=== PATIENT | female | born 1990 | race Caucasian/White ===

== ENCOUNTER 2016-02-09 21:24 | Inpatient (IN) | payer BC, MEDICAID, OTHER ==
[~2016-02-09 21:24] MED LIST: ABIL2TAB2 PO; NO HOME MEDICATIONS
[2016-02-09 21:55] LABS: MEAN CORPUSCULAR HEMOGLOBIN 26.1 pg (27.0-33.0); MEAN CORPUSCULAR HGB CONC 31.4 g/dl (32.0-36.5); MEAN CORPUSCULAR VOLUME 83.1 fl (80.0-96.0); WHITE BLOOD COUNT 5.8 K/mm3 (4.0-10.0)
[2016-02-09 22:06] LABS: AMPHETAMINES LEVEL URINE NEGATIVE (NEGATIVE); BENZODIAZEPINES URINE NEGATIVE (NEGATIVE); COCAINE METABOLITE URINE NEGATIVE (NEGATIVE); CONTROL LINE INT CTR LINE PRESENT; METHADONE URINE NEGATIVE (NEGATIVE); OPIATES URINE NEGATIVE (NEGATIVE); TRICYCLIC ANTIDEPRESS URINE NEGATIVE (NEGATIVE)
[2016-02-09 22:30] LABS: ALBUMIN 4.3 GM/DL (3.2-5.2); ALBUMIN/GLOBULIN RATIO 1.34 (1.00-1.93); ALKALINE PHOSPHATASE 90 U/L (45-117); ALT/SGPT 24 U/L (12-78); ANION GAP 10 MEQ/L (8-16); AST/SGOT 21 U/L (15-37); BILIRUBIN,DIRECT < 0.1 MG/DL (0.0-0.2); BILIRUBIN,TOTAL 0.2 MG/DL (0.2-1.0); BLOOD UREA NITROGEN 7 MG/DL (7-18); CALCIUM LEVEL 8.7 MG/DL (8.5-10.1); CARBON DIOXIDE LEVEL 26 MEQ/L (21-32); CHLORIDE LEVEL 107 MEQ/L (98-107); CREATININE FOR GFR 0.57 MG/DL (0.55-1.02); GLOMERULAR FILTRATION RATE > 60.0 (>60); GLUCOSE, FASTING 93 MG/DL (70-105); POTASSIUM SERUM 3.5 MEQ/L (3.5-5.1); SODIUM LEVEL 143 MEQ/L (136-145); TOTAL PROTEIN 7.5 GM/DL (6.4-8.2)
[2016-02-09] MEDS ORDERED: MOM 30ML SUSPENSION UDC PO PRN (22:45)
[2016-02-09] MEDS ORDERED: traZODone 50 MG TAB PO PRN (22:45)
[2016-02-09] MEDS ORDERED: MAALOX 30 ML SUSP *UDC PO PRN (22:45)
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
--- NOTE | 2016-02-09 23:08 | EDDOCDS ---
Physician Documentation [facility] Name: Renay Kerr Age: 25 yrs Sex: Female : 1990 Arrival Date: 02/09/2016 Time: 21:24 Bed [facility] MD: Disposition: 02/09/16 22:53 Hospitalization ordered by Félix Chavez for Inpatient Admission. Preliminary diagnosis is Schizophrenia. - Bed requested for Admit. - Status is Inpatient Admission. sls1 - Condition is Stable. - Problem is chronic. - Symptoms have worsened. Historical: - Allergies: No known drug Allergies; - Home Meds: 1. none - PMHx: Schizophrenia; - PSHx: none; - Social history: Smoking status: Patient states was never smoker of tobacco. No barriers to communication noted, The patient speaks fluent Syriac, Speaks appropriately for age. - Family history: Not pertinent. - : The pt / caregiver states he / she is not on anticoagulants. Home medication list is obtained from the patient. - Exposure Risk Screening:: None identified. Vital Signs: 02/08 21:33 BP 134 / 71; Pulse 113; Resp 18; Temp 99.1(T); Pulse Ox 99% ; Weight 58.97 kg / 130.01 mas lbs; Height 5 ft. 7 in. (170.18 cm); Pain 6/10; 23:05 BP 136 / 67; Pulse 106; Resp 18; Temp 98.1; Pulse Ox 98% ; Pain 6/10; mas 21:33 Body Mass Index 20.36 (58.97 kg, 170.18 cm) [facility] MDM: 21:29 Consult PFS/PSA/Therapist Rrt ordered. fg 21:29 Consult PFS/PSA/Therapist Rrt: Patient's case requires discussion with on-call fg Psychiatrist ordered. 21:29 PSA/PFS to call Nursing Dog Boarder, to enter patient data on [place] Safe Act if patient fg involuntarily admitted or transferred for SI or HI ordered. 21:29 Confirm accurate psychiatric medication list and times of last dosage ordered. fg 21:29 Detain Pt Until Medically/PFS Cleared ordered. fg 21:30 Acetaminophen Level Ordered. EDMS 21:30 Basic Metabolic Profile Ordered. EDMS 21:30 Complete Blood Count Ordered. EDMS 21:30 Drug Eval Toxicology ED Only Ordered. EDMS 21:30 Ethyl Alcohol (ethanol) Ordered. EDMS 21:30 Liver Profile Ordered. EDMS 21:30 Salicylate Level Ordered. EDMS 21:30 Thyroid Stimulating Hormone Ordered. EDMS 21:44 [facility] Payment Agreement was scanned into [employer] and attached to record. dm19 22:00 Consult PFS/PSA/Therapist Rrt complete. ml4 22:00 Consult PFS/PSA/Therapist Rrt: Patient's case requires discussion with on-call ml4 Psychiatrist complete. 22:00 PSA/PFS to call Nursing Dog Boarder, to enter patient data on [place] Safe Act if patient ml4 involuntarily admitted or transferred for SI or HI complete. 22:05 Financial registration complete. zo 22:49 Admit to IM: ordered. EDMS 22:49 REGULAR DIET ordered. EDMS 22:51 [facility] Legal paperwork was scanned into [employer] and attached to record. ml4 Signatures: Dispatcher [employer] EDMS Kaylee Kulkarni, PSA PSA ml4 Nayeil Christopher zo Shira Hudson RN RN sls1 Preston Wells RN RN Yady Porter MD MD fg McLear, Diane dm19 The chart was reviewed and I authenticate all verbal orders and agree with the evaluation and treatment provided.Attachments: 21:44 [facility] Payment Agreement [email or web address] MTDD
[2016-02-10 02:37] VITALS: BP 129/74
[2016-02-10 06:41] VITALS: BP 138/73
[2016-02-10 18:00] VITALS: BP 118/56
[2016-02-11 06:24] VITALS: BP 129/58
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
[2016-02-11] MEDS ORDERED: diphenhydrAMINE 50 MG CAP PO PRN (16:15)
[2016-02-11] MEDS ORDERED: LORazepam 2 MG TAB PO PRN (16:15)
[2016-02-11] MEDS ORDERED: HALOPERIDOL 5 MG TAB PO PRN (16:15)
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
[2016-02-11 16:25] LABS: CONTROL LINE HCG INT CTR LINE PRESENT
[2016-02-11 18:00] VITALS: BP 123/59
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
--- NOTE | 2016-02-12 00:08 | EDDOCDS ---
Physician Documentation [facility] Name: Renay Kerr Age: 25 yrs Sex: Female : 1990 Arrival Date: 02/09/2016 Time: 21:[address] [facility] MD: Disposition: 02/09/16 22:53 Hospitalization ordered by Félix Chavez for Inpatient Admission. Preliminary diagnosis is Schizophrenia. - Bed requested for Admit. - Status is Inpatient Admission. sls1 - Condition is Stable. - Problem is chronic. - Symptoms have worsened. Historical: - Allergies: No known drug Allergies; - Home Meds: 1. none - PMHx: Schizophrenia; - PSHx: none; - Social history: Smoking status: Patient states was never smoker of tobacco. No barriers to communication noted, The patient speaks fluent Slovak, Speaks appropriately for age. - Family history: Not pertinent. - : The pt / caregiver states he / she is not on anticoagulants. Home medication list is obtained from the patient. - Exposure Risk Screening:: None identified. Vital Signs: 02/08 21:33 BP 134 / 71; Pulse 113; Resp 18; Temp 99.1(T); Pulse Ox 99% ; Weight 58.97 kg / 130.01 mas lbs; Height 5 ft. 7 in. (170.18 cm); Pain 6/10; 23:05 BP 136 / 67; Pulse 106; Resp 18; Temp 98.1; Pulse Ox 98% ; Pain 6/10; mas 21:33 Body Mass Index 20.36 (58.97 kg, 170.18 cm) [facility] MDM: 21:29 Consult PFS/PSA/Lithographed Plate Inspector ordered. fg 21:29 Consult PFS/PSA/Lithographed Plate Inspector: Patient's case requires discussion with on-call fg Psychiatrist ordered. 21:29 PSA/PFS to call Nursing Hunter, to enter patient data on [place] Safe Act if patient fg involuntarily admitted or transferred for SI or HI ordered. 21:29 Confirm accurate psychiatric medication list and times of last dosage ordered. fg 21:29 Detain Pt Until Medically/PFS Cleared ordered. fg 21:30 Acetaminophen Level Ordered. EDMS 21:30 Basic Metabolic Profile Ordered. EDMS 21:30 Complete Blood Count Ordered. EDMS 21:30 Drug Eval Toxicology ED Only Ordered. EDMS 21:30 Ethyl Alcohol (ethanol) Ordered. EDMS 21:30 Liver Profile Ordered. EDMS 21:30 Salicylate Level Ordered. EDMS 21:30 Thyroid Stimulating Hormone Ordered. EDMS 21:44 [facility] Payment Agreement was scanned into [employer] and attached to record. dm19 22:00 Consult PFS/PSA/Lithographed Plate Inspector complete. ml4 22:00 Consult PFS/PSA/Lithographed Plate Inspector: Patient's case requires discussion with on-call ml4 Psychiatrist complete. 22:00 PSA/PFS to call Nursing Hunter, to enter patient data on [place] Safe Act if patient ml4 involuntarily admitted or transferred for SI or HI complete. 22:05 Financial registration complete. zo 22:49 Admit to IM: ordered. EDMS 22:49 REGULAR DIET ordered. EDMS 22:51 [facility] Legal paperwork was scanned into [employer] and attached to record. ml4 02/09 05:20 T-Sheet-- Draft Copy was scanned into [employer] and attached to record. hs2 Signatures: Dispatcher [employer] EDMS Kaylee Kulkarni, PSA PSA ml4 Nayeli Christopher Shannon, RN RN sls1 Preston Wells,RN RN Yady Potrer MD MD fg Stanton, Hillary, Reg Reg hs2 Kaia Barraza dm19 The chart was reviewed and I authenticate all verbal orders and agree with the evaluation and treatment provided.Attachments: 02/08 21:44 [facility] Payment Agreement dm19 02/09 05:20 T-Sheet-- Draft Copy hs2 Chart Complete MTDD
--- NOTE | 2016-02-12 00:08 | EDDOCDS ---
Physician Documentation [facility] Name: Renay Kerr Age: 25 yrs Sex: Female : 1990 Arrival Date: 02/09/2016 Time: 21:24 Bed [facility] MD: Disposition: 02/09/16 22:53 Hospitalization ordered by Félix Chavez for Inpatient Admission. Preliminary diagnosis is Schizophrenia. - Bed requested for Admit. - Status is Inpatient Admission. sls1 - Condition is Stable. - Problem is chronic. - Symptoms have worsened. Historical: - Allergies: No known drug Allergies; - Home Meds: 1. none - PMHx: Schizophrenia; - PSHx: none; - Social history: Smoking status: Patient states was never smoker of tobacco. No barriers to communication noted, The patient speaks fluent Turkmen, Speaks appropriately for age. - Family history: Not pertinent. - : The pt / caregiver states he / she is not on anticoagulants. Home medication list is obtained from the patient. - Exposure Risk Screening:: None identified. Vital Signs: 02/08 21:33 BP 134 / 71; Pulse 113; Resp 18; Temp 99.1(T); Pulse Ox 99% ; Weight 58.97 kg / 130.01 mas lbs; Height 5 ft. 7 in. (170.18 cm); Pain 6/10; 23:05 BP 136 / 67; Pulse 106; Resp 18; Temp 98.1; Pulse Ox 98% ; Pain 6/10; mas 21:33 Body Mass Index 20.36 (58.97 kg, 170.18 cm) [facility] MDM: 21:29 Consult PFS/PSA/Master Esthetician ordered. fg 21:29 Consult PFS/PSA/Master Esthetician: Patient's case requires discussion with on-call fg Psychiatrist ordered. 21:29 PSA/PFS to call Nursing Allocations Clerk, to enter patient data on [place] Safe [place] if patient fg involuntarily admitted or transferred for SI or HI ordered. 21:29 Confirm accurate psychiatric medication list and times of last dosage ordered. fg 21:29 Detain Pt Until Medically/PFS Cleared ordered. fg 21:30 Acetaminophen Level Ordered. EDMS 21:30 Basic Metabolic Profile Ordered. EDMS 21:30 Complete Blood Count Ordered. EDMS 21:30 Drug Eval Toxicology ED Only Ordered. EDMS 21:30 Ethyl Alcohol (ethanol) Ordered. EDMS 21:30 Liver Profile Ordered. EDMS 21:30 Salicylate Level Ordered. EDMS 21:30 Thyroid Stimulating Hormone Ordered. EDMS 21:44 [facility] Payment Agreement was scanned into [employer] and attached to record. [id number] 22:00 Consult PFS/PSA/Master Esthetician complete. ml4 22:00 Consult PFS/PSA/Master Esthetician: Patient's case requires discussion with on-call ml4 Psychiatrist complete. 22:00 PSA/PFS to call Nursing Allocations Clerk, to enter patient data [place] Safe [place] if patient ml4 involuntarily admitted or transferred for SI or HI complete. 22:05 Financial registration complete. zo 22:49 Admit to IM: ordered. EDMS 22:49 REGULAR DIET ordered. EDMS 22:51 [facility] Legal paperwork was scanned into [employer] and attached to record. ml4 02/09 05:20 T-Sheet-- Draft Copy was scanned into [employer] and attached to record. hs2 Signatures: Dispatcher [employer] EDMS Kaylee Kulkarni, PSA PSA ml4 Nayeli Christopher Shannon, RN RN sls1 Preston Wells,RN RN Yady Porter MD MD fg Stanton, Hillary, Reg Reg hs2 Kaia Barraza [id number] The chart was reviewed and I authenticate all verbal orders and agree with the evaluation and treatment provided.Attachments: 02/08 21:44 [facility] Payment Agreement [id number] 02/09 05:20 T-Sheet-- Draft Copy hs2 Chart Complete MTDD
[2016-02-12] MEDS: **PENDING PPD ENTRY XX SCH (09:00)
[2016-02-12] MEDS ORDERED: TUBERCULIN PPD 5 UNITS/0.1 ML ID ONE (10:15)
[2016-02-12] MEDS ORDERED: LORazepam 2 MG/ML VIAL (J2060) As Ordered ONE (10:27)
[2016-02-12] MEDS ORDERED: HALOPERIDOL 5 MG/ML VIAL (J1630) As Ordered ONE (10:28)
[2016-02-12] MEDS ORDERED: diphenhydrAMINE INJ 50MG/ML VIAL (J1200) As Ordered ONE (10:28)
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
[2016-02-12] MEDS ORDERED: diphenhydrAMINE INJ 50MG/ML VIAL (J1200) IM STA (10:39)
[2016-02-12] MEDS ORDERED: LORazepam 2 MG/ML VIAL (J2060) IM STA (10:39)
[2016-02-12] MEDS ORDERED: HALOPERIDOL 5 MG/ML VIAL (J1630) IM STA ×2 (10:39→10:58)
[2016-02-12] MEDS: ARIPiprazole 10 MG TAB PO SCH ×2 (12:00→21:59)
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
[2016-02-12 18:27] VITALS: BP 118/77
--- NOTE | 2016-02-12 20:59 | HPE ---
DATE OF ADMISSION: 02/09/2016 PRIMARY CARE PROVIDER: [facility]. HISTORY OF PRESENT ILLNESS: Please refer to psychiatric history and evaluation for further details on this admission. This examination and history is intended for medical issues, which may need treatment, followup or consult on this 23-year-old female. SOCIAL HISTORY: The patient is from [place]. She is single. She does not smoke cigarettes. She does not drink alcohol. She denies using any illicit drugs. Urine was positive for cannabinoids. FAMILY HISTORY: Noncontributory. DRUG ALLERGIES: Per patient, "mental meds cause a rash." HOME MEDICATIONS: None. LABORATORY DATA: Hemoglobin 10.8, hematocrit 34.3, MCV 83.1. CMP normal. Urine for cannabinoids. REVIEW OF SYSTEMS: 10-systems review of systems was done. The patient had no complaint. PHYSICAL EXAMINATION: Limited as she intermittently responded to questions. Sometimes she would just sit, and then she said she felt fine and did not need an exam. She did let me listen to her heart and lungs, and per the record, the patient is alert. Cooperative female in no acute distress. Weight 61.4 kg. GENERAL: The patient is alert and oriented times three. HEENT: Pupils equal and react to light. Extraocular muscles intact. Sclerae clear. Conjunctivae normal. No facial asymmetry. Pharynx, tongue and gums pink and moist. Tongue is midline. NECK: Supple without lymphadenopathy. No thyromegaly. No goiter. CHEST: Clear to auscultation without wheezes or retractions. HEART: Regular. ABDOMEN: Benign. Bowel sounds positive. GENITOURINARY/RECTAL: Not done. EXTREMITIES: Good strength. Full range of motion. No cyanosis, clubbing or edema. Peripheral pulses equal and palpable bilaterally. SKIN: Warm and dry. IMPRESSION AND PLAN: 1. Psychiatric plan per psychiatry. 2. History of hyponatremia. Sodium normal at 143. 3. Hypothyroidism. EKG on file. No acute medical issues. edited: 02/15/2016 1512 tkf HELEN
[2016-02-13] MEDS: **PENDING PPD ENTRY XX SCH (08:50)
[2016-02-13] MEDS: ARIPiprazole 10 MG TAB PO SCH ×2 (11:35→19:29)
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
--- NOTE | 2016-02-13 17:35 | ECGEPIP ---
Stationary ECG Study [facility] Test Date: 2016-02-13 Pat Name: RADHA KRISHNA Department: Room: [place] [address] Gender: F [employer]visor [employer]: JULIO : 1990 Requested By: Umm Ohara Order Number: [id number] Reading MD: Merced Holliday Measurements Intervals [place] Rate: 99 P: 65 IA: 125 QRS: 67 QRSD: 93 T: 22 QT: 333 QTc: 429 Interpretive Statements SINUS RHYTHM WITH SINUS ARRHYTHMIA NONSPECIFIC ST-WAVE ABNORMALITY DIFFICULT TO COMPARE TO PRIOR WITH ARTIFACT RATE SLOWER C/W 03/15/14 PROBABLE MILD EARLY REPOLAR CHANGERS Electronically Signed On 02-13-2016 17:35:06 EST by Merced Holliday
[2016-02-14] MEDS: **PENDING PPD ENTRY XX SCH (08:56)
[2016-02-14] MEDS: ARIPiprazole 10 MG TAB PO SCH ×2 (11:52→20:44)
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
[2016-02-14 18:00] VITALS: BP 152/79
[2016-02-15] MEDS: **PENDING PPD ENTRY XX SCH (09:00)
[2016-02-15] MEDS: ARIPiprazole 10 MG TAB PO SCH ×2 (11:59→20:14)
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
[2016-02-15 18:00] VITALS: BP 130/70
[2016-02-16] MEDS: **PENDING PPD ENTRY XX SCH (08:27)
[2016-02-16] MEDS: ARIPiprazole 10 MG TAB PO SCH ×2 (11:14→20:58)
[2016-02-16] MEDS: ACETAMINOPHEN TAB 650MG DOSE (2X325MG) PO PRN (15:54)
[2016-02-17] MEDS: ACETAMINOPHEN TAB 650MG DOSE (2X325MG) PO PRN (03:35)
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
[2016-02-17] MEDS: **PENDING PPD ENTRY XX SCH (08:18)
[2016-02-17] MEDS: ARIPiprazole 10 MG TAB PO SCH ×2 (11:27→20:51)
[2016-02-17 18:00] VITALS: BP 124/59
[2016-02-18] MEDS: **PENDING PPD ENTRY XX SCH (08:42)
[2016-02-18] MEDS: ARIPiprazole 10 MG TAB PO SCH ×2 (11:39→21:54)
[2016-02-18] MEDS: ACETAMINOPHEN TAB 650MG DOSE (2X325MG) PO PRN (16:42)
[2016-02-18 18:00] VITALS: BP 122/70
[2016-02-19] MEDS: **PENDING PPD ENTRY XX SCH (09:00)
[2016-02-19] MEDS: ARIPiprazole 10 MG TAB PO SCH (12:14)
[2016-02-19] MEDS: ACETAMINOPHEN TAB 650MG DOSE (2X325MG) PO PRN ×2 (14:54→20:55)
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
[2016-02-19 18:00] VITALS: BP 114/64
[2016-02-20 06:00] VITALS: BP 108/56
[2016-02-20] MEDS: **PENDING PPD ENTRY XX SCH (09:00)
[2016-02-20] MEDS: ACETAMINOPHEN TAB 650MG DOSE (2X325MG) PO PRN (09:31)
[2016-02-20] MEDS: ARIPiprazole 10 MG TAB PO SCH (11:52)
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
--- NOTE | 2016-02-20 16:10 | IPNPDOC ---
[facility] Progress Note Progress Note DATE: 02/20/16 HISTORY: This clinical writer and Parul, conference assistant community representative, approached patient in front of nurse's station to inquire as to her willingness to meet with this clinical writer, Parul, and Dr. Francois. Patient was observed to be visible in the hallway and had been attending group. When patient was asked if she would be willing to meet with providers to evaluate treatment progress patient responded with, "No, I don't have a bra on and I'm not going to meet with the doctor; I'm being harassed." Efforts were made to assist patient to make her feel more comfortable about meeting with providers, and patient was offered opportunity to retrieve undergarment/clothing, which she declined. Patient refused to interact further with Parul or jerome clinical writer other than to accuse providers of harassing her. Per record, patient has been visible and has attended some groups where she has been disruptive and at times disrespectful to staff. Also per record, patient continues to be demanding, accuse staff of being rapists and sexually harassing her, and recording her. Patient remains paranoid and, per record, has been displaying bizarre behavior. Patient presents with no signs of acute distress, medication side effects, or physical pain, and she exhibits no indication of feeling unsafe on the unit. VITAL SIGNS: See below NEW TEST RESULTS: No new results. Recent UA results negative, colorless, clear urine, low specific gravity. BMP ordered in effort to evaluate hydration status. Patient placed on I and O's last evening and PA was asked to evaluate. Recent EKG results SINUS RHYTHM WITH SINUS ARRHYTHMIA NONSPECIFIC ST-WAVE ABNORMALITY, DIFFICULT TO COMPARE TO PRIOR WITH ARTIFACT, RATE SLOWER C/W . PROBABLE MILD EARLY REPOLAR CHANGERS. Per PA, patient to follow up with PCM post discharge. Patient is asymptomatic. Labs completed on admission: low Hgb, HCT, MCH, MCHC, and elevated RDW. PA to evaluate when patient permits, patient continues to refuse follow up lab work. HCT negative on admission. CURRENT MEDICATIONS: See below MENTAL STATUS EXAMINATION: Patient is a 25 year old female who presents with fair personal hygiene dressed in hospital clothing. Patient remains demanding and uncooperative during interaction. Speech: Pressured, tangential, loud volume Thought processes: Illogical at times, disorganized, may be responding to internal stimuli, not goal directed Thought content: Irrational and illogical at times, paranoid, tangential, may be responding to internal stimuli Associations: Tangential, loose Abnormal or psychotic thoughts: Appears preoccupied, remains delusional and paranoid, may be hallucinating, unable to evaluate if patient is experiencing homicidal or suicidal ideation but displays no behavior indicative of suicidal or homicidal thinking, displays no physical aggression Judgment: Poor Insight: Poor Oriented to: Person and place, unable to evaluate if orientated to time Recent and Remote Memory: Limited Attention Span and Concentration: Poor Fund of knowledge: Poor Mood: Irritable, anxious about discharge Affect: Flat, anxious ASSESSMENT: Patient was not willing to meet with clinical writer or other providers today , remains fixated on discharge, has been visible on unit and has been attending groups, but has been disruptive in groups. Patient continues to take medication as ordered with no report or observation of side effects and no sleep challenges noted in chart. Patient's I and O continue to be monitored by nursing due to her previous report of having symptoms of a UTI. Patient continues to present as asymptomatic with no indication of abdominal discomfort , and continues to refuse follow-up labs. Patient remains intermittently argumentative and demanding, illogical and tangential at times, and remains paranoid with delusional thinking. Patient also remains conversationally manipulative, continues to change subject, make staff accusations, and demand to be discharged from Hospital when providers attempt to meet with her, redirect , or provide feedback pertaining to treatment or discharge planning. Patient's sleep remains interrupted and she remains disinterested sleep aid, she is eating , and is making regular requests to use bathroom to avoid. Patient continues to exhibit early signs of responding positively to psychotropic medication, but her current symptoms and inability to effectively engage in the safety planning process continue to make her a safety risk to herself or others. Patient remains in need of ongoing inpatient evaluation, psychotropic medication to address symptoms of psychosis, and monitoring to ensure safety and positive response to medication. Patient took first increased dose of Abilify last evening. Will continue to evaluate patient's response to Abilify and titrate as tolerated by patient. Will also monitor for medication side effects, continue to encourage medication compliance, and will evaluate feasibility of future switch to Abilify Maintena. DIAGNOSES: Schizophrenia, paranoid type MANAGEMENT PLAN: Continue Abilify to 10 mg po a noon and 15 mg po q hs. Evaluate transition to Abilify [facility] Continue to encourage patient to be medication compliant I and O to continue to be monitored by nursing Maintain safety precautions Continue to encourage patient to attend groups and participate in unit programming to develop coping strategies Continue to attempt to include patient in discharge planning process and continue to collect background collateral treatment information as needed for discharge planning, involve family and shoe parts caser if willing When patient is able, engage in discharge planning process to ensure safe and effective discharge, encourage patient to consider long-term care Patient to follow up with PCM upon discharge Vital Signs Vital Sign - Last 24 Hours 02/19/16 02/20/16 18:00 06:00 Temp 96.4 96.9 Pulse 92 110 Resp 18 16 B/P 114/64 108/56 Current Medications Current Medications Acetaminophen (Tylenol) 650 mg Q6HP PRN PO HEADACHE or DISCOMFORT Last administered on 02/20/16at 09:31; Start 02/09/16 at 22:45; Stop 03/10/16 at 22: 44 Al Hydrox/Mg Hydrox/Simethicone (Mylanta) 30 ml Q4HP PRN PO HEARTBURN/ INDIGESTION; Start 02/09/16 at 22:45; Stop 03/10/16 at 22:44 Aripiprazole (AbiLIFY) 5 mg DAILY@12 PO Last administered on 02/11/16at 09:47; Start 02/10/16 at 12:00; Stop 02/12/16 at 09:57; Status DC Aripiprazole (AbiLIFY) 5 mg QHS PO Last administered on 02/11/16at 22:01; Start 02/09/16 at 21:00; Stop 02/12/16 at 09:57; Status DC Aripiprazole (AbiLIFY) 10 mg DAILY@12 PO Last administered on 02/20/16at 11:52 ; Start 02/12/16 at 12:00; Stop 03/13/16 at 11:59 Aripiprazole (AbiLIFY) 10 mg QHS PO Last administered on 02/18/16at 21:54; Start 02/12/16 at 21:00; Stop 02/19/16 at 16:42; Status DC Aripiprazole (AbiLIFY) 15 mg QHS PO Last administered on 02/19/16at 20:56; Start 02/19/16 at 21:00; Stop 03/20/16 at 20:59 Diphenhydramine HCl (Benadryl) 50 mg Q6HP PRN PO AGITATION; Start 02/11/16 at 16:15; Stop 03/12/16 at 16:14 Diphenhydramine HCl (Benadryl) 50 mg STAT STAT IM Last administered on at 10:54; Start 02/12/16 at 10:39; Stop 02/12/16 at 10:43; Status DC Diphenhydramine HCl (Benadryl) 50 mg STK-MED ONCE As Ordered ; Start 02/12/16 at 10:28; Stop 02/12/16 at 10:29; Status DC Haloperidol (Haldol) 5 mg Q6HP PRN PO AGITATION; Start 02/11/16 at 16:15; Stop 03/12/16 at 16:14 Haloperidol (Haldol) 5 mg STAT STAT IM Last administered on 02/12/16at 11:01; Start 02/12/16 at 10:58; Stop 02/12/16 at 10:59; Status DC Haloperidol (Haldol) 5 mg STK-MED ONCE As Ordered ; Start 02/12/16 at 10:28; Stop 02/12/16 at 10:29; Status DC Haloperidol (Haldol) 10 mg STAT STAT IM ; Start 02/12/16 at 10:39; Stop 02/11 at 10:43; Status DC Home Med (Med Rec Complete!) ASDIRECTED XX ; Start 02/09/16 at 23:15; Stop at 23:28; Status DC Lorazepam (Ativan) 2 mg Q6HP PRN PO ANXIETY/AGITATION; Start 02/11/16 at 16:15 ; Stop 02/24/16 at 16:14 Lorazepam (Ativan) 2 mg STAT STAT IM Last administered on 02/12/16at 10:54; Start 02/12/16 at 10:39; Stop 02/12/16 at 10:43; Status DC Lorazepam (Ativan) 2 mg STK-MED ONCE As Ordered ; Start 02/12/16 at 10:27; Stop 02/12/16 at 10:28; Status DC Magnesium Hydroxide (Milk Of Magnesia) 30 ml DAILYPRN PRN PO CONSTIPATION; Start 02/09/16 at 22:45; Stop 03/10/16 at 22:44 Non-Formulary Medication ( See Comment Field Below ) SEE LABEL COMMENTS DAILY XX ; Start 02/12/16 at 09:00; Stop 03/13/16 at 08:59 Trazodone HCl (Desyrel) 50 mg QHSP PRN PO INSOMNIA; Start 02/09/16 at 22:45; Stop 03/10/16 at 22:44 Tuberculin PPD (Aplisol, Ppd) 5 units NOW ONCE ID ; Start 02/12/16 at 10:15; Stop 02/12/16 at 10:50; Status DC Allergies Coded Allergies: No Known Drug Allergy (Unverified Allergy, Unknown, 05/24/12) Angela Mora Feb 20, 2016 16:10
[2016-02-20] MEDS ORDERED: diphenhydrAMINE INJ 50MG/ML VIAL (J1200) IM STA (17:06)
[2016-02-20] MEDS ORDERED: HALOPERIDOL 5 MG/ML VIAL (J1630) IM STA (17:06)
[2016-02-20] MEDS ORDERED: LORazepam 2 MG/ML VIAL (J2060) IM STA (17:06)
[2016-02-20 18:00] VITALS: BP 125/72
--- NOTE | 2016-02-20 18:33 | IPN ---
DATE: 02/20/2016 SUBJECTIVE: Renay is a 25-year-old woman with schizophrenia admitted on 02/09/2016, due to worsening psychosis and mood disturbances. She currently is on Abilify but has been poorly compliant with treatment. The patient was noted to be increasingly intrusive, hostile, disorganized, and quite threatening. She continued to escalate despite staff enforced to redirect her. Due to posing substantial risk to others, she was medicated emergently with intramuscular injections of haloperidol 5 mg, lorazepam 2 mg, diphenhydramine 50 mg, and subsequently was placed in four-point restraints. She responded well to the interventions, becoming calmer and no longer aggressive or disruptive. There were no medication-related adverse events and no injury related to restraints. Her vital signs were stable. PLAN: Ongoing assessment and supportive therapy. The patient is currently stable and no longer engaging in any destructive behavior. [facility]
[2016-02-21] MEDS: **PENDING PPD ENTRY XX SCH (08:56)
[2016-02-21] MEDS: ARIPiprazole 10 MG TAB PO SCH (11:28)
[2016-02-21] MEDS: ACETAMINOPHEN TAB 650MG DOSE (2X325MG) PO PRN (15:46)
[2016-02-21 18:00] VITALS: BP 127/59
--- NOTE | 2016-02-21 19:37 | IPNPDOC ---
[facility] Progress Note Progress Note DATE: 02/21/16 HISTORY: This ad copy writer met with patient with assistant controller community organization worker, Parul, martín. Patient insisted on meeting in hallway, was again advised of possible risks to her privacy, to which patient responded by saying she does not care and wanted to meet in hallway. Patient mechanically denied suicidal and homicidal ideation, anxiety and depression, and audiovisual hallucinations. Photographic Engineer attempted to process yesterday's code with patient who declined to discuss events leading up to code. Photographic Engineer also attempted to discuss dosing changes to medication and medication compliance. Patient initially refused to take the medication, then indicated she will continue to take the medication as currently prescribed, added she will not take medication if any changes are made adding she does not feel she needs the medication. Patient made reference to "people in [place]" and feeling she is being watched. Patient asked ad copy writer when she would be discharged and when informed that no discharge date has been set and the treatment team continues to evaluate discharge readiness, patient stated to ad copy writer, "Well, everyone here is sexually harassing me and torturing me and I'm going to report you so I want talk to you anymore." Patient at this point informed ad copy writer she needed to use the restroom and did not wish to meet any longer. Arrangements were made for 2 staff members to assist patient to the restroom. Patient is now on one-to-one to monitor safety and medication compliance. Per record, patient has been visible and has not attended groups this morning, she remains demanding and disrespectful to staff, continues to accuse staff of being "rapists" and recording her. Patient remains paranoid and continues to display bizarre behavior. Patient presents with no signs of acute distress, medication side effects, or physical pain, and she exhibits no indication of feeling unsafe on the unit. VITAL SIGNS: See below NEW TEST RESULTS: No new results. Recent UA results negative, colorless, clear urine, low specific gravity. BMP ordered in effort to evaluate hydration status. Patient placed on I and O's last evening and PA was asked to evaluate. Recent EKG results SINUS RHYTHM WITH SINUS ARRHYTHMIA NONSPECIFIC ST-WAVE ABNORMALITY, DIFFICULT TO COMPARE TO PRIOR WITH ARTIFACT, RATE SLOWER C/W . PROBABLE MILD EARLY REPOLAR CHANGERS. Per PA, patient to follow up with PCM post discharge. Patient is asymptomatic. Labs completed on admission: low Hgb, HCT, MCH, MCHC, and elevated RDW. PA to evaluate when patient permits, patient continues to refuse follow up lab work. HCT negative on admission. CURRENT MEDICATIONS: See below MENTAL STATUS EXAMINATION: Patient is a 25 year old female who presents with fair personal hygiene dressed in hospital clothing. Patient remains demanding, evasive and uncooperative during interaction. Speech: Pressured, tangential, loud volume at times Thought processes: Illogical at times, disorganized, may be responding to internal stimuli, not goal directed Thought content: Irrational and illogical at times, paranoid, tangential, may be responding to internal stimuli Associations: Tangential, loose Abnormal or psychotic thoughts: Appears preoccupied, remains delusional and paranoid, may be hallucinating, unable to evaluate if patient is experiencing homicidal or suicidal ideation but displays no behavior indicative of suicidal or homicidal thinking, displays no physical aggression Judgment: Poor Insight: Poor Oriented to: Person and place, unable to evaluate if orientated to time Recent and Remote Memory: Limited Attention Span and Concentration: Poor Fund of knowledge: Poor Mood: Irritable, anxious about discharge Affect: Flat, anxious ASSESSMENT: Patient was not willing to meet with ad copy writer today, remains fixated on discharge, has been less visible on unit since code yesterday afternoon. Patient continues to take medication as ordered with no report or observation of side effects. Patient's I and O continue to be monitored by nursing due to her previous report of having symptoms of a UTI. Patient continues to present as asymptomatic with no indication of abdominal discomfort, and continues to refuse follow-up labs. Patient remains argumentative and demanding, illogical and tangential, and remains paranoid with delusional thinking. Patient continues to make staff accusations and demand to be discharged from Hospital when providers attempt to meet with her, redirect, or provide feedback pertaining to treatment or discharge planning. Per record, patient slept well last night and she is eating and making regular requests to use the bathroom to void. Until recently, patient had been exhibiting signs of responding positively to psychotropic medication, ad copy writer suspects recent reduction in compliance, will continue one-to-one temporarily to monitor patient's safety and medication compliance. Patient's current emotional status renders her unable to effectively engage in the safety planning process and continues to make her a safety risk to herself and others. Patient is presently refusing any changes to medications but verbalizes agreement to continue to take Abilify as currently ordered. Patient remains acutely psychotic and is in need of ongoing inpatient evaluation and treatment to ensure safety. Will continue to evaluate patient's response to Abilify and titrate as tolerated and by patient. Will also monitor for medication side effects, continue to encourage medication compliance, and will evaluate feasibility of future switch to Abilify Maintena. DIAGNOSES: Schizophrenia, paranoid type MANAGEMENT PLAN: Continue Abilify to 10 mg po a noon and 15 mg po q hs. Evaluate transition to Abilify Maintena Continue one-to-one to ensure safety and medication compliance Continue to encourage patient to be medication compliant I and O to continue to be monitored by nursing Maintain safety precautions Continue to encourage patient to attend groups and participate in unit programming to develop coping strategies Continue to attempt to include patient in discharge planning process and continue to collect background collateral treatment information as needed for discharge planning, involve family and gearcase assembler if willing When patient is able, engage in discharge planning process to ensure safe and effective discharge, encourage patient to consider long-term care Patient to follow up with PCM upon discharge Current Medications Current Medications Acetaminophen (Tylenol) 650 mg Q6HP PRN PO HEADACHE or DISCOMFORT Last administered on 02/21/16at 15:46; Start 02/09/16 at 22:45; Stop 03/10/16 at 22: 44 Al Hydrox/Mg Hydrox/Simethicone (Mylanta) 30 ml Q4HP PRN PO HEARTBURN/ INDIGESTION; Start 02/09/16 at 22:45; Stop 03/10/16 at 22:44 Aripiprazole (AbiLIFY) 5 mg DAILY@12 PO Last administered on 02/11/16at 09:47; Start 02/10/16 at 12:00; Stop 02/12/16 at 09:57; Status DC Aripiprazole (AbiLIFY) 5 mg QHS PO Last administered on 02/11/16at 22:01; Start 02/09/16 at 21:00; Stop 02/12/16 at 09:57; Status DC Aripiprazole (AbiLIFY) 10 mg DAILY@12 PO Last administered on 02/21/16at 11:28 ; Start 02/12/16 at 12:00; Stop 03/13/16 at 11:59 Aripiprazole (AbiLIFY) 10 mg QHS PO Last administered on 02/18/16at 21:54; Start 02/12/16 at 21:00; Stop 02/19/16 at 16:42; Status DC Aripiprazole (AbiLIFY) 15 mg QHS PO Last administered on 02/19/16at 20:56; Start 02/19/16 at 21:00; Stop 03/20/16 at 20:59 Diphenhydramine HCl (Benadryl) 50 mg Q6HP PRN PO AGITATION; Start 02/11/16 at 16:15; Stop 03/12/16 at 16:14 Diphenhydramine HCl (Benadryl) 50 mg STAT STAT IM Last administered on at 10:54; Start 02/12/16 at 10:39; Stop 02/12/16 at 10:43; Status DC Diphenhydramine HCl (Benadryl) 50 mg STAT STAT IM Last administered on at 17:11; Start 02/20/16 at 17:06; Stop 02/20/16 at 17:08; Status DC Diphenhydramine HCl (Benadryl) 50 mg STK-MED ONCE As Ordered ; Start 02/12/16 at 10:28; Stop 02/12/16 at 10:29; Status DC Haloperidol (Haldol) 5 mg Q6HP PRN PO AGITATION; Start 02/11/16 at 16:15; Stop 03/12/16 at 16:14 Haloperidol (Haldol) 5 mg STAT STAT IM Last administered on 02/12/16at 11:01; Start 02/12/16 at 10:58; Stop 02/12/16 at 10:59; Status DC Haloperidol (Haldol) 5 mg STAT STAT IM Last administered on 02/20/16at 17:10; Start 02/20/16 at 17:06; Stop 02/20/16 at 17:08; Status DC Haloperidol (Haldol) 5 mg STK-MED ONCE As Ordered ; Start 02/12/16 at 10:28; Stop 02/12/16 at 10:29; Status DC Haloperidol (Haldol) 10 mg STAT STAT IM ; Start 02/12/16 at 10:39; Stop 02/11 at 10:43; Status DC Home Med (Med Rec Complete!) ASDIRECTED XX ; Start 02/09/16 at 23:15; Stop at 23:28; Status DC Lorazepam (Ativan) 2 mg Q6HP PRN PO ANXIETY/AGITATION; Start 02/11/16 at 16:15 ; Stop 02/24/16 at 16:14 Lorazepam (Ativan) 2 mg STAT STAT IM Last administered on 02/12/16at 10:54; Start 02/12/16 at 10:39; Stop 02/12/16 at 10:43; Status DC Lorazepam (Ativan) 2 mg STAT STAT IM Last administered on 02/20/16at 17:10; Start 02/20/16 at 17:06; Stop 02/20/16 at 17:08; Status DC Lorazepam (Ativan) 2 mg STK-MED ONCE As Ordered ; Start 02/12/16 at 10:27; Stop 02/12/16 at 10:28; Status DC Magnesium Hydroxide (Milk Of Magnesia) 30 ml DAILYPRN PRN PO CONSTIPATION; Start 02/09/16 at 22:45; Stop 03/10/16 at 22:44 Non-Formulary Medication ( See Comment Field Below ) SEE LABEL COMMENTS DAILY XX ; Start 02/12/16 at 09:00; Stop 03/13/16 at 08:59 Trazodone HCl (Desyrel) 50 mg QHSP PRN PO INSOMNIA; Start 02/09/16 at 22:45; Stop 03/10/16 at 22:44 Tuberculin PPD (Aplisol, Ppd) 5 units NOW ONCE ID ; Start 02/12/16 at 10:15; Stop 02/12/16 at 10:50; Status DC Allergies Coded Allergies: No Known Drug Allergy (Unverified Allergy, Unknown, 05/24/12) Angela Mora Feb 21, 2016 19:37
[2016-02-22 06:00] VITALS: BP 129/63
[2016-02-22] MEDS: **PENDING PPD ENTRY XX SCH (09:00)
[2016-02-22] MEDS: ARIPiprazole 10 MG TAB PO SCH (12:01)
--- NOTE | 2016-02-22 12:42 | IPNPDOC ---
[facility] Progress Note Progress Note DATE: 02/22/16 HISTORY: Patient was observed from outside of doorway to room to be resting in bed and remains on one-to-one with MARCUS Willingham. When sba underwriter knocked on door patient readily got up out of bed and walked to doorway. In the presence of MARCUS Willingham this sba underwriter asked patient if she would be willing to meet to discuss treatment progress on unit. Patient initially agreed to meet, demanding to meet in sba underwriter's office and demanding to know if she would be discharged. Patient then changed her mind and stated she wanted to meet in the hallway in front of her room, was reminded of this sba underwriter's inability to protect her privacy in the hallway setting. Patient indicated she was not concerned about her privacy and stated, "I don't trust you, you haven't called my sister back and she's tried to call you many times to get me discharged. She's left many messages and I've asked you to call her and you're violating my rights. I've filed many complaints with the hospital about this." Language Arts Teacher attempted to explain that no messages from patient's sister had been received, patient was dismissive of sba underwriter's response and changed the subject demanding to be discharged. Language Arts Teacher attempted to evaluate presence of symptoms of anxiety, depression, audiovisual hallucinations or suicidal or homicidal thinking. Patient responded by stating, "you don't even know that there is a plane missing in [place], do you?." When sba underwriter attempted to assess for physical pain, appetite challenges, and medication side effects, patient pointed toward her room and stated, "the [facility] has been awake for a week in a row and I want you to make sure you put that in your notes." Patient then declined to discuss medication with sba underwriter and informed sba underwriter that she was no longer willing to meet. Patient remains on one-to-one to monitor comfort, safety and medication compliance. Per record, patient has been more visible, has attended some groups, remains demanding and continues to accuse staff of interacting inappropriately with her , and she remains paranoid and continues to display bizarre behavior. Patient presents with no signs of acute distress, no medication side effects or physical pain, and she exhibits no indication of feeling unsafe on the unit. ADDENDUM: Due to patient's insistence that her sister has made multiple efforts to contact sba underwriter, sba underwriter called and spoke to patient's sister Jonathan this morning at 11:45. Patient's sister Jonathan indicated that she is currently clearing out patients apartment due to patient being evicted. Patient's sister stated that she has made no attempts to contact this sba underwriter adding, "she's just trying to leave the hospital but she is not safe and she is telling me all these things that she wants me to tell you so that you will let her go." Patient 's sister added that patient is "very ill and she needs long-term care, we think she needs to go to [place]." Patient's sister was provided with unit contact information should she decide in the future she would like to communicate with this sba underwriter and patient's sister verbalized that she has been in contact with patient's coordinator cardiopulmonary services and knows how to reach the coordinator cardiopulmonary services if needed as well. VITAL SIGNS: See below NEW TEST RESULTS: No new results. Recent UA results negative, colorless, clear urine, low specific gravity. BMP ordered in effort to evaluate hydration status. Patient placed on I and O's last evening and PA was asked to evaluate. Recent EKG results SINUS RHYTHM WITH SINUS ARRHYTHMIA NONSPECIFIC ST-WAVE ABNORMALITY, DIFFICULT TO COMPARE TO PRIOR WITH ARTIFACT, RATE SLOWER C/W . PROBABLE MILD EARLY REPOLAR CHANGERS. Per PA, patient to follow up with PCM post discharge. Patient is asymptomatic. Labs completed on admission: low Hgb, HCT, MCH, MCHC, and elevated RDW. PA to evaluate when patient permits, patient continues to refuse follow up lab work. HCT negative on admission. CURRENT MEDICATIONS: See below MENTAL STATUS EXAMINATION: Patient is a 25 year old female who presents as disheveled with fair personal hygiene dressed in hospital clothing. Patient remains demanding and unable to engage for today's assessment. Speech: Pressured, tangential, loud volume at times Thought processes: Illogical at times, disorganized, appears to be responding to internal stimuli, not goal directed Thought content: Irrational and illogical, paranoid, tangential, appears to be responding to internal stimuli Associations: Tangential, loose Abnormal or psychotic thoughts: Appears preoccupied, remains delusional and paranoid, hallucinating, unable to evaluate if patient is experiencing homicidal or suicidal ideation but patient denies and displays no behavior indicative of suicidal or homicidal thinking, displays no physical aggression Judgment: Poor Insight: Poor Oriented to: Person and place, unable to evaluate if orientated to time Recent and Remote Memory: Limited Attention Span and Concentration: Poor Fund of knowledge: Poor Mood: Irritable, anxious about discharge Affect: Flat, anxious ASSESSMENT: Patient was not willing to meet with sba underwriter today, remains fixated on discharge, has been somewhat more visible on unit, has been attending some groups. Patient states she continues to take medication as ordered with no report or observation of side effects, continues to indicate she does not feel she needs the medication, adds she will not be compliant if any changes that are made to her medications. Patient's I and O continue to be monitored by nursing due to her previous report of having symptoms of a UTI. Patient continues to present with no indication of abdominal discomfort, and continues to refuse follow-up labs. Patient remains argumentative and demanding, illogical and tangential, and remains paranoid with delusional thinking. Patient continues to make staff accusations and demand to be discharged from Hospital when attempts are made to meet with her. Per record, patient slept for 5 restful hours last night, and she is eating and making regular requests to use the bathroom to void. As previously indicated, until recently, patient had been exhibiting signs of responding positively to psychotropic medication. Language Arts Teacher continues to suspect compliance issues, will continue one-to-one temporarily to ensure patient's safety and monitor medication compliance. Patient's current psychiatric status renders her unable to effectively engage in the safety planning process and continues to make her a safety risk to herself and others. Patient continues to refuse changes to medication but continues to verbalize agreement to take Abilify as presently ordered. Patient remains acutely psychotic and is in need of ongoing inpatient evaluation and treatment to ensure safety. Will continue to evaluate patient's response to Abilify and titrate as tolerated by patient. Will also monitor for medication side effects, continue to encourage medication compliance, and will evaluate feasibility of future switch to Abilify Maintena. DIAGNOSES: Schizophrenia, paranoid type MANAGEMENT PLAN: Continue Abilify to 10 mg po a noon and 15 mg po q hs. Evaluate transition to Abilify Maintena Continue one-to-one to ensure safety and medication compliance, also continue to evaluate need for 1:1 monitoring of patient Continue to encourage patient to be medication compliant I and O to continue to be monitored by nursing Maintain safety precautions Continue to encourage patient to attend groups and participate in unit programming to develop coping strategies Continue to attempt to include patient in discharge planning process and continue to collect background collateral treatment information as needed for discharge planning, involve family and oil field caser if willing When patient is able, engage in discharge planning process to ensure safe and effective discharge, encourage patient to consider long-term care Patient to follow up with PCM upon discharge Vital Signs Vital Sign - Last 24 Hours 02/21/16 02/22/16 18:00 06:00 Temp 97.7 96.9 Pulse 94 114 Resp 16 16 B/P 127/59 129/63 Current Medications Current Medications Acetaminophen (Tylenol) 650 mg Q6HP PRN PO HEADACHE or DISCOMFORT Last administered on 02/21/16at 15:46; Start 02/09/16 at 22:45; Stop 03/10/16 at 22: 44 Al Hydrox/Mg Hydrox/Simethicone (Mylanta) 30 ml Q4HP PRN PO HEARTBURN/ INDIGESTION; Start 02/09/16 at 22:45; Stop 03/10/16 at 22:44 Aripiprazole (AbiLIFY) 5 mg DAILY@12 PO Last administered on 02/11/16at 09:47; Start 02/10/16 at 12:00; Stop 02/12/16 at 09:57; Status DC Aripiprazole (AbiLIFY) 5 mg QHS PO Last administered on 02/11/16at 22:01; Start 02/09/16 at 21:00; Stop 02/12/16 at 09:57; Status DC Aripiprazole (AbiLIFY) 10 mg DAILY@12 PO Last administered on 02/21/16at 11:28 ; Start 02/12/16 at 12:00; Stop 03/13/16 at 11:59 Aripiprazole (AbiLIFY) 10 mg QHS PO Last administered on 02/18/16at 21:54; Start 02/12/16 at 21:00; Stop 02/19/16 at 16:42; Status DC Aripiprazole (AbiLIFY) 15 mg QHS PO Last administered on 02/21/16at 20:03; Start 02/19/16 at 21:00; Stop 03/20/16 at 20:59 Diphenhydramine HCl (Benadryl) 50 mg Q6HP PRN PO AGITATION; Start 02/11/16 at 16:15; Stop 03/12/16 at 16:14 Diphenhydramine HCl (Benadryl) 50 mg STAT STAT IM Last administered on at 10:54; Start 02/12/16 at 10:39; Stop 02/12/16 at 10:43; Status DC Diphenhydramine HCl (Benadryl) 50 mg STAT STAT IM Last administered on at 17:11; Start 02/20/16 at 17:06; Stop 02/20/16 at 17:08; Status DC Diphenhydramine HCl (Benadryl) 50 mg STK-MED ONCE As Ordered ; Start 02/12/16 at 10:28; Stop 02/12/16 at 10:29; Status DC Haloperidol (Haldol) 5 mg Q6HP PRN PO AGITATION; Start 02/11/16 at 16:15; Stop 03/12/16 at 16:14 Haloperidol (Haldol) 5 mg STAT STAT IM Last administered on 02/12/16at 11:01; Start 02/12/16 at 10:58; Stop 02/12/16 at 10:59; Status DC Haloperidol (Haldol) 5 mg STAT STAT IM Last administered on 02/20/16at 17:10; Start 02/20/16 at 17:06; Stop 02/20/16 at 17:08; Status DC Haloperidol (Haldol) 5 mg STK-MED ONCE As Ordered ; Start 02/12/16 at 10:28; Stop 02/12/16 at 10:29; Status DC Haloperidol (Haldol) 10 mg STAT STAT IM ; Start 02/12/16 at 10:39; Stop 02/11 at 10:43; Status DC Home Med (Med Rec Complete!) ASDIRECTED XX ; Start 02/09/16 at 23:15; Stop at 23:28; Status DC Lorazepam (Ativan) 2 mg Q6HP PRN PO ANXIETY/AGITATION; Start 02/11/16 at 16:15 ; Stop 02/24/16 at 16:14 Lorazepam (Ativan) 2 mg STAT STAT IM Last administered on 02/12/16at 10:54; Start 02/12/16 at 10:39; Stop 02/12/16 at 10:43; Status DC Lorazepam (Ativan) 2 mg STAT STAT IM Last administered on 02/20/16at 17:10; Start 02/20/16 at 17:06; Stop 02/20/16 at 17:08; Status DC Lorazepam (Ativan) 2 mg STK-MED ONCE As Ordered ; Start 02/12/16 at 10:27; Stop 02/12/16 at 10:28; Status DC Magnesium Hydroxide (Milk Of Magnesia) 30 ml DAILYPRN PRN PO CONSTIPATION; Start 02/09/16 at 22:45; Stop 03/10/16 at 22:44 Non-Formulary Medication ( See Comment Field Below ) SEE LABEL COMMENTS DAILY XX ; Start 02/12/16 at 09:00; Stop 03/13/16 at 08:59 Trazodone HCl (Desyrel) 50 mg QHSP PRN PO INSOMNIA; Start 02/09/16 at 22:45; Stop 03/10/16 at 22:44 Tuberculin PPD (Aplisol, Ppd) 5 units NOW ONCE ID ; Start 02/12/16 at 10:15; Stop 02/12/16 at 10:50; Status DC Allergies Coded Allergies: No Known Drug Allergy (Unverified Allergy, Unknown, 05/24/12) Angela Mora Feb 22, 2016 12:42 No Known Drug Allergy (Unverified Allergy, Unknown, 05/24/12) Angela Mora Feb 22, 2016 12:42
[2016-02-23] MEDS: **PENDING PPD ENTRY XX SCH (08:41)
[2016-02-23] MEDS: ARIPiprazole 10 MG TAB PO SCH (11:59)
[2016-02-23] MEDS: ACETAMINOPHEN TAB 650MG DOSE (2X325MG) PO PRN ×2 (12:37→20:34)
[2016-02-23] MEDS: CEPACOL LOZENGE PO PRN ×2 (16:53→20:34)
[2016-02-24] MEDS: **PENDING PPD ENTRY XX SCH (08:36)
[2016-02-24] MEDS: CEPACOL LOZENGE PO PRN ×2 (09:09→17:08)
[2016-02-24] MEDS: ACETAMINOPHEN TAB 650MG DOSE (2X325MG) PO PRN ×2 (09:09→17:08)
[2016-02-24] MEDS: ARIPiprazole 10 MG TAB PO SCH (12:03)
[2016-02-25] MEDS: CEPACOL LOZENGE PO PRN (06:18)
[2016-02-25] MEDS: ACETAMINOPHEN TAB 650MG DOSE (2X325MG) PO PRN ×2 (06:18→20:18)
[2016-02-25] MEDS: **PENDING PPD ENTRY XX SCH (07:43)
[2016-02-25] MEDS: ARIPiprazole 10 MG TAB PO SCH (12:11)
[2016-02-26] MEDS: **PENDING PPD ENTRY XX SCH (08:38)
[2016-02-26] MEDS: ACETAMINOPHEN TAB 650MG DOSE (2X325MG) PO PRN ×2 (09:56→18:15)
[2016-02-26] MEDS: ARIPiprazole 10 MG TAB PO SCH (11:45)
--- NOTE | 2016-02-26 19:56 | IPNPDOC ---
[facility] Progress Note Progress Note DATE: 02/26/16 HISTORY: Patient was observed to be in hallway, visible on unit, engaging with peers, and was dressed appropriately in her own clothing. Patient appropriately requested meeting with this teletypewriter operator indicating she would like to meet in office, arrangements were made for patient to meet with teletypewriter operator and patient's nurse, Elma. Patient denied symptoms of anxiety and depression, denied suicidal and homicidal ideation, denied audiovisual hallucinations, and denied urge to engage in self-injurious behavior. Patient indicates she has been sleeping well and denied nightmares, denied challenges with concentration and energy level, indicated appetite is normal. Patient states she feels she is doing "very well, " feels safe on unit, and denies physical pain. Patient expressed only 1 complaint involving waking one morning over weekend to find a male one-to-one sitting out in the hallway. Patient made no accusations pertaining to one on one and denied that the one-to-one sitter had acted in any way to make her feel uncomfortable but noted, "I'm way too beautiful to have a man watch me." Patient is no longer on one-to-one observation. Per record, patient has been more visible, has attended some groups, and has been in better behavioral control. Patient indicated that her DSS worker, Mr. Palmer, is willing to help her make arrangements for her to discharge to the [facility]. Patient asked that Mr. Palmer be contacted by metal control coordinator. Patient also indicated that she wants teletypewriter operator to contact her sister about discharge planning to home or back to her apartment. Track Mechanic informed patient that her sister had been contacted and sister indicated patient cannot return to her apartment or to home with family at this time. Patient presents with no signs of acute distress, denies medication side effects and physical pain, and she indicates she feels safe on the unit. VITAL SIGNS: See below NEW TEST RESULTS: No new results. Recent UA results negative, colorless, clear urine, low specific gravity. BMP ordered in effort to evaluate hydration status. Patient placed on I and O's last evening and PA was asked to evaluate. Recent EKG results SINUS RHYTHM WITH SINUS ARRHYTHMIA NONSPECIFIC ST-WAVE ABNORMALITY, DIFFICULT TO COMPARE TO PRIOR WITH ARTIFACT, RATE SLOWER C/W . PROBABLE MILD EARLY REPOLAR CHANGERS. Per PA, patient to follow up with PCM post discharge. Patient is asymptomatic. Labs completed on admission: low Hgb, HCT, MCH, MCHC, and elevated RDW. PA to evaluate when patient permits, patient continues to refuse follow up lab work. HCT negative on admission. CURRENT MEDICATIONS: See below MENTAL STATUS EXAMINATION: Patient is a 25 year old female who presents today with improved hygiene, is showered and is dressed in own clothing. Patient is less demanding and more engageable, is generally cooperative during interaction. Speech: Less pressured, less tangential, volume normal Thought processes: Illogical at times, remains disorganized, no indication of responding to internal stimuli noted today, more goal directed Thought content: Less irrational and less illogical, remains paranoid, tangential, may be responding to internal stimuli Associations: Tangential, not as loose Abnormal or psychotic thoughts: Appears preoccupied at times, remains delusional and paranoid, no indication of hallucinating today, patient denied suicidal and homicidal ideation and displays no behavior indicative of suicidal or homicidal thinking, displays no physical aggression Judgment: Poor Insight: Poor Oriented to: Person and place, unable to evaluate if orientated to time Recent and Remote Memory: Limited Attention Span and Concentration: Poor Fund of knowledge: Poor Mood: Unremarkable, remains preoccupied with discharge Affect: Flat ASSESSMENT: Patient appropriately requested meeting with teletypewriter operator today, was generally cooperative and pleasant, appeared clear with reduced signs of psychosis. Patient disagreed with teletypewriter operator about discharge planning, but was able to do so calmly. Patient again informed teletypewriter operator that she wanted teletypewriter operator to contact her sister, teletypewriter operator informed patient that her sister was contacted last week and that the discharge plan for long-term care remains in place. Patient has requested that her DSS worker be contacted and arrangements be made for her to be discharged to the [facility]. Track Mechanic clearly informed patient that at this time discharged to a hot would not be acceptable, but made it clear to patient that the treatment team will continue to work with patient on discharge planning options that are suitable to her treatment needs. Patient accepted teletypewriter operator's response. Patient remains disinterested and medication changes , indicates she will continue to take medication as its currently prescribed. Patient's I and O continue to be monitored by nursing due to her previous report of having symptoms of a UTI. Patient continues to present with no indication of abdominal discomfort, and continues to refuse follow-up labs. Patient remains tangential but is notably less psychotic today, is less argumentative, remains paranoid with delusional thinking. Patient is again showing signs of responding positively to psychotropic medication, teletypewriter operator suspects improved compliance. Patient's one-to-one was discontinued over weekend and she has presented with no recent safety issues on the unit. Patient' s current psychiatric status continues to render her unable to effectively engage in the safety planning process and she remains a safety risk to herself and others. Patient remains acutely psychotic and is in need of ongoing inpatient evaluation and treatment to ensure safety. Will continue to evaluate patient's response to Abilify and titrate as tolerated/permitted by patient. Will also monitor for medication side effects, continue to encourage medication compliance, and will evaluate feasibility of future switch to Abilify Maintena. DIAGNOSES: Schizophrenia, paranoid type MANAGEMENT PLAN: Continue Abilify to 10 mg po a noon and 15 mg po q hs. Evaluate transition to Abilify Maintena Continue to encourage patient to be medication compliant I and O to continue to be monitored by nursing Maintain safety precautions Continue to encourage patient to attend groups and participate in unit programming to develop coping strategies Continue to attempt to include patient in discharge planning process and continue to collect background collateral treatment information as needed for discharge planning, involve family and child support case officer if willing When patient is able, engage in discharge planning process to ensure safe and effective discharge, encourage patient to consider long-term care Patient to follow up with PCM upon discharge Current Medications Current Medications Acetaminophen (Tylenol) 650 mg Q6HP PRN PO HEADACHE or DISCOMFORT Last administered on 02/26/16t 18:15; Start 02/09/16 at 22:45; Stop 03/10/16 at 22:44 Al Hydrox/Mg Hydrox/Simethicone (Mylanta) 30 ml Q4HP PRN PO HEARTBURN/ INDIGESTION; Start 02/09/16 at 22:45; Stop 03/10/16 at 22:44 Aripiprazole (AbiLIFY) 5 mg DAILY@12 PO Last administered on 02/11/16at 09:47; Start 02/10/16 at 12:00; Stop 02/12/16 at 09:57; Status DC Aripiprazole (AbiLIFY) 5 mg QHS PO Last administered on 02/11/16at 22:01; Start 02/09/16 at 21:00; Stop 02/12/16 at 09:57; Status DC Aripiprazole (AbiLIFY) 10 mg DAILY@12 PO Last administered on 02/26/16 11:45; Start 02/12/16 at 12:00; Stop 03/13/16 at 11:59 Aripiprazole (AbiLIFY) 10 mg QHS PO Last administered on 02/18/16at 21:54; Start 02/12/16 at 21:00; Stop 02/19/16 at 16:42; Status DC Aripiprazole (AbiLIFY) 15 mg QHS PO Last administered on 02/25/16 20:17; Start 02/19/16 at 21:00; Stop 03/20/16 at 20:59 Cetylpyridinium Chloride (Cepacol) 1 alok Q2HP PRN PO SORE THROAT Last administered on 02/25/16 06:18; Start 02/23/16 at 14:45; Stop 03/24/16 at 14:44 Diphenhydramine HCl (Benadryl) 50 mg Q6HP PRN PO AGITATION; Start 02/11/16 at 16:15; Stop 03/12/16 at 16:14 Diphenhydramine HCl (Benadryl) 50 mg STAT STAT IM Last administered on at 10:54; Start 02/12/16 at 10:39; Stop 02/12/16 at 10:43; Status DC Diphenhydramine HCl (Benadryl) 50 mg STAT STAT IM Last administered on at 17:11; Start 02/20/16 at 17:06; Stop 02/20/16 at 17:08; Status DC Diphenhydramine HCl (Benadryl) 50 mg STK-MED ONCE As Ordered ; Start 02/12/16 at 10:28; Stop 02/12/16 at 10:29; Status DC Haloperidol (Haldol) 5 mg Q6HP PRN PO AGITATION; Start 02/11/16 at 16:15; Stop 03/12/16 at 16:14 Haloperidol (Haldol) 5 mg STAT STAT IM Last administered on 02/12/16at 11:01; Start 02/12/16 at 10:58; Stop 02/12/16 at 10:59; Status DC Haloperidol (Haldol) 5 mg STAT STAT IM Last administered on 02/20/16at 17:10; Start 02/20/16 at 17:06; Stop 02/20/16 at 17:08; Status DC Haloperidol (Haldol) 5 mg STK-MED ONCE As Ordered ; Start 02/12/16 at 10:28; Stop 02/12/16 at 10:29; Status DC Haloperidol (Haldol) 10 mg STAT STAT IM ; Start 02/12/16 at 10:39; Stop 02/11 at 10:43; Status DC Home Med (Med Rec Complete!) ASDIRECTED XX ; Start 02/09/16 at 23:15; Stop at 23:28; Status DC Lorazepam (Ativan) 2 mg Q6HP PRN PO ANXIETY/AGITATION; Start 02/11/16 at 16:15 ; Stop 03/01/16 at 16:14 Lorazepam (Ativan) 2 mg STAT STAT IM Last administered on 02/12/16at 10:54; Start 02/12/16 at 10:39; Stop 02/12/16 at 10:43; Status DC Lorazepam (Ativan) 2 mg STAT STAT IM Last administered on 02/20/16at 17:10; Start 02/20/16 at 17:06; Stop 02/20/16 at 17:08; Status DC Lorazepam (Ativan) 2 mg STK-MED ONCE As Ordered ; Start 02/12/16 at 10:27; Stop 02/12/16 at 10:28; Status DC Magnesium Hydroxide (Milk Of Magnesia) 30 ml DAILYPRN PRN PO CONSTIPATION; Start 02/09/16 at 22:45; Stop 03/10/16 at 22:44 Non-Formulary Medication ( See Comment Field Below ) SEE LABEL COMMENTS DAILY XX ; Start 02/12/16 at 09:00; Stop 03/13/16 at 08:59 Trazodone HCl (Desyrel) 50 mg QHSP PRN PO INSOMNIA; Start 02/09/16 at 22:45; Stop 03/10/16 at 22:44 Tuberculin PPD (Aplisol, Ppd) 5 units NOW ONCE ID ; Start 02/12/16 at 10:15; Stop 02/12/16 at 10:50; Status DC Allergies Coded Allergies: No Known Drug Allergy (Unverified Allergy, Unknown, 05/24/12) Angela Mora Feb 26, 2016 19:56
[2016-02-27] MEDS: **PENDING PPD ENTRY XX SCH (09:00)
[2016-02-27] MEDS: ACETAMINOPHEN TAB 650MG DOSE (2X325MG) PO PRN (09:13)
[2016-02-27] MEDS: ARIPiprazole 10 MG TAB PO SCH (12:30)
--- NOTE | 2016-02-27 19:35 | IPNPDOC ---
[facility] Progress Note Progress Note DATE: 02/27/16 HISTORY: Patient approached medical underwriter in hallway in front of nurse's station this morning and demanded to know if shoe planner had contacted her payee or Mr. English regarding patient's discharge desire to hotel. Clay Modeler informed patient that phone calls have been made and discharge plan remains unchanged. Clay Modeler asked patient if she would be willing to meet with medical underwriter with another staff present at that time and patient declined. Patient became argumentative with medical underwriter indicating that she had had a new conversation with brand coordinator and the brand coordinator had agreed to make additional contact. Clay Modeler agreed to follow-up with brand coordinator. At that time patient denied all symptoms of anxiety and depression, suicidal and homicidal ideation, audiovisual hallucinations, and urged to engage in self-injurious behavior. Per record, patient has been taking medication. Patient denied medication side effects. On follow-up, medical underwriter and nurse Pacheco, went to patient's room where medical underwriter knocked on door. Clay Modeler observed patient to be lying in bed awake and medical underwriter and nurse Pacheco offered to come back after patient had opportunity to get up out of bed. Clay Modeler and nurse Pacheco never entered patient's room and remained in doorway threshold to patient's room. Patient declined to postpone conversation with medical underwriter and engaged medical underwriter in conversation from her bed pertaining to discharge. When informed that communication pertaining to discharge patient requested earlier in day had occurred and that there would be no change to her discharge plan, patient indicated she wanted to get up out of bed to continue the conversation, and informed medical underwriter nurse Pacheco she had no pants on. Clay Modeler and nurse Pacheco attempted to leave area and close the door to patient's room to provide patient with privacy to put her pants on and patient refused to have bedroom door closed. Clay Modeler and nurse Pacheco stepped away from threshold of door and into hallway, out of patient view, while patient proceeded to put her pants on. Patient then approached medical underwriter in doorway to room and demanded to be discharged. Patient stated to medical underwriter "you're not doing the things you say you' re going to do, you said he would call Mr. Palmer to arrange my discharge." Patient then added, "I've made multiple complaints about the hospital and you to the [facility] about you being inappropriate with me and you need to discharge me." Clay Modeler asked patient "Are you saying the accusation you made to the [facility] about me was because you're not being discharged?" Patient responded with. "Yes." Patient continued to make multiple threats to medical underwriter's license, became argumentative with medical underwriter stating, "You keep changing your story , I'm going to report you, your license is on the line, you need to call Mr. Palmer and you need to discharge me." Patient repeatedly interrupted medical underwriter, talked over medical underwriter, and presented as unable to digest medical underwriter's reiteration of current discharge plan. Patient also again accused medical underwriter of not responding to contact attempts from sister and medical underwriter reminded patient that contact had been made with sister. Other than agitation with medical underwriter pertaining to discharge, and from which patient was able to immediately de-escalate post termination of interaction, patient presents with no signs of acute distress, no indication of medication side effects, and no indication of physical pain. VITAL SIGNS: See below NEW TEST RESULTS: No new results. Recent UA results negative, colorless, clear urine, low specific gravity. BMP ordered in effort to evaluate hydration status. Patient placed on I and O's last evening and PA was asked to evaluate. Recent EKG results SINUS RHYTHM WITH SINUS ARRHYTHMIA NONSPECIFIC ST-WAVE ABNORMALITY, DIFFICULT TO COMPARE TO PRIOR WITH ARTIFACT, RATE SLOWER C/W . PROBABLE MILD EARLY REPOLAR CHANGERS. Per PA, patient to follow up with PCM post discharge. Patient is asymptomatic. Labs completed on admission: low Hgb, HCT, MCH, MCHC, and elevated RDW. PA to evaluate when patient permits, patient continues to refuse follow up lab work. HCT negative on admission. CURRENT MEDICATIONS: See below MENTAL STATUS EXAMINATION: Patient is a 25 year old female who presents today with improved hygiene, was dressed in own clothing. Patient was more demanding today, less engageable, and less cooperative during interaction. Speech: Less pressured, remains tangential, volume normal, loud when expressing frustration related to discharge Thought processes: Illogical at times, remains disorganized, no indication of responding to internal stimuli noted today, more goal directed Thought content: Less irrational and less illogical, remains paranoid, tangential, may be responding to internal stimuli Associations: Tangential Abnormal or psychotic thoughts: Appears preoccupied at times, remains delusional and paranoid, no indication of hallucinating today, patient denied suicidal and homicidal ideation and displays no behavior indicative of suicidal or homicidal thinking, displays no physical aggression Judgment: Poor Insight: Poor Oriented to: Person and place, unable to evaluate if orientated to time Recent and Remote Memory: Limited Attention Span and Concentration: Poor Fund of knowledge: Poor Mood: Unremarkable, remains preoccupied with discharge Affect: Flat ASSESSMENT: Patient initially demanded meeting today and became agitated when told a discharge plan to [facility] was not a currently viable plan. Patient has been informed that discharge plan to [facility] remains unacceptable, has also been clearly informed that contact with requested providers has been completed according to brand coordinator and providers are in agreement that patient requires long-term care at this time. Patient remains disinterested in medication changes, has indicated she will continue to take medication as its currently prescribed, is not agreeable to medication changes. Patient's I and O continue to be monitored by nursing due to her previous report of having symptoms of a UTI. Patient continues to present with no indication of abdominal discomfort, and continues to refuse follow-up labs. Patient remains tangential and appears more psychotic today than yesterday, but has been in better behavioral control over last several days. Patient is today more argumentative with increased delusional thinking. Will continue to monitor patient for medication compliance. Patient's current psychiatric status continues to render her unable to effectively engage in the safety planning process and she remains a safety risk to herself and others. Patient remains acutely psychotic and is in need of ongoing inpatient evaluation and treatment to ensure safety. Will continue to evaluate patient's response to Abilify and titrate as tolerated/ permitted by patient. Will also monitor for medication side effects, continue to encourage medication compliance, and will continue to evaluate feasibility of future switch to Abilify Maintena. DIAGNOSES: Schizophrenia, paranoid type MANAGEMENT PLAN: Continue Abilify to 10 mg po a noon and 15 mg po q hs. Evaluate transition to Abilify Maintena Continue to encourage patient to be medication compliant I and O to continue to be monitored by nursing Maintain safety precautions Continue to encourage patient to attend groups and participate in unit programming to develop coping strategies Continue to attempt to include patient in discharge planning process and continue to collect background collateral treatment information as needed for discharge planning, involve family and transplant case manager if willing When patient is able, engage in discharge planning process to ensure safe and effective discharge, encourage patient to consider long-term care Patient to follow up with PCM upon discharge Current Medications Current Medications Acetaminophen (Tylenol) 650 mg Q6HP PRN PO HEADACHE or DISCOMFORT Last administered on 02/27/16 09:13; Start 02/09/16 at 22:45; Stop 03/10/16 at 22:44 Al Hydrox/Mg Hydrox/Simethicone (Mylanta) 30 ml Q4HP PRN PO HEARTBURN/ INDIGESTION; Start 02/09/16 at 22:45; Stop 03/10/16 at 22:44 Aripiprazole (AbiLIFY) 5 mg DAILY@12 PO Last administered on 02/11/16at 09:47; Start 02/10/16 at 12:00; Stop 02/12/16 at 09:57; Status DC Aripiprazole (AbiLIFY) 5 mg QHS PO Last administered on 02/11/16at 22:01; Start 02/09/16 at 21:00; Stop 02/12/16 at 09:57; Status DC Aripiprazole (AbiLIFY) 10 mg DAILY@12 PO Last administered on 02/27/16 12:30; Start 02/12/16 at 12:00; Stop 03/13/16 at 11:59 Aripiprazole (AbiLIFY) 10 mg QHS PO Last administered on 02/18/16at 21:54; Start 02/12/16 at 21:00; Stop 02/19/16 at 16:42; Status DC Aripiprazole (AbiLIFY) 15 mg QHS PO Last administered on 02/26/16 20:41; Start 02/19/16 at 21:00; Stop 03/20/16 at 20:59 Cetylpyridinium Chloride (Cepacol) 1 alok Q2HP PRN PO SORE THROAT Last administered on 02/25/16 06:18; Start 02/23/16 at 14:45; Stop 03/24/16 at 14:44 Diphenhydramine HCl (Benadryl) 50 mg Q6HP PRN PO AGITATION; Start 02/11/16 at 16:15; Stop 03/12/16 at 16:14 Diphenhydramine HCl (Benadryl) 50 mg STAT STAT IM Last administered on at 10:54; Start 02/12/16 at 10:39; Stop 02/12/16 at 10:43; Status DC Diphenhydramine HCl (Benadryl) 50 mg STAT STAT IM Last administered on at 17:11; Start 02/20/16 at 17:06; Stop 02/20/16 at 17:08; Status DC Diphenhydramine HCl (Benadryl) 50 mg STK-MED ONCE As Ordered ; Start 02/12/16 at 10:28; Stop 02/12/16 at 10:29; Status DC Haloperidol (Haldol) 5 mg Q6HP PRN PO AGITATION; Start 02/11/16 at 16:15; Stop 03/12/16 at 16:14 Haloperidol (Haldol) 5 mg STAT STAT IM Last administered on 02/12/16at 11:01; Start 02/12/16 at 10:58; Stop 02/12/16 at 10:59; Status DC Haloperidol (Haldol) 5 mg STAT STAT IM Last administered on 02/20/16at 17:10; Start 02/20/16 at 17:06; Stop 02/20/16 at 17:08; Status DC Haloperidol (Haldol) 5 mg STK-MED ONCE As Ordered ; Start 02/12/16 at 10:28; Stop 02/12/16 at 10:29; Status DC Haloperidol (Haldol) 10 mg STAT STAT IM ; Start 02/12/16 at 10:39; Stop 02/11 at 10:43; Status DC Home Med (Med Rec Complete!) ASDIRECTED XX ; Start 02/09/16 at 23:15; Stop at 23:28; Status DC Lorazepam (Ativan) 2 mg Q6HP PRN PO ANXIETY/AGITATION; Start 02/11/16 at 16:15 ; Stop 03/01/16 at 16:14 Lorazepam (Ativan) 2 mg STAT STAT IM Last administered on 02/12/16at 10:54; Start 02/12/16 at 10:39; Stop 02/12/16 at 10:43; Status DC Lorazepam (Ativan) 2 mg STAT STAT IM Last administered on 02/20/16at 17:10; Start 02/20/16 at 17:06; Stop 02/20/16 at 17:08; Status DC Lorazepam (Ativan) 2 mg STK-MED ONCE As Ordered ; Start 02/12/16 at 10:27; Stop 02/12/16 at 10:28; Status DC Magnesium Hydroxide (Milk Of Magnesia) 30 ml DAILYPRN PRN PO CONSTIPATION; Start 02/09/16 at 22:45; Stop 03/10/16 at 22:44 Non-Formulary Medication ( See Comment Field Below ) SEE LABEL COMMENTS DAILY XX ; Start 02/12/16 at 09:00; Stop 03/13/16 at 08:59 Trazodone HCl (Desyrel) 50 mg QHSP PRN PO INSOMNIA; Start 02/09/16 at 22:45; Stop 03/10/16 at 22:44 Tuberculin PPD (Aplisol, Ppd) 5 units NOW ONCE ID ; Start 02/12/16 at 10:15; Stop 02/12/16 at 10:50; Status DC Allergies Coded Allergies: No Known Drug Allergy (Unverified Allergy, Unknown, 05/24/12) Angela Mora Feb 27, 2016 19:35 Angela Mora Feb 27, 2016 19:35
[2016-02-28] MEDS: **PENDING PPD ENTRY XX SCH (09:00)
[2016-02-28] MEDS: ACETAMINOPHEN TAB 650MG DOSE (2X325MG) PO PRN ×2 (10:10→18:03)
[2016-02-28] MEDS: ARIPiprazole 10 MG TAB PO SCH (12:11)
--- NOTE | 2016-02-28 15:16 | IPNPDOC ---
[facility] Progress Note Progress Note DATE: 02/28/16 HISTORY: Dry Clipper Tender observed patient standing at nurse's station and asked patient if she would be willing to meet for check-in purposes. Patient stated she wanted to meet and indicated she wanted to meet again in office. Arrangements were made for patient to meet with web content writer and behavioral health worker, Priya, in patient's office of choice with office door closed at patient request. Patient sat down calmly and informed web content writer that she is feeling "fine," added that medication is "fine," denied medication side effects. Patient denied having concerns on the unit. Dry Clipper Tender attempted to engage patient in conversation pertaining to medication dose increase in effort to further reduce symptoms of psychosis and delusional thinking. Patient stated to web content writer, "No I will not agree to any changes to my medication because you are already giving me an overdose and you are trying to overdose me and kill me. I have filed many complaints about you and the things you are doing to me and the children were watching. You need to let me discharge." Patient interrupted web content writer, talked over web content writer, and informed web content writer that she should be discharged to the hotel and reiterated that communication needed to occur with sister Jonathan. Dry Clipper Tender reviewed current discharge plan with patient and attempted to encourage her to consider dosing adjustment to Abilify. Dry Clipper Tender also attempted to complete safety check but patient abruptly ended interaction by standing up and stating, "I'm leaving; this meeting is over," and patient proceeded to walk out of office. Per record, patient has been sleeping, eating, voiding, and attending some groups. Patient presents with no signs of acute distress, no indication of medication side effects, and no indication of physical pain. Addendum: Consult completed with med nurse who indicated patient usually sits in bedroom area for approximately 10 minutes after taking medication for compliance monitoring purposes. Med nurse stated he has not observed patient cheeking medication. Med nurse indicated patient also requests analgesic but, per med nurse, patient's reason for analgesic request is not related to potential Abilify side effects. Med nurse also confirmed the patient continues to refuse to complete ordered labs. VITAL SIGNS: Patient refuses NEW TEST RESULTS: No new results. Recent UA results negative, colorless, clear urine, low specific gravity. BMP ordered in effort to evaluate hydration status. Patient placed on I and O's last evening and PA was asked to evaluate. Recent EKG results SINUS RHYTHM WITH SINUS ARRHYTHMIA NONSPECIFIC ST-WAVE ABNORMALITY, DIFFICULT TO COMPARE TO PRIOR WITH ARTIFACT, RATE SLOWER C/W . PROBABLE MILD EARLY REPOLAR CHANGERS. Per PA, patient to follow up with PCM post discharge. Patient is asymptomatic. Labs completed on admission: low Hgb, HCT, MCH, MCHC, and elevated RDW. PA to evaluate when patient permits, patient continues to refuse follow up lab work. HCG negative on admission. CURRENT MEDICATIONS: See below MENTAL STATUS EXAMINATION: Patient is a 25 year old female who presents today with improved hygiene, was dressed in own clothing. Patient was calmer than yesterday, somewhat more cooperative and more engageable than yesterday Speech: Less pressured, remains tangential, volume normal, less loud today when expressing frustration related to discharge Thought processes: Illogical at times, remains disorganized, no indication of responding to internal stimuli noted today, more goal directed Thought content: Less irrational and less illogical, remains paranoid, tangential, may be responding to internal stimuli Associations: Tangential Abnormal or psychotic thoughts: Appears preoccupied at times, remains delusional and paranoid, no indication of hallucinating today, patient denied suicidal and homicidal ideation and displays no behavior indicative of suicidal or homicidal thinking, displays no physical aggression Judgment: Poor Insight: Poor Oriented to: Person and place, unable to evaluate if orientated to time Recent and Remote Memory: Limited Attention Span and Concentration: Poor Fund of knowledge: Poor Mood: Unremarkable, remains preoccupied with discharge Affect: Flat ASSESSMENT: Patient was appropriately agreeable to meeting and was able to appropriately request meeting location and began meeting in calm and cooperative demeanor. Patient became increasingly frustrated during interaction , but at no point lost behavioral control. Though patient continues to request discharge, she is able to verbalize awareness of current discharge plan to long- term care. Patient was unable to discuss dosing adjustment to medication today, will continue to encourage patient to consider Abilify dose increase in effort to reduce symptoms of psychosis. Will also continue to try to impress upon patient that if symptoms of psychosis and delusional thinking were reduced/ eradicated, feasibility of alternative discharge plans may become entertainable. Patient is aware that discharge plan to hot remains unacceptable safety reasons. Patient's I and O continue to be monitored by nursing due to her previous report of having symptoms of a UTI. Patient continues to present with no indication of abdominal discomfort, and continues to refuse follow-up labs. Patient remains tangential but appeared less psychotic today than yesterday and has remained in behavioral control. Will continue to monitor patient for medication compliance. Patient's current psychiatric status continues to render her unable to effectively engage in the safety planning process and she remains a safety risk to herself and others. Patient is acutely psychotic and is in need of ongoing inpatient evaluation and treatment to ensure safety. Will continue to evaluate patient's response to Abilify and titrate as tolerated/permitted by patient. Will also monitor for medication side effects, continue to encourage medication compliance, and will continue to evaluate feasibility of future switch to Abilify Maintena. DIAGNOSES: Schizophrenia, paranoid type MANAGEMENT PLAN: Continue Abilify to 10 mg po a noon and 15 mg po q hs and continue to encourage patient to consider dosing adjustment Evaluate transition to Abilify Maintena Continue to encourage patient to be medication compliant I and O to continue to be monitored by nursing Maintain safety precautions Continue to encourage patient to attend groups and participate in unit programming to develop coping strategies Continue to attempt to include patient in discharge planning process and continue to collect background collateral treatment information as needed for discharge planning, involve family and manager case if willing When patient is able, engage in discharge planning process to ensure safe and effective discharge, encourage patient to consider long-term care Patient to follow up with PCM upon discharge Current Medications Current Medications Acetaminophen (Tylenol) 650 mg Q6HP PRN PO HEADACHE or DISCOMFORT Last administered on 02/28/16t 10:10; Start 02/09/16 at 22:45; Stop 03/10/16 at 22:44 Al Hydrox/Mg Hydrox/Simethicone (Mylanta) 30 ml Q4HP PRN PO HEARTBURN/ INDIGESTION; Start 02/09/16 at 22:45; Stop 03/10/16 at 22:44 Aripiprazole (AbiLIFY) 5 mg DAILY@12 PO Last administered on 02/11/16at 09:47; Start 02/10/16 at 12:00; Stop 02/12/16 at 09:57; Status DC Aripiprazole (AbiLIFY) 5 mg QHS PO Last administered on 02/11/16at 22:01; Start 02/09/16 at 21:00; Stop 02/12/16 at 09:57; Status DC Aripiprazole (AbiLIFY) 10 mg DAILY@12 PO Last administered on 02/28/16 12:11; Start 02/12/16 at 12:00; Stop 03/13/16 at 11:59 Aripiprazole (AbiLIFY) 10 mg QHS PO Last administered on 02/18/16at 21:54; Start 02/12/16 at 21:00; Stop 02/19/16 at 16:42; Status DC Aripiprazole (AbiLIFY) 15 mg QHS PO Last administered on 02/27/16 21:13; Start 02/19/16 at 21:00; Stop 03/20/16 at 20:59 Cetylpyridinium Chloride (Cepacol) 1 alok Q2HP PRN PO SORE THROAT Last administered on 02/25/16 06:18; Start 02/23/16 at 14:45; Stop 03/24/16 at 14:44 Diphenhydramine HCl (Benadryl) 50 mg Q6HP PRN PO AGITATION; Start 02/11/16 at 16:15; Stop 03/12/16 at 16:14 Diphenhydramine HCl (Benadryl) 50 mg STAT STAT IM Last administered on at 10:54; Start 02/12/16 at 10:39; Stop 02/12/16 at 10:43; Status DC Diphenhydramine HCl (Benadryl) 50 mg STAT STAT IM Last administered on at 17:11; Start 02/20/16 at 17:06; Stop 02/20/16 at 17:08; Status DC Diphenhydramine HCl (Benadryl) 50 mg STK-MED ONCE As Ordered ; Start 02/12/16 at 10:28; Stop 02/12/16 at 10:29; Status DC Haloperidol (Haldol) 5 mg Q6HP PRN PO AGITATION; Start 02/11/16 at 16:15; Stop 03/12/16 at 16:14 Haloperidol (Haldol) 5 mg STAT STAT IM Last administered on 02/12/16at 11:01; Start 02/12/16 at 10:58; Stop 02/12/16 at 10:59; Status DC Haloperidol (Haldol) 5 mg STAT STAT IM Last administered on 02/20/16at 17:10; Start 02/20/16 at 17:06; Stop 02/20/16 at 17:08; Status DC Haloperidol (Haldol) 5 mg STK-MED ONCE As Ordered ; Start 02/12/16 at 10:28; Stop 02/12/16 at 10:29; Status DC Haloperidol (Haldol) 10 mg STAT STAT IM ; Start 02/12/16 at 10:39; Stop 02/11 at 10:43; Status DC Home Med (Med Rec Complete!) ASDIRECTED XX ; Start 02/09/16 at 23:15; Stop at 23:28; Status DC Lorazepam (Ativan) 2 mg Q6HP PRN PO ANXIETY/AGITATION; Start 02/11/16 at 16:15 ; Stop 03/01/16 at 16:14 Lorazepam (Ativan) 2 mg STAT STAT IM Last administered on 02/12/16at 10:54; Start 02/12/16 at 10:39; Stop 02/12/16 at 10:43; Status DC Lorazepam (Ativan) 2 mg STAT STAT IM Last administered on 02/20/16at 17:10; Start 02/20/16 at 17:06; Stop 02/20/16 at 17:08; Status DC Lorazepam (Ativan) 2 mg STK-MED ONCE As Ordered ; Start 02/12/16 at 10:27; Stop 02/12/16 at 10:28; Status DC Magnesium Hydroxide (Milk Of Magnesia) 30 ml DAILYPRN PRN PO CONSTIPATION; Start 02/09/16 at 22:45; Stop 03/10/16 at 22:44 Non-Formulary Medication ( See Comment Field Below ) SEE LABEL COMMENTS DAILY XX ; Start 02/12/16 at 09:00; Stop 03/13/16 at 08:59 Trazodone HCl (Desyrel) 50 mg QHSP PRN PO INSOMNIA; Start 02/09/16 at 22:45; Stop 03/10/16 at 22:44 Tuberculin PPD (Aplisol, Ppd) 5 units NOW ONCE ID ; Start 02/12/16 at 10:15; Stop 02/12/16 at 10:50; Status DC Allergies Coded Allergies: No Known Drug Allergy (Unverified Allergy, Unknown, 05/24/12) Angela Mora Feb 28, 2016 15:16
[2016-02-29] MEDS: **PENDING PPD ENTRY XX SCH (07:44)
[2016-02-29] MEDS ORDERED: LORazepam 2 MG TAB PO PRN (09:30)
[2016-02-29] MEDS: ACETAMINOPHEN TAB 650MG DOSE (2X325MG) PO PRN ×2 (10:08→16:38)
[2016-02-29] MEDS: ARIPiprazole 10 MG TAB PO SCH (12:00)
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
[2016-03-01] MEDS: ACETAMINOPHEN TAB 650MG DOSE (2X325MG) PO PRN ×2 (01:13→19:30)
[2016-03-01] MEDS: **PENDING PPD ENTRY XX SCH (08:44)
[2016-03-01] MEDS: ARIPiprazole 10 MG TAB PO SCH (11:53)
[2016-03-02] MEDS: **PENDING PPD ENTRY XX SCH (08:31)
[2016-03-02] MEDS: ACETAMINOPHEN TAB 650MG DOSE (2X325MG) PO PRN ×2 (09:35→18:15)
[2016-03-02] MEDS: ARIPiprazole 10 MG TAB PO SCH (11:44)
[2016-03-03] MEDS: **PENDING PPD ENTRY XX SCH (08:55)
[2016-03-03] MEDS: ARIPiprazole 10 MG TAB PO SCH (12:02)
[2016-03-03] MEDS: ACETAMINOPHEN TAB 650MG DOSE (2X325MG) PO PRN (12:32)
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
[2016-03-04] MEDS: **PENDING PPD ENTRY XX SCH (09:00)
[2016-03-04] MEDS: ARIPiprazole 10 MG TAB PO SCH (11:56)
--- NOTE | 2016-03-04 14:35 | IPNPDOC ---
[facility] Progress Note Progress Note DATE: 03/04/16 HISTORY: Visual And Stock Associate asked patient in hallway in full view of nurse's station if she would like to meet today. Patient declined to meet X 2 stating, "I'm not going to meet with you today." Patient was informed earlier in day by extrusion die coordinator that she is scheduled to be transferred to [facility] on . Patient declined to explain why she did not want to meet, presented with no indication of suicidal or homicidal ideation, presented with no increase in symptoms of anxiety or depression, exhibited no signs of inclination to engage in SIB. Patient was overheard talking on phone expressing concerns about children in other parts of the word "watching what is going on" on the hospital and she was at times observed to seemingly be responding to internal stimuli. Nursing continues to monitor intake and output, patient has been sleeping and attending some groups. Patient presents with no signs of acute distress, no indication of medication side effects, and no indication of physical pain. VITAL SIGNS: Patient refuses NEW TEST RESULTS: No new results. Recent UA results negative, colorless, clear urine, low specific gravity. BMP ordered in effort to evaluate hydration status. Patient placed on I and O's and PA continues to attempt to evaluate. Recent EKG results SINUS RHYTHM WITH SINUS ARRHYTHMIA NONSPECIFIC ST-WAVE ABNORMALITY, DIFFICULT TO COMPARE TO PRIOR WITH ARTIFACT, RATE SLOWER C/W . PROBABLE MILD EARLY REPOLAR CHANGERS. Per PA, patient to follow up with PCM post discharge. Patient is asymptomatic. Labs completed on admission: low Hgb, HCT, MCH, MCHC, and elevated RDW. PA to evaluate when patient permits, patient continues to refuse follow up lab work. HCG negative on admission. CURRENT MEDICATIONS: See below MENTAL STATUS EXAMINATION: Patient is a 25 year old female who presents today with reduced hygiene, was dressed in own clothing. Patient was calm but declined to meet with underwriter solicitation director X 2 today offering no explanation as to why. Speech: Pressured, remains tangential, volume normal Thought processes: Illogical, remains disorganized, appears to be responding to internal stimuli Thought content: Irrational and illogical, remains paranoid, tangential, may be responding to internal stimuli Associations: Tangential Abnormal or psychotic thoughts: Appears preoccupied at times, remains delusional and paranoid, may be hallucinating, no indication of suicidal and homicidal ideation and displays no behavior indicative of suicidal or homicidal thinking, displays no physical aggression Judgment: Poor Insight: Poor Oriented to: Person and place, unable to evaluate if orientated to time Recent and Remote Memory: Limited Attention Span and Concentration: Poor Fund of knowledge: Poor Mood: Unremarkable, remains preoccupied with discharge Affect: Flat ASSESSMENT: Patient declines to meet today, has made no mention of discharge to underwriter solicitation director, [facility], hotel, ot otherwise. Patient has spent a great deal of time on the telephone, apparently calling attorneys regarding her court date tomorrow, is aware she is scheduled for transfer to [facility] on . Patient's I and O continue to be monitored by nursing due to her previous report of having symptoms of a UTI. Patient continues to present with no indication of abdominal discomfort, and continues to refuse follow-up labs. Patient remains tangential, psychotic, delusional. Will continue to monitor patient for medication compliance which underwriter solicitation director continues to question. Patient's current psychiatric status continues to render her a safety risk to herself and others and patient remains acutely psychotic and is in need of ongoing inpatient evaluation and treatment to ensure safety. Will continue to evaluate patient's response to Abilify and titrate as tolerated/permitted by patient. Will also monitor for medication side effects, continue to encourage medication compliance, and will continue to evaluate feasibility of future switch to Abilify Maintena. In effort to further ensure compliance, underwriter solicitation director asked nursing to continue to try offering water/crackers to pt while patient is being monitored after medication is dispensed. DIAGNOSES: Schizophrenia, paranoid type MANAGEMENT PLAN: Continue Abilify to 10 mg po a noon and 15 mg po q hs and continue to encourage patient to consider dosing adjustment Evaluate transition to Abilify Maintena Continue to encourage patient to be medication compliant I and O to continue to be monitored by nursing Maintain safety precautions Continue to encourage patient to attend groups and participate in unit programming to develop coping strategies Continue to attempt to include patient in discharge planning process and prepare patient for transfer to [facility] on ; involve family and case hardener if willing Patient to follow up with PCP upon arrival at [facility] Current Medications Current Medications Acetaminophen (Tylenol) 650 mg Q6HP PRN PO HEADACHE or DISCOMFORT Last administered on 03/03/16t 12:32; Start 02/09/16 at 22:45; Stop 03/10/16 at 22:44 Al Hydrox/Mg Hydrox/Simethicone (Mylanta) 30 ml Q4HP PRN PO HEARTBURN/ INDIGESTION; Start 02/09/16 at 22:45; Stop 03/10/16 at 22:44 Aripiprazole (AbiLIFY) 5 mg DAILY@12 PO Last administered on 02/11/16at 09:47; Start 02/10/16 at 12:00; Stop 02/12/16 at 09:57; Status DC Aripiprazole (AbiLIFY) 5 mg QHS PO Last administered on 02/11/16at 22:01; Start 02/09/16 at 21:00; Stop 02/12/16 at 09:57; Status DC Aripiprazole (AbiLIFY) 10 mg DAILY@12 PO Last administered on 03/04/16t 11:56; Start 02/12/16 at 12:00; Stop 03/13/16 at 11:59 Aripiprazole (AbiLIFY) 10 mg QHS PO Last administered on 02/18/16at 21:54; Start 02/12/16 at 21:00; Stop 02/19/16 at 16:42; Status DC Aripiprazole (AbiLIFY) 15 mg QHS PO Last administered on 03/03/16t 21:51; Start 02/19/16 at 21:00; Stop 03/20/16 at 20:59 Cetylpyridinium Chloride (Cepacol) 1 alok Q2HP PRN PO SORE THROAT Last administered on 02/25/16 06:18; Start 02/23/16 at 14:45; Stop 03/24/16 at 14:44 Diphenhydramine HCl (Benadryl) 50 mg Q6HP PRN PO AGITATION; Start 02/11/16 at 16:15; Stop 03/12/16 at 16:14 Diphenhydramine HCl (Benadryl) 50 mg STAT STAT IM Last administered on at 10:54; Start 02/12/16 at 10:39; Stop 02/12/16 at 10:43; Status DC Diphenhydramine HCl (Benadryl) 50 mg STAT STAT IM Last administered on at 17:11; Start 02/20/16 at 17:06; Stop 02/20/16 at 17:08; Status DC Diphenhydramine HCl (Benadryl) 50 mg STK-MED ONCE As Ordered ; Start 02/12/16 at 10:28; Stop 02/12/16 at 10:29; Status DC Haloperidol (Haldol) 5 mg Q6HP PRN PO AGITATION; Start 02/11/16 at 16:15; Stop 03/12/16 at 16:14 Haloperidol (Haldol) 5 mg STAT STAT IM Last administered on 02/12/16at 11:01; Start 02/12/16 at 10:58; Stop 02/12/16 at 10:59; Status DC Haloperidol (Haldol) 5 mg STAT STAT IM Last administered on 02/20/16at 17:10; Start 02/20/16 at 17:06; Stop 02/20/16 at 17:08; Status DC Haloperidol (Haldol) 5 mg STK-MED ONCE As Ordered ; Start 02/12/16 at 10:28; Stop 02/12/16 at 10:29; Status DC Haloperidol (Haldol) 10 mg STAT STAT IM ; Start 02/12/16 at 10:39; Stop 02/11 at 10:43; Status DC Home Med (Med Rec Complete!) ASDIRECTED XX ; Start 02/09/16 at 23:15; Stop at 23:28; Status DC Lorazepam (Ativan) 2 mg Q6HP PRN PO ANXIETY/AGITATION; Start 02/29/16 at 09:30; Stop 03/08/16 at 09:29 Lorazepam (Ativan) 2 mg Q6HP PRN PO ANXIETY/AGITATION; Start 02/11/16 at 16:15 ; Stop 02/29/16 at 09:18; Status DC Lorazepam (Ativan) 2 mg STAT STAT IM Last administered on 02/12/16at 10:54; Start 02/12/16 at 10:39; Stop 02/12/16 at 10:43; Status DC Lorazepam (Ativan) 2 mg STAT STAT IM Last administered on 02/20/16at 17:10; Start 02/20/16 at 17:06; Stop 02/20/16 at 17:08; Status DC Lorazepam (Ativan) 2 mg STK-MED ONCE As Ordered ; Start 02/12/16 at 10:27; Stop 02/12/16 at 10:28; Status DC Magnesium Hydroxide (Milk Of Magnesia) 30 ml DAILYPRN PRN PO CONSTIPATION; Start 02/09/16 at 22:45; Stop 03/10/16 at 22:44 Non-Formulary Medication ( See Comment Field Below ) SEE LABEL COMMENTS DAILY XX ; Start 02/12/16 at 09:00; Stop 03/13/16 at 08:59 Trazodone HCl (Desyrel) 50 mg QHSP PRN PO INSOMNIA; Start 02/09/16 at 22:45; Stop 03/10/16 at 22:44 Tuberculin PPD (Aplisol, Ppd) 5 units NOW ONCE ID ; Start 02/12/16 at 10:15; Stop 02/12/16 at 10:50; Status DC Allergies Coded Allergies: No Known Drug Allergy (Unverified Allergy, Unknown, 05/24/12) Angela Mora Mar 04, 2016 14:35
[2016-03-04] MEDS: ACETAMINOPHEN TAB 650MG DOSE (2X325MG) PO PRN (17:03)
[2016-03-04 18:00] VITALS: BP 136/78
[2016-03-05] MEDS: **PENDING PPD ENTRY XX SCH (08:28)
[2016-03-05] MEDS: ARIPiprazole 10 MG TAB PO SCH (11:57)
--- NOTE | 2016-03-05 14:23 | IPNPDOC ---
[facility] Progress Note Progress Note DATE: 03/05/16 HISTORY: Jack Spooler Tender asked patient in hallway in full view of nurse's station if she would like to meet today. Patient declined to meet stating, "I don't want to meet with you today this is court day." Patient is aware the court will be taking place this afternoon and has been informed by study coordinator that discharge plan remains to be transfer to [facility] unless determine otherwise by court. Patient presented with no indication of suicidal or homicidal ideation, presented with no increase in symptoms of anxiety or depression, exhibited no signs of inclination to engage in SIB. Patient was observed to be making multiple requests a nurse's station and talking on phone and appeared to be responding to internal stimuli. Nursing continues to monitor intake and output, patient has been sleeping and attending some groups. Patient presents with no signs of acute distress, no indication of medication side effects, and no indication of physical pain. Addendum: Outcome of patient's court resulted in patient to remain on inpatient unit until response to safe to discharge or until transfer to [facility], whichever occurs first. VITAL SIGNS: Patient refuses NEW TEST RESULTS: No new results. Recent UA results negative, colorless, clear urine, low specific gravity. BMP ordered in effort to evaluate hydration status. Patient placed on I and O's and PA continues to attempt to evaluate. Recent EKG results SINUS RHYTHM WITH SINUS ARRHYTHMIA NONSPECIFIC ST-WAVE ABNORMALITY, DIFFICULT TO COMPARE TO PRIOR WITH ARTIFACT, RATE SLOWER C/W . PROBABLE MILD EARLY REPOLAR CHANGERS. Per PA, patient to follow up with PCM post discharge. Patient is asymptomatic. Labs completed on admission: low Hgb, HCT, MCH, MCHC, and elevated RDW. PA to evaluate when patient permits, patient continues to refuse follow up lab work. HCG negative on admission. CURRENT MEDICATIONS: See below MENTAL STATUS EXAMINATION: Patient is a 25 year old female who presents today with reduced hygiene, was dressed in hospital clothing. Patient was calm but declined to meet with science writer today. Speech: Pressured, remains tangential, volume normal Thought processes: Illogical, remains disorganized, appears to be responding to internal stimuli Thought content: Irrational and illogical, remains paranoid, tangential, may be responding to internal stimuli Associations: Tangential Abnormal or psychotic thoughts: Appears preoccupied at times, remains delusional and paranoid, may be hallucinating, no indication of suicidal and homicidal ideation and displays no behavior indicative of suicidal or homicidal thinking, displays no physical aggression Judgment: Poor Insight: Poor Oriented to: Person and place, unable to evaluate if orientated to time Recent and Remote Memory: Limited Attention Span and Concentration: Poor Fund of knowledge: Poor Mood: Unremarkable, remains preoccupied with discharge and court Affect: Flat ASSESSMENT: Patient declines to meet today, has made no mention of discharge to science writer, [facility], hotel, or otherwise. Patient has spent a great deal of time at nurse's station and on the telephone. Patient remains aware she is scheduled for transfer to [facility] on in near future. Patient's I and O continue to be monitored by nursing due to her previous report of having symptoms of a UTI. Patient continues to present with no indication of abdominal discomfort, and continues to refuse follow-up labs. Patient remains tangential, psychotic, delusional. Will continue to monitor patient for medication compliance which science writer continues to question. Patient's current psychiatric status continues to render her a safety risk to herself and others and patient remains acutely psychotic and is in need of ongoing inpatient evaluation and treatment to ensure safety. Patient has consistently refused medication dosing adjustment/ change. Will continue to evaluate patient's response to Abilify and titrate as tolerated/permitted by patient. Will also monitor for medication side effects, continue to encourage medication compliance, and will continue to evaluate feasibility of/patient's willingness to switch to Abilify Maintena. In effort to further ensure compliance, science writer has asked nursing to continue to try offering water/crackers to pt while patient is being monitored after medication is dispensed. DIAGNOSES: Schizophrenia, paranoid type MANAGEMENT PLAN: Continue Abilify to 10 mg po a noon and 15 mg po q hs and continue to encourage patient to consider dosing adjustment Continue to evaluate transition to Abilify Maintena Continue to encourage patient to be medication compliant I and O to continue to be monitored by nursing Maintain safety precautions Continue to encourage patient to attend groups and participate in unit programming to develop coping strategies Continue to attempt to include patient in discharge planning process and prepare patient for transfer to [facility] on ; involve family and case checker if willing Patient to follow up with PCP upon arrival at [facility] Vital Signs/I&O Vital Signs Date Time Temp Pulse Resp B/P Pulse Ox O2 Delivery O2 Flow Rate FiO2 03/04/16 18:00 98.8 94 16 136/78 Current Medications Current Medications Acetaminophen (Tylenol) 650 mg Q6HP PRN PO HEADACHE or DISCOMFORT Last administered on 03/04/16 17:03; Start 02/09/16 at 22:45; Stop 03/10/16 at 22: 44 Al Hydrox/Mg Hydrox/Simethicone (Mylanta) 30 ml Q4HP PRN PO HEARTBURN/ INDIGESTION; Start 02/09/16 at 22:45; Stop 03/10/16 at 22:44 Aripiprazole (AbiLIFY) 5 mg DAILY@12 PO Last administered on 02/11/16at 09:47; Start 02/10/16 at 12:00; Stop 02/12/16 at 09:57; Status DC Aripiprazole (AbiLIFY) 5 mg QHS PO Last administered on 02/11/16at 22:01; Start 02/09/16 at 21:00; Stop 02/12/16 at 09:57; Status DC Aripiprazole (AbiLIFY) 10 mg DAILY@12 PO Last administered on 03/05/16 11:57; Start 02/12/16 at 12:00; Stop 03/13/16 at 11:59 Aripiprazole (AbiLIFY) 10 mg QHS PO Last administered on 02/18/16at 21:54; Start 02/12/16 at 21:00; Stop 02/19/16 at 16:42; Status DC Aripiprazole (AbiLIFY) 15 mg QHS PO Last administered on 03/04/16 21:06; Start 02/19/16 at 21:00; Stop 03/20/16 at 20:59 Cetylpyridinium Chloride (Cepacol) 1 alok Q2HP PRN PO SORE THROAT Last administered on 02/25/16 06:18; Start 02/23/16 at 14:45; Stop 03/24/16 at 14:44 Diphenhydramine HCl (Benadryl) 50 mg Q6HP PRN PO AGITATION; Start 02/11/16 at 16:15; Stop 03/12/16 at 16:14 Diphenhydramine HCl (Benadryl) 50 mg STAT STAT IM Last administered on at 10:54; Start 02/12/16 at 10:39; Stop 02/12/16 at 10:43; Status DC Diphenhydramine HCl (Benadryl) 50 mg STAT STAT IM Last administered on at 17:11; Start 02/20/16 at 17:06; Stop 02/20/16 at 17:08; Status DC Diphenhydramine HCl (Benadryl) 50 mg STK-MED ONCE As Ordered ; Start 02/12/16 at 10:28; Stop 02/12/16 at 10:29; Status DC Haloperidol (Haldol) 5 mg Q6HP PRN PO AGITATION; Start 02/11/16 at 16:15; Stop 03/12/16 at 16:14 Haloperidol (Haldol) 5 mg STAT STAT IM Last administered on 02/12/16at 11:01; Start 02/12/16 at 10:58; Stop 02/12/16 at 10:59; Status DC Haloperidol (Haldol) 5 mg STAT STAT IM Last administered on 02/20/16at 17:10; Start 02/20/16 at 17:06; Stop 02/20/16 at 17:08; Status DC Haloperidol (Haldol) 5 mg STK-MED ONCE As Ordered ; Start 02/12/16 at 10:28; Stop 02/12/16 at 10:29; Status DC Haloperidol (Haldol) 10 mg STAT STAT IM ; Start 02/12/16 at 10:39; Stop 02/11 at 10:43; Status DC Home Med (Med Rec Complete!) ASDIRECTED XX ; Start 02/09/16 at 23:15; Stop at 23:28; Status DC Lorazepam (Ativan) 2 mg Q6HP PRN PO ANXIETY/AGITATION; Start 02/29/16 at 09:30; Stop 03/08/16 at 09:29 Lorazepam (Ativan) 2 mg Q6HP PRN PO ANXIETY/AGITATION; Start 02/11/16 at 16:15 ; Stop 02/29/16 at 09:18; Status DC Lorazepam (Ativan) 2 mg STAT STAT IM Last administered on 02/12/16at 10:54; Start 02/12/16 at 10:39; Stop 02/12/16 at 10:43; Status DC Lorazepam (Ativan) 2 mg STAT STAT IM Last administered on 02/20/16at 17:10; Start 02/20/16 at 17:06; Stop 02/20/16 at 17:08; Status DC Lorazepam (Ativan) 2 mg STK-MED ONCE As Ordered ; Start 02/12/16 at 10:27; Stop 02/12/16 at 10:28; Status DC Magnesium Hydroxide (Milk Of Magnesia) 30 ml DAILYPRN PRN PO CONSTIPATION; Start 02/09/16 at 22:45; Stop 03/10/16 at 22:44 Non-Formulary Medication ( See Comment Field Below ) SEE LABEL COMMENTS DAILY XX ; Start 02/12/16 at 09:00; Stop 03/13/16 at 08:59 Trazodone HCl (Desyrel) 50 mg QHSP PRN PO INSOMNIA; Start 02/09/16 at 22:45; Stop 03/10/16 at 22:44 Tuberculin PPD (Aplisol, Ppd) 5 units NOW ONCE ID ; Start 02/12/16 at 10:15; Stop 02/12/16 at 10:50; Status DC Allergies Coded Allergies: No Known Drug Allergy (Unverified Allergy, Unknown, 05/24/12) Angela Mora Mar 05, 2016 14:23
[2016-03-05] MEDS: ACETAMINOPHEN TAB 650MG DOSE (2X325MG) PO PRN (16:55)
[2016-03-05 18:00] VITALS: BP 125/75
[2016-03-06] MEDS: ACETAMINOPHEN TAB 650MG DOSE (2X325MG) PO PRN (04:45)
[2016-03-06] MEDS: **PENDING PPD ENTRY XX SCH (08:42)
[2016-03-06] MEDS: ARIPiprazole 10 MG TAB PO SCH (11:59)
--- NOTE | 2016-03-06 15:42 | IPNPDOC ---
[facility] Progress Note Progress Note DATE OF SERVICE: 03/06/16 CHIEF COMPLAINT: "I'm not meeting with you in my room or in office, I want to meet in the hallway, I don't care about my privacy." SUBJECTIVE: On third attempt today patient agreed to meet with customs entry writer accompanied by behavioral health worker, Lesa, today insisting to meet in hallway and verbalizes awareness of customs entry writer's inability to protect patient's privacy in hallway environment. The first 2 attempts to meet with patient today , which patient declined, were made by customs entry writer in hallway in clear view of nurse' s station. Patient was informed of yesterday's court outcome, verbalized today she does not desire transfer to [facility], now prefers to remain on [facility] inpatient unit. When patient was reminded of discharge plan she indicated she no longer wished to speak with customs entry writer but resistantly answered questions pertaining to medication, comfort and safety on unit. Patient indicated she is taking her medication, denied medication side effects, denied physical pain, and indicated she feels safe on unit and needs are being met by unit staff. Patient again refused to permit customs entry writer to make dosing adjustments or changes to psychotropic medication, including injectable psychotropic medication. OBJECTIVE: Patient is 25-year-old female who was admitted on 02/09/16 due to symptoms of psychosis, bizarre behavior, and posing as safety risk to herself and others. Patient has been visible on unit, attending some groups, engaging at times with others, remains isolative to room at other times, is currently able to maintain behavioral control. Patient terminated today's assessment abruptly with prior to informing customs entry writer she no longer wished to meet and walking away from customs entry writer she was responsive to questions and presented with no indication of indication of suicidal or homicidal ideation, no increase in symptoms of anxiety or depression, exhibited no signs of inclination to engage in SIB. Patient continues to have high telephone utilization rate all requests of nursing for copies and additions to chart. Nursing continues to monitor intake and output. Patient presents with no signs of acute distress, no indication of medication side effects, and no indication of physical pain. Patient remains tangential, psychotic, delusional. Will continue to monitor patient for medication compliance which remains in question. Patient's current psychiatric status continues to render her a safety risk to herself and others and patient remains acutely psychotic and is in need of ongoing inpatient evaluation and treatment to ensure safety. Patient has consistently refused medication dosing adjustment/change. Will continue to evaluate patient's response to Abilify and titrate as tolerated/permitted by patient. Will also monitor for medication side effects, continue to encourage medication compliance , and will continue to evaluate feasibility of/patient's willingness to switch to Abilify Maintena. In effort to further ensure compliance, customs entry writer has asked nursing to continue to try offering water/crackers to pt while patient is being monitored after medication is dispensed. VITAL SIGNS: Patient refuses routine vital signs, last permitted vital signs on 03/05/16, see below. MENTAL STATUS EXAMINATION: Patient is a 25 year old female who presents today with reduced hygiene, was dressed in personal clothing. Patient was calm during interaction, abruptly terminated interaction informing customs entry writer she was no longer interested in meeting prior to walking away. This was the third attempt today to meet with patient. Speech: Pressured, remains tangential, volume normal Thought processes: Illogical, remains disorganized, appears to be responding to internal stimuli Thought content: Irrational and illogical, remains paranoid, tangential, may be responding to internal stimuli Associations: Tangential Abnormal or psychotic thoughts: Appears preoccupied at times, remains delusional and paranoid, may be hallucinating, no indication of suicidal and homicidal ideation and displays no behavior indicative of suicidal or homicidal thinking, displays no physical aggression Judgment: Poor Insight: Poor Oriented to: Person and place, unable to evaluate if orientated to time Recent and Remote Memory: Limited Attention Span and Concentration: Poor Fund of knowledge: Poor Mood: Unremarkable, remains preoccupied with discharge and court Affect: Flat NEW TEST RESULTS: No new results. Patient continues to decline labs, has declined PPD on multiple occasions, order for chest x-ray requested in preparation for patient's transfer to [facility]. Recent UA results negative, colorless, clear urine, low specific gravity. BMP ordered in effort to evaluate hydration status. Patient placed on I and O's and PA continues to attempt to evaluate. Recent EKG results SINUS RHYTHM WITH SINUS ARRHYTHMIA NONSPECIFIC ST-WAVE ABNORMALITY, DIFFICULT TO COMPARE TO PRIOR WITH ARTIFACT, RATE SLOWER C/W . PROBABLE MILD EARLY REPOLAR CHANGERS. Per PA, patient to follow up with PCM post discharge. Patient is asymptomatic. Labs completed on admission: low Hgb, HCT, MCH, MCHC, and elevated RDW. PA to evaluate when patient permits, patient continues to refuse follow up lab work. HCG negative on admission. CURRENT MEDICATIONS: See below DIAGNOSES: Schizophrenia, paranoid type MANAGEMENT PLAN: Continue Abilify to 10 mg po a noon and 15 mg po q hs and continue to encourage patient to consider dosing adjustment Continue to evaluate transition to Abilify Maintena Continue to encourage patient to be medication compliant I and O to continue to be monitored by nursing Maintain safety precautions Continue to encourage patient to attend groups and participate in unit programming to develop coping strategies Continue to attempt to include patient in discharge planning process and prepare patient for transfer to [facility] on ; involve family and test case developer if willing Patient to follow up with PCP upon arrival at [facility] Vital Signs/I&O Vital Signs Date Time Temp Pulse Resp B/P Pulse Ox O2 Delivery O2 Flow Rate FiO2 03/05/16 18:00 96.9 96 16 125/75 Current Medications Current Medications Acetaminophen (Tylenol) 650 mg Q6HP PRN PO HEADACHE or DISCOMFORT Last administered on 03/06/16 04:45; Start 02/09/16 at 22:45; Stop 03/10/16 at 22: 44 Al Hydrox/Mg Hydrox/Simethicone (Mylanta) 30 ml Q4HP PRN PO HEARTBURN/ INDIGESTION; Start 02/09/16 at 22:45; Stop 03/10/16 at 22:44 Aripiprazole (AbiLIFY) 5 mg DAILY@12 PO Last administered on 02/11/16at 09:47; Start 02/10/16 at 12:00; Stop 02/12/16 at 09:57; Status DC Aripiprazole (AbiLIFY) 5 mg QHS PO Last administered on 02/11/16at 22:01; Start 02/09/16 at 21:00; Stop 02/12/16 at 09:57; Status DC Aripiprazole (AbiLIFY) 10 mg DAILY@12 PO Last administered on 03/06/16 11:59; Start 02/12/16 at 12:00; Stop 03/13/16 at 11:59 Aripiprazole (AbiLIFY) 10 mg QHS PO Last administered on 02/18/16at 21:54; Start 02/12/16 at 21:00; Stop 02/19/16 at 16:42; Status DC Aripiprazole (AbiLIFY) 15 mg QHS PO Last administered on 03/05/16t 21:55; Start 02/19/16 at 21:00; Stop 03/20/16 at 20:59 Cetylpyridinium Chloride (Cepacol) 1 alok Q2HP PRN PO SORE THROAT Last administered on 02/25/16 06:18; Start 02/23/16 at 14:45; Stop 03/24/16 at 14:44 Diphenhydramine HCl (Benadryl) 50 mg Q6HP PRN PO AGITATION; Start 02/11/16 at 16:15; Stop 03/12/16 at 16:14 Diphenhydramine HCl (Benadryl) 50 mg STAT STAT IM Last administered on at 10:54; Start 02/12/16 at 10:39; Stop 02/12/16 at 10:43; Status DC Diphenhydramine HCl (Benadryl) 50 mg STAT STAT IM Last administered on at 17:11; Start 02/20/16 at 17:06; Stop 02/20/16 at 17:08; Status DC Diphenhydramine HCl (Benadryl) 50 mg STK-MED ONCE As Ordered ; Start 02/12/16 at 10:28; Stop 02/12/16 at 10:29; Status DC Haloperidol (Haldol) 5 mg Q6HP PRN PO AGITATION; Start 02/11/16 at 16:15; Stop 03/12/16 at 16:14 Haloperidol (Haldol) 5 mg STAT STAT IM Last administered on 02/12/16at 11:01; Start 02/12/16 at 10:58; Stop 02/12/16 at 10:59; Status DC Haloperidol (Haldol) 5 mg STAT STAT IM Last administered on 02/20/16at 17:10; Start 02/20/16 at 17:06; Stop 02/20/16 at 17:08; Status DC Haloperidol (Haldol) 5 mg STK-MED ONCE As Ordered ; Start 02/12/16 at 10:28; Stop 02/12/16 at 10:29; Status DC Haloperidol (Haldol) 10 mg STAT STAT IM ; Start 02/12/16 at 10:39; Stop 02/11 at 10:43; Status DC Home Med (Med Rec Complete!) ASDIRECTED XX ; Start 02/09/16 at 23:15; Stop at 23:28; Status DC Lorazepam (Ativan) 2 mg Q6HP PRN PO ANXIETY/AGITATION; Start 02/29/16 at 09:30; Stop 03/08/16 at 09:29 Lorazepam (Ativan) 2 mg Q6HP PRN PO ANXIETY/AGITATION; Start 02/11/16 at 16:15 ; Stop 02/29/16 at 09:18; Status DC Lorazepam (Ativan) 2 mg STAT STAT IM Last administered on 02/12/16at 10:54; Start 02/12/16 at 10:39; Stop 02/12/16 at 10:43; Status DC Lorazepam (Ativan) 2 mg STAT STAT IM Last administered on 02/20/16at 17:10; Start 02/20/16 at 17:06; Stop 02/20/16 at 17:08; Status DC Lorazepam (Ativan) 2 mg STK-MED ONCE As Ordered ; Start 02/12/16 at 10:27; Stop 02/12/16 at 10:28; Status DC Magnesium Hydroxide (Milk Of Magnesia) 30 ml DAILYPRN PRN PO CONSTIPATION; Start 02/09/16 at 22:45; Stop 03/10/16 at 22:44 Non-Formulary Medication ( See Comment Field Below ) SEE LABEL COMMENTS DAILY XX ; Start 02/12/16 at 09:00; Stop 03/13/16 at 08:59 Trazodone HCl (Desyrel) 50 mg QHSP PRN PO INSOMNIA; Start 02/09/16 at 22:45; Stop 03/10/16 at 22:44 Tuberculin PPD (Aplisol, Ppd) 5 units NOW ONCE ID ; Start 02/12/16 at 10:15; Stop 02/12/16 at 10:50; Status DC Allergies Coded Allergies: No Known Drug Allergy (Unverified Allergy, Unknown, 05/24/12) Angela Mora Mar 06, 2016 15:42 Stop 02/12/16 at 10:50; Status DC Allergies Coded Allergies: No Known Drug Allergy (Unverified Allergy, Unknown, 05/24/12) Angela Mora Mar 06, 2016 15:42
[2016-03-06] MEDS ORDERED: TUBERCULIN PPD 5 UNITS/0.1 ML ID ONE (20:00)
[2016-03-07] MEDS ORDERED: LORazepam 2 MG TAB PO PRN (09:15)
[2016-03-07] MEDS ORDERED: TUBERCULIN PPD 5 UNITS/0.1 ML ID ONE (09:15)
[2016-03-07] MEDS: ARIPiprazole 10 MG TAB PO SCH (11:27)
[2016-03-07] MEDS: ACETAMINOPHEN TAB 650MG DOSE (2X325MG) PO PRN (13:20)
--- NOTE | 2016-03-07 17:11 | IPNPDOC ---
[facility] Progress Note Progress Note DATE OF SERVICE: 03/07/16 HISTORY: Recycling Program Manager asked patient in hallway in full view of nurse's station if she would like to meet today. Patient declined to meet stating, "I'm good, I don't want to meet with you today, don't ask me again. Patient has been informed by research program coordinator that discharge plan remains to be transfer to [facility]. Patient presented with no indication of suicidal or homicidal ideation, presented with no increase in symptoms of anxiety or depression, exhibited no signs of inclination to engage in SIB. Patient was observed to be making requests a nurse's station and talking on phone, appeared to be responding to internal stimuli. Nursing continues to monitor intake and output, patient has been sleeping and attending some groups. Patient presents with no signs of acute distress, no indication of medication side effects, and no indication of physical pain. Patient was agreeable to completing PPD test this morning in preparation for transfer to [facility]. VITAL SIGNS: Patient refuses routine vital signs, last permitted vital signs on 03/05/16, see below. NEW TEST RESULTS: No new results. Patient continues to decline labs, has declined PPD on multiple occasions, order for chest x-ray requested in preparation for patient's transfer to [facility]. Recent UA results negative, colorless, clear urine, low specific gravity. BMP ordered in effort to evaluate hydration status. Patient placed on I and O's and PA continues to attempt to evaluate. Recent EKG results SINUS RHYTHM WITH SINUS ARRHYTHMIA NONSPECIFIC ST-WAVE ABNORMALITY, DIFFICULT TO COMPARE TO PRIOR WITH ARTIFACT, RATE SLOWER C/W . PROBABLE MILD EARLY REPOLAR CHANGERS. Per PA, patient to follow up with PCM post discharge. Patient is asymptomatic. Labs completed on admission: low Hgb, HCT, MCH, MCHC, and elevated RDW. PA to evaluate when patient permits, patient continues to refuse follow up lab work. HCG negative on admission. CURRENT MEDICATIONS: See below MENTAL STATUS EXAMINATION: Patient is a 25 year old female who presents today with reduced hygiene, was dressed in hospital clothing. Patient was calm during interaction Speech: Pressured, remains tangential, volume normal Thought processes: Illogical, remains disorganized, appears to be responding to internal stimuli Thought content: Irrational and illogical, remains paranoid, tangential, may be responding to internal stimuli Associations: Tangential Abnormal or psychotic thoughts: Appears preoccupied at times, remains delusional and paranoid, may be hallucinating, no indication of suicidal and homicidal ideation and displays no behavior indicative of suicidal or homicidal thinking, displays no physical aggression Judgment: Poor Insight: Poor Oriented to: Person and place, unable to evaluate if orientated to time Recent and Remote Memory: Limited Attention Span and Concentration: Poor Fund of knowledge: Poor Mood: Unremarkable, remains preoccupied with discharge and court Affect: Flat ASSESSMENT: Patient is 25-year-old female who was admitted on 02/09/16 due to symptoms of psychosis, bizarre behavior, and posing as safety risk to herself and others. Patient has been visible on unit, attending some groups, engaging at times with others, remains isolative to room at other times, is currently able to maintain behavioral control. Patient presented with no indication of suicidal or homicidal ideation, no increase in symptoms of anxiety or depression , exhibited no signs of inclination to engage in SIB. Patient continues to have high telephone utilization rate and requests of nursing for copies and additions to chart. Nursing continues to monitor intake and output. Patient presents with no signs of acute distress, no indication of medication side effects, and no indication of physical pain. Patient remains tangential, psychotic, delusional. Will continue to monitor patient for medication compliance which remains in question. Patient's current psychiatric status continues to render her a safety risk to herself and others and patient remains acutely psychotic and is in need of ongoing inpatient evaluation and treatment to ensure safety. Patient has consistently refused medication dosing adjustment/ change. Will continue to evaluate patient's response to Abilify and titrate as tolerated/permitted by patient. Will also monitor for medication side effects, continue to encourage medication compliance, and will continue to evaluate feasibility of/patient's willingness to switch to Abilify Maintena. In effort to further ensure compliance, automobile service writer has asked nursing to continue to try offering water/crackers to pt while patient is being monitored after medication is dispensed. DIAGNOSES: Schizophrenia, paranoid type MANAGEMENT PLAN: Continue Abilify to 10 mg po a noon and 15 mg po q hs and continue to encourage patient to consider dosing adjustment Continue to evaluate transition to Abilify Maintena Continue to encourage patient to be medication compliant I and O to continue to be monitored by nursing Maintain safety precautions Continue to encourage patient to attend groups and participate in unit programming to develop coping strategies Continue to attempt to include patient in discharge planning process and prepare patient for transfer to [facility] on Thursday Patient to follow up with PCP upon arrival at [facility] Vital Signs/I&O Vital Signs Date Time Temp Pulse Resp B/P Pulse Ox O2 Delivery O2 Flow Rate FiO2 03/05/16 18:00 96.9 96 16 125/75 Current Medications Current Medications Acetaminophen (Tylenol) 650 mg Q6HP PRN PO HEADACHE or DISCOMFORT Last administered on 03/07/16 13:20; Start 02/09/16 at 22:45; Stop 03/10/16 at 22: 44 Al Hydrox/Mg Hydrox/Simethicone (Mylanta) 30 ml Q4HP PRN PO HEARTBURN/ INDIGESTION; Start 02/09/16 at 22:45; Stop 03/10/16 at 22:44 Aripiprazole (AbiLIFY) 5 mg DAILY@12 PO Last administered on 02/11/16at 09:47; Start 02/10/16 at 12:00; Stop 02/12/16 at 09:57; Status DC Aripiprazole (AbiLIFY) 5 mg QHS PO Last administered on 02/11/16at 22:01; Start 02/09/16 at 21:00; Stop 02/12/16 at 09:57; Status DC Aripiprazole (AbiLIFY) 10 mg DAILY@12 PO Last administered on 03/07/16 11:27; Start 02/12/16 at 12:00; Stop 03/13/16 at 11:59 Aripiprazole (AbiLIFY) 10 mg QHS PO Last administered on 02/18/16at 21:54; Start 02/12/16 at 21:00; Stop 02/19/16 at 16:42; Status DC Aripiprazole (AbiLIFY) 15 mg QHS PO Last administered on 03/06/16 20:47; Start 02/19/16 at 21:00; Stop 03/20/16 at 20:59 Cetylpyridinium Chloride (Cepacol) 1 alok Q2HP PRN PO SORE THROAT Last administered on 02/25/16 06:18; Start 02/23/16 at 14:45; Stop 03/24/16 at 14:44 Diphenhydramine HCl (Benadryl) 50 mg Q6HP PRN PO AGITATION; Start 02/11/16 at 16:15; Stop 03/12/16 at 16:14 Diphenhydramine HCl (Benadryl) 50 mg STAT STAT IM Last administered on at 10:54; Start 02/12/16 at 10:39; Stop 02/12/16 at 10:43; Status DC Diphenhydramine HCl (Benadryl) 50 mg STAT STAT IM Last administered on at 17:11; Start 02/20/16 at 17:06; Stop 02/20/16 at 17:08; Status DC Diphenhydramine HCl (Benadryl) 50 mg STK-MED ONCE As Ordered ; Start 02/12/16 at 10:28; Stop 02/12/16 at 10:29; Status DC Haloperidol (Haldol) 5 mg Q6HP PRN PO AGITATION; Start 02/11/16 at 16:15; Stop 03/12/16 at 16:14 Haloperidol (Haldol) 5 mg STAT STAT IM Last administered on 02/12/16at 11:01; Start 02/12/16 at 10:58; Stop 02/12/16 at 10:59; Status DC Haloperidol (Haldol) 5 mg STAT STAT IM Last administered on 02/20/16at 17:10; Start 02/20/16 at 17:06; Stop 02/20/16 at 17:08; Status DC Haloperidol (Haldol) 5 mg STK-MED ONCE As Ordered ; Start 02/12/16 at 10:28; Stop 02/12/16 at 10:29; Status DC Haloperidol (Haldol) 10 mg STAT STAT IM ; Start 02/12/16 at 10:39; Stop 02/11 at 10:43; Status DC Home Med (Med Rec Complete!) ASDIRECTED XX ; Start 02/09/16 at 23:15; Stop at 23:28; Status DC Lorazepam (Ativan) 2 mg Q6HP PRN PO ANXIETY/AGITATION; Start 03/07/16 at 09:15 ; Stop 03/14/16 at 09:30 Lorazepam (Ativan) 2 mg Q6HP PRN PO ANXIETY/AGITATION; Start 02/29/16 at 09:30; Stop 03/07/16 at 09:09; Status DC Lorazepam (Ativan) 2 mg Q6HP PRN PO ANXIETY/AGITATION; Start 02/11/16 at 16:15 ; Stop 02/29/16 at 09:18; Status DC Lorazepam (Ativan) 2 mg STAT STAT IM Last administered on 02/12/16at 10:54; Start 02/12/16 at 10:39; Stop 02/12/16 at 10:43; Status DC Lorazepam (Ativan) 2 mg STAT STAT IM Last administered on 02/20/16at 17:10; Start 02/20/16 at 17:06; Stop 02/20/16 at 17:08; Status DC Lorazepam (Ativan) 2 mg STK-MED ONCE As Ordered ; Start 02/12/16 at 10:27; Stop 02/12/16 at 10:28; Status DC Magnesium Hydroxide (Milk Of Magnesia) 30 ml DAILYPRN PRN PO CONSTIPATION; Start 02/09/16 at 22:45; Stop 03/10/16 at 22:44 Non-Formulary Medication ( See Comment Field Below ) SEE LABEL COMMENTS DAILY XX ; Start 02/12/16 at 09:00; Stop 03/06/16 at 16:58; Status DC Non-Formulary Medication ( See Comment Field Below ) SEE LABEL COMMENTS SECTION 1T@20 XX ; Start 03/08/16 at 20:00; Stop 03/08/16 at 23:59 Trazodone HCl (Desyrel) 50 mg QHSP PRN PO INSOMNIA; Start 02/09/16 at 22:45; Stop 03/10/16 at 22:44 Tuberculin PPD (Aplisol, Ppd) 5 units 1T ONCE ID ; Start 03/07/16 at 09:15; Stop 03/07/16 at 09:20; Status DC Tuberculin PPD (Aplisol, Ppd) 5 units NOW ONCE ID ; Start 02/12/16 at 10:15; Stop 02/12/16 at 10:50; Status DC Tuberculin PPD (Aplisol, Ppd) 5 units ONCE ONCE ID Last administered on t 18:57; Start 03/06/16 at 20:00; Stop 03/06/16 at 20:01; Status DC Allergies Coded Allergies: No Known Drug Allergy (Unverified Allergy, Unknown, 05/24/12) Angela Mora Mar 07, 2016 17:11 Allergies Coded Allergies: No Known Drug Allergy (Unverified Allergy, Unknown, 05/24/12) Anglea Mora Mar 07, 2016 17:11
[2016-03-08] MEDS: ACETAMINOPHEN TAB 650MG DOSE (2X325MG) PO PRN ×2 (09:53→20:28)
[2016-03-08] MEDS: ARIPiprazole 10 MG TAB PO SCH (11:29)
[2016-03-08] MEDS ORDERED: PPD DOCUMENTATION ENTRY MISC XX SCH (20:00)
[2016-03-09] MEDS: ACETAMINOPHEN TAB 650MG DOSE (2X325MG) PO PRN ×2 (09:52→20:16)
[2016-03-09] MEDS: ARIPiprazole 10 MG TAB PO SCH (11:26)
--- NOTE | 2016-03-10 02:41 | IPN ---
DATE OF SERVICE: 03/09/2016 The patient saw me walking into the kitchen today and she called me over and she told me that she wanted me to prescribe her medication because she has chlamydia and she also wanted me to prescribe her an antibiotic. I advised the patient that she would need to have a physical assessment done at this point and the plan was to let the nurse practitioner, Nakia Martell, know today to evaluate the patient; however, the patient has already advised the nurse that she does not want any physical evaluation done by anyone, but she just wants me to prescribe her the medications that she is requesting. She also refused a referral to gynecology ([facility]).
[2016-03-10 06:00] VITALS: BP 105/56
[2016-03-10] MEDS: ACETAMINOPHEN TAB 650MG DOSE (2X325MG) PO PRN ×2 (07:41→20:26)
--- NOTE | 2016-03-10 08:49 | IPNPDOC ---
Assessment/Plan Date Seen The patient was seen on 03/10/16. Problems Problems: (1) GERD (gastroesophageal reflux disease) Status: Chronic Problem Text: * Pharmacy records are reviewed indicating Prilosec 40 mg by mouth daily. * This is ordered for the patient at this time. (2) HSV infection Status: Chronic Problem Text: * [facility] note reviewed from 03/10, follows with [facility]. H/O HSV, taking HSV prophylactic treatment. * Pharmacy records reviewed indicating Valtrex 1 g by mouth daily. * This is ordered for the patient at this time. * Pt denies any HSV lesions. (3) Routine screening for STI (sexually transmitted infection) Status: Acute Problem Text: * Gonorrhea/chlamydia screening requested. * Pt would like to be screened for HIV/Hepatitis. * Add RPR. * Check UA/UC as well. Plan / VTE VTE Prophylaxis Ordered?: No (ambulatory. ) Disposition staff member was present for exam, Page CIFUENTES. Subjective Review of Systems CC/HPI The patient is a 25-year-old female admitted with a reason for visit of Schizophrenia. Events since last encounter Pt states there are routine meds that are not ordered for her. This includes Valtrex 1 g by mouth daily and Prilosec 40 mg by mouth daily. She is also requesting to be screened for chlamydia. Last screening available in the system appears to be 03/10 with her [facility] provider. Initially she is not reporting any symptoms, urinary symptoms or vaginal discharge, subsequently states she might need an antibiotic as there is a change in odor of her urine. She has reported she may need antibiotic for possible chlamydia. Pulmonary: Denies: Cough, Dyspnea Cardiovascular: Denies: Chest Pain, Lt Headedness, Orthopnea, Palpitations, Paroxysmal Noc. Dyspnea Gastrointestinal: Denies: Abdominal Pain, Diarrhea, Nausea, Vomiting Genitourinary: Denies: Dysuria, Frequency, Incontinence, Retention Objective Physical Examination General Exam: Positive: Alert, No Acute Distress ENT Exam: Positive: Atraumatic Skin Exam: Positive: Nl turgor and temperature Neuro Exam: Positive: Normal Gait Vital Signs/I&O Vital Signs Date Time Temp Pulse Resp B/P Pulse Ox O2 Delivery O2 Flow Rate FiO2 03/10/16 06:00 96.4 67 16 105/56 Umm Ohara Mar 10, 2016 08:49
[2016-03-10] MEDS: valACYclovir HCL 500 MG TAB PO SCH (09:22)
[2016-03-10] MEDS: OMEPRAZOLE 20 MG CAP PO SCH (09:22)
[2016-03-10] MEDS: MULTIVITAMINS/MINERALS THERAP 1 TAB PO SCH (10:33)
[2016-03-10] MEDS: ARIPiprazole 10 MG TAB PO SCH (11:47)
--- NOTE | 2016-03-10 15:53 | IPNPDOC ---
[facility] Progress Note Progress Note DATE OF SERVICE: 03/10/16 HISTORY: Lumber Tailer asked patient in hallway in full view of nurse's station if she would like to meet today. Patient indicated she was willing to meet in hallway only and arrangements were made to meet with patient with behavioral health worker, Lesa, present. Patient was reminded that proposal manager writer is unable to protect her privacy in the hallway environment, patient verbalizes understanding. Patient demanded to know transfer date to [facility]. Lumber Tailer indicated the transfer likely to take place tomorrow barring any transfer changes made by [facility]. Patient reiterated she wanted to remain at [facility], but verbalized understanding that her discharge plan is transfer to [facility]. Patient then informed proposal manager writer she no longer wanted to meet stating, "I have to go to the bathroom now were done meeting," and abruptly ended meeting and walked away. Patient has also been informed by marine operations coordinator that discharge plan remains to be transfer to [facility]. Patient presented with no indication of suicidal or homicidal ideation, presented with no increase in symptoms of anxiety or depression, exhibited no signs of inclination to engage in SIB. Nursing continues to monitor intake and output, patient has been sleeping and attending some groups, isolating in room at other times. Patient presents with no signs of acute distress, no indication of medication side effects, and no indication of physical pain. VITAL SIGNS: See below. NEW TEST RESULTS: In response to patient indicating she needs to be tested for Chlamydia over the weekend, PA evaluated and ordered. C.trachomatis and N. gonorrhoeae results negative on 03/10/16. Recent UA results negative, colorless, clear urine, low specific gravity. BMP ordered in effort to evaluate hydration status. Patient placed on I and O's and PA continues to attempt to evaluate. Patient has consistently declined follow up labs associated with her report of UTI. Recent EKG results SINUS RHYTHM WITH SINUS ARRHYTHMIA NONSPECIFIC ST-WAVE ABNORMALITY, DIFFICULT TO COMPARE TO PRIOR WITH ARTIFACT, RATE SLOWER C/W . PROBABLE MILD EARLY REPOLAR CHANGERS. Per PA, patient to follow up with PCM post discharge. Patient is asymptomatic. Labs completed on admission: low Hgb, HCT, MCH, MCHC, and elevated RDW. PA to evaluate when patient permits, patient continues to refuse follow up lab work. HCG negative on admission. CURRENT MEDICATIONS: See below MENTAL STATUS EXAMINATION: Patient is a 25 year old female who presents today with adequate hygiene, was dressed in hospital clothing. Patient was calm during interaction Speech: Pressured, remains tangential, volume normal Thought processes: Illogical, remains disorganized, appears to be responding to internal stimuli Thought content: Irrational and illogical, remains paranoid, tangential, may be responding to internal stimuli Associations: Tangential Abnormal or psychotic thoughts: Appears preoccupied at times, remains delusional and paranoid, may be hallucinating, no indication of suicidal and homicidal ideation and displays no behavior indicative of suicidal or homicidal thinking, displays no physical aggression Judgment: Poor Insight: Poor Oriented to: Person and place, unable to evaluate if orientated to time Recent and Remote Memory: Limited Attention Span and Concentration: Poor Fund of knowledge: Poor Mood: Unremarkable, remains preoccupied with discharge Affect: Flat ASSESSMENT: Patient is 25-year-old female who was admitted on 02/09/16 due to symptoms of psychosis, bizarre behavior, and posing as safety risk to herself and others. Patient has been visible on unit, attending some groups, engaging at times with others, remains isolative to room at other times, is currently able to maintain behavioral control. Patient presented with no indication of suicidal or homicidal ideation, no increase in symptoms of anxiety or depression , exhibited no signs of inclination to engage in SIB. Nursing continues to monitor intake and output. Patient presents with no signs of acute distress, no indication of medication side effects, and no indication of physical pain. Patient informed we can provider that she believes she has chlamydia, arrangements were made for her to be evaluated by the PA and were ordered; patient declined CASTING CHIPPER evaluation. Patient remains tangential, psychotic, delusional. Will continue to monitor patient for medication compliance which remains in question. Patient's current psychiatric status continues to render her a safety risk to herself and others and patient remains acutely psychotic and is in need of ongoing inpatient evaluation and treatment to ensure safety. Patient has consistently refused medication dosing adjustment/change. Will continue to evaluate patient's response to Abilify and titrate as tolerated/ permitted by patient. Will also monitor for medication side effects, continue to encourage medication compliance, and will continue to evaluate feasibility of /patient's willingness to switch to Abilify Maintena. DIAGNOSES: Schizophrenia, paranoid type MANAGEMENT PLAN: Continue Abilify to 10 mg po a noon and 15 mg po q hs and continue to encourage patient to consider dosing adjustment Continue to evaluate patient's willingness to transition to [facility] Continue to encourage patient to be medication compliant I and O to continue to be monitored by nursing Maintain safety precautions Continue to encourage patient to attend groups and participate in unit programming to develop coping strategies Continue to attempt to include patient in discharge planning process and prepare patient for transfer to [facility] on Thursday Patient to follow up with PCP upon arrival at [facility] Vital Signs/I&O Vital Signs Date Time Temp Pulse Resp B/P Pulse Ox O2 Delivery O2 Flow Rate FiO2 03/10/16 06:00 96.4 67 16 105/56 Laboratory Data 24H Labs Laboratory Tests 2 03/10/16 10:15: Chlamydia trachomatis DNA (CHEKO) NEGATIVE, Neisseria gonorrhoeae DNA (CHEKO) NEGATIVE, Urine Amorphous Sediment , Urine Appearance HAZY, Urine Color STRAW, Urine pH 6.0, Urine Specific [place] 1.006, Urine Protein NEGATIVE, Urine Glucose (UA) NEGATIVE, Urine Ketones NEGATIVE, Urine Urobilinogen 0.2, Urine Bilirubin NEGATIVE, Urine Leukocyte Esterase NEGATIVE, Urine Bacteria (Auto) 1+H , Urine Blood 3+H, Urine Calcium Carbonate Cryst(Auto) , Urine Calcium Oxalate Cryst (Auto) , Urine Calcium Phosphate Karly (Auto) , Urine Cellular Casts , Urine Cystine Crystals , Urine Granular Casts (Auto) , Urine Hyaline Casts (Auto ) 0, Urine Leucine Crystals , Urine Mucus (Auto) , Urine Nitrite NEGATIVE, Urine Oval Fat Bodies (Auto) , Urine RBC (Auto) 3, Urine Renal Epithelial Cells , Urine Sperm (Auto) , Urine Squamous Epithelial Cells 6, Urine Transitional Epithelial Cells , Urine Trichomonas (Auto) , Urine Triple Phosphate Cryst (Auto ) , Urine Tyrosine Crystals , Urine Uric Acid Crystals (Auto) , Urine WBC (Auto ) 6H, Urine Waxy Casts (Auto) , Urine Yeast-Like Cells (Auto) Current Medications Current Medications Acetaminophen (Tylenol) 650 mg Q6HP PRN PO HEADACHE or DISCOMFORT Last administered on 03/10/16t 07:41; Start 02/09/16 at 22:45; Stop 04/08/16 at 22: 44 Al Hydrox/Mg Hydrox/Simethicone (Mylanta) 30 ml Q4HP PRN PO HEARTBURN/ INDIGESTION; Start 02/09/16 at 22:45; Stop 04/08/16 at 22:44 Aripiprazole (AbiLIFY) 5 mg DAILY@12 PO Last administered on 02/11/16at 09:47; Start 02/10/16 at 12:00; Stop 02/12/16 at 09:57; Status DC Aripiprazole (AbiLIFY) 5 mg QHS PO Last administered on 02/11/16at 22:01; Start 02/09/16 at 21:00; Stop 02/12/16 at 09:57; Status DC Aripiprazole (AbiLIFY) 10 mg DAILY@12 PO Last administered on 03/10/16 11:47; Start 02/12/16 at 12:00; Stop 03/13/16 at 11:59 Aripiprazole (AbiLIFY) 10 mg QHS PO Last administered on 02/18/16at 21:54; Start 02/12/16 at 21:00; Stop 02/19/16 at 16:42; Status DC Aripiprazole (AbiLIFY) 15 mg QHS PO Last administered on 03/09/16 20:15; Start 02/19/16 at 21:00; Stop 03/20/16 at 20:59 Cetylpyridinium Chloride (Cepacol) 1 alok Q2HP PRN PO SORE THROAT Last administered on 02/25/16 06:18; Start 02/23/16 at 14:45; Stop 03/24/16 at 14:44 Diphenhydramine HCl (Benadryl) 50 mg Q6HP PRN PO AGITATION; Start 02/11/16 at 16:15; Stop 03/12/16 at 16:14 Diphenhydramine HCl (Benadryl) 50 mg STAT STAT IM Last administered on at 10:54; Start 02/12/16 at 10:39; Stop 02/12/16 at 10:43; Status DC Diphenhydramine HCl (Benadryl) 50 mg STAT STAT IM Last administered on at 17:11; Start 02/20/16 at 17:06; Stop 02/20/16 at 17:08; Status DC Diphenhydramine HCl (Benadryl) 50 mg STK-MED ONCE As Ordered ; Start 02/12/16 at 10:28; Stop 02/12/16 at 10:29; Status DC Haloperidol (Haldol) 5 mg Q6HP PRN PO AGITATION; Start 02/11/16 at 16:15; Stop 03/12/16 at 16:14 Haloperidol (Haldol) 5 mg STAT STAT IM Last administered on 02/12/16at 11:01; Start 02/12/16 at 10:58; Stop 02/12/16 at 10:59; Status DC Haloperidol (Haldol) 5 mg STAT STAT IM Last administered on 02/20/16at 17:10; Start 02/20/16 at 17:06; Stop 02/20/16 at 17:08; Status DC Haloperidol (Haldol) 5 mg STK-MED ONCE As Ordered ; Start 02/12/16 at 10:28; Stop 02/12/16 at 10:29; Status DC Haloperidol (Haldol) 10 mg STAT STAT IM ; Start 02/12/16 at 10:39; Stop 02/11 at 10:43; Status DC Home Med (Med Rec Complete!) ASDIRECTED XX ; Start 02/09/16 at 23:15; Stop at 23:28; Status DC Lorazepam (Ativan) 2 mg Q6HP PRN PO ANXIETY/AGITATION; Start 03/07/16 at 09:15 ; Stop 03/14/16 at 09:30 Lorazepam (Ativan) 2 mg Q6HP PRN PO ANXIETY/AGITATION; Start 02/29/16 at 09:30; Stop 03/07/16 at 09:09; Status DC Lorazepam (Ativan) 2 mg Q6HP PRN PO ANXIETY/AGITATION; Start 02/11/16 at 16:15 ; Stop 02/29/16 at 09:18; Status DC Lorazepam (Ativan) 2 mg STAT STAT IM Last administered on 02/12/16at 10:54; Start 02/12/16 at 10:39; Stop 02/12/16 at 10:43; Status DC Lorazepam (Ativan) 2 mg STAT STAT IM Last administered on 02/20/16at 17:10; Start 02/20/16 at 17:06; Stop 02/20/16 at 17:08; Status DC Lorazepam (Ativan) 2 mg STK-MED ONCE As Ordered ; Start 02/12/16 at 10:27; Stop 02/12/16 at 10:28; Status DC Magnesium Hydroxide (Milk Of Magnesia) 30 ml DAILYPRN PRN PO CONSTIPATION Last administered on 03/09/16 06:47; Start 02/09/16 at 22:45; Stop 04/08/16 at 22: 44 Multivitamins (Theragram-M) 1 tab DAILY PO Last administered on 03/10/16 10:33 ; Start 03/10/16 at 09:00; Stop 04/09/16 at 08:59 Non-Formulary Medication ( See Comment Field Below ) SEE LABEL COMMENTS DAILY XX ; Start 02/12/16 at 09:00; Stop 03/06/16 at 16:58; Status DC Non-Formulary Medication ( See Comment Field Below ) SEE LABEL COMMENTS SECTION 1T@20 XX Last administered on 03/08/16 19:05; Start 03/08/16 at 20:00 ; Stop 03/08/16 at 23:59; Status DC Omeprazole (PriLOSEC) 40 mg DAILY PO Last administered on 03/10/16 09:22; Start 03/10/16 at 09:00; Stop 04/09/16 at 08:59 Trazodone HCl (Desyrel) 50 mg QHSP PRN PO INSOMNIA; Start 02/09/16 at 22:45; Stop 04/08/16 at 22:44 Tuberculin PPD (Aplisol, Ppd) 5 units 1T ONCE ID ; Start 03/07/16 at 09:15; Stop 03/07/16 at 09:20; Status DC Tuberculin PPD (Aplisol, Ppd) 5 units NOW ONCE ID ; Start 02/12/16 at 10:15; Stop 02/12/16 at 10:50; Status DC Tuberculin PPD (Aplisol, Ppd) 5 units ONCE ONCE ID Last administered on 18:57; Start 03/06/16 at 20:00; Stop 03/06/16 at 20:01; Status DC Valacyclovir HCl (Valtrex) 1,000 mg DAILY PO Last administered on 03/10/16 09: 22; Start 03/10/16 at 09:00; Stop 03/17/16 at 08:59 Allergies Coded Allergies: No Known Drug Allergy (Unverified Allergy, Unknown, 05/24/12) Angela Mora Mar 10, 2016 15:53
[2016-03-10 18:00] VITALS: BP 131/82
[2016-03-11 06:41] VITALS: BP 109/60
[2016-03-11] MEDS: valACYclovir HCL 500 MG TAB PO SCH (08:10)
[2016-03-11] MEDS: OMEPRAZOLE 20 MG CAP PO SCH (08:10)
[2016-03-11] MEDS: MULTIVITAMINS/MINERALS THERAP 1 TAB PO SCH (08:10)
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
[2016-03-11] MEDS ORDERED: VALT1TAB PO (09:42)
[2016-03-11] MEDS ORDERED: ABIL15TA2 PO (09:42)
[2016-03-11] MEDS ORDERED: ABIL1TAB5 PO (09:42)
[2016-03-11] MEDS ORDERED: PRIL40CA PO (09:42)
[2016-03-11] MEDS ORDERED: MULT1TAB8 PO (09:47)
[2016-03-11] MEDS ORDERED: MAALSUS2 PO (09:47)
[2016-03-11] MEDS ORDERED: MOM30SS PO (09:47)
[2016-03-11] MEDS ORDERED: TYLE325T5 PO (09:47)
[2016-03-11] MEDS: ARIPiprazole 10 MG TAB PO SCH (11:09)
== END 2016-03-11 10:45 | DRG 750 ==
LOC: M ED 21:24 → M PSY 23:15
PROVIDERS: ADMIT Psychiatry & Neurology Psychiatry; ATTEND Psychiatry & Neurology Psychiatry
DX: F20.0 Paranoid schizophrenia (principal); E03.9 Hypothyroidism, unspecified

== ENCOUNTER → 2016-10-21 | Outpatient (REF) | payer MEDICAID, OTHER ==
[~2016-10-21] MED LIST changes: +ABIL10TA9 PO; +ABIL1TAB12 PO; +ABIL1TAB13 PO; -ABIL2TAB2 PO; +MAALSUS2 PO; +MOM30SS PO; +MULT1TAB8 PO; +PRIL40CA PO; +TYLE325T5 PO; +VALT1TAB PO
== END ==
LOC: M SFHCWAGY 11:59
PROVIDERS: ATTEND Nurse Practitioner Family
DX: Z12.4 Encounter for screening for malignant neoplasm of cervix (principal)

== ENCOUNTER → 2017-01-05 | Outpatient (CLI) | payer MEDICAID | LOC: M LAB REF 14:34 | PROVIDERS: ATTEND Nurse Practitioner Adult Health | DX: T14.8XXA Other injury of unspecified body region, initial encounter (principal); X58.XXXA Exposure to other specified factors, initial encounter; Y92.89 Other specified places as the place of occurrence of the external cause; Y93.89 Activity, other specified; Y99.8 Other external cause status ==

== ENCOUNTER 2017-06-11 14:37 | Emergency (ER) | payer MEDICARE, MEDICAID | END 2017-06-11 16:05 | disposition home or self-care (01) | LOC: M ED 14:37 | DX: L53.9 Erythematous condition, unspecified (principal); F20.9 Schizophrenia, unspecified; Z79.899 Other long term (current) drug therapy | CPT/HCPCS: 99283 ==

== ENCOUNTER 2017-09-14 20:04 | Inpatient (IN) | payer MEDICARE, MEDICAID ==
[2017-09-14] MEDS: LORazepam 2 MG/ML VIAL (J2060) IM (20:15)
[2017-09-14] MEDS: diphenhydrAMINE INJ 50MG/ML VIAL (J1200) IM (20:15)
[2017-09-14] MEDS: HALOPERIDOL 5 MG/ML VIAL (J1630) IM (20:15)
[2017-09-14 21:12] LABS: AMPHETAMINES LEVEL URINE NEGATIVE (NEGATIVE); BARBITURATES URINE NEGATIVE (NEGATIVE); BENZODIAZEPINES URINE NEGATIVE (NEGATIVE); CANNABINOIDS URINE NEGATIVE (NEGATIVE); COCAINE METABOLITE URINE NEGATIVE (NEGATIVE); METHADONE URINE NEGATIVE (NEGATIVE); OPIATES URINE NEGATIVE (NEGATIVE); PHENCYCLIDINE URINE NEGATIVE (NEGATIVE)
[2017-09-14 21:34] LABS: HEMOGLOBIN 11.3 g/dl (12.0-15.5); MEAN CORPUSCULAR HEMOGLOBIN 31.1 pg (27.0-33.0); MEAN CORPUSCULAR HGB CONC 33.2 g/dl (32.0-36.5); MEAN CORPUSCULAR VOLUME 93.7 fl (80.0-96.0); PLATELET COUNT, AUTOMATED 239 10^3/uL (150-450); RED BLOOD COUNT 3.63 10^6/uL (4.00-5.40); RED CELL DISTRIBUTION WIDTH 13.2 % (11.5-14.5)
[2017-09-14 22:00] LABS: CONTROL LINE HCG INT CTR LINE PRESENT; HCG, SERUM QUALITATIVE NEGATIVE (NEGATIVE)
[2017-09-14 22:15] LABS: ALBUMIN 3.7 GM/DL (3.2-5.2); ALBUMIN/GLOBULIN RATIO 1.23 (1.00-1.93); ALKALINE PHOSPHATASE 48 U/L (45-117); ALT/SGPT 21 U/L (12-78); ANION GAP 11 MEQ/L (8-16); AST/SGOT 16 U/L (7-37); BILIRUBIN,DIRECT < 0.1 MG/DL (0.0-0.2); BILIRUBIN,TOTAL 0.3 MG/DL (0.2-1.0); BLOOD UREA NITROGEN 9 MG/DL (7-18); CALCIUM LEVEL 8.5 MG/DL (8.5-10.1); CARBON DIOXIDE LEVEL 23 MEQ/L (21-32); CHLORIDE LEVEL 107 MEQ/L (98-107); CREATININE FOR GFR 0.55 MG/DL (0.55-1.30); GLOMERULAR FILTRATION RATE > 60.0 (>60); GLUCOSE, FASTING 77 MG/DL (70-100); POTASSIUM SERUM 3.3 MEQ/L (3.5-5.1); SALICYLATE LEVEL < 1.7 MG/DL (5.0-30.0); SODIUM LEVEL 141 MEQ/L (136-145); TOTAL PROTEIN 6.7 GM/DL (6.4-8.2)
[2017-09-14 22:20] LABS: ACETAMINOPHEN LEVEL < 2.0 UG/ML (10.0-30.0)
[2017-09-14] MEDS ORDERED: MOM 30ML SUSPENSION UDC PO (23:00)
[2017-09-14] MEDS ORDERED: MAALOX 30 ML SUSP *UDC PO (23:00)
[2017-09-14] MEDS ORDERED: diphenhydrAMINE 25 MG CAP PO (23:00)
[2017-09-14] MEDS ORDERED: traZODone 50 MG TAB PO (23:00)
[2017-09-14] MEDS ORDERED: NICOTINE 21MG/24HR 1 EA TRANSDERMAL TD (23:00)
[2017-09-14] MEDS ORDERED: LORazepam 1 MG TAB PO (23:00)
[2017-09-14] MEDS ORDERED: HALOPERIDOL 5 MG TAB PO (23:00)
[2017-09-15] MEDS: valACYclovir HCL 500 MG TAB PO (11:52)
[2017-09-15] MEDS: ACETAMINOPHEN TAB 650MG DOSE (2X325MG) PO (17:20)
[2017-09-16] MEDS ORDERED: LORazepam 2 MG/ML VIAL (J2060) IV (08:30)
[2017-09-16] MEDS ORDERED: HALOPERIDOL 10 MG TAB PO (08:30)
[2017-09-16] MEDS: valACYclovir HCL 500 MG TAB PO (08:37)
[2017-09-16] MEDS: diphenhydrAMINE INJ 50MG/ML VIAL (J1200) IM (08:57)
[2017-09-16] MEDS: HALOPERIDOL 5 MG/ML VIAL (J1630) IM (08:57)
[2017-09-16] MEDS: LORazepam 2 MG/ML VIAL (J2060) IM (08:57)
[2017-09-16] MEDS: PALIPERIDONE PALMITATE 156 MG/1ML INJ(INVEGA SUSTENNA)(J2426) IM (14:28)
[2017-09-17] MEDS: valACYclovir HCL 500 MG TAB PO (06:44)
[2017-09-18] MEDS: valACYclovir HCL 500 MG TAB PO (08:26)
[2017-09-19] MEDS: valACYclovir HCL 500 MG TAB PO (08:11)
[2017-09-20] MEDS: valACYclovir HCL 500 MG TAB PO (08:05)
[2017-09-21] MEDS: valACYclovir HCL 500 MG TAB PO (08:00)
[2017-09-21] MEDS: PALIPERIDONE PALMITATE 156 MG/1ML INJ(INVEGA SUSTENNA)(J2426) IM (13:20)
[2017-09-22] MEDS: valACYclovir HCL 500 MG TAB PO (09:00)
== END 2017-09-22 10:36 | disposition home or self-care (01) | DRG 885 ==
LOC: M ED 20:04 → M ED INP 22:51 → M PSY 23:44
DX: F25.9 Schizoaffective disorder, unspecified (principal); Z91.14 Patient's other noncompliance with medication regimen; Z79.899 Other long term (current) drug therapy; K21.9 Gastro-esophageal reflux disease without esophagitis; B00.9 Herpesviral infection, unspecified; E87.6 Hypokalemia; R94.6 Abnormal results of thyroid function studies

== ENCOUNTER → 2018-07-29 | Outpatient (REF) | payer MEDICARE, MEDICAID ==
[~2018-07-29] MED LIST changes: +INVE156I IM; +KETO2CR EXT; +MUPI2OI EXT; +VALA1TAB2 PO
[2018-07-29 19:50] LABS: APPEARANCE, URINE CLOUDY (CLEAR); BACTERIA, URINE AUTO NEGATIVE (NEGATIVE); BILIRUBIN, URINE AUTO NEGATIVE (NEGATIVE); BLOOD, URINE BLOOD NEGATIVE (NEGATIVE); COLOR, URINE YELLOW (YELLOW); GLUCOSE, URINE (UA) AUTO NEGATIVE (NEGATIVE); KETONE, URINE AUTO NEGATIVE (NEGATIVE); LEUKOCYTE ESTERASE, URINE AUTO NEGATIVE (NEGATIVE); MUCUS, URINE SMALL (NEGATIVE); NITRITE, URINE AUTO NEGATIVE (NEGATIVE); PROTEIN, URINE AUTO NEGATIVE (NEGATIVE); RBC, URINE AUTO 2 /HPF (0-3); SPECIFIC GRAVITY URINE AUTO 1.021 (1.002-1.035); SQUAMOUS EPITHELIAL CELL UR AU 13 /HPF (0-6); UROBILINOGEN, URINE AUTO 0.2 mg/dL (0.0-2.0); WBC, URINE AUTO 3 /HPF (0-3)
== END ==
LOC: M LAB REF 15:32
PROVIDERS: ATTEND Physician Assistant
DX: N39.0 Urinary tract infection, site not specified (principal)

== ENCOUNTER → 2018-08-03 | Outpatient (REF) | payer MEDICARE, MEDICAID ==
[2018-08-03 15:11] LABS: CHLAMYDIA DNA AMPLIFICATION NEGATIVE (NEGATIVE); GC DNA AMPLIFICATION NEGATIVE (NEGATIVE)
[2018-08-07 00:07] LABS: HPV HYBRID CAPTURE II Negative (Negative)
== END ==
LOC: M SFHCWAGY 11:08
PROVIDERS: ATTEND Nurse Practitioner Family
DX: A60.00 Herpesviral infection of urogenital system, unspecified (principal); R30.0 Dysuria; Z11.3 Encounter for screening for infections with a predominantly sexual mode of transmission; Z12.4 Encounter for screening for malignant neoplasm of cervix; R87.610 Atypical squamous cells of undetermined significance on cytologic smear of cervix (ASC-US)
CPT/HCPCS: 87086; 87210; 87255; 87491; 87591; 87624; G0101; G0123

== ENCOUNTER 2018-10-15 15:24 | Inpatient (IN) | payer MEDICARE, MEDICAID ==
[~2018-10-15] VITALS: Ht 170.2 cm; Wt 58.7 kg
[~2018-10-15 15:24] MED LIST changes: -VALA1TAB2 PO; +VALA1TAB64 PO
[2018-10-15] MEDS ORDERED: MULTCAP PO (15:34)
[2018-10-15 16:25] LABS: HEMOGLOBIN 13.1 g/dl (12.0-15.5); MEAN CORPUSCULAR HEMOGLOBIN 34.1 pg (27.0-33.0); MEAN CORPUSCULAR HGB CONC 34.5 g/dl (32.0-36.5); PLATELET COUNT, AUTOMATED 278 10^3/uL (150-450); RED BLOOD COUNT 3.84 10^6/uL (4.00-5.40)
[2018-10-15 16:49] LABS: AMPHETAMINES LEVEL URINE NEGATIVE (NEGATIVE); BARBITURATES URINE NEGATIVE (NEGATIVE); BENZODIAZEPINES URINE NEGATIVE (NEGATIVE); CANNABINOIDS URINE NEGATIVE (NEGATIVE); COCAINE METABOLITE URINE NEGATIVE (NEGATIVE); METHADONE URINE NEGATIVE (NEGATIVE); OPIATES URINE NEGATIVE (NEGATIVE); PHENCYCLIDINE URINE NEGATIVE (NEGATIVE)
[2018-10-15 16:59] LABS: HCG, SERUM QUALITATIVE NEGATIVE (NEGATIVE)
[2018-10-15 17:02] LABS: ACETAMINOPHEN LEVEL < 2.0 UG/ML (10.0-30.0); ALBUMIN 4.2 GM/DL (3.2-5.2); ALT/SGPT 24 U/L (12-78); BILIRUBIN,DIRECT 0.1 MG/DL (0.0-0.2); BILIRUBIN,TOTAL 0.3 MG/DL (0.2-1.0); BLOOD UREA NITROGEN 11 MG/DL (7-18); CALCIUM LEVEL 9.6 MG/DL (8.5-10.1); CARBON DIOXIDE LEVEL 29 MEQ/L (21-32); CHLORIDE LEVEL 106 MEQ/L (98-107); CREATININE FOR GFR 0.71 MG/DL (0.55-1.30); ETHYL ALCOHOL (ETHANOL) < 0.003 % (0.000-0.010); GLOMERULAR FILTRATION RATE > 60.0 (>60); GLUCOSE, FASTING 91 MG/DL (70-100); POTASSIUM SERUM 3.7 MEQ/L (3.5-5.1); SALICYLATE LEVEL < 1.7 MG/DL (5.0-30.0); SODIUM LEVEL 142 MEQ/L (136-145); TOTAL PROTEIN 7.2 GM/DL (6.4-8.2)
[2018-10-15] MEDS ORDERED: haloperidoL 5 MG TAB PO PRN (20:45)
[2018-10-15] MEDS ORDERED: MOM 30ML SUSPENSION UDC PO PRN (20:45)
[2018-10-15] MEDS ORDERED: traZODone 50 MG TAB PO PRN (20:45)
[2018-10-15 22:21] VITALS: BP 125/82
[2018-10-16 06:37] VITALS: BP 110/55
[2018-10-16] MEDS: ACETAMINOPHEN TAB 650MG DOSE (2X325MG) PO PRN ×2 (10:03→21:39)
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
[2018-10-16] MEDS: CYANOCOBALAMIN 500 MCG TAB PO SCH (13:16)
[2018-10-16] MEDS: valACYclovir HCL 500 MG TAB PO PRN (13:34)
[2018-10-16] MEDS ORDERED: PALIPERIDONE PALMITATE 234MG/1.5ML INJ (INVEGA)(J2426)(FREE PSY INPT ONLY) IM ONE (14:00)
--- NOTE | 2018-10-16 14:14 | HPEPDOC ---
General Date of Admission Oct 15, 2018 at 20:36 Date of Service: Oct 16, 2018 Chief Complaint The patient is a 27-year-old female admitted with a reason for visit of Unspecified Psychotic Disorder. History of Present Illness 27-year-old female with no significant past medical history. She has been admitted under the psychiatric service for psychiatric stabilization. At this time, patient denies any complaints of fevers, chills, chest pain, palpitations, abdominal pain, dysuria, or any nausea/chronic/diarrhea. The hospitalist service has been consulted for medical management. Home Medications Scheduled Multivitamin (Multivitamins) 1 Each Capsule, 1 CAP PO DAILY, (Reported) Scheduled PRN Valacyclovir HCl (Valacyclovir) 1 Gm Tab, 1 GM PO DAILY PRN for COLD SORES, (Reported) Allergies Coded Allergies: No Known Allergies (Unverified , 10/15/18) Past Medical History Medical History None Surgical History None Social History * Smoker: Denies Alcohol: Denies Drugs: denies Review of Systems Other systems 10 point review of systems negative unless otherwise specified in HPI. Physical Examination General Exam: Positive: Alert, Cooperative, No Acute Distress ENT Exam: Positive: Atraumatic, Mucous membr. moist/pink Neck Exam: Negative: JVD Chest Exam: Positive: Clear to auscultation, Normal air movement Heart Exam: Positive: Rate Normal, Normal S1, Normal S2 Abdomen Exam: Positive: Soft; Negative: Tenderness Extremity Exam: Negative: Tenderness, Swelling Psych Exam: Positive: Oriented x 3 Vital Signs Vital Signs Date Time Temp Pulse Resp B/P (MAP) Pulse Ox O2 Delivery O2 Flow Rate FiO2 10/16/18 06:37 98.6 79 12 110/55 (73) 10/15/18 22:21 98 10/15/18 15:24 Room Air Laboratory Data Labs 24H Laboratory Tests 2 10/15/18 16:14: Nucleated Red Blood Cells % (auto) 0.0, Anion Gap 7L, Glomerular Filtration Rate > 60.0, Calcium Level 9.6, Aspartate Amino Transf (AST/SGOT) 19, Alanine Aminotransferase (ALT/SGPT) 24, Alkaline Phosphatase 57, Total Bilirubin 0.3, D irect Bilirubin 0.1, Total Protein 7.2, Albumin 4.2, Albumin/Globulin Ratio 1.40, Thyroid Stimulating Hormone (TSH) 1.070, Human Chorionic Gonadotropin, Qual NEGATIVE, Salicylates Level < 1.7L, Urine Amphetamines Screen NEGATIVE, Urine Benzodiazepines Screen NEGATIVE, Urine Opiates Screen NEGATIVE, Urine Methadone Screen NEGATIVE, Acetaminophen Level < 2.0L, Urine Barbiturates Screen NEGATIVE, Urine Phencyclidine Screen NEGATIVE, Urine Cocaine Metabolite Screen NEGATIVE, Urine Cannabinoids Screen NEGATIVE, Ethyl Alcohol Level < 0.003 CBC/BMP Laboratory Tests 10/15/18 16:14 Red Blood Count 3.84 L, Mean Corpuscular Volume 99.0 H, Mean Corpuscular Hemoglobin 34.1 H, Mean Corpuscular Hemoglobin Concent 34.5, Red Cell Distribution Width 12.6 Plan / VTE VTE Prophylaxis Ordered?: No VTE Exclusion Mechanical Proph: Low Risk for VTE Plan Plan Psych disorder Patient admitted under the psychiatric service for further stabilization BRYCE GLOVER MD Oct 16, 2018 14:14
[2018-10-16 18:00] VITALS: BP 113/76
[2018-10-17 06:44] VITALS: BP 97/54
[2018-10-17] MEDS: CYANOCOBALAMIN 500 MCG TAB PO SCH (09:07)
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
[2018-10-17 18:00] VITALS: BP 120/71
[2018-10-18 06:37] VITALS: BP 102/59
[2018-10-18] MEDS: valACYclovir HCL 500 MG TAB PO PRN (09:11)
[2018-10-18] MEDS: CYANOCOBALAMIN 500 MCG TAB PO SCH (09:11)
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
[2018-10-18 18:15] VITALS: BP 103/64
[2018-10-19 06:44] VITALS: BP 128/58
[2018-10-19] MEDS: CYANOCOBALAMIN 500 MCG TAB PO SCH (08:45)
[2018-10-19] MEDS: valACYclovir HCL 500 MG TAB PO PRN (08:46)
[2018-10-19 18:00] VITALS: BP 113/59
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
[2018-10-20 06:40] VITALS: BP 104/58
[2018-10-20] MEDS: valACYclovir HCL 500 MG TAB PO PRN (09:24)
[2018-10-20] MEDS: CYANOCOBALAMIN 500 MCG TAB PO SCH (09:24)
--- NOTE | 2018-10-20 10:52 | MHIPNPDOC ---
[facility] Progress Note Vital Signs Vital Signs Date Time Temp Pulse Resp B/P (MAP) Pulse Ox O2 Delivery O2 Flow Rate FiO2 10/20/18 06:40 98.3 82 14 104/58 (73) 10/15/18 22:21 98 10/15/18 15:24 Room Air Current Medications Current Medications Medications (Trade) Dose Ordered Sig/Pedro Pablo Route PRN Reason Start Time Stop Time Status Last Admin Dose Admin Acetaminophen (Tylenol Tab) 650 mg Q6HP PRN PO HEADACHE or DISCOMFORT 10/15/18 20:45 10/16/18 21:39 Cyanocobalamin (Vitamin B12) 500 mcg DAILY PO 10/16/18 09:00 10/20/18 09:24 Haloperidol (Haldol) 5 mg Q6HP PRN PO ANXIETY/AGITATION 10/15/18 20:45 Home Med (Med Rec Complete!) ASDIRECTED XX 10/15/18 21:45 10/15/18 21:47 DC Magnesium Hydroxide (Milk Of Magnesia) 30 ml DAILYPRN PRN PO CONSTIPATION 10/15/18 20:45 Trazodone HCl (Desyrel) 50 mg QHSP PRN PO INSOMNIA 10/15/18 20:45 Valacyclovir HCl (Valtrex) 1,000 mg DAILY PRN PO COLD SORES 10/16/18 12:45 10/20/18 09:24 Allergies Coded Allergies: No Known Allergies (Unverified , 10/15/18) ONEIDA ISABEL DO Oct 20, 2018 10:52
[2018-10-20] MEDS ORDERED: INVE156I IM (14:08)
--- NOTE | 2018-10-20 14:51 | MHDSPDOC ---
[facility] Discharge Summary Discharge Summary DATE OF ADMISSION: Oct 15, 2018 at 20:36 DATE OF DISCHARGE: 10/20/18 Date of Service: 10/20/2018 Diagnoses Schizophrenia History of Present Illness The patient is a 27-year-old woman with a history of schizophrenia, presents to [facility] after reportedly making threats to burn down her home and had been noted to become fairly bizarre and paranoid. She had presented to the emergency room saying she did not feel safe in her home due to "police presence." She reports that she has been moving furniture around in her apartment very quickly for the last 4 nights without any sleep. She maintained that she is "perfectly healthy and mentally stable," but was concerned about her neighbors. Consultants Involved Hospitalist/PCP screening Treatment and Progress On The Unit The patient was admitted to the inpatient unit. She reports no mental health problems, but appeared fairly paranoid. She did accept the initial loading dose of Invega and did make some mild progress. She was eventually able, after great prompting, able to engage with her regional planner to plan for a safe discharge as well as demonstrate an ability to meet her basic needs. Part of the discharge was a 156 mg Invega Sustenna maintenance dose that was given in order to assure the patient will be receiving treatment, as she has an extremely poor record of follow-up. Her mother had noted that her concerns primarily were around the patient not following up as an outpatient. She did demonstrate continued paranoid and bizarre ideations, but was able to care for herself more. She made no threats towards herself or others and thus was deemed not to meet involuntary criteria, as she was not posing an imminent risk to herself. She had requested a court hearing and declined further voluntary admission at this time. She was able to participate sufficiently well in her discharge planning as evidence of her ability to attend to her basic needs. Discharge Assessment 27-year-old woman with a history of schizophrenia who presents severely disabled by her psychosis. She's able to make some progress, enough so to take care of herself and to divert herself from being an imminent risk to her own safety due to her impairment. She requests to leave and does not meet involuntary criteria and declines further voluntary admission. Mental Status Examination General: Fair Speech: Sparse Thought processes: Tangential MSK: Psychomotor agitation and fidgetiness. Thought content: Paranoid, bizarre and guarded. Abstract reasoning, and computation: Impaired Description of associations: Loose Description of abnormal or psychotic thoughts: Denies any suicidal or homicidal ideation. Denies any auditory or visual hallucinations. Does not appear to be responding to internal stimuli. Does not appear to be endorsing any bizarre or paranoid ideation. Judgment: Improving Insight: Improving Orientation: Alert and orientated 3 Cognition: Grossly normal Recent and remote memory: Intact Attention span and concentration: Intact Fund of knowledge: Adequate Mood: "okay" Affect: More reactive Follow Up The social work team worked during the predischarge meeting in order to evaluate for further issues of lethality address them fully before discharge. They worked on safety planning with the patient's family members in order to ensure that the patient will have a safe and effective discharge. Time Spent The amount of time spent in the coordination of care for this patient was approximately 30 minutes. Thursday Vital Signs/I&Os Vital Signs Date Time Temp Pulse Resp B/P (MAP) Pulse Ox O2 Delivery O2 Flow Rate FiO2 10/20/18 06:40 98.3 82 14 104/58 (73) 10/15/18 22:21 98 10/15/18 15:24 Room Air Medications Scheduled Multivitamin (Multivitamins) 1 Each Capsule, 1 CAP PO DAILY, (Reported) Paliperidone Palmitate (Invega Sustenna) 156 Mg/1 Ml Syringe, 156 MG IM ONCE for thoughts for 30 Days, #1 Scheduled PRN Valacyclovir HCl (Valacyclovir) 1 Gm Tab, 1 GM PO DAILY PRN for COLD SORES, (Reported) Allergies Coded Allergies: No Known Allergies (Unverified , 10/15/18) ONEIDA ISABEL DO Oct 20, 2018 14:51
[2018-10-20] MEDS ORDERED: PALIPERIDONE PALMITATE 156MG/1ML INJ(INVEGA)(J2426 PER 1MG)(INFUS OUTPT) IM ONE (16:00)
[2018-10-21] MEDS ORDERED: INVE156I IM (15:11)
== END 2018-10-20 15:55 | disposition home or self-care (01) | DRG 885 ==
LOC: M ED 15:24 → M ED INP 20:36 → M PSY 22:10
PROVIDERS: ADMIT Psychiatry & Neurology Addiction Medicine; ATTEND Psychiatry & Neurology Addiction Medicine
DX: F20.0 Paranoid schizophrenia (principal)

== ENCOUNTER 2018-10-21 14:00 | Inpatient (IN) | payer MEDICARE, MEDICAID ==
[~2018-10-21] VITALS: Ht 170.2 cm; Wt 60.1 kg
[~2018-10-21 14:00] MED LIST changes: +MULTCAP PO; +VALA1TAB2 PO; -VALA1TAB64 PO
[2018-10-21] MEDS ORDERED: INVE156I IM (15:11)
[2018-10-21 16:12] LABS: HEMATOCRIT 40.2 % (36.0-47.0); HEMOGLOBIN 13.6 g/dl (12.0-15.5); MEAN CORPUSCULAR HEMOGLOBIN 32.9 pg (27.0-33.0); MEAN CORPUSCULAR HGB CONC 33.8 g/dl (32.0-36.5); MEAN CORPUSCULAR VOLUME 97.1 fl (80.0-96.0); PLATELET COUNT, AUTOMATED 256 10^3/uL (150-450); RED BLOOD COUNT 4.14 10^6/uL (4.00-5.40); WHITE BLOOD COUNT 7.6 10^3/uL (4.0-10.0)
[2018-10-21 16:37] LABS: AMPHETAMINES LEVEL URINE NEGATIVE (NEGATIVE); BARBITURATES URINE NEGATIVE (NEGATIVE); BENZODIAZEPINES URINE NEGATIVE (NEGATIVE); CANNABINOIDS URINE NEGATIVE (NEGATIVE); COCAINE METABOLITE URINE NEGATIVE (NEGATIVE); METHADONE URINE NEGATIVE (NEGATIVE); OPIATES URINE NEGATIVE (NEGATIVE); PHENCYCLIDINE URINE NEGATIVE (NEGATIVE)
[2018-10-21 16:47] LABS: ACETAMINOPHEN LEVEL < 2.0 UG/ML (10.0-30.0); ALBUMIN 4.2 GM/DL (3.2-5.2); ALT/SGPT 24 U/L (12-78); BILIRUBIN,DIRECT < 0.1 MG/DL (0.0-0.2); BILIRUBIN,TOTAL 0.2 MG/DL (0.2-1.0); BLOOD UREA NITROGEN 12 MG/DL (7-18); CALCIUM LEVEL 9.2 MG/DL (8.5-10.1); CARBON DIOXIDE LEVEL 30 MEQ/L (21-32); CHLORIDE LEVEL 105 MEQ/L (98-107); CREATININE FOR GFR 0.57 MG/DL (0.55-1.30); ETHYL ALCOHOL (ETHANOL) < 0.003 % (0.000-0.010); GLOMERULAR FILTRATION RATE > 60.0 (>60); GLUCOSE, FASTING 91 MG/DL (70-100); POTASSIUM SERUM 4.1 MEQ/L (3.5-5.1); SALICYLATE LEVEL < 1.7 MG/DL (5.0-30.0); SODIUM LEVEL 140 MEQ/L (136-145); TOTAL PROTEIN 7.3 GM/DL (6.4-8.2)
[2018-10-21 16:53] LABS: HCG, SERUM QUALITATIVE NEGATIVE (NEGATIVE)
[2018-10-21] MEDS ORDERED: MAALOX 30 ML SUSP *UDC PO PRN (18:45)
[2018-10-21] MEDS ORDERED: traZODone 50 MG TAB PO PRN (18:45)
[2018-10-21] MEDS ORDERED: HALOPERIDOL 5 MG TAB PO PRN (18:45)
[2018-10-21 19:42] VITALS: BP 117/65
[2018-10-22 06:34] VITALS: BP 140/66
[2018-10-22] MEDS: CYANOCOBALAMIN 500 MCG TAB PO SCH (09:25)
[2018-10-22] MEDS: valACYclovir HCL 500 MG TAB PO PRN (09:25)
--- NOTE | 2018-10-22 11:37 | MHHPEPDOC ---
[facility] History & Physical History and Physical DATE OF ADMISSION: Oct 21, 2018 at 18:42 New Patient Renay Kerr MRN: N/A Date of : N/A Date of Service: 10/22/2018 Chief Complaint "I was being harassed again at home." History of Present Illness The patient, a 27-year-old woman, is brought back to the emergency room after she was noted by her mother to be fairly paranoid, wandering in the streets, and was so frightened that she would not return to her home. She felt that she was being harassed by various individuals and that the [place] police were not engaging in any helpful endeavors for her. Her mother reports that the apartment complex she lives in did review videos after multiple complaints of patient, but found no signs of the reported drug use and harassment that she mentions. She had been unable to care for herself. Her mother reports that she is so frightened at this point that she does not venture outside of her apartment and would starve if she did not bring her food. The patient demonstrates no insight into this and continues to be bizarre and paranoid. She reports she's had no major side effects from the injections other than some mild sleepiness. She declines any medications to treat that side effect. She reports that she's comfortable staying. She's met with today with financial planner Blessing as the patient has a habit of making complaints. The majority of psychosocial information is extracted from my previous history and physical, and updated with the patient's current information. Review Of Systems The patient endorses no psych symptoms grossly, but appears to be impaired by psychosis. Past Psychiatric History The patient has a history of schizophrenia, previously was on Invega injection, had recently received the 2 doses, on a maintenance dose of 154 mg. No current followup. Multiple inpatient admissions in the past, roughly 2 to 3 days ago, but has had several in the last several years. Denies any history of suicide attempts Allergies Please see below. Family Psychiatric History The patient reports no history of mental illness in the family she is aware of or suicides or addictions. Social History The patient reports growing up in the local area. She described her early life as "good." Her psychosocial information in the past suggests that she grew up in a single-parent household and her mother is a current major support of her. She has an older sister that lives in the same building, but has been uninterested in her care. She graduated with a four-year degree in communications, but currently has no source of income. Lives alone. Never and no children. No history of legal problems are noted. She denies any history of abuse when she was growing up. Substance Abuse History The patient continues to report "occasional" drinking alcohol. Denies all tobacco use, cannabis, and other drug use. Toxicology remains non-contributory. Medical History Patient has no significant past medical history. Mental Status Examination General: Fair Speech: Sparse Thought processes: Tangential MSK: Psychomotor agitation and fidgetiness. Thought content: Paranoid, bizarre and guarded. Abstract reasoning, and computation: Impaired Description of associations: Loose Description of abnormal or psychotic thoughts: Denies any suicidal or homicidal ideation. Denies any auditory or visual hallucinations. Does not appear to be responding to internal stimuli. Continues to report same bizarre or paranoid ideation. Judgment: Limited Insight: Limited Orientation: Alert and orientated 3 Cognition: Grossly normal Recent and remote memory: Intact Attention span and concentration: Intact Fund of knowledge: Adequate Mood: "okay" Affect: Anxious with constricted range, looking around the room. Diagnoses Schizophrenia: Decompensating. Assessment and Plan The patient presents again after being unable to care for herself. She is on the Invega injectable and further observation will be needed to see whether she improves. Proper planning with the patient's mother will be critical as she has a fairly long history and her psychosis may not resolve in the near term since. Disposition The patient will need admission likely lasting longer than 2 midnights in order to stabilize her current condition. Problem List 1. Altered thoughts. Initial Treatment Plan 1. Patient was admitted on a 9.39 legal status. 2. Complete history was obtained. 3. With patients permission, family will be contacted and database will be expanded. 4. Patients medication regimen will be reviewed and changed accordingly. 5. Patient will be provided with protected environment. 6. Patient will be treated with individual, group, and milieu therapies. 7. Patient will receive supportive psych-education. 8. Discharge planning will commence immediately. 9. Outpatient follow-up treatment will be strongly recommended. 10. The initial treatment plan will focus initially on: Observation. Estimated Length Of Stay Four days. Time Spent 30 mins with greater than 50% of time on coordination of care Vital Signs Vital Signs Date Time Temp Pulse Resp B/P (MAP) Pulse Ox O2 Delivery O2 Flow Rate FiO2 10/22/18 06:34 99.2 75 12 140/66 (90) 10/21/18 15:00 100 Nasal Cannula Laboratory Data 24H Labs Laboratory Tests 2 10/21/18 16:01: Nucleated Red Blood Cells % (auto) 0.0, Anion Gap 5L, Glomerular Filtration Rate > 60.0, Calcium Level 9.2, Aspartate Amino Transf (AST/SGOT) 17, Alanine Aminotransferase (ALT/SGPT) 24, Alkaline Phosphatase 60, Total Bilirubin 0.2, Direct Bilirubin < 0.1, Total Protein 7.3, Albumin 4.2, Albumin/Globulin Ratio 1.35, Thyroid Stimulating Hormone (TSH) 1.260, Human Chorionic Gonadotropin, Qual NEGATIVE, Salicylates Level < 1.7L, Acetaminophen Level < 2.0L, Ethyl Alcohol Level < 0.003 10/21/18 16:03: Urine Amphetamines Screen NEGATIVE, Urine Benzodiazepines Screen NEGATIVE, Urine Opiates Screen NEGATIVE, Urine Methadone Screen NEGATIVE, Urine Barbiturates Screen NEGATIVE, Urine Phencyclidine Screen NEGATIVE, Urine Cocaine Metabolite Screen NEGATIVE, Urine Cannabinoids Screen NEGATIVE CBC/BMP Laboratory Tests 10/21/18 16:01 Red Blood Count 4.14, Mean Corpuscular Volume 97.1 H, Mean Corpuscular Hemoglobin 32.9, Mean Corpuscular Hemoglobin Concent 33.8, Red Cell Distribution Width 12.5 Medications Scheduled Multivitamin (Multivitamins) 1 Each Capsule, 1 CAP PO DAILY, (Reported) Paliperidone Palmitate (Invega Sustenna) 156 Mg/1 Ml Syringe, 156 MG IM QMONTH, (Reported) Scheduled PRN Valacyclovir HCl (Valacyclovir) 1 Gm Tab, 1 GM PO DAILY PRN for COLD SORES, (Reported) Allergies Coded Allergies: No Known Allergies (Unverified , 10/15/18) ONEIDA ISABEL DO Oct 22, 2018 11:37
--- NOTE | 2018-10-22 15:49 | HPEPDOC ---
[facility] Medical History & Physical Date of Admission Oct 21, 2018 Date of Service: Oct 22, 2018 History and Physical CHIEF COMPLAINT: medical evaluation for [facility] HISTORY OF PRESENT ILLNESS: 27 yo female admitted to [facility] with psychosis. She is being seen for medical evaluation. Patient states her only medical concern in vaginal itching while urinating and possible bladder infection. She states her room mate and toilet bowel were dirty. She denies any N,V,fever,SOB, CP,abdomen pain or rashes. PAST MEDICAL HISTORY: 1.Cold sores HSV PAST SURGICAL HISTORY: none SOCIAL HISTORY: denies EtOH use, no tobacco use FAMILY HISTORY: parents alive and healthy ALLERGIES: Please see below. REVIEW OF SYSTEMS: 10 systems reviewed and negative except as per HPI HOME MEDICATIONS: Please see below. PHYSICAL EXAMINATION: VITAL SIGNS: as below GENERAL APPEARANCE: pleasant, NAD AAOx3 HEENT: CHELSY/EOM; no cold sores present CARDIOVASCULAR: RRR no murmur. LUNGS: CTA no W/R/R, no CVA tenderness ABDOMEN: soft NT ND NABS MUSCULOSKELETAL: no scoliosis; hypermobile finger joints EXTREMITIES: no edema NEUROLOGICAL: CN3-12 intact; no gross motor or sensory deficits, DTR patella and brachioradialis are hyperreflexic 3/4 bilaterally PSYCHIATRIC: per psychiatry exam LABORATORY DATA: See below. MICROBIOLOGY: Please see below. ASSESSMENT: Dysuria History of HSV cold sores . PLAN: UA micro and reflex culture - treat if become more symptomatic or if + UA Continue valcyclovir daily prn Thank you for allowing the hospitalist team to participate in the care of this patient. Please call if further assistance needed. Vital Signs Vital Signs Date Time Temp Pulse Resp B/P (MAP) Pulse Ox O2 Delivery O2 Flow Rate FiO2 10/22/18 06:34 99.2 75 12 140/66 (90) 10/21/18 15:00 100 Nasal Cannula Laboratory Data Labs 24H Laboratory Tests 2 10/21/18 16:01: Nucleated Red Blood Cells % (auto) 0.0, Anion Gap 5L, Glomerular Filtration Rate > 60.0, Calcium Level 9.2, Aspartate Amino Transf (AST/SGOT) 17, Alanine Amino transferase (ALT/SGPT) 24, Alkaline Phosphatase 60, Total Bilirubin 0.2, Direct Bilirubin < 0.1, Total Protein 7.3, Albumin 4.2, Albumin/Globulin Ratio 1.35, Thyroid Stimulating Hormone (TSH) 1.260, Human Chorionic Gonadotropin, Qual NEGATIVE, Salicylates Level < 1.7L, Acetaminophen Level < 2.0L, Ethyl Alcohol Level < 0.003 10/21/18 16:03: Urine Amphetamines Screen NEGATIVE, Urine Benzodiazepines Screen NEGATIVE, Urine Opiates Screen NEGATIVE, Urine Methadone Screen NEGATIVE, Urine Barbiturates Screen NEGATIVE, Urine Phencyclidine Screen NEGATIVE, Urine Cocaine Metabolite Screen NEGATIVE, Urine Cannabinoids Screen NEGATIVE CBC/BMP Laboratory Tests 10/21/18 16:01 Red Blood Count 4.14, Mean Corpuscular Volume 97.1 H, Mean Corpuscular Hemoglobin 32.9, Mean Corpuscular Hemoglobin Concent 33.8, Red Cell Distribution Width 12.5 Home Medications Scheduled Multivitamin (Multivitamins) 1 Each Capsule, 1 CAP PO DAILY Paliperidone Palmitate (Invega Sustenna) 156 Mg/1 Ml Syringe, 156 MG IM QMONTH Scheduled PRN Valacyclovir HCl (Valacyclovir) 1 Gm Tab, 1 GM PO DAILY PRN for COLD SORES Allergies Coded Allergies: No Known Allergies (Unverified , 10/15/18) VICENTE NAVA DO Oct 22, 2018 15:49
[2018-10-22 17:30] VITALS: BP 121/66
[2018-10-23 07:12] VITALS: BP 98/57
[2018-10-23] MEDS: valACYclovir HCL 500 MG TAB PO PRN (08:47)
[2018-10-23] MEDS: CYANOCOBALAMIN 500 MCG TAB PO SCH (08:47)
--- NOTE | 2018-10-23 09:23 | MHIPNPDOC ---
[facility] Progress Note Progress Note DATE OF SERVICE: 10/23/18 HISTORY: The patient, a 27-year-old woman, is brought back to the emergency room after she was noted by her mother to be fairly paranoid, wandering in the str eets, and was so frightened that she would not return to her home. She felt that she was being harassed by various individuals and that the [place] police were not engaging in any helpful endeavors for her. Her mother reports that the apartment complex she lives in did review videos after multiple complaints of patient, but found no signs of the reported drug use and harassment that she mentions. She had been unable to care for herself. Her mother reports that she is so frightened at this point that she does not venture outside of her apartment and would starve if she did not bring her food. The patient demonstrates no insight into this and continues to be bizarre and paranoid. She reports she's had no major side effects from the injections other than some mild sleepiness. She declines any medications to treat that side effect. She reports that she's comfortable staying. She's met with today with store planner Blessing as the patient has a habit of making complaints. The majority of psychosocial information is extracted from my previous history and physical, and updated with the patient's current information. VITAL SIGNS: See below. NEW TEST RESULTS: See below. CURRENT MEDICATIONS: See below. MENTAL STATUS EXAMINATION: General: Fair Speech: reg rate, rhythm, volume Thought processes: Tangential MSK: Psychomotor agitation and fidgetiness. Thought content: Paranoid, bizarre and guarded, paranoid delusions regarding the people in the apt's next to her Abstract reasoning, and computation: Impaired Description of associations: Loose Description of abnormal or psychotic thoughts: Denies any suicidal or homicidal ideation. Denies any auditory or visual hallucinations. Does not appear to be responding to internal stimuli. Continues to report same bizarre or paranoid ideation/delusion. Judgment: Limited Insight: Limited Orientation: Alert and orientated 3 Cognition: Grossly normal Recent and remote memory: Intact Attention span and concentration: Intact Fund of knowledge: Adequate Mood: "okay" Affect: Anxious with constricted range, flat, looking around the room. DIAGNOSES: Paranoid Schizophrenia ASSESSMENT:Pt seen and continues to have paranoid delusions stating "I waiting for the web site project manager to search to two apartments next to me b/c they have been harassing me and they have weapons... I'm scared of them." She appears to have no insight into her delusion. She states she's compliant on her medications which she's tolerating well. She is cooperative when seen and on the unit. Her affect is flat. She denies SI/HI. Pt feels safe here. MANAGEMENT PLAN:Continue Dr. Silveira's plan TIME SPENT: 30 minutes. Vital Signs Vital Signs Date Time Temp Pulse Resp B/P (MAP) Pulse Ox O2 Delivery O2 Flow Rate FiO2 10/23/18 07:12 98.6 103 14 98/57 (71) 10/21/18 15:00 100 Nasal Cannula Laboratory Data 24H Labs Laboratory Tests 2 10/23/18 08:01: Urine Color YELLOW, Urine Appearance CLEAR, Urine pH 6.0, Urine Specific Hunters 1.010, Urine Protein NEGATIVE, Urine Glucose (UA) NEGATIVE, Urine Ketones NEGATIVE, Urine Blood NEGATIVE, Urine Nitrite NEGATIVE, Urine Bilirubin NEGATIVE, Urine Urobilinogen 0.2, Urine Leukocyte Esterase NEGATIVE, Urine WBC (Auto) 1, Urine RBC (Auto) 1, Urine Hyaline Casts (Auto) 0, Urine Bacteria (Auto) NEGATIVE, Urine Squamous Epithelial Cells 1, Urine Mucus (Auto) SMALL, Urine Sperm (Auto) Current Medications Current Medications Medications (Trade) Dose Ordered Sig/Pedro Pablo Route PRN Reason Start Time Stop Time Status Last Admin Dose Admin Acetaminophen (Tylenol Tab) 650 mg Q6HP PRN PO HEADACHE or DISCOMFORT 10/21/18 18:45 Al Hydrox/Mg Hydrox/Simethicone (Mylanta) 30 ml Q4HP PRN PO HEARTBURN/INDIGESTION 10/21/18 18:45 Cyanocobalamin (Vitamin B12) 500 mcg DAILY PO 10/22/18 09:00 10/23/18 08:47 Haloperidol (Haldol) 5 mg Q6HP PRN PO ANXIETY/AGITATION 10/21/18 18:45 Home Med (Med Rec Complete!) ASDIRECTED XX 10/21/18 15:15 10/21/18 15:15 DC Magnesium Hydroxide (Milk Of Magnesia) 30 ml DAILYPRN PRN PO CONSTIPATION 10/21/18 18:45 Trazodone HCl (Desyrel) 50 mg QHSP PRN PO INSOMNIA 10/21/18 18:45 Valacyclovir HCl (Valtrex) 1,000 mg DAILYPRN PRN PO COLD SORES 10/21/18 18:45 10/23/18 08:47 Allergies Coded Allergies: No Known Allergies (Unverified , 10/15/18) DARÍO BROOKS DO Oct 23, 2018 9:23 am
[2018-10-23 17:47] VITALS: BP 119/62
[2018-10-24 06:23] VITALS: BP 109/59
[2018-10-24] MEDS: CYANOCOBALAMIN 500 MCG TAB PO SCH (07:54)
[2018-10-24] MEDS: valACYclovir HCL 500 MG TAB PO PRN (07:54)
--- NOTE | 2018-10-24 09:01 | MHIPNPDOC ---
[facility] Progress Note Progress Note DATE OF SERVICE: 10/24/18 HISTORY: The patient, a 27-year-old woman, is brought back to the emergency room after she was noted by her mother to be fairly paranoid, wandering in the stre ets, and was so frightened that she would not return to her home. She felt that she was being harassed by various individuals and that the [place] police were not engaging in any helpful endeavors for her. Her mother reports that the apartment complex she lives in did review videos after multiple complaints of patient, but found no signs of the reported drug use and harassment that she mentions. She had been unable to care for herself. Her mother reports that she is so frightened at this point that she does not venture outside of her apartment and would starve if she did not bring her food. The patient demonstrates no insight into this and continues to be bizarre and paranoid. She reports she's had no major side effects from the injections other than some mild sleepiness. She declines any medications to treat that side effect. She reports that she's comfortable staying. She's met with today with material planner Blessing as the patient has a habit of making complaints. The majority of psychosocial information is extracted from my previous history and physical, and updated with the patient's current information. VITAL SIGNS: See below. NEW TEST RESULTS: See below. CURRENT MEDICATIONS: See below. MENTAL STATUS EXAMINATION: General: Fair Speech: reg rate, rhythm, volume Thought processes: Tangential MSK: Psychomotor agitation and fidgetiness. Thought content: Paranoid, bizarre and guarded, paranoid delusions regarding the people in the apt's next to her Abstract reasoning, and computation: Impaired Description of associations: Loose Description of abnormal or psychotic thoughts: Denies any suicidal or homicidal ideation. Denies any auditory or visual hallucinations. Does not appear to be responding to internal stimuli. Continues to report same bizarre or paranoid ideation/delusion. Judgment: Limited Insight: Limited Orientation: Alert and orientated 3 Cognition: Grossly normal Recent and remote memory: Intact Attention span and concentration: Intact Fund of knowledge: Adequate Mood: "okay" Affect: Anxious with constricted range, flat, looking around the room. DIAGNOSES: Paranoid Schizophrenia ASSESSMENT:Pt seen and continues to have paranoid delusions of the people in the apts next to her having weapons, harassing her. States she doesn't think the police search her neighbor's apts and is wondering if she should make another report to them that is more specific. Advised that someone else can make the report for her as she is here. States she taking all her medicines "b12, vitamins, herpes medicine." Did take hadol prn this am. Will start haldol bid for improved treatment of paranoid delusions and psychosis. She remains flat and bizarre, psychotic, has no insight into her delusions. States she tolerating her medications well. She is cooperative when seen and on the unit. She denies SI/HI. Pt feels safe here. MANAGEMENT PLAN:Continue Dr. Silveira's plan. Start haldol bid haldol 10mg bid TIME SPENT: 30 minutes. Vital Signs Vital Signs Date Time Temp Pulse Resp B/P (MAP) Pulse Ox O2 Delivery O2 Flow Rate FiO2 10/24/18 06:23 99.8 103 18 109/59 (76) 10/21/18 15:00 100 Nasal Cannula Current Medications Current Medications Medications (Trade) Dose Ordered Sig/Pedro Pablo Route PRN Reason Start Time Stop Time Status Last Admin Dose Admin Acetaminophen (Tylenol Tab) 650 mg Q6HP PRN PO HEADACHE or DISCOMFORT 10/21/18 18:45 Al Hydrox/Mg Hydrox/Simethicone (Mylanta) 30 ml Q4HP PRN PO HEARTBURN/INDIGESTION 10/21/18 18:45 Cyanocobalamin (Vitamin B12) 500 mcg DAILY PO 10/22/18 09:00 10/24/18 07:54 Haloperidol (Haldol) 5 mg Q6HP PRN PO ANXIETY/AGITATION 10/21/18 18:45 Home Med (Med Rec Complete!) ASDIRECTED XX 10/21/18 15:15 10/21/18 15:15 DC Magnesium Hydroxide (Milk Of Magnesia) 30 ml DAILYPRN PRN PO CONSTIPATION 10/21/18 18:45 Trazodone HCl (Desyrel) 50 mg QHSP PRN PO INSOMNIA 10/21/18 18:45 Valacyclovir HCl (Valtrex) 1,000 mg DAILYPRN PRN PO COLD SORES 10/21/18 18:45 10/24/18 07:54 Allergies Coded Allergies: No Known Allergies (Unverified , 10/15/18) DARÍO BROOKS DO Oct 24, 2018 09:01
[2018-10-24] MEDS ORDERED: HALOPERIDOL 10 MG TAB PO ONE (10:00)
[2018-10-24 17:36] VITALS: BP 106/66
[2018-10-24] MEDS: HALOPERIDOL 10 MG TAB PO SCH (20:14)
[2018-10-25 06:31] VITALS: BP 102/63
[2018-10-25] MEDS: valACYclovir HCL 500 MG TAB PO PRN (08:41)
[2018-10-25] MEDS: CYANOCOBALAMIN 500 MCG TAB PO SCH (08:41)
[2018-10-25] MEDS: HALOPERIDOL 10 MG TAB PO SCH (08:41)
--- NOTE | 2018-10-25 15:10 | MHIPNPDOC ---
[facility] Progress Note Progress Note Date of Service: 10/25/2018 History of Present Illness The patient, a 27-year-old woman, is brought back to the emergency room after she was noted by her mother to be fairly paranoid, wandering in the streets, and was so frightened that she would not return to her home. She felt that she was being harassed by various individuals and that the [place] police were not engaging in any helpful endeavors for her. Her mother reports that the apartment complex she lives in did review videos after multiple complaints of patient, but found no signs of the reported drug use and harassment that she mentions. She had been unable to care for herself. Her mother reports that she is so frightened at this point that she does not venture outside of her apartment and would starve if she did not bring her food. Interval History The patient is met with today. She reports that she does not wish to be on the Haldol. She reports that makes her feel "sick." She reports that she has had no problems and has no mental illness. She has noted no major problems, however, her mother called today stating that the patient was threatening her stating that she will "pay" for reporting her and having her admitted. The patient remains still paranoid and generally without any insight into her current condition. She continues to report that her home is not safe and that she is not able to get groceries or go outside due to her "neighbors harassing her." The patient is met with with the nurse present as she does have a habit of complaining against various providers. Review Of Systems As above. Psychotherapy None on this visit. Vital Signs Reviewed. Mental Status Examination General: Fair Speech: Sparse Thought processes: Tangential MSK: Psychomotor agitation and fidgetiness. Thought content: Paranoid, bizarre and guarded. Abstract reasoning, and computation: Impaired Description of associations: Loose Description of abnormal or psychotic thoughts: Denies any suicidal or homicidal ideation. Denies any auditory or visual hallucinations. Does not appear to be responding to internal stimuli. Continues to report same bizarre or paranoid ideation. Judgment: Limited Insight: Limited Orientation: Alert and orientated 3 Cognition: Grossly normal Recent and remote memory: Intact Attention span and concentration: Intact Fund of knowledge: Adequate Mood: "okay" Affect: Anxious with constricted range, looking around the room. Diagnoses Schizophrenia: Decompensating. Assessment and Plan The patient will be discontinued on Haldol as she reports it is making her feel sick and that she does not wish to take it. She is on the Invega Sustenna. However, her symptoms still remain fairly resistant and she remains generally without Insight. It will be difficult to discharge her as she has very poor ability to live on her own. She will potentially need to be transferred to [facility] for long-term treatment as it might take quite some time for her symptoms to resolve. Disposition The patient will need a further inpatient admission due to her psychosis and lack of insight, which pose a danger to herself at this time. Time Spent 15 minutes [id number]. Thursday Vital Signs Vital Signs Date Time Temp Pulse Resp B/P (MAP) Pulse Ox O2 Delivery O2 Flow Rate FiO2 10/25/18 06:31 98.7 107 14 102/63 (76) 10/21/18 15:00 100 Nasal Cannula Current Medications Current Medications Medications (Trade) Dose Ordered Sig/Pedro Pablo Route PRN Reason Start Time Stop Time Status Last Admin Dose Admin Acetaminophen (Tylenol Tab) 650 mg Q6HP PRN PO HEADACHE or DISCOMFORT 10/21/18 18:45 Al Hydrox/Mg Hydrox/Simethicone (Mylanta) 30 ml Q4HP PRN PO HEARTBURN/INDIGESTION 10/21/18 18:45 Cyanocobalamin (Vitamin B12) 500 mcg DAILY PO 10/22/18 09:00 10/25/18 08:41 Haloperidol (Haldol) 5 mg Q6HP PRN PO ANXIETY/AGITATION 10/21/18 18:45 10/24/18 11:29 Haloperidol (Haldol) 10 mg BID PO 10/24/18 21:00 10/25/18 08:41 Home Med (Med Rec Complete!) ASDIRECTED XX 10/21/18 15:15 10/21/18 15:15 DC Magnesium Hydroxide (Milk Of Magnesia) 30 ml DAILYPRN PRN PO CONSTIPATION 10/21/18 18:45 Trazodone HCl (Desyrel) 50 mg QHSP PRN PO INSOMNIA 10/21/18 18:45 Valacyclovir HCl (Valtrex) 1,000 mg DAILYPRN PRN PO COLD SORES 10/21/18 18:45 10/25/18 08:41 Allergies Coded Allergies: No Known Allergies (Unverified , 10/15/18) ONEIDA ISABEL DO Oct 25, 2018 15:10
[2018-10-25 16:27] VITALS: BP 117/66
[2018-10-26 06:43] VITALS: BP 107/55
[2018-10-26] MEDS: valACYclovir HCL 500 MG TAB PO PRN (09:01)
[2018-10-26] MEDS: CYANOCOBALAMIN 500 MCG TAB PO SCH (09:01)
--- NOTE | 2018-10-26 11:43 | MHIPNPDOC ---
[facility] Progress Note Progress Note Date of Service: 10/26/2018 History of Present Illness The patient, a 27-year-old woman, is brought back to the emergency room after she was noted by her mother to be fairly paranoid, wandering in the streets, and was so frightened that she would not return to her home. She felt that she was being harassed by various individuals and that the [place] police were not engaging in any helpful endeavors for her. Her mother reports that the apartment complex she lives in did review videos after multiple complaints of patient, but found no signs of the reported drug use and harassment that she mentions. She had been unable to care for herself. Her mother reports that she is so frightened at this point that she does not venture outside of her apartment and would starve if she did not bring her food. Interval History The patient is met with today with systems plannerViridiana. The patient still remains fairly bizarre and when she is upset with not being discharged, she does attempt to "fire" her various treatment team. She continues to believe she has no mental illness, although today she does demonstrate more cognitive flexibility stating that if her permit has been cleared by the police, she would feel safe going back. She had reportedly made a threat towards her mother that she would "pay" for having a wellness check ordered on her. The patient flatly denies this. Convinced patient to sign a release so that we can ascertain the situation and the statements made and make a potential safe discharge plan if one can be made as the patient has requested a court hearing. The patient still remains without insight, however, she does not appear at this time to be able to cooperate sufficiently well with discharge planning to demonstrate she can take care of herself as an outpatient. She reportedly does not shop and requires her mother to come and give her food and she would otherwise starve. The patient still appears quite impaired and whether she would be able to take care of herself appears to be in question despite some mild and very modest improvement in her cognitive flexibility. Review Of Systems Denies any side effects from her Invega injection at this time. Denies any psychiatric symptoms grossly. Psychotherapy None on this visit. Vital Signs Reviewed. Mental Status Examination General: Fair Speech: Sparse Thought processes: Tangential MSK: Psychomotor agitation and fidgetiness. Thought content: Paranoid, bizarre and guarded. Abstract reasoning, and computation: Impaired Description of associations: Loose Description of abnormal or psychotic thoughts: Denies any suicidal or homicidal ideation. Denies any auditory or visual hallucinations. Does not appear to be responding to internal stimuli. Continues to report same bizarre or paranoid ideation. Judgment: Limited Insight: Limited Orientation: Alert and orientated 3 Cognition: Grossly normal Recent and remote memory: Intact Attention span and concentration: Intact Fund of knowledge: Adequate Mood: "okay" Affect: Anxious with constricted range, looking around the room. Diagnoses Schizophrenia: Decompensating. Assessment and Plan The patient appears to have made a very modest improvement in her cognitive flexibility as she has begun to consider safety. However, she still remains bizarre and is not cooperating with discharge well enough to demonstrate to us that she is not a danger to herself due to her high level of impairment. She will likely need to be long-term inpatient. Attempted to work with patient in order to see if situation can be cleared and whether a safe discharge plan can be created. However, it appears to be a long shot at this time as her continued threats and bizarreness likely are signs of her inability to function as an outpatient. She has reportedly had this psychotic episode since April and will likely take significant time to resolve. She has refused all oral medications, but she has taken the Invega injection, which should be functioning. Disposition The patient will need a further inpatient admission due to her psychosis and lack of insight, which pose a danger to herself at this time. Time Spent 15 minutes [id number]. T Vital Signs Vital Signs Date Time Temp Pulse Resp B/P (MAP) Pulse Ox O2 Delivery O2 Flow Rate FiO2 10/26/18 06:43 98.2 97 12 107/55 (72) 10/21/18 15:00 100 Nasal Cannula Current Medications Current Medications Medications (Trade) Dose Ordered Sig/Pedro Pablo Route PRN Reason Start Time Stop Time Status Last Admin Dose Admin Acetaminophen (Tylenol Tab) 650 mg Q6HP PRN PO HEADACHE or DISCOMFORT 10/21/18 18:45 Al Hydrox/Mg Hydrox/Simethicone (Mylanta) 30 ml Q4HP PRN PO HEARTBURN/INDIGESTION 10/21/18 18:45 Cyanocobalamin (Vitamin B12) 500 mcg DAILY PO 10/22/18 09:00 10/26/18 09:01 Haloperidol (Haldol) 5 mg Q6HP PRN PO ANXIETY/AGITATION 10/21/18 18:45 10/24/18 11:29 Haloperidol (Haldol) 10 mg BID PO 10/24/18 21:00 10/25/18 17:50 DC 10/25/18 08:41 Home Med (Med Rec Complete!) ASDIRECTED XX 10/21/18 15:15 10/21/18 15:15 DC Magnesium Hydroxide (Milk Of Magnesia) 30 ml DAILYPRN PRN PO CONSTIPATION 10/21/18 18:45 Trazodone HCl (Desyrel) 50 mg QHSP PRN PO INSOMNIA 10/21/18 18:45 Valacyclovir HCl (Valtrex) 1,000 mg DAILYPRN PRN PO COLD SORES 10/21/18 18:45 10/26/18 09:01 Allergies Coded Allergies: No Known Allergies (Unverified , 10/15/18) ONEIDA ISABEL DO Oct 26, 2018 11:43
[2018-10-26 16:27] VITALS: BP 103/58
[2018-10-27 06:50] VITALS: BP 104/65
[2018-10-27] MEDS: valACYclovir HCL 500 MG TAB PO PRN (08:12)
[2018-10-27] MEDS: CYANOCOBALAMIN 500 MCG TAB PO SCH (08:12)
[2018-10-27] MEDS: ACETAMINOPHEN TAB 650MG DOSE (2X325MG) PO PRN (08:12)
--- NOTE | 2018-10-27 10:50 | MHIPNPDOC ---
[facility] Progress Note Progress Note Date of Service: 10/27/2018 History of Present Illness The patient, a 27-year-old woman, is brought back to the emergency room after she was noted by her mother to be fairly paranoid, wandering in the streets, and was so frightened that she would not return to her home. She felt that she was being harassed by various individuals and that the [place] police were not engaging in any helpful endeavors for her. Her mother reports that the apartment complex she lives in did review videos after multiple complaints of patient, but found no signs of the reported drug use and harassment that she mentions. She had been unable to care for herself. Her mother reports that she is so frightened at this point that she does not venture outside of her apartment and would starve if she did not bring her food. Interval History The patient is met today with the treatment team. She had requested to cancel to go, however, her mother has not called us back and she remains somewhat paranoid and bizarre. She's requested the court hearing of which will be scheduled for Thursday the . The patient reports that she has had SSD for a reported "mental health problem," but does not believe this. She continues to be somewhat bizarre and hypersexual at times and staff have been instructed to meet her with a cancer researcher as she still has difficulty with making unusual and bizarre claims about staff members when she is met with alone. Staff have reported no major problems overnight and she has been milling around the unit without much incident. However, she refused to meet afterwards and had walked out of the room disappointed that she would not be able to go. She had reportedly made a threat towards her mother of which it appears that that was the case. Review Of Systems As above. Psychotherapy None on this visit. Vital Signs Reviewed. Mental Status Examination General: Fair Speech: Sparse Thought processes: Tangential MSK: Psychomotor agitation and fidgetiness. Thought content: Paranoid, bizarre and guarded. Abstract reasoning, and computation: Impaired Description of associations: Loose Description of abnormal or psychotic thoughts: Denies any suicidal or homicidal ideation. Denies any auditory or visual hallucinations. Does not appear to be responding to internal stimuli. Continues to report same bizarre or paranoid ideation. Judgment: Limited Insight: Limited Orientation: Alert and orientated 3 Cognition: Grossly normal Recent and remote memory: Intact Attention span and concentration: Intact Fund of knowledge: Adequate Mood: "okay" Affect: Anxious with constricted range, looking around the room. Diagnoses Schizophrenia: Decompensating. Assessment and Plan The patient will need to be on court retention. She has refused oral medications, however, the ideal augmentation to her Invega injection is a dose of clozapine, which does not come in an injectable form and thus treatment of her injection will be moot. She will likely need to be in long-term care as she is on a sufficient dose of Invega Sustenna. She's making mild improvement at times with less concrete thinking. However, she still is unable to cooperate with discharge or a tool to attending basic needs as she has reportedly relied on her mother to do all shopping and other activities or she would have starved. Disposition The patient will need a further inpatient admission due to her psychosis and lack of insight, which pose a danger to herself at this time. Time Spent 10 minutes [id number]. Thursday Vital Signs Vital Signs Date Time Temp Pulse Resp B/P (MAP) Pulse Ox O2 Delivery O2 Flow Rate FiO2 10/27/18 06:50 97.7 86 12 104/65 (78) 10/21/18 15:00 100 Nasal Cannula Current Medications Current Medications Medications (Trade) Dose Ordered Sig/Pedro Pablo Route PRN Reason Start Time Stop Time Status Last Admin Dose Admin Acetaminophen (Tylenol Tab) 650 mg Q6HP PRN PO HEADACHE or DISCOMFORT 10/21/18 18:45 10/27/18 08:12 Al Hydrox/Mg Hydrox/Simethicone (Mylanta) 30 ml Q4HP PRN PO HEARTBURN/INDIGESTION 10/21/18 18:45 Cyanocobalamin (Vitamin B12) 500 mcg DAILY PO 10/22/18 09:00 10/27/18 08:12 Haloperidol (Haldol) 5 mg Q6HP PRN PO ANXIETY/AGITATION 10/21/18 18:45 10/24/18 11:29 Haloperidol (Haldol) 10 mg BID PO 10/24/18 21:00 10/25/18 17:50 DC 10/25/18 08:41 Home Med (Med Rec Complete!) ASDIRECTED XX 10/21/18 15:15 10/21/18 15:15 DC Magnesium Hydroxide (Milk Of Magnesia) 30 ml DAILYPRN PRN PO CONSTIPATION 10/21/18 18:45 Trazodone HCl (Desyrel) 50 mg QHSP PRN PO INSOMNIA 10/21/18 18:45 Valacyclovir HCl (Valtrex) 1,000 mg DAILYPRN PRN PO COLD SORES 10/21/18 18:45 10/27/18 08:12 Allergies Coded Allergies: No Known Allergies (Unverified , 10/15/18) ONEIDA ISABEL DO Oct 27, 2018 10:50
[2018-10-27 16:19] VITALS: BP 115/71
[2018-10-28 06:55] VITALS: BP 107/60
[2018-10-28] MEDS: CYANOCOBALAMIN 500 MCG TAB PO SCH (08:48)
[2018-10-28] MEDS: valACYclovir HCL 500 MG TAB PO PRN (08:48)
--- NOTE | 2018-10-28 10:24 | MHIPNPDOC ---
[facility] Progress Note Progress Note Date of Service: 10/28/2018 History of Present Illness The patient, a 27-year-old woman, is brought back to the emergency room after she was noted by her mother to be fairly paranoid, wandering in the streets, and was so frightened that she would not return to her home. She felt that she was being harassed by various individuals and that the [place] police were not engaging in any helpful endeavors for her. Her mother reports that the apartment complex she lives in did review videos after multiple complaints of patient, but found no signs of the reported drug use and harassment that she mentions. She had been unable to care for herself. Her mother reports that she is so frightened at this point that she does not venture outside of her apartment and would starve if she did not bring her food. Interval History The patient is met with today with Yanelis the nurse. She reports that she wishes to go. A long discussion is held with the patient. Family denies any suicidal or homicidal thoughts and continues to have no insight into her condition. Mental health reports that she feels offended that she is being taken to court. 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 She has significant trouble understanding the concerns about her taking care of herself at home and reportedly her mother had returned our call stating she was very concerned about the patient now she had been making threatening phone calls to her and the patient has not improved significantly. She declines any medications even after great discussion today as augmentation would likely be needed in order to improve her situation. Review Of Systems As above. Psychotherapy None on this visit. Vital Signs Reviewed. Mental Status Examination General: Fair Speech: Sparse Thought processes: Tangential MSK: Psychomotor agitation and fidgetiness. Thought content: Paranoid, bizarre and guarded. Abstract reasoning, and computation: Impaired Description of associations: Loose Description of abnormal or psychotic thoughts: Denies any suicidal or homicidal ideation. Denies any auditory or visual hallucinations. Does not appear to be responding to internal stimuli. Continues to report same bizarre or paranoid ideation. Judgment: Limited Insight: Limited Orientation: Alert and orientated 3 Cognition: Grossly normal Recent and remote memory: Intact Attention span and concentration: Intact Fund of knowledge: Adequate Mood: "okay" Affect: Anxious with constricted range, looking around the room. Diagnoses Schizophrenia: Decompensating. Assessment and Plan Continuing to advocate for augmentation, patient has been resistant to this. However, she does appear to be making small glimmers of changes, which are likely the Invega dose taking some effect. However, at this time, she is still highly impaired and unable to care for herself. Disposition The patient will need a further inpatient admission due to her psychosis and lack of insight, which pose a danger to herself at this time. Time Spent 30 minutes face to face with greater than 50% of time with counseling/coordination of care. T Vital Signs Vital Signs Date Time Temp Pulse Resp B/P (MAP) Pulse Ox O2 Delivery O2 Flow Rate FiO2 10/28/18 06:55 99.4 82 14 107/60 (76) Current Medications Current Medications Medications (Trade) Dose Ordered Sig/Pedro Pablo Route PRN Reason Start Time Stop Time Status Last Admin Dose Admin Acetaminophen (Tylenol Tab) 650 mg Q6HP PRN PO HEADACHE or DISCOMFORT 10/21/18 18:45 10/27/18 08:12 Al Hydrox/Mg Hydrox/Simethicone (Mylanta) 30 ml Q4HP PRN PO HEARTBURN/INDIGESTION 10/21/18 18:45 Cyanocobalamin (Vitamin B12) 500 mcg DAILY PO 10/22/18 09:00 10/28/18 08:48 Haloperidol (Haldol) 5 mg Q6HP PRN PO ANXIETY/AGITATION 10/21/18 18:45 10/24/18 11:29 Haloperidol (Haldol) 10 mg BID PO 10/24/18 21:00 10/25/18 17:50 DC 10/25/18 08:41 Home Med (Med Rec Complete!) ASDIRECTED XX 10/21/18 15:15 10/21/18 15:15 DC Magnesium Hydroxide (Milk Of Magnesia) 30 ml DAILYPRN PRN PO CONSTIPATION 10/21/18 18:45 Miscellaneous (Unresolved Clarification Entry) SEE LABEL COMMENTS DAILY XX 10/27/18 09:00 10/28/18 06:37 DC Miscellaneous (Unresolved Clarification Entry) SEE LABEL COMMENTS DAILY XX 10/28/18 09:00 10/28/18 09:00 DC Trazodone HCl (Desyrel) 50 mg QHSP PRN PO INSOMNIA 10/21/18 18:45 Valacyclovir HCl (Valtrex) 1,000 mg DAILYPRN PRN PO COLD SORES 10/21/18 18:45 10/28/18 08:48 Allergies Coded Allergies: No Known Allergies (Unverified , 10/15/18) ONEIDA ISABEL DO Oct 28, 2018 10:24
[2018-10-28 17:19] VITALS: BP 106/61
[2018-10-28 20:52] LABS: HCG, SERUM QUALITATIVE NEGATIVE (NEGATIVE)
[2018-10-29 06:47] VITALS: BP 100/60
[2018-10-29] MEDS: valACYclovir HCL 500 MG TAB PO PRN (08:55)
[2018-10-29] MEDS: CYANOCOBALAMIN 500 MCG TAB PO SCH (08:56)
--- NOTE | 2018-10-29 10:58 | MHIPNPDOC ---
[facility] Progress Note Progress Note Date of Service: 10/29/2018 History of Present Illness The patient, a 27-year-old woman, is brought back to the emergency room after she was noted by her mother to be fairly paranoid, wandering in the streets, and was so frightened that she would not return to her home. She felt that she was being harassed by various individuals and that the [place] police were not engaging in any helpful endeavors for her. Her mother reports that the apartment complex she lives in did review videos after multiple complaints of patient, but found no signs of the reported drug use and harassment that she mentions. She had been unable to care for herself. Her mother reports that she is so frightened at this point that she does not venture outside of her apartment and would starve if she did not bring her food. Interval History The patient's met with today with the presence of nurse. The patient reports that she continues to wish to go and does not acknowledge having any mental health problems. She remains bizarre. She reports that she wishes to have plan B. She reports having unprotected sex 8 days prior before her admission. She has had 2 negative tests, one urine and the other serum. The patient still remains bizarre and paranoid, unable to reason and demands having plan B. She still remains isolative and bizarre, unable to recognize any significant problems in her life. She leaves the interview after requesting plan B. Review Of Systems As above. Psychotherapy None on this visit. Vital Signs Reviewed. Mental Status Examination General: Fair Speech: Sparse Thought processes: Tangential MSK: Psychomotor agitation and fidgetiness. Thought content: Paranoid, bizarre and guarded. Abstract reasoning, and computation: Impaired Description of associations: Loose Description of abnormal or psychotic thoughts: Denies any suicidal or homicidal ideation. Denies any auditory or visual hallucinations. Does not appear to be responding to internal stimuli. Continues to report same bizarre or paranoid ideation. Judgment: Limited Insight: Limited Orientation: Alert and orientated 3 Cognition: Grossly normal Recent and remote memory: Intact Attention span and concentration: Intact Fund of knowledge: Adequate Mood: "okay" Affect: Anxious with constricted range, looking around the room. Diagnoses Schizophrenia: Decompensating. Assessment and Plan We'll offer clozapine 25 mg nightly I've discussed with patient in the past. Treatment team believes offering even though patient declines, it's important as she's still psychotic and unable to care for self despite the Invega injection. Consulted with [employer] who reported that under the conditions after 8 days and 2 negative tests that plan B would not be indicated and thus will not be prescribed. Disposition The patient will need a further inpatient admission due to her psychosis and lack of insight, which pose a danger to herself at this time. Time Spent 20 minutes [id number]. Thursday Vital Signs Vital Signs Date Time Temp Pulse Resp B/P (MAP) Pulse Ox O2 Delivery O2 Flow Rate FiO2 10/29/18 06:47 97.9 92 16 100/60 (73) Laboratory Data 24[facility] Labs Laboratory Tests 2 10/28/18 20:20: Human Chorionic Gonadotropin, Qual NEGATIVE Current Medications Current Medications Medications (Trade) Dose Ordered Sig/Pedro Pablo Route PRN Reason Start Time Stop Time Status Last Admin Dose Admin Acetaminophen (Tylenol Tab) 650 mg Q6HP PRN PO HEADACHE or DISCOMFORT 10/21/18 18:45 10/27/18 08:12 Al Hydrox/Mg Hydrox/Simethicone (Mylanta) 30 ml Q4HP PRN PO HEARTBURN/INDIGESTION 10/21/18 18:45 Cyanocobalamin (Vitamin B12) 500 mcg DAILY PO 10/22/18 09:00 10/29/18 08:56 Haloperidol (Haldol) 5 mg Q6HP PRN PO ANXIETY/AGITATION 10/21/18 18:45 10/24/18 11:29 Haloperidol (Haldol) 10 mg BID PO 10/24/18 21:00 10/25/18 17:50 DC 10/25/18 08:41 Home Med (Med Rec Complete!) ASDIRECTED XX 10/21/18 15:15 10/21/18 15:15 DC Magnesium Hydroxide (Milk Of Magnesia) 30 ml DAILYPRN PRN PO CONSTIPATION 10/21/18 18:45 Miscellaneous (Unresolved Clarification Entry) SEE LABEL COMMENTS DAILY XX 10/27/18 09:00 10/28/18 06:37 DC Miscellaneous (Unresolved Clarification Entry) SEE LABEL COMMENTS DAILY XX 10/28/18 09:00 10/28/18 09:00 DC Trazodone HCl (Desyrel) 50 mg QHSP PRN PO INSOMNIA 10/21/18 18:45 Valacyclovir HCl (Valtrex) 1,000 mg DAILYPRN PRN PO COLD SORES 10/21/18 18:45 10/29/18 08:55 Allergies Coded Allergies: No Known Allergies (Unverified , 10/15/18) ONEIDA ISABEL DO Oct 29, 2018 10:57
[2018-10-29 18:04] VITALS: BP 105/60
[2018-10-29] MEDS: cloZAPine 25 MG TAB (S0136) PO SCH (21:00)
[2018-10-30 06:03] VITALS: BP 100/54
[2018-10-30] MEDS: CYANOCOBALAMIN 500 MCG TAB PO SCH (08:01)
[2018-10-30] MEDS: valACYclovir HCL 500 MG TAB PO PRN (08:02)
[2018-10-30 16:16] VITALS: BP 110/67
[2018-10-30] MEDS: cloZAPine 25 MG TAB (S0136) PO SCH (21:00)
[2018-10-31 06:36] VITALS: BP 99/58
[2018-10-31] MEDS: valACYclovir HCL 500 MG TAB PO PRN (08:49)
[2018-10-31] MEDS: CYANOCOBALAMIN 500 MCG TAB PO SCH (08:49)
[2018-10-31] MEDS: ACETAMINOPHEN TAB 650MG DOSE (2X325MG) PO PRN (08:51)
[2018-10-31 16:29] VITALS: BP 129/70
[2018-10-31] MEDS: cloZAPine 25 MG TAB (S0136) PO SCH (21:12)
[2018-11-01 06:35] VITALS: BP 106/59
[2018-11-01] MEDS: valACYclovir HCL 500 MG TAB PO PRN (09:19)
[2018-11-01] MEDS: CYANOCOBALAMIN 500 MCG TAB PO SCH (09:19)
--- NOTE | 2018-11-01 09:46 | MHIPNPDOC ---
[facility] Progress Note Progress Note Date of Service: 11/01/2018 History of Present Illness The patient, a 27-year-old woman, is brought back to the emergency room after she was noted by her mother to be fairly paranoid, wandering in the streets, and was so frightened that she would not return to her home. She felt that she was being harassed by various individuals and that the [place] police were not engaging in any helpful endeavors for her. Her mother reports that the apartment complex she lives in did review videos after multiple complaints of patient, but found no signs of the reported drug use and harassment that she mentions. She had been unable to care for herself. Her mother reports that she is so frightened at this point that she does not venture outside of her apartment and would starve if she did not bring her food. Interval History The patient's met with today with nurse Pacheco. The patient appears continued focus on discharge. She request that the medication be removed. Looking all explained that she has "more emotions" and "sleepiness" as her only side effects. The patient was told that we would need to offer these medications as she is not making significant progress on the Invega. She appeared to ruminate and reiterate constantly on this. Retort that she wanted to leave. She threatened to geeta the hospital and this provider because as we would not acquiesce to her demands to leave. She still remains fairly bizarre and unable to consider any mental health problems or impairment. She's made only very tiny progress and court retention hearing will be this Thursday. The patient appears to have done very little in terms of her engagement in groups and terminally walks the hallways fairly bizarrely. She still believes that she is possibly despite [employer] consultations and other engagement. The patient reports that she does not want to be "injected." However, when brought up the discord between her presentation and her reported non-mental health, she was unable to understand. She left the interview before a full in comprehensive review of systems could be completed. The patient did take one dose of clozapine last night. Review Of Systems As above. Psychotherapy None on this visit. Vital Signs Reviewed. Mental Status Examination General: Fair Speech: Sparse Thought processes: Tangential MSK: Psychomotor agitation and fidgetiness. Thought content: Paranoid, bizarre and guarded. Abstract reasoning, and computation: Impaired Description of associations: Loose Description of abnormal or psychotic thoughts: Denies any suicidal or homicidal ideation. Denies any auditory or visual hallucinations. Does not appear to be responding to internal stimuli. Continues to report same bizarre or paranoid ideation. Judgment: Limited Insight: Limited Orientation: Alert and orientated 3 Cognition: Grossly normal Recent and remote memory: Intact Attention span and concentration: Intact Fund of knowledge: Adequate Mood: "okay" Affect: Anxious with constricted range, looking around the room. Diagnoses Schizophrenia. Assessment and Plan Continue to offer 12.5 mg of clozapine. After discussion and negotiation with the patient, she reports she will take half that dose, which is reasonable. However, the patient still remains fairly bizarre and paranoid, unable to care for herself as an outpatient and will need further long-term treatment. Her untreated psychosis has generally made it difficult for her to handle her daily affairs. The Invega Sustenna had been helpful in the past for her. However, given the multiple episodes and treatments, augmentation with clozapine is indicated. Disposition The patient will need a further inpatient admission due to her psychosis and lack of insight, which pose a danger to herself at this time. Time Spent 20 minutes [id number]. Thursday Vital Signs Vital Signs Date Time Temp Pulse Resp B/P (MAP) Pulse Ox O2 Delivery O2 Flow Rate FiO2 11/01/18 06:35 98.5 89 12 106/59 (75) Current Medications Current Medications Medications (Trade) Dose Ordered Sig/Pedro Pablo Route PRN Reason Start Time Stop Time Status Last Admin Dose Admin Acetaminophen (Tylenol Tab) 650 mg Q6HP PRN PO HEADACHE or DISCOMFORT 10/21/18 18:45 10/31/18 08:51 Al Hydrox/Mg Hydrox/Simethicone (Mylanta) 30 ml Q4HP PRN PO HEARTBURN/INDIGESTION 10/21/18 18:45 Clozapine (Clozaril) 25 mg QHS PO 10/29/18 21:00 10/31/18 21:12 Cyanocobalamin (Vitamin B12) 500 mcg DAILY PO 10/22/18 09:00 11/01/18 09:19 Haloperidol (Haldol) 5 mg Q6HP PRN PO ANXIETY/AGITATION 10/21/18 18:45 10/24/18 11:29 Haloperidol (Haldol) 10 mg BID PO 10/24/18 21:00 10/25/18 17:50 DC 10/25/18 08:41 Home Med (Med Rec Complete!) ASDIRECTED XX 10/21/18 15:15 10/21/18 15:15 DC Magnesium Hydroxide (Milk Of Magnesia) 30 ml DAILYPRN PRN PO CONSTIPATION 10/21/18 18:45 Miscellaneous (Unresolved Clarification Entry) SEE LABEL COMMENTS DAILY XX 10/27/18 09:00 10/28/18 06:37 DC Miscellaneous (Unresolved Clarification Entry) SEE LABEL COMMENTS DAILY XX 10/28/18 09:00 10/28/18 09:00 DC Trazodone HCl (Desyrel) 50 mg QHSP PRN PO INSOMNIA 10/21/18 18:45 Valacyclovir HCl (Valtrex) 1,000 mg DAILYPRN PRN PO COLD SORES 10/21/18 18:45 11/01/18 09:19 Allergies Coded Allergies: No Known Allergies (Unverified , 10/15/18) ONEIDA ISABEL DO Nov 01, 2018 09:46
[2018-11-01 15:36] VITALS: BP 93/49
[2018-11-01] MEDS: cloZAPine 25 MG TAB (S0136) PO SCH (21:33)
[2018-11-01] MEDS: PILL CUTTER 1 EACH XX PRN (21:33)
[2018-11-02 06:58] VITALS: BP 97/55
[2018-11-02] MEDS: CYANOCOBALAMIN 500 MCG TAB PO SCH (08:45)
[2018-11-02] MEDS: valACYclovir HCL 500 MG TAB PO PRN (08:46)
--- NOTE | 2018-11-02 10:39 | MHIPNPDOC ---
[facility] Progress Note Progress Note Date of Service: 11/02/2018 History of Present Illness The patient, a 27-year-old woman, is brought back to the emergency room after she was noted by her mother to be fairly paranoid, wandering in the streets, and was so frightened that she would not return to her home. She felt that she was being harassed by various individuals and that the [place] police were not engaging in any helpful endeavors for her. Her mother reports that the apartment complex she lives in did review videos after multiple complaints of patient, but found no signs of the reported drug use and harassment that she mentions. She had been unable to care for herself. Her mother reports that she is so frightened at this point that she does not venture outside of her apartment and would starve if she did not bring her food. Interval History The patient is met with today with nurse Pacheco. She continues to angle for discharge. She had had a day marked by some decompensation with inappropriate response to internal stimuli. The patient continues to state that she feel she can take care of herself, however, she still remains bizarre in response to internal stimuli. She stated that she was continuing to take the clozapine saying that it made her tired, but denied any chest pain, palpitations, shortness of breath, cough, dry mouth, headaches, tremors, GI upset, constipation, nausea or diarrhea. She still continues to have difficulty focusing on engaging with others and appears completely oblivious to her problems at home, unable to related any coherent plan to the team. No major behavioral problems overnight. Review Of Systems As above. Psychotherapy None on this visit. Vital Signs Reviewed. Mental Status Examination General: Fair Speech: Sparse Thought processes: Tangential MSK: Psychomotor agitation and fidgetiness. Thought content: Paranoid, bizarre and guarded. Abstract reasoning, and computation: Impaired Description of associations: Loose Description of abnormal or psychotic thoughts: Denies any suicidal or homicidal ideation. Denies any auditory or visual hallucinations. Does not appear to be responding to internal stimuli. Continues to report same bizarre or paranoid ideation. Judgment: Limited Insight: Limited Orientation: Alert and orientated 3 Cognition: Grossly normal Recent and remote memory: Intact Attention span and concentration: Intact Fund of knowledge: Adequate Mood: "okay" Affect: Anxious with constricted range, looking around the room. Diagnoses Schizophrenia. Assessment and Plan Continue to offer clozapine 12.5 mg at night. She possibly is making some pr ogress, however, it is too early to tell that she's only had one or two doses of her clozapine at this time. Augmentation with her Invega long-acting is likely a vallejo part of her treatment. She will likely need to be referred for long-term at [facility] if she does not resolve soon. She has a pending court date for retention. Disposition The patient will need a further inpatient admission due to her psychosis and lack of insight, which pose a danger to herself at this time. Time Spent 15 minutes [id number]. Thursday Vital Signs Vital Signs Date Time Temp Pulse Resp B/P (MAP) Pulse Ox O2 Delivery O2 Flow Rate FiO2 11/02/18 06:58 98.6 89 14 97/55 (69) Current Medications Current Medications Medications (Trade) Dose Ordered Sig/Pedro Pablo Route PRN Reason Start Time Stop Time Status Last Admin Dose Admin Acetaminophen (Tylenol Tab) 650 mg Q6HP PRN PO HEADACHE or DISCOMFORT 10/21/18 18:45 10/31/18 08:51 Al Hydrox/Mg Hydrox/Simethicone (Mylanta) 30 ml Q4HP PRN PO HEARTBURN/INDIGESTION 10/21/18 18:45 Clozapine (Clozaril) 12.5 mg QHS PO 11/01/18 21:00 11/01/18 21:33 Clozapine (Clozaril) 25 mg QHS PO 10/29/18 21:00 11/01/18 10:38 DC 10/31/18 21:12 Cyanocobalamin (Vitamin B12) 500 mcg DAILY PO 10/22/18 09:00 11/02/18 08:45 Haloperidol (Haldol) 5 mg Q6HP PRN PO ANXIETY/AGITATION 10/21/18 18:45 10/24/18 11:29 Haloperidol (Haldol) 10 mg BID PO 10/24/18 21:00 10/25/18 17:50 DC 10/25/18 08:41 Home Med (Med Rec Complete!) ASDIRECTED XX 10/21/18 15:15 10/21/18 15:15 DC Magnesium Hydroxide (Milk Of Magnesia) 30 ml DAILYPRN PRN PO CONSTIPATION 10/21/18 18:45 Miscellaneous (Unresolved Clarification Entry) SEE LABEL COMMENTS DAILY XX 10/27/18 09:00 10/28/18 06:37 DC Miscellaneous (Unresolved Clarification Entry) SEE LABEL COMMENTS DAILY XX 10/28/18 09:00 10/28/18 09:00 DC Trazodone HCl (Desyrel) 50 mg QHSP PRN PO INSOMNIA 10/21/18 18:45 Valacyclovir HCl (Valtrex) 1,000 mg DAILYPRN PRN PO COLD SORES 10/21/18 18:45 11/02/18 08:46 Allergies Coded Allergies: No Known Allergies (Unverified , 10/15/18) ONEIDA ISABEL DO Nov 02, 2018 10:38
[2018-11-02 18:00] VITALS: BP 105/62
[2018-11-02] MEDS: cloZAPine 25 MG TAB (S0136) PO SCH (20:38)
[2018-11-03 06:40] VITALS: BP 112/64
[2018-11-03] MEDS: MOM 30ML SUSPENSION UDC PO PRN (09:26)
[2018-11-03] MEDS: valACYclovir HCL 500 MG TAB PO PRN (09:26)
[2018-11-03] MEDS: CYANOCOBALAMIN 500 MCG TAB PO SCH (09:26)
[2018-11-03 14:30] VITALS: BP 110/63
[2018-11-03] MEDS: cloZAPine 25 MG TAB (S0136) PO SCH (20:20)
[2018-11-03] MEDS: PILL CUTTER 1 EACH XX PRN (20:21)
--- NOTE | 2018-11-03 23:35 | MHIPN ---
DATE: 11/03/2018 SUBJECTIVE: I'm doing better and I want to be discharged. OBJECTIVE: She is a 27-year-old female with history of mood and psychotic disorder, was re-admitted next day int for psychotic behavior.and unable to care for self She reported that there are criminals around her house. They have guns and they are conspiring against her and other neighbors. She was on Invega Sustenna. She was also given a booster dose. However, after getting re-admitted, she was placed on Clozaril 12.5 mg. Since then, as reported by the staff, she has been doing well. I am seeing her for the first time. She was not bizarre. However, she was somewhat guarded. MENTAL STATUS EXAMINATION: Causally dressed with clean clothes. Made good eye contact. Cooperative. Psychomotor activity is normal. Speech, rate, rhythm, volume are good. Thought process: Linear, goal directed. Thought contents: Continues to have some paranoid delusions. Denied any suicidal or homicidal thoughts. She is alert, oriented to time, place and person. Memory immediate, remote, recent are good. DIAGNOSIS: 1. Bipolar 1 disorder with psychosis, . 2. R/O Schizo affective disorder VITAL SIGNS: Temperature 99, pulse is 82, respirations 16, blood pressure 110/63, pulse oximetry 97%. LABORATORY: Complete blood count (CBC), comprehensive metabolic panel (CMP) within normal limits. HCG is negative. Toxicology is negative. CURRENT MEDICATIONS: Clozaril 12.5 mg daily. The patient is on Invega Sustenna monthly injection. PLAN: Continue with individual and group therapy. We are planning to go the court for her continued retention on the unit. [facility]
[2018-11-04 06:29] VITALS: BP 97/54
[2018-11-04] MEDS: valACYclovir HCL 500 MG TAB PO PRN (09:14)
[2018-11-04] MEDS: CYANOCOBALAMIN 500 MCG TAB PO SCH (09:14)
[2018-11-04] MEDS: MOM 30ML SUSPENSION UDC PO PRN (09:29)
[2018-11-04] MEDS: ACETAMINOPHEN TAB 650MG DOSE (2X325MG) PO PRN (11:12)
[2018-11-04 18:00] VITALS: BP 98/49
--- NOTE | 2018-11-04 19:26 | MHIPN ---
DATE: 11/04/2018 SUBJECTIVE: "I'm feeling better. I want to be discharged, and I'm going to the court for the discharge." OBJECTIVE: She is a 27-year-old female with a history of paranoia and diagnosis of schizophrenia who was admitted after 1 day of her discharge, as patient became increasingly paranoid. Her mother brought her back, stating that patient was wandering in the streets and was so frightened that she would not return to her house. [place] that she was being harassed, and the [place] Police were not engaging in any helpful endeavor for her; however, the apartment complex she lives did review of the videos after multiple complaints from the patient. Found no signs of reported drug traffickers or harassment that she mentions. Patient reportedly was unable to care for herself. Her mother reported that she was so frightened that she would stay in her apartment, would not go out, and would starve if she did not bring food for her. Today during my evaluation, patient reports that she has been doing better, but she does not believe that she has a psychiatric illness and ambivalent about her medications. She has a history of noncompliance with her medications. Patient continues to have paranoid ideas with poor insight; however, making some improvement as far as organized thoughts, exhibiting no bizarre behavior, except that when asked about her persecutory delusion she would mention about it. She thinks that she does not need medications. MENTAL STATUS EXAMINATION: Casually dressed in clean clothes. Cooperative. Made intermittent eye contact. Psychomotor activity is normal. Mood is anxious. Affect is constricted. Speech rate, rhythm, volume are good. Thought process is linear, goal directed. Thought content: Patient continues to have persecutory delusions. Denies any auditory or visual hallucinations. Insight and judgment are impaired. Memory: Immediate, remote, recent are good. VITAL SIGNS: Temperature 97.7, pulse is 69, respiratory rate is 18, blood pressure is 97/54. REVIEW OF SYSTEMS: Denied chest pain, palpitations. Denied abdominal pain, dysuria. Denied shortness of breath or cough. Denied dizziness, numbness, and tingling. Gait is normal. MEDICATIONS: Clozaril 12.5 mg at night, and patient had Invega Sustenna injection 154 booster dose on [place] 28. DIAGNOSIS: Schizophrenia, chronic paranoid type. PLAN: Continue current medication. Continue individual, group, and milieu therapy. Will go to the court for her retention in the inpatient unit for treatment.
[2018-11-04] MEDS: PILL CUTTER 1 EACH XX PRN (20:40)
[2018-11-04] MEDS: cloZAPine 25 MG TAB (S0136) PO SCH (20:41)
[2018-11-04 22:07] VITALS: BP 90/54
[2018-11-05 06:28] VITALS: BP 106/57
[2018-11-05] MEDS: MOM 30ML SUSPENSION UDC PO PRN (09:24)
[2018-11-05] MEDS: valACYclovir HCL 500 MG TAB PO PRN (09:24)
[2018-11-05] MEDS: CYANOCOBALAMIN 500 MCG TAB PO SCH (09:24)
[2018-11-05] MEDS ORDERED: CLOZ25TA3 PO (15:36)
[2018-11-05] MEDS ORDERED: INVE156I IM (15:36)
--- NOTE | 2018-11-08 12:56 | MHDS ---
DATE OF ADMISSION: 10/21/2018 DATE OF DISCHARGE: 11/05/2018 DIAGNOSIS: Schizophrenia, paranoid type. IDENTIFYING DATA: She is a 27-year-old female, single, living in her own apartment, was admitted because of paranoia and inability to take care of herself. For details of history of present illness, past psychiatric history, medical history, social history, substance abuse history please refer to the initial evaluation. HOSPITAL COURSE: The patient was readmitted after getting discharged a day earlier. The patient reportedly was wandering in the streets. Mother called the police and when the police came, she had already come to her apartments, barricaded herself, putting desk and chair in front of her door so that nobody could enter the apartment. The patient was thinking people were after her to hurt her with guns, and there are "drug dealers outside." Review of surveillance camera did not show that she was being harassed or that there was drug use in the apartment complex. The patient was placed on Clozaril 12.5 mg as an adjuvant. The patient was also provided individual, group and milieu therapy. She made slow recovery; however, her paranoia decreased to some extent but she still was paranoid. The patient was taken to the court for retention for further hospitalization; however, the day worker ordered her for release. At the time of discharge, the patient was still somewhat paranoid. Her sleep and appetite were okay. She was able to take care of her activities of daily living. She denied any suicidal or homicidal thoughts. She denied any side effects from the medications. MENTAL STATUS EXAMINATION: Casually dressed in clean clothes. Cooperative. Made good eye contact. Speech: Rate, rhythm and volume are good. Mood is suspicious. Affect is guarded. Denied any auditory hallucinations. Insight and judgment are limited. Impulse control is adequate. Memory: Immediate, remote and recent are good. MEDICATIONS: - Invega Sustenna injection 156 mg every 4 weeks - Clozaril 12.5 mg daily CBC within normal limits, WBC 7.6. I have ordered a stat WBC. Chemistries within normal limits. Toxicology was negative. REVIEW OF SYSTEMS: Denied chest pain, palpitations. Denied abdominal pain or dysuria. Denied dizziness, numbness, tingling. Denied shortness of breath or cough. PLAN: Send her home. Followup at [facility]. Her next injection is due on 11/19/2018. Laboratory work for blood tests for every week for 2 weeks was given.
== END 2018-11-05 17:45 | disposition home or self-care (01) | DRG 885 ==
LOC: M ED 14:00 → M ED INP 18:42 → M PSY 19:45
PROVIDERS: ADMIT Psychiatry & Neurology Psychiatry; ATTEND Psychiatry & Neurology Addiction Medicine
DX: F20.0 Paranoid schizophrenia (principal); F29 Unspecified psychosis not due to a substance or known physiological condition; Z79.899 Other long term (current) drug therapy

== ENCOUNTER 2018-12-18 11:30 | Emergency (ER) | payer MEDICARE, MEDICAID ==
[~2018-12-18] VITALS: Ht 170.2 cm; Wt 59.5 kg
[2018-12-18 11:30] VITALS: BP 115/74
[~2018-12-18 11:30] MED LIST changes: +CLOZ25TA3 PO
== END 2018-12-18 12:43 | disposition home or self-care (01) ==
LOC: M ED 11:30
DX: F25.9 Schizoaffective disorder, unspecified (principal); R63.5 Abnormal weight gain; Z79.899 Other long term (current) drug therapy

== ENCOUNTER 2018-12-20 10:17 | Inpatient (IN) | payer MEDICARE, MEDICAID ==
[~2018-12-20] VITALS: Ht 170.2 cm; Wt 59.1 kg
[2018-12-20 11:04] LABS: HEMATOCRIT 39.6 % (36.0-47.0); HEMOGLOBIN 13.6 g/dl (12.0-15.5); MEAN CORPUSCULAR HEMOGLOBIN 33.8 pg (27.0-33.0); MEAN CORPUSCULAR HGB CONC 34.3 g/dl (32.0-36.5); MEAN CORPUSCULAR VOLUME 98.5 fl (80.0-96.0); PLATELET COUNT, AUTOMATED 225 10^3/uL (150-450); RED BLOOD COUNT 4.02 10^6/uL (4.00-5.40); WHITE BLOOD COUNT 3.8 10^3/uL (4.0-10.0)
[2018-12-20 11:30] LABS: AMPHETAMINES LEVEL URINE NEGATIVE (NEGATIVE); BARBITURATES URINE NEGATIVE (NEGATIVE); BENZODIAZEPINES URINE NEGATIVE (NEGATIVE); CANNABINOIDS URINE NEGATIVE (NEGATIVE); COCAINE METABOLITE URINE NEGATIVE (NEGATIVE); METHADONE URINE NEGATIVE (NEGATIVE); OPIATES URINE NEGATIVE (NEGATIVE); PHENCYCLIDINE URINE NEGATIVE (NEGATIVE)
[2018-12-20 11:31] LABS: HCG, SERUM QUALITATIVE NEGATIVE (NEGATIVE)
[2018-12-20 11:42] LABS: ACETAMINOPHEN LEVEL < 2.0 UG/ML (10.0-30.0); ALBUMIN 4.4 GM/DL (3.2-5.2); ALT/SGPT 18 U/L (12-78); BILIRUBIN,DIRECT < 0.1 MG/DL (0.0-0.2); BILIRUBIN,TOTAL 0.5 MG/DL (0.2-1.0); BLOOD UREA NITROGEN 10 MG/DL (7-18); CALCIUM LEVEL 9.5 MG/DL (8.5-10.1); CARBON DIOXIDE LEVEL 30 MEQ/L (21-32); CHLORIDE LEVEL 106 MEQ/L (98-107); CREATININE FOR GFR 0.66 MG/DL (0.55-1.30); ETHYL ALCOHOL (ETHANOL) < 0.003 % (0.000-0.010); GLOMERULAR FILTRATION RATE > 60.0 (>60); GLUCOSE, FASTING 83 MG/DL (70-100); POTASSIUM SERUM 3.6 MEQ/L (3.5-5.1); SALICYLATE LEVEL < 1.7 MG/DL (5.0-30.0); SODIUM LEVEL 142 MEQ/L (136-145); TOTAL PROTEIN 7.6 GM/DL (6.4-8.2)
[2018-12-20] MEDS ORDERED: INVE156I IM (15:39)
[2018-12-20] MEDS ORDERED: traZODone 50 MG TAB PO PRN (16:15)
[2018-12-20] MEDS ORDERED: MAALOX 30 ML SUSP *UDC PO PRN (16:15)
[2018-12-20] MEDS ORDERED: IBUPROFEN 400 MG TAB PO PRN (16:15)
[2018-12-20] MEDS ORDERED: MOM 30ML SUSPENSION UDC PO PRN (16:15)
[2018-12-20] MEDS ORDERED: OLANZapine 5 MG TAB PO PRN (16:15)
[2018-12-20 17:22] VITALS: BP 107/63
--- NOTE | 2018-12-20 20:36 | ECGEPIP ---
[facility] - ED Test Date: 2018-12-20 Pat Name: RADHA KRISHNA Department: Room: - Gender: Female Systems Accountant: BEN : [id number] Requested By: TAHMINA OLSON Order Number: [id number] Reading MD: Nico Horton Measurements Intervals [place] Rate: 77 P: 69 CO: 128 QRS: 65 QRSD: 92 T: 23 QT: 351 QTc: 399 Interpretive Statements SINUS RHYTHM WITH SINUS ARRHYTHMIA NONSPECIFIC ST T WAVE CHANGES CW 02/13/16 RATE DECCREASED SIMILAR MORPHOLOGY Electronically Signed on 12-20-2018 20:35:54 EDT by Nico Horton
[2018-12-21 06:38] VITALS: BP 109/57
--- NOTE | 2018-12-21 09:47 | HPEPDOC ---
General Date of Admission Dec 20, 2018 at 16:09 Date of Service: Dec 21, 2018 Chief Complaint The patient is a 28-year-old female admitted with a reason for visit of Schizophrenia. Source: Patient, Old records History of Present Illness 28 year old female with PMH of Schizophrenia, genital herpes was admitted to the psychiatry service for paranoid ideas and uncontrolled symptoms of schizophrenia. I am seeing the patient today for medical history and physical. She denies any medical complaints at this time. Home Medications Scheduled Multivitamin (Multivitamins) 1 Each Capsule, 1 CAP PO DAILY, (Reported) Paliperidone Palmitate (Invega Sustenna) 156 Mg/1 Ml Syringe, 156 MG IM QMONTH, (Reported) Valacyclovir HCl (Valacyclovir) 1 Gm Tab, 1 GM PO DAILY, (Reported) Allergies Coded Allergies: No Known Allergies (Unverified , 10/15/18) Past Medical History Medical History Cold sores HSV Schizophrenia Surgical History None Family History parents alive and healthy Social History * Smoker: Denies Alcohol: occationally Drugs: denies A-FIB/CHADSVASC A-FIB History Current/History of A-Fib/PAF?: No Review of Systems Constitutional: Denies: Chills, Fever, Night Sweats Eyes: Denies: Pain, Vision change ENT: Denies: Head Aches, Ear Pain, Dysphagia Skin: Denies: Rash, Lesions, Breakdown Pulmonary: Denies: Dyspnea, Cough Cardiovascular: Denies: Chest Pain, Palpitations, Orthopnea, Paroxysmal Noc. Dyspnea, Lt Headedness Gastrointestinal: Denies: Nausea, Vomiting, Abdominal Pain, Diarrhea Hematologic: Denies: Bruising, Bleeding Excessively Musculoskeletal: Denies: Neck Pain, Back Pain, Joint Pain, Muscle Pain, Spasms Physical Examination General Exam: Positive: Alert, Cooperative, No Acute Distress Eye Exam: Positive: PERRLA, Conjunctiva & lids normal, EOMI; Negative: Sclera icteric ENT Exam: Positive: Atraumatic, Mucous membr. moist/pink, Pharynx Normal Neck Exam: Positive: Supple; Negative: JVD, thyromegaly Chest Exam: Positive: Clear to auscultation, Normal air movement Heart Exam: Positive: Rate Normal, Regular Rhythm, Normal S1, Normal S2; Negative: Murmurs, Rubs Abdomen Exam: Positive: Normal bowel sounds, Soft; Negative: Tenderness, Hepatospenomegaly Extremity Exam: Positive: Normal pulses; Negative: Clubbing, Cyanosis, Edema Skin Exam: Positive: Nl turgor and temperature; Negative: Breakdown, Lesion Vital Signs Vital Signs Date Time Temp Pulse Resp B/P (MAP) Pulse Ox O2 Delivery O2 Flow Rate FiO2 12/21/18 06:38 97.4 56 12 109/57 (74) Room Air 12/20/18 17:22 94 Laboratory Data Labs 24H Laboratory Tests 2 12/20/18 10:47: Nucleated Red Blood Cells % (auto) 0.0, Anion Gap 6L, Glomerular Filtration Rate > 60.0, Calcium Level 9.5, Total Bilirubin 0.5, Direct Bilirubin < 0.1, Aspartate Amino Transf (AST/SGOT) 11, Alanine Aminotransferase (ALT/SGPT) 18, Alkaline Phosphatase 51, Total Protein 7.6, Albumin 4.4, Albumin/Globulin Ratio 1.38, Thyroid Stimulating Hormone (TSH) 1.230, Human Chorionic Gonadotropin, Qual NEGATIVE, Salicylates Level < 1.7L, Urine Opiates Screen NEGATIVE, Urine Methadone Screen NEGATIVE, Acetaminophen Level < 2.0L, Urine Barbiturates Screen NEGATIVE, Urine Phencyclidine Screen NEGATIVE, Urine Amphetamines Screen NEGATIVE, Urine Benzodiazepines Screen NEGATIVE, Urine Cocaine Metabolite Screen NEGATIVE, Urine Cannabinoids Screen NEGATIVE, Ethyl Alcohol Level < 0.003 CBC/BMP Laboratory Tests 12/20/18 10:47 Assessment/Plan 28 year old female with PMH of Schizophrenia, genital herpes was admitted to the psychiatry service for paranoid ideas and uncontrolled symptoms of schizophrenia. I am seeing the patient today for medical history and physical. She denies any medical complaints at this time. H/o Genital herpes continue valtrex. Psychiatric issues as per [facility]. No acute medical issues at this time Please consult if needed Plan / VTE VTE Prophylaxis Ordered?: No (freely ambulatory) DEMETRIS MARIA MD Dec 21, 2018 08:57
[2018-12-21] MEDS: valACYclovir HCL 500 MG TAB PO SCH (10:26)
[2018-12-21] MEDS: MULTIVITAMINS/MINERALS THERAP 1 TAB PO SCH (10:26)
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
[2018-12-21 12:07] LABS: BASO % 0.3 % (0.0-1.0); EOS % 0.7 % (0.0-3.0); HEMATOCRIT 39.1 % (36.0-47.0); HEMOGLOBIN 13.5 g/dl (12.0-15.5); LYMPH # 1.7 10^3/uL (1.5-5.0); LYMPH % 28.8 % (24.0-44.0); MEAN CORPUSCULAR HGB CONC 34.5 g/dl (32.0-36.5); MEAN CORPUSCULAR VOLUME 98.5 fl (80.0-96.0); MONO # 0.3 10^3/uL (0.0-0.8); MONO % 4.6 % (0.0-5.0); NEUTROPHILS # 3.9 10^3/uL (1.5-8.5); NEUTROPHILS % 65.4 % (36.0-66.0); PLATELET COUNT, AUTOMATED 228 10^3/uL (150-450); RED BLOOD COUNT 3.97 10^6/uL (4.00-5.40); WHITE BLOOD COUNT 5.9 10^3/uL (4.0-10.0)
[2018-12-21 16:11] VITALS: BP 105/62
[2018-12-21] MEDS: cloZAPine 25 MG TAB (S0136) PO SCH (20:33)
[2018-12-22 06:36] VITALS: BP 102/59
[2018-12-22] MEDS: MULTIVITAMINS/MINERALS THERAP 1 TAB PO SCH (09:03)
[2018-12-22] MEDS: valACYclovir HCL 500 MG TAB PO SCH (09:03)
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
[2018-12-22 16:55] VITALS: BP 108/58
[2018-12-22] MEDS: cloZAPine 25 MG TAB (S0136) PO SCH (21:48)
[2018-12-23 06:21] VITALS: BP 110/64
[2018-12-23] MEDS ORDERED: INVE156I IM (09:08)
[2018-12-23] MEDS ORDERED: CLOZ25TA3 PO (09:08)
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
[2018-12-23] MEDS: valACYclovir HCL 500 MG TAB PO SCH (10:06)
[2018-12-23] MEDS: MULTIVITAMINS/MINERALS THERAP 1 TAB PO SCH (10:06)
== END 2018-12-23 11:25 | disposition home or self-care (01) | DRG 885 ==
LOC: M ED 10:17 → M ED INP 16:09 → M PSY 16:42
PROVIDERS: ADMIT Psychiatry & Neurology Addiction Medicine; ATTEND Psychiatry & Neurology Psychiatry
DX: F20.0 Paranoid schizophrenia (principal); Z79.899 Other long term (current) drug therapy; A60.09 Herpesviral infection of other urogenital tract

== ENCOUNTER → 2019-01-13 | Outpatient (REF) | payer MEDICARE, MEDICAID ==
[2019-01-13 16:54] LABS: BASO % 0.6 % (0.0-1.0); EOS # 0.1 10^3/uL (0.0-0.5); EOS % 0.9 % (0.0-3.0); HEMATOCRIT 39.4 % (36.0-47.0); HEMOGLOBIN 13.2 g/dl (12.0-15.5); LYMPH # 2.1 10^3/uL (1.5-5.0); LYMPH % 40.2 % (24.0-44.0); MEAN CORPUSCULAR HEMOGLOBIN 32.7 pg (27.0-33.0); MEAN CORPUSCULAR HGB CONC 33.5 g/dl (32.0-36.5); MEAN CORPUSCULAR VOLUME 97.5 fl (80.0-96.0); MONO # 0.3 10^3/uL (0.0-0.8); MONO % 5.3 % (0.0-5.0); NEUTROPHILS # 2.8 10^3/uL (1.5-8.5); NEUTROPHILS % 52.8 % (36.0-66.0); PLATELET COUNT, AUTOMATED 256 10^3/uL (150-450); RED BLOOD COUNT 4.04 10^6/uL (4.00-5.40); WHITE BLOOD COUNT 5.3 10^3/uL (4.0-10.0)
[2019-01-13 17:14] LABS: HEMOGLOBIN A1c 4.8 %
[2019-01-13 17:16] LABS: CHOLESTEROL RISK RATIO 2.764 (<5)
== END ==
LOC: M SFHCPLAZ 13:47
DX: F20.0 Paranoid schizophrenia (principal)

== ENCOUNTER 2019-01-17 09:12 | Emergency (ER) | payer MEDICARE, MEDICAID ==
[~2019-01-17] VITALS: Ht 170.2 cm; Wt 57.3 kg
[2019-01-17 10:57] LABS: HEMATOCRIT 39.2 % (36.0-47.0); HEMOGLOBIN 13.1 g/dl (12.0-15.5); MEAN CORPUSCULAR HEMOGLOBIN 33.1 pg (27.0-33.0); MEAN CORPUSCULAR HGB CONC 33.4 g/dl (32.0-36.5); PLATELET COUNT, AUTOMATED 228 10^3/uL (150-450); RED BLOOD COUNT 3.96 10^6/uL (4.00-5.40); WHITE BLOOD COUNT 4.7 10^3/uL (4.0-10.0)
[2019-01-17 11:09] LABS: HCG, SERUM QUALITATIVE NEGATIVE (NEGATIVE)
[2019-01-17 11:22] LABS: ACETAMINOPHEN LEVEL < 2.0 UG/ML (10.0-30.0); ALBUMIN 3.9 GM/DL (3.2-5.2); ALT/SGPT 21 U/L (12-78); BILIRUBIN,DIRECT < 0.1 MG/DL (0.0-0.2); BILIRUBIN,TOTAL 0.3 MG/DL (0.2-1.0); BLOOD UREA NITROGEN 10 MG/DL (7-18); CALCIUM LEVEL 8.6 MG/DL (8.5-10.1); CARBON DIOXIDE LEVEL 27 MEQ/L (21-32); CHLORIDE LEVEL 108 MEQ/L (98-107); CREATININE FOR GFR 0.63 MG/DL (0.55-1.30); ETHYL ALCOHOL (ETHANOL) < 0.003 % (0.000-0.010); GLOMERULAR FILTRATION RATE > 60.0 (>60); GLUCOSE, FASTING 107 MG/DL (70-100); POTASSIUM SERUM 3.8 MEQ/L (3.5-5.1); SALICYLATE LEVEL < 1.7 MG/DL (5.0-30.0); SODIUM LEVEL 143 MEQ/L (136-145); THYROID STIMULATING HORMONE 0.705 uIU/ML (0.358-3.740); TOTAL PROTEIN 7.2 GM/DL (6.4-8.2)
[2019-01-17 11:23] LABS: AMPHETAMINES LEVEL URINE NEGATIVE (NEGATIVE); BARBITURATES URINE NEGATIVE (NEGATIVE); BENZODIAZEPINES URINE NEGATIVE (NEGATIVE); CANNABINOIDS URINE NEGATIVE (NEGATIVE); COCAINE METABOLITE URINE NEGATIVE (NEGATIVE); METHADONE URINE NEGATIVE (NEGATIVE); OPIATES URINE NEGATIVE (NEGATIVE); PHENCYCLIDINE URINE NEGATIVE (NEGATIVE)
[2019-01-17] MEDS ORDERED: PALIPERIDONE PALMITATE 156MG/1ML INJ(INVEGA)(J2426)(FREE PSY INPT ONLY) IM ONE (13:45)
[2019-01-17 14:19] VITALS: BP 120/67
== END 2019-01-17 14:20 | disposition home or self-care (01) ==
LOC: M ED 09:12
DX: F20.9 Schizophrenia, unspecified (principal); Z79.899 Other long term (current) drug therapy
CPT/HCPCS: 36415; 80048; 80076; 80307; 84443; 84703; 85027; 96372; 99284; G0480; J2426

== ENCOUNTER 2019-01-27 10:21 | Inpatient (IN) | payer MEDICARE, MEDICAID ==
[~2019-01-27] VITALS: Ht 170.2 cm; Wt 58.0 kg
[2019-01-27 11:11] LABS: HEMATOCRIT 39.4 % (36.0-47.0); HEMOGLOBIN 13.2 g/dl (12.0-15.5); MEAN CORPUSCULAR HGB CONC 33.5 g/dl (32.0-36.5); MEAN CORPUSCULAR VOLUME 98.5 fl (80.0-96.0); PLATELET COUNT, AUTOMATED 220 10^3/uL (150-450); WHITE BLOOD COUNT 4.5 10^3/uL (4.0-10.0)
[2019-01-27 11:34] LABS: AMPHETAMINES LEVEL URINE NEGATIVE (NEGATIVE); BARBITURATES URINE NEGATIVE (NEGATIVE); BENZODIAZEPINES URINE NEGATIVE (NEGATIVE); CANNABINOIDS URINE NEGATIVE (NEGATIVE); COCAINE METABOLITE URINE NEGATIVE (NEGATIVE); METHADONE URINE NEGATIVE (NEGATIVE); OPIATES URINE NEGATIVE (NEGATIVE); PHENCYCLIDINE URINE NEGATIVE (NEGATIVE)
[2019-01-27 11:50] LABS: ACETAMINOPHEN LEVEL < 2.0 UG/ML (10.0-30.0); ALBUMIN 4.1 GM/DL (3.2-5.2); ALT/SGPT 32 U/L (12-78); BILIRUBIN,DIRECT < 0.1 MG/DL (0.0-0.2); BILIRUBIN,TOTAL 0.3 MG/DL (0.2-1.0); BLOOD UREA NITROGEN 7 MG/DL (7-18); CALCIUM LEVEL 8.9 MG/DL (8.5-10.1); CARBON DIOXIDE LEVEL 27 MEQ/L (21-32); CHLORIDE LEVEL 106 MEQ/L (98-107); CREATININE FOR GFR 0.63 MG/DL (0.55-1.30); ETHYL ALCOHOL (ETHANOL) < 0.003 % (0.000-0.010); GLOMERULAR FILTRATION RATE > 60.0 (>60); GLUCOSE, FASTING 99 MG/DL (70-100); SALICYLATE LEVEL < 1.7 MG/DL (5.0-30.0); SODIUM LEVEL 142 MEQ/L (136-145); TOTAL PROTEIN 7.4 GM/DL (6.4-8.2)
[2019-01-27] MEDS ORDERED: INVE156I IM (15:21)
[2019-01-27] MEDS ORDERED: OLANZapine 5 MG TAB PO PRN (17:00)
[2019-01-27] MEDS ORDERED: traZODone 50 MG TAB PO PRN (17:00)
[2019-01-27 20:16] VITALS: BP 100/58
[2019-01-28 06:04] VITALS: BP 100/57
[2019-01-28] MEDS ORDERED: valACYclovir HCL 500 MG TAB PO SCH (09:00)
--- NOTE | 2019-01-28 11:31 | MHHPEPDOC ---
[facility] History & Physical History and Physical DATE OF ADMISSION: Jan 27, 2019 at 16:54 New Patient Renay Kerr MRN: N/A Date of : N/A Date of Service: 01/28/2019 Chief Complaint "I feel good now." History of Present Illness The patient, a well-known 28-year-old woman, with reported mild/paranoid schizophrenia presents initially to the ER on her own volition stating that she was feeling paranoid about her neighbors and wanted to come in for a medication adjustment, previously being on Invega Sustenna. The patient has been previously taken to court for retention and has every time has been d/kierra by the court, as she does not pose a significant danger to herself and is not significantly impaired as per the court adjudication. The patient presented and was admitted on a voluntary status as she was not suicidal or homicidal upon her presenta tion. The patient was further observed where she was amenable to taking the risperidone Consta. When I met the patient in discussion she reports she had had only the mild paranoia, but no other changes in her symptoms. She did request to go and was on a voluntary status after she reported she wished to be placed on the risperidone Consta shot and to be sent home. She was discharged in good radha as she did not meet involuntary criteria for a conversion from her current voluntary status as she was not suicidal or homicidal and did not appear significantly impaired/unable to obtain her basic needs in my clinical judgment and thus was discharged home with the medication adjustment at her request. Review Of Systems Depression: No changes. Anxiety: No changes. Kimberly: No changes. Psychotic: No changes. Trauma: No changes. Borderline: No changes. Past Psychiatric History Has a history of schizophrenia, has had intermittent compliance, previously on Invega Sustenna. Multiple inpatient admissions, last several weeks ago. No history of suicide attempts. Allergies Please see below. Family Psychiatric History The patient denies/is unaware any history of mental health history including addictions and suicide. Social History The patient reports growing up in the local area. She described her early life as "good." Her psychosocial information in the past suggests that she grew up in a single-parent household and her mother is a current major support of her. She has an older sister that lives in the same building, but has been uninterested in her care. She graduated with a four-year degree in communications, but currently has no source of income. Lives alone. Never and no children. No history of legal problems are noted. She denies any history of abuse when she was growing up. Substance Abuse History The patient continues to report "occasional" drinking alcohol. Denies all tobacco use, cannabis, and other drug use. Toxicology remains non-contributory. Medical History Patient has no significant past medical history. Mental Status Examination General: Well dressed with good hygiene Speech: Spontaneous and fluid Thought processes: Linear and logical MSK: Smooth and coordinated gait, no signs of tremors or involuntary orofacial movements Thought content: Amenable Abstract reasoning, and computation: Intact Description of associations: Intact Description of abnormal or psychotic thoughts: Denies any suicidal or homicidal ideation. Denies any auditory or visual hallucinations. Does not appear to be responding to internal stimuli. Does not appear to be endorsing any bizarre or paranoid ideation. Judgment: Fair to poor, at baseline Insight: Fair to poor, at baseline, likely mildly improved Orientation: Alert and orientated 3 Cognition: Grossly normal Recent and remote memory: Intact Attention span and concentration: Intact Fund of knowledge: Adequate Mood: "okay" Affect: Mildly flat Diagnoses Chronic schizophrenia, likely paranoid type. Assessment and Plan The patient, a 28-year-old woman, with a history of chronic paranoid schizophrenia presents on a voluntary status after getting a short change in her medications from Invega to risperidone. She only wishes to have the injection and has gained some more insight as she's presented when she becomes concerned about her paranoia. She still has some overvalued ideas about it, but has been able to take care of herself and obtain her basic needs. She's not made any threats towards herself or others and has routinely been unable to be held against her will. At this time she does not meet involuntary criteria as postulated above and declines further voluntary admission. Disposition Same-day discharge. Problem List 1. Altered thoughts. Initial Treatment Plan 1. Patient was admitted on a 9.39 legal status. 2. Complete history was obtained. 3. With patients permission, family will be contacted and database will be expanded. 4. Patients medication regimen will be reviewed and changed accordingly. 5. Patient will be provided with protected environment. 6. Patient will be treated with individual, group, and milieu therapies. 7. Patient will receive supportive psych-education. 8. Discharge planning will commence immediately. 9. Outpatient follow-up treatment will be strongly recommended. 10. The initial treatment plan will focus initially on: Estimated Length Of Stay One day. Time Spent 80 minutes. Thursday Vital Signs Vital Signs Date Time Temp Pulse Resp B/P (MAP) Pulse Ox O2 Delivery O2 Flow Rate FiO2 01/28/19 06:04 98.9 105 16 100/57 (71) 01/27/19 20:16 96 Room Air Medications Scheduled Multivitamin (Multivitamins) 1 Each Capsule, 1 CAP PO DAILY, (Reported) Risperidone (Risperdal Consta) 25 Mg/2 Ml Syringe, 1 SYRINGE IM Q2WK for thoughts next due 02/11/19 Valacyclovir HCl (Valacyclovir) 1 Gm Tab, 1 GM PO DAILY, (Reported) Allergies Coded Allergies: No Known Allergies (Unverified , 10/15/18) ONEIDA ISABEL DO Jan 28, 2019 11:31
[2019-01-28] MEDS ORDERED: risperiDONE 0.5 MG TAB PO SCH (13:00)
--- NOTE | 2019-01-28 13:03 | MHDSPDOC ---
[facility] Discharge Summary Discharge Summary DATE OF ADMISSION: Jan 27, 2019 at 16:54 DATE OF DISCHARGE: 01/28/19 Please see H/P for d/c dx and clinical course/ recommendations Vital Signs/I&Os Vital Signs Date Time Temp Pulse Resp B/P (MAP) Pulse Ox O2 Delivery O2 Flow Rate FiO2 01/28/19 06:04 98.9 105 16 100/57 (71) 01/27/19 20:16 96 Room Air Medications Scheduled Multivitamin (Multivitamins) 1 Each Capsule, 1 CAP PO DAILY, (Reported) Risperidone (Risperdal Consta) 25 Mg/2 Ml Syringe, 1 SYRINGE IM Q2WK for thoughts, #1 next due 02/11/19 Valacyclovir HCl (Valacyclovir) 1 Gm Tab, 1 GM PO DAILY, (Reported) Allergies Coded Allergies: No Known Allergies (Unverified , 10/15/18) ONEIDA ISABEL DO Jan 28, 2019 13:03
[2019-01-28] MEDS ORDERED: RISP25INJ IM (13:05)
[2019-01-28] MEDS ORDERED: risperiDONE LONG-ACTING 25 MG/2 ML INJ (J2794 PER 0.5MG) IM ONE (14:00)
--- NOTE | 2019-01-28 16:52 | HPEPDOC ---
General Date of Admission Jan 27, 2019 at 16:54 Date of Service: Jan 28, 2019 Attending Physician: DEMETRIS MARIA MD Chief Complaint The patient is a 28-year-old female admitted with a reason for visit of Schizophrenia. Source: Patient Exam Limitations: No limitations Associated Symptoms: Denies Symptoms History of Present Illness Ms. Kerr is a 28-year-old female admitted to [facility] 01/27/19 with a diagnosis of Paranoid Schizophrenia. Patient is being assessed for any medical comorbidities by the hospitalist group. Patient reported she began to feel unsafe in her apartment and neighborhood so she presented to hospital with the knowledge that it is a safer environment. Patient has a past medical history of GERD, HSV infection and psychotic disorder. She denied any current medical issues. She denied any OTC medication use. Home Medications Scheduled Multivitamin (Multivitamins) 1 Each Capsule, 1 CAP PO DAILY, (Reported) Risperidone (Risperdal Consta) 25 Mg/2 Ml Syringe, 1 SYRINGE IM Q2WK for thoughts next due 02/11/19 Valacyclovir HCl (Valacyclovir) 1 Gm Tab, 1 GM PO DAILY, (Reported) Allergies Coded Allergies: No Known Allergies (Unverified , 10/15/18) Past Medical History Medical History GERD, HSV infection, pleurisy, paranoid schizophrenia, depression Surgical History none Family History Significant Family History: No pertinent family hx discussed with the patient Social History * Smoker: Denies Alcohol: occationally Drugs: denies A-FIB/CHADSVASC A-FIB History Current/History of A-Fib/PAF?: No Review of Systems Constitutional: Denies: Chills, Fever, Night Sweats Eyes: Denies: Pain ENT: Denies: Head Aches Skin: Denies: Rash Pulmonary: Denies: Dyspnea, Cough Cardiovascular: Denies: Chest Pain, Palpitations, Lt Headedness Gastrointestinal: Denies: Abdominal Pain Genitourinary: Denies: Dysuria Musculoskeletal: Denies: Neck Pain, Back Pain, Shoulder Pain, Arm Pain, Hand Pain, Leg Pain, Foot Pain, Joint Pain, Muscle Pain, Spasms, Other Symptoms Neurological: Denies: Weakness Psych: Reports: Mood Normal Physical Examination General Exam: Positive: Alert, Cooperative, No Acute Distress Eye Exam: Positive: Conjunctiva & lids normal ENT Exam: Positive: Atraumatic Chest Exam: Positive: Clear to auscultation, Normal air movement Heart Exam: Positive: Rate Normal, Normal S1, Normal S2 Abdomen Exam: Positive: Normal bowel sounds, Soft; Negative: Tenderness Extremity Exam: Negative: Clubbing, Cyanosis, Edema Skin Exam: Positive: Nl turgor and temperature Neuro Exam: Positive: Normal Gait, Normal Speech Psych Exam: Positive: Mood NL Vital Signs Vital Signs Date Time Temp Pulse Resp B/P (MAP) Pulse Ox O2 Delivery O2 Flow Rate FiO2 01/28/19 06:04 98.9 105 16 100/57 (71) 01/27/19 20:16 96 Room Air Assessment/Plan 28-year-old female admitted to [facility] 01/27/19 with a diagnosis of Paranoid Schizophrenia. Paranoid Schizophrenia management per psychiatry Patient has denied any acute medical issues. Please consult as needed. Plan / VTE VTE Prophylaxis Ordered?: No HAL EASLEY PA-C Jan 28, 2019 12:04 DEMETRIS MARIA MD Jan 28, 2019 16:52
== END 2019-01-28 15:15 | disposition home or self-care (01) | DRG 885 ==
LOC: M ED 10:21 → M ED INP 16:54 → M PSY 19:55
PROVIDERS: ADMIT Psychiatry & Neurology Addiction Medicine; ATTEND Psychiatry & Neurology Addiction Medicine
DX: F20.0 Paranoid schizophrenia (principal); K21.9 Gastro-esophageal reflux disease without esophagitis; B00.9 Herpesviral infection, unspecified; F29 Unspecified psychosis not due to a substance or known physiological condition; Z79.899 Other long term (current) drug therapy; R09.1 Pleurisy

== ENCOUNTER 2019-02-02 09:49 | Inpatient (IN) | payer MEDICARE, MEDICAID ==
[~2019-02-02] VITALS: Ht 170.2 cm; Wt 59.1 kg
[~2019-02-02 09:49] MED LIST changes: +RISP25INJ IM; -VALA1TAB2 PO; +VALA1TAB64 PO
[2019-02-02 11:58] LABS: HEMOGLOBIN 12.8 g/dl (12.0-15.5); MEAN CORPUSCULAR HEMOGLOBIN 32.7 pg (27.0-33.0); MEAN CORPUSCULAR HGB CONC 33.7 g/dl (32.0-36.5); MEAN CORPUSCULAR VOLUME 96.9 fl (80.0-96.0); PLATELET COUNT, AUTOMATED 196 10^3/uL (150-450); RED BLOOD COUNT 3.92 10^6/uL (4.00-5.40); WHITE BLOOD COUNT 5.6 10^3/uL (4.0-10.0)
[2019-02-02] MEDS ORDERED: LORazepam 0.5 MG TAB PO ONE (12:15)
[2019-02-02 12:26] LABS: AMPHETAMINES LEVEL URINE NEGATIVE (NEGATIVE); BARBITURATES URINE NEGATIVE (NEGATIVE); BENZODIAZEPINES URINE NEGATIVE (NEGATIVE); CANNABINOIDS URINE NEGATIVE (NEGATIVE); COCAINE METABOLITE URINE NEGATIVE (NEGATIVE); METHADONE URINE NEGATIVE (NEGATIVE); OPIATES URINE NEGATIVE (NEGATIVE); PHENCYCLIDINE URINE NEGATIVE (NEGATIVE)
[2019-02-02 12:28] LABS: HCG, SERUM QUALITATIVE NEGATIVE (NEGATIVE)
[2019-02-02 13:02] LABS: BLOOD UREA NITROGEN 11 MG/DL (7-18); CREATININE FOR GFR 0.58 MG/DL (0.55-1.30); GLOMERULAR FILTRATION RATE > 60.0 (>60); GLUCOSE, FASTING 103 MG/DL (70-100); SODIUM LEVEL 141 MEQ/L (136-145)
[2019-02-02 13:03] LABS: CARBON DIOXIDE LEVEL 31 MEQ/L (21-32); CHLORIDE LEVEL 107 MEQ/L (98-107)
[2019-02-02 13:04] LABS: ALBUMIN 3.9 GM/DL (3.2-5.2); ALT/SGPT 28 U/L (12-78); BILIRUBIN,DIRECT < 0.1 MG/DL (0.0-0.2); BILIRUBIN,TOTAL 0.2 MG/DL (0.2-1.0); CALCIUM LEVEL 8.9 MG/DL (8.5-10.1)
[2019-02-02 13:05] LABS: ACETAMINOPHEN LEVEL < 2.0 UG/ML (10.0-30.0); ETHYL ALCOHOL (ETHANOL) < 0.003 % (0.000-0.010); SALICYLATE LEVEL < 1.7 MG/DL (5.0-30.0); THYROID STIMULATING HORMONE 0.666 uIU/ML (0.358-3.740)
[2019-02-02] MEDS ORDERED: RISP25INJ IM (14:43)
--- NOTE | 2019-02-02 14:54 | ED PDOC ---
Provider Note New Patient Renay Kerr MRN: N/A Date of : N/A Date of Service: 02/02/2019 Chief Complaint Consultation for paranoia in the ER. History of Present Illness The patient a 28-year-old woman with a history of schizophrenia, presents reporting that she is paranoid and unable to take care of herself. Reporting that she is unable to shower due to a fear and feeling that her neighbors are threatening her. She has a long history of presenting for paranoia, but only staying for a very short time. She reports that she feels scared and wishes to go to the [facility]. The patient reports that even when discussed as to her reasoning for wanting to come in as she reportedly comes in for only a day and then subsequently discharged, reports that she really does want to get help and that she is still quite paranoid and worried. She still appears quite paranoid when I met with her in the ER as she is frightened of people listening to her, still psychotic, but demonstrating unusually improved insight. After discussion with the patient for an excessive amount time, she accepts a voluntary admission. Psychosocial information is extracted from my previous notes and updated as appropriate. Review Of Systems Depression: No changes. Anxiety: No changes. Kimberly: No changes. Psychotic: No changes. Trauma: No changes. Borderline: No changes. Past Psychiatric History Has a history of schizophrenia, has had intermittent compliance, previously on Invega Sustenna. Multiple inpatient admissions, last several weeks ago. No history of suicide attempts. Currently on Risperidone Constanta next Feb 11. Allergies Please see below. Family Psychiatric History The patient denies/is unaware any history of mental health history including addictions and suicide. Social History The patient reports growing up in the local area. She described her early life as "good." Her psychosocial information in the past suggests that she grew up in a single-parent household and her mother is a current major support of her. She has an older sister that lives in the same building, but has been uninterested in her care. She graduated with a four-year degree in communications, but currently has no source of income. Lives alone. Never and no children. No history of legal problems are noted. She denies any history of abuse when she was growing up. Substance Abuse History The patient continues to report "occasional" drinking alcohol. Denies all tobacco use, cannabis, and other drug use. Toxicology remains non-contributory. Medical History Patient has no significant past medical history. Mental Status Examination General: Well dressed with good hygiene Speech: Spontaneous and fluid Thought processes: Linear and logical MSK: Smooth and coordinated gait, no signs of tremors or involuntary orofacial movements Thought content: paranoid Abstract reasoning, and computation: Intact Description of associations: Intact Description of abnormal or psychotic thoughts: paranoid thoughts, no SI,HI Judgment: Fair to poor Insight: Fair to poor, at baseline, likely mildly improved Orientation: Alert and orientated 3 Cognition: Grossly normal Recent and remote memory: Intact Attention span and concentration: Intact Fund of knowledge: Adequate Mood: "okay" Affect: Mildly flat Diagnoses Schizophrenia. Assessment and Plan The patient a 28-year-old woman who is well known to this provider, presents wanting admission for her paranoia. She has a history of schizophrenia and is qu ite ill. She is having much better insight and does appear to want treatment. I discussed with her that a voluntary is appropriate as she does frequently change her mind. Disposition Voluntary admission to . Time Spent 30 minutes. Thursday ONEIDA ISABEL DO Feb 02, 2019 14:54
[2019-02-02] MEDS ORDERED: ACETAMINOPHEN TAB 650MG DOSE (2X325MG) PO PRN (15:00)
[2019-02-02] MEDS ORDERED: MOM 30ML SUSPENSION UDC PO PRN (15:00)
[2019-02-02 16:39] VITALS: BP 107/58
[2019-02-03 06:39] VITALS: BP 110/56
[2019-02-03] MEDS: valACYclovir HCL 500 MG TAB PO SCH (09:15)
--- NOTE | 2019-02-03 09:29 | HPEPDOC ---
[facility] Medical History & Physical Date of Admission Feb 02, 2019 Date of Service: Feb 03, 2019 History and Physical CHIEF COMPLAINT: Medical H&P for [facility] patient. HISTORY OF PRESENT ILLNESS: 28 yo female admitted to [facility] for suicidal ideation, hospitalist consulted for medical H&P. Patient seen and examined in examination room. She has no medical complaints this morning. Denies chest pain, shortness of breath, abdominal pain, N/V/D, headaches, changes in vision, dysuria. PAST MEDICAL HISTORY: Denies PAST SURGICAL HISTORY: Denies ALLERGIES: Please see below. REVIEW OF SYSTEMS: Negative as per [facility] HOME MEDICATIONS: Please see below. PHYSICAL EXAMINATION: VITAL SIGNS: See below GENERAL APPEARANCE: NAD, sitting comfortably in chair, flat affect HEENT: NC/AT, EOMI CARDIOVASCULAR: +S1S2, RRR LUNGS: CTA B/L ABDOMEN: soft, NT, +BS EXTREMITIES: no edema NEUROLOGICAL: no gross focal deficits PSYCHIATRIC: AAOx3 LABORATORY DATA: See below. MICROBIOLOGY: Please see below. ASSESSMENT: 28 yo female admitted to [facility] for suicidal ideation, hospitalist consult for medical H&P. #suicidal ideation - as per primary team - psychiatry Vital Signs Vital Signs Date Time Temp Pulse Resp B/P (MAP) Pulse Ox O2 Delivery O2 Flow Rate FiO2 02/03/19 06:39 98.6 75 16 110/56 (74) 02/02/19 16:39 96 Room Air Laboratory Data Labs 24H Laboratory Tests 2 02/02/19 11:30: Nucleated Red Blood Cells % (auto) 0.0, Anion Gap 3L, Glomerular Filtration Rate > 60.0, Calcium Level 8.9, Total Bilirubin 0.2, Direct Bilirubin < 0.1, Aspartate Amino Transf (AST/SGOT) 13, Alanine Aminotransferase (ALT/SGPT) 28, Alkaline Phosphatase 57, Total Protein 7.0, Albumin 3.9, Albumin/Globulin Ratio 1.26, Thyroid Stimulating Hormone (TSH) 0.666, Human Chorionic Gonadotropin, Qual NEGATIVE, Salicylates Level < 1.7L, Urine Opiates Screen NEGATIVE, Urine Methadone Screen NEGATIVE, Acetaminophen Level < 2.0L, Urine Barbiturates Screen NEGATIVE, Urine Phencyclidine Screen NEGATIVE, Urine Amphetamines Screen NEGATIVE, Urine Benzodiazepines Screen NEGATIVE, Urine Cocaine Metabolite Screen NEGATIVE, Urine Cannabinoids Screen NEGATIVE, Ethyl Alcohol Level < 0.003 CBC/BMP Laboratory Tests 02/02/19 11:30 Home Medications Scheduled Multivitamin (Multivitamins) 1 Each Capsule, 1 CAP PO DAILY Risperidone (Risperdal Consta) 25 Mg/2 Ml Syringe, 25 MG IM Q2WK DUE 02/11/19 Valacyclovir HCl (Valacyclovir) 1 Gm Tab, 1 GM PO DAILY Allergies Coded Allergies: No Known Allergies (Unverified , 10/15/18) A-FIB/CHADSVASC A-FIB History Current/History of A-Fib/PAF?: No KARTIK ZELAYA MD Feb 03, 2019 09:29
--- NOTE | 2019-02-03 10:45 | MHHPEPDOC ---
[facility] History & Physical History and Physical DATE OF ADMISSION: Feb 02, 2019 at 14:54 New Patient Renay Kerr MRN: N/A Date of : N/A Date of Service: 02/03/2019 Chief Complaint "I want help." History of Present Illness The patient a 28-year-old woman with a long history of schizophrenia, self presents wanting help for paranoia. She still is somewhat bizarre and when I attempt to interview her, she is fairly frightened and scared, only talking to carmen brown for a short time before becoming increasingly paranoid and wanting to end the evaluation. The patient reports that she is very anxious and would like to try some Ativan for it. She reports that she has tried other antipsychotics before and is interested in going to [place] as she is not able to take care of herself due to her "neighbors" causing her problems and that she has had difficulty feeding herself. Collateral information from her parents reveals that she has had increasing problems feeding herself and decreasing function, although paradoxically the patient has developed better insight. The patient's psychosocial information is taken from previous visits and updated as appropriate. Review Of Systems Depression: No change. Anxiety: No change. Kimberly: No change. Psychotic: No change. Trauma: No change. Borderline: No change. Past Psychiatric History Has a history of schizophrenia, has had intermittent compliance, previously on Invega Sustenna. Multiple inpatient admissions, last several weeks ago. No history of suicide attempts. Currently on Risperidone Constanta next due Feb 11. Allergies Please see below. Family Psychiatric History The patient denies/is unaware any history of mental health history including addictions and suicide. Social History The patient reports growing up in the local area. She described her early life as "good." Her psychosocial information in the past suggests that she grew up in a single-parent household and her mother is a current major support of her. She has an older sister that lives in the same building, but has been uninterested in her care. She graduated with a four-year degree in communications, but currently has no source of income. Lives alone. Never and no children. No history of legal problems are noted. She denies any history of abuse when she was growing up. Substance Abuse History The patient continues to report "occasional" drinking alcohol. Denies all tobacco use, cannabis, and other drug use. Toxicology remains non-contributory. Medical History Patient has no significant past medical history. Mental Status Examination Diagnoses Schizophrenia. Assessment and Plan Schizophrenia: Continue risperidone Consta, start Ativan 0.5 mg Q 6 hours PRN for paranoia. Disposition The patient will need admission likely lasting longer than 2 midnights in order to treat her psychosis. Problem List 1. Altered thoughts. Initial Treatment Plan 1. Patient was admitted on a 9.39 legal status. 2. Complete history was obtained. 3. With patients permission, family will be contacted and database will be expanded. 4. Patients medication regimen will be reviewed and changed accordingly. 5. Patient will be provided with protected environment. 6. Patient will be treated with individual, group, and milieu therapies. 7. Patient will receive supportive psych-education. 8. Discharge planning will commence immediately. 9. Outpatient follow-up treatment will be strongly recommended. 10. The initial treatment plan will focus initially on: Estimated Length Of Stay 5 days. Time Spent 70 minutes. Vital Signs Vital Signs Date Time Temp Pulse Resp B/P (MAP) Pulse Ox O2 Delivery O2 Flow Rate FiO2 02/03/19 06:39 98.6 75 16 110/56 (74) 02/02/19 16:39 96 Room Air Laboratory Data 24H Labs Laboratory Tests 2 02/02/19 11:30: Nucleated Red Blood Cells % (auto) 0.0, Anion Gap 3L, Glomerular Filtration Rate > 60.0, Calcium Level 8.9, Total Bilirubin 0.2, Direct Bilirubin < 0.1, Aspartate Amino Transf (AST/SGOT) 13, Alanine Aminotransferase (ALT/SGPT) 28, Alkaline Phosphatase 57, Total Protein 7.0, Albumin 3.9, Albumin/Globulin Ratio 1.26, Thyroid Stimulating Hormone (TSH) 0.666, Human Chorionic Gonadotropin, Qual NEGATIVE, Salicylates Level < 1.7L, Urine Opiates Screen NEGATIVE, Urine Methadone Screen NEGATIVE, Acetaminophen Level < 2.0L, Urine Barbiturates Screen NEGATIVE, Urine Phencyclidine Screen NEGATIVE, Urine Amphetamines Screen NEGATIVE, Urine Benzodiazepines Screen NEGATIVE, Urine Cocaine Metabolite Screen NEGATIVE, Urine Cannabinoids Screen NEGATIVE, Ethyl Alcohol Level < 0.003 CBC/BMP Laboratory Tests 02/02/19 11:30 Medications Scheduled Asenapine (Saphris) 5 Mg Tab.subl, 1 TAB SL BID for thoughts Multivitamin (Multivitamins) 1 Each Capsule, 1 CAP PO DAILY, (Reported) Risperidone (Risperdal Consta) 25 Mg/2 Ml Syringe, 25 MG IM Q2WK, (Reported) DUE 02/11/19 Valacyclovir HCl (Valacyclovir) 1 Gm Tab, 1 GM PO DAILY, (Reported) Allergies Coded Allergies: No Known Allergies (Unverified , 10/15/18) ONEIDA ISABEL DO Feb 03, 2019 10:45
[2019-02-03] MEDS: LORazepam 0.5 MG TAB PO PRN (13:40)
[2019-02-03 16:26] VITALS: BP 97/57
[2019-02-04 06:30] VITALS: BP 114/61
[2019-02-04] MEDS: valACYclovir HCL 500 MG TAB PO SCH (08:49)
[2019-02-04] MEDS: LORazepam 0.5 MG TAB PO PRN (08:49)
[2019-02-04] MEDS ORDERED: ASEN5TA SL (10:56)
--- NOTE | 2019-02-04 10:58 | MHIPNPDOC ---
[facility] Progress Note Progress Note Inpatient Progress Note Renay Kerr MRN: N/A Date of : N/A Date of Service: 02/04/2019 History of Present Illness The patient a 28-year-old woman with a long history of schizophrenia, self presents wanting help for paranoia. She still is somewhat bizarre and when I attempt to interview her, she is fairly frightened and scared, only talking to me for a short time before becoming increasingly paranoid and wanting to end the evaluation. The patient reports that she is very anxious and would like to try some Ativan for it. She reports that she has tried other antipsychotics before and is interested in going to [place] as she is not able to take care of herself due to her "neighbors" causing her problems and that she has had difficulty feeding herself. Collateral information from her parents reveals that she has had increasing problems feeding herself and decreasing function, although paradoxically the patient has developed better insight. The patient's psychosocial information is taken from previous visits and updated as appropriate. Interval History The patient is met with today. She has demonstrated some more insight, , discusses that she had done well on asenapine in the past and that the Ativan is helpful for anxiety. She still is fairly paranoid and isolative, but other times she is able to interact and relate her wants and needs and that she feels she is unable to care for herself due to her fears. She demonstrates an interesting interchange between insight and lack of insight. She has had no major behavioral problems overnight. Review Of Systems Denies any tremors, dizziness, GI side effects, N/V, headaches, vision changes or any other side effects from her medication. Psychotherapy None on this visit. Vital Signs Reviewed. Mental Status Examination General: Well dressed with good hygiene Speech: Spontaneous and fluid Thought processes: Linear and logical MSK: Smooth and coordinated gait, no signs of tremors or involuntary orofacial movements Thought content: paranoid Abstract reasoning, and computation: Intact Description of associations: Intact Description of abnormal or psychotic thoughts: paranoid thoughts, no SI,HI Judgment: Fair to poor Insight: Fair to poor, at baseline, likely mildly improved Orientation: Alert and orientated 3 Cognition: Grossly normal Recent and remote memory: Intact Attention span and concentration: Intact Fund of knowledge: Adequate Mood: "okay" Affect: Mildly flat Diagnoses Schizophrenia. Assessment and Plan Schizophrenia: We'll attempt to start asenapine 5 mg BID, we'll need to send outside pharmacy and retrieve, we'll likely need prior authorization, continue Ativan. Disposition The patient need a further inpatient admission to treat her impairing psychosis Time Spent 15 minutes [id number]. Thursday Vital Signs Vital Signs Date Time Temp Pulse Resp B/P (MAP) Pulse Ox O2 Delivery O2 Flow Rate FiO2 02/04/19 06:30 98.9 71 14 114/61 (78) 02/03/19 09:20 Room Air 02/02/19 16:39 96 Current Medications Current Medications Medications (Trade) Dose Ordered Sig/Pedro Pablo Route PRN Reason Start Time Stop Time Status Last Admin Dose Admin Acetaminophen (Tylenol Tab) 650 mg Q6HP PRN PO HEADACHE or DISCOMFORT 02/02/19 15:00 Home Med (Med Rec Complete!) ASDIRECTED XX 02/02/19 14:45 02/02/19 14:46 DC Lorazepam (Ativan) 0.5 mg Q8HP PRN PO ANXIETY 02/03/19 12:30 02/04/19 08:49 Magnesium Hydroxide (Milk Of Magnesia) 30 ml DAILYPRN PRN PO CONSTIPATION 02/02/19 15:00 Olanzapine (ZyPREXA ZYDIS) 5 mg Q4HP PRN PO AGITATION 02/02/19 15:00 Valacyclovir HCl (Valtrex) 1,000 mg DAILY PO 02/03/19 09:00 02/04/19 08:49 Allergies Coded Allergies: No Known Allergies (Unverified , 10/15/18) ONEIDA ISABEL DO Feb 04, 2019 10:58
[2019-02-04] MEDS: OLANZapine ORAL DISINTEGRATING TAB 5MG PO PRN (14:18)
[2019-02-04 16:27] VITALS: BP 110/69
[2019-02-05 06:03] VITALS: BP 98/52
[2019-02-05] MEDS: valACYclovir HCL 500 MG TAB PO SCH (09:09)
[2019-02-05] MEDS: OLANZapine ORAL DISINTEGRATING TAB 5MG PO PRN (11:40)
[2019-02-05 16:03] VITALS: BP 105/55
[2019-02-05 16:24] VITALS: BP 104/58
--- NOTE | 2019-02-05 20:52 | MHIPNPDOC ---
[facility] Progress Note Progress Note DATE OF SERVICE: 02/05/19 HISTORY: As per Dr. Silveira: "The patient a 28-year-old woman with a long history of schizophrenia, self presents wanting help for paranoia. She still is somewhat bizarre and when I attempt to interview her, she is fairly frightened and scared, only talking to me for a short time before becoming increasingly paranoid and wanting to end the evaluation. The patient reports that she is very anxious and would like to try some Ativan for it. She reports that she has tried other antipsychotics before and is interested in going to [place] as she is not able to take care of herself due to her "neighbors" causing her problems and that she has had difficulty feeding herself". VITAL SIGNS: See below. NEW TEST RESULTS: See below CURRENT MEDICATIONS: See below. MENTAL STATUS EXAMINATION: Patient is a 28-year old female, who is alert, cooperative, dressed in hospital clothes, resting in her room. Speech: Is normal t/v/r. Language skills are fair. Thought processes including: liner, slow at some times when it looks as if she is responding to internal stimuli. Thought content: negative for SI, for HI, she seems paranoid and she denies TAV hallucinations. Description of abnormal or psychotic thoughts: she denies TAV hallucinations but at times she seems internally preoccupied and seems guarded/paranoid when she tells me "everything is fine", feels as if she is minimizing her symptoms Judgment: limited. Insight: limited. Orientation: to place and person. Recent and remote memory: recent memory is a little bit limited. Attention span and concentration: fair. Language: no abnormalities observed.. Mood: "I'm Ok, everything is fine". Affect: constricted. DIAGNOSES: 1. Schizophrenia. ASSESSMENT: patient seems to be responding to medications but she is still psychotic. MANAGEMENT PLAN: As per Dr. Silveira TIME SPENT: 15 minutes. Vital Signs Vital Signs Date Time Temp Pulse Resp B/P (MAP) Pulse Ox O2 Delivery O2 Flow Rate FiO2 02/05/19 16:24 104/58 (73) 02/05/19 16:03 98.7 66 16 02/05/19 11:05 Room Air 02/02/19 16:39 96 Current Medications Current Medications Medications (Trade) Dose Ordered Sig/Pedro Pablo Route PRN Reason Start Time Stop Time Status Last Admin Dose Admin Acetaminophen (Tylenol Tab) 650 mg Q6HP PRN PO HEADACHE or DISCOMFORT 02/02/19 15:00 Home Med (Med Rec Complete!) ASDIRECTED XX 02/02/19 14:45 02/02/19 14:46 DC Lorazepam (Ativan) 0.5 mg Q8HP PRN PO ANXIETY 02/03/19 12:30 02/04/19 08:49 Magnesium Hydroxide (Milk Of Magnesia) 30 ml DAILYPRN PRN PO CONSTIPATION 02/02/19 15:00 Olanzapine (ZyPREXA ZYDIS) 5 mg Q4HP PRN PO AGITATION 02/02/19 15:00 02/05/19 11:40 Valacyclovir HCl (Valtrex) 1,000 mg DAILY PO 02/03/19 09:00 02/05/19 09:09 Allergies Coded Allergies: No Known Allergies (Unverified , 10/15/18) JACKELIN RIGGINS MD Feb 05, 2019 20:47
[2019-02-06 06:15] VITALS: BP 109/66
[2019-02-06] MEDS: valACYclovir HCL 500 MG TAB PO SCH (09:37)
--- NOTE | 2019-02-06 12:33 | MHIPNPDOC ---
[facility] Progress Note Progress Note Inpatient Progress Note Renay Kerr MRN: N/A Date of : N/A Date of Service: 02/06/2019 History of Present Illness The patient a 28-year-old woman with a long history of schizophrenia, self presents wanting help for paranoia. She still is somewhat bizarre and when I attempt to interview her, she is fairly frightened and scared, only talking to me for a short time before becoming increasingly paranoid and wanting to end the evaluation. The patient reports that she is very anxious and would like to try some Ativan for it. She reports that she has tried other antipsychotics before and is interested in going to [place] as she is not able to take care of herself due to her "neighbors" causing her problems and that she has had difficulty feeding herself. Collateral information from her parents reveals that she has had increasing problems feeding herself and decreasing function, although paradoxically the patient has developed better insight. The patient's psychosocial information is taken from previous visits and updated as appropriate. Interval History The patient is met with today. She still is quite paranoid, but does demonstrate improved insight from her previous admissions. She is far more amenable than she has been previously, but only meets with this provider for a very short time, becoming fairly frightened when outside of her room or discussing things at length. She has been amenable, has not been attending groups regularly, isolated to her room. The asenapine was sent to a local pharmacy and prior authorization completed. She continues to report feeling frightened and unable to care for herself at home, wanting to go to [facility]. Review Of Systems Denies any tremors, dizziness, GI side effects, N/V, headaches, vision changes or any other side effects from her medication. Psychotherapy None on this visit. Vital Signs Reviewed. Mental Status Examination General: Well dressed with good hygiene Speech: Spontaneous and fluid Thought processes: Linear and logical MSK: Smooth and coordinated gait, no signs of tremors or involuntary orofacial movements Thought content: paranoid Abstract reasoning, and computation: Intact Description of associations: Intact Description of abnormal or psychotic thoughts: paranoid thoughts, no SI,HI Judgment: Fair to poor Insight: Fair to poor, at baseline, likely mildly improved Orientation: Alert and orientated 3 Cognition: Grossly normal Recent and remote memory: Intact Attention span and concentration: Intact Fund of knowledge: Adequate Mood: "okay" Affect: Mildly flat Diagnoses Schizophrenia. Assessment and Plan Schizophrenia: Prior authorization completed for asenapine. Will start if approved. Discussed with patient options and possible referral to [facility]. Disposition The patient will need a further inpatient admission to treat her impairing psychosis. Time Spent 15 minutes [id number]. Thursday Vital Signs Vital Signs Date Time Temp Pulse Resp B/P (MAP) Pulse Ox O2 Delivery O2 Flow Rate FiO2 02/06/19 09:12 Room Air 02/06/19 06:15 97.9 81 16 109/66 (80) 02/02/19 16:39 96 Current Medications Current Medications Medications (Trade) Dose Ordered Sig/Pedro Pablo Route PRN Reason Start Time Stop Time Status Last Admin Dose Admin Acetaminophen (Tylenol Tab) 650 mg Q6HP PRN PO HEADACHE or DISCOMFORT 02/02/19 15:00 Home Med (Med Rec Complete!) ASDIRECTED XX 02/02/19 14:45 02/02/19 14:46 DC Lorazepam (Ativan) 0.5 mg Q8HP PRN PO ANXIETY 02/03/19 12:30 02/04/19 08:49 Magnesium Hydroxide (Milk Of Magnesia) 30 ml DAILYPRN PRN PO CONSTIPATION 02/02/19 15:00 Olanzapine (ZyPREXA ZYDIS) 5 mg Q4HP PRN PO AGITATION 02/02/19 15:00 02/05/19 11:40 Valacyclovir HCl (Valtrex) 1,000 mg DAILY PO 02/03/19 09:00 02/06/19 09:37 Allergies Coded Allergies: No Known Allergies (Unverified , 10/15/18) ONEIDA ISABEL DO Feb 06, 2019 12:33
[2019-02-06] MEDS: LORazepam 0.5 MG TAB PO PRN (12:58)
[2019-02-06 16:00] VITALS: BP 110/73
[2019-02-07 06:13] VITALS: BP 100/60
[2019-02-07] MEDS: OLANZapine ORAL DISINTEGRATING TAB 5MG PO PRN (09:12)
[2019-02-07] MEDS: valACYclovir HCL 500 MG TAB PO SCH (09:12)
--- NOTE | 2019-02-07 10:13 | MHIPNPDOC ---
[facility] Progress Note Progress Note Inpatient Progress Note Renay Kerr MRN: N/A Date of : N/A Date of Service: 02/07/2019 History of Present Illness The patient a 28-year-old woman with a long history of schizophrenia, self presents wanting help for paranoia. She still is somewhat bizarre and when I attempt to interview her, she is fairly frightened and scared, only talking to me for a short time before becoming increasingly paranoid and wanting to end the evaluation. The patient reports that she is very anxious and would like to try some Ativan for it. She reports that she has tried other antipsychotics before and is interested in going to [place] as she is not able to take care of herself due to her "neighbors" causing her problems and that she has had difficulty feeding herself. Interval History The patient was met with today. She reports that she is excited about getting asenapine. The prior authorization was approved and the patient will be getting it once it is brought from the pharmacy. She still is interested in going to [place] as she feels she is unable to care for self at home being still paranoid. Interestingly enough, she is still quite paranoid, isolative to her room, bizarre and can only meet for short period of time. She remains in her bed for the most part during the day staring at the wall. Discussed with the patient that she would likely need to be converted to in order to be eligible for [place] psychiatric. The patient was amenable. Review Of Systems Denies any side effects from medications, chest pain, shortness of breath, cough, GI upset, nausea, vomiting, constipation, dizziness, tremors. Psychotherapy None on this visit. Vital Signs Reviewed. Mental Status Examination General: Well dressed with good hygiene Speech: Spontaneous and fluid Thought processes: Linear and logical MSK: Smooth and coordinated gait, no signs of tremors or involuntary orofacial movements Thought content: paranoid Abstract reasoning, and computation: Intact Description of associations: Intact Description of abnormal or psychotic thoughts: paranoid thoughts, no SI,HI Judgment: Fair to poor Insight: Fair to poor, at baseline, likely mildly improved Orientation: Alert and orientated 3 Cognition: Grossly normal Recent and remote memory: Intact Attention span and concentration: Intact Fund of knowledge: Adequate Mood: "okay" Affect: Mildly flat Diagnoses Schizophrenia. Assessment and Plan Schizophrenia: Home medication ordered for asenapine 5 mg daily with intent to increase to 5 mg BID. We'll convert her to [facility] and copy chart for referral to [facility]. Disposition The patient will need a further inpatient admission to treat her impairing psychosis. Time Spent 20 minutes. Thursday Vital Signs Vital Signs Date Time Temp Pulse Resp B/P (MAP) Pulse Ox O2 Delivery O2 Flow Rate FiO2 02/07/19 07:59 Room Air 02/07/19 06:13 97.9 130 16 100/60 (73) 02/02/19 16:39 96 Current Medications Current Medications Medications (Trade) Dose Ordered Sig/Pedro Pablo Route PRN Reason Start Time Stop Time Status Last Admin Dose Admin Acetaminophen (Tylenol Tab) 650 mg Q6HP PRN PO HEADACHE or DISCOMFORT 02/02/19 15:00 Home Med (Med Rec Complete!) ASDIRECTED XX 02/02/19 14:45 02/02/19 14:46 DC Lorazepam (Ativan) 0.5 mg Q8HP PRN PO ANXIETY 02/03/19 12:30 02/06/19 12:58 Magnesium Hydroxide (Milk Of Magnesia) 30 ml DAILYPRN PRN PO CONSTIPATION 02/02/19 15:00 Olanzapine (ZyPREXA ZYDIS) 5 mg Q4HP PRN PO AGITATION 02/02/19 15:00 02/07/19 09:12 Valacyclovir HCl (Valtrex) 1,000 mg DAILY PO 02/03/19 09:00 02/07/19 09:12 Allergies Coded Allergies: No Known Allergies (Unverified , 10/15/18) ONEIDA ISABEL DO Feb 07, 2019 10:13
[2019-02-07 16:58] VITALS: BP 98/54
[2019-02-08 06:58] VITALS: BP 106/57
[2019-02-08] MEDS: valACYclovir HCL 500 MG TAB PO SCH (08:14)
[2019-02-08] MEDS ORDERED: SAPHRIS 5 MG PO SCH (09:00)
--- NOTE | 2019-02-08 11:11 | MHIPNPDOC ---
[facility] Progress Note Progress Note Inpatient Progress Note Renay Kerr MRN: N/A Date of : N/A Date of Service: 02/08/2019 History of Present Illness The patient a 28-year-old woman with a long history of schizophrenia, self presents wanting help for paranoia. She still is somewhat bizarre and when I attempt to interview her, she is fairly frightened and scared, only talking to me for a short time before becoming increasingly paranoid and wanting to end the evaluation. The patient reports that she is very anxious and would like to try some Ativan for it. She reports that she has tried other antipsychotics before and is interested in going to [place] as she is not able to take care of herself due to her "neighbors" causing her problems and that she has had difficulty feeding herself. Interval History The patient was met with today. She had initially talked about potentially leaving after discussing with the patient her rationale for wanting to leave. She still reports she has symptoms but that the asenapine that she had been started on, was fairly helpful for her, although she notes she gets more anxious and paranoid, having difficulty attending groups, staring at the wall in her room. She stated that she would be amenable to increasing her medications and seeing if she ultimately wants to go to [facility] as she has had some difficulty with wanting to be under involuntary conditions. She is still quite interested in [facility]. She has had no major behavioral problems overnight. Review Of Systems Denies any side effects from medications, chest pain, shortness of breath, cough, GI upset, nausea, vomiting, constipation, dizziness, tremors. Psychotherapy None on this visit. Vital Signs Reviewed. Mental Status Examination General: Well dressed with good hygiene Speech: Spontaneous and fluid Thought processes: Linear and logical MSK: Smooth and coordinated gait, no signs of tremors or involuntary orofacial movements Thought content: paranoid Abstract reasoning, and computation: Intact Description of associations: Intact Description of abnormal or psychotic thoughts: paranoid thoughts, no SI,HI Judgment: Fair to poor Insight: Fair to poor, at baseline, likely mildly improved Orientation: Alert and orientated 3 Cognition: Grossly normal Recent and remote memory: Intact Attention span and concentration: Intact Fund of knowledge: Adequate Mood: "okay" Affect: Mildly flat Diagnoses Schizophrenia. Assessment and Plan Schizophrenia: Increase asenapine to 5 mg BID, increase Ativan to 0.5 mg Q 6 hour PRN. Disposition The patient will need a further inpatient admission to treat her impairing psychosis. Time Spent 15 minutes [id number]. Thursday Vital Signs Vital Signs Date Time Temp Pulse Resp B/P (MAP) Pulse Ox O2 Delivery O2 Flow Rate FiO2 02/08/19 06:58 99.2 79 12 106/57 (73) 02/07/19 07:59 Room Air 02/02/19 16:39 96 Current Medications Current Medications Medications (Trade) Dose Ordered Sig/Pedro Pablo Route PRN Reason Start Time Stop Time Status Last Admin Dose Admin Acetaminophen (Tylenol Tab) 650 mg Q6HP PRN PO HEADACHE or DISCOMFORT 02/02/19 15:00 Home Med (Med Rec Complete!) ASDIRECTED XX 02/02/19 14:45 02/02/19 14:46 DC Lorazepam (Ativan) 0.5 mg Q8HP PRN PO ANXIETY 02/03/19 12:30 02/06/19 12:58 Magnesium Hydroxide (Milk Of Magnesia) 30 ml DAILYPRN PRN PO CONSTIPATION 02/02/19 15:00 Olanzapine (ZyPREXA ZYDIS) 5 mg Q4HP PRN PO AGITATION 02/02/19 15:00 02/07/19 09:12 Patient Own Medication (Patient'S Own Med) 1 TAB = 5MG DAILY PO 02/08/19 09:00 02/08/19 08:15 Valacyclovir HCl (Valtrex) 1,000 mg DAILY PO 02/03/19 09:00 02/08/19 08:14 Allergies Coded Allergies: No Known Allergies (Unverified , 10/15/18) ONEIDA ISABEL DO Feb 08, 2019 11:10
[2019-02-08] MEDS ORDERED: ENTER DRUG NAME HERE (PATIENT'S OWN MED) PO SCH (12:15)
[2019-02-08] MEDS ORDERED: LORazepam 0.5 MG TAB PO PRN (12:15)
[2019-02-08 16:04] VITALS: BP 109/55
[2019-02-08] MEDS: SAPHRIS 5 MG PO SCH (20:15)
[2019-02-09] MEDS: valACYclovir HCL 500 MG TAB PO SCH (08:21)
[2019-02-09] MEDS: SAPHRIS 5 MG PO SCH (08:23)
--- NOTE | 2019-02-09 12:04 | MHDSPDOC ---
[facility] Discharge Summary Discharge Summary DATE OF ADMISSION: Feb 02, 2019 at 14:54 DATE OF DISCHARGE: 02/09/19 Discharge Renay Kerr MRN: N/A Date of : N/A Date of Service: 02/09/2019 Diagnoses Schizophrenia. History of Present Illness The patient a 28-year-old woman with a long history of schizophrenia, self presents wanting help for paranoia. She still is somewhat bizarre and when I attempt to interview her, she is fairly frightened and scared, only talking to me for a short time before becoming increasingly paranoid and wanting to end the evaluation. The patient reports that she is very anxious and would like to try some Ativan for it. She reports that she has tried other antipsychotics before and is interested in going to [place] as she is not able to take care of herself due to her "neighbors" causing her problems and that she has had difficulty feeding herself. Consultants Involved Hospitalist/PCP screening Treatment and Progress On The Unit The patient was admitted to the inpatient unit on a voluntary admission as she had wished to come to have her paranoia and low functioning treated. After some negotiation the patient was amenable to starting asenapine as she reported previous positive results with it. She made some mild improvements increasing to asenapine 5 mg BID. She was not interested in risperidone as she felt it did not help her well. She did take some Ativan as needed as she had difficulty tolerating the inpatient milieu due to her paranoia. She did meet with [facility] for transitional living services for initial want to be admitted to [place]. Had vanished as she reported that she became bored and unstimulated on the unit. The patient's psychosis resolved fairly well and she had requested to leave. On the day of discharge she did not meet involuntary criteria as she was actually mildly improved from her baseline paranoia, had not demonstrated any suicidal or homicidal ideation and had been taking care of herself well enough in order to attend to her basic needs, took medications, was cooperative with discharge planning, and declined further voluntary admission. Thus was discharged in good radha. Discharge Assessment 28-year-old woman who paradoxically presents for treatment of her psychosis, does well on asenapine. She is linked up with [facility] and a number of different services. She has demonstrated increased insight and presents whenever she worries about her safety or her symptoms of paranoia become too difficult for her to attend to. She is started on a medication that she has done well on with linkages to get services. Mental Status Examination General: Well dressed with good hygiene Speech: Spontaneous and fluid Thought processes: Linear and logical MSK: Smooth and coordinated gait, no signs of tremors or involuntary orofacial movements Thought content: future oriented Abstract reasoning, and computation: Intact Description of associations: Intact Description of abnormal or psychotic thoughts: paranoid thoughts, no SI,HI Judgment: Fair Insight: Fair Orientation: Alert and orientated 3 Cognition: Grossly normal Recent and remote memory: Intact Attention span and concentration: Intact Fund of knowledge: Adequate Mood: "okay" Affect: Mildly flat Follow Up The social work team worked during the predischarge meeting in order to evaluate for further issues of lethality address them fully before discharge. They worked on safety planning with the patient's family members in order to ensure that the patient will have a safe and effective discharge. Time Spent The amount of time spent in the coordination of care for this patient was approximately 60 minutes. Thursday Vital Signs/I&Os Vital Signs Date Time Temp Pulse Resp B/P (MAP) Pulse Ox O2 Delivery O2 Flow Rate FiO2 02/08/19 16:04 98.3 97 16 109/55 (73) 02/07/19 07:59 Room Air Medications Scheduled Asenapine (Saphris) 5 Mg Tab.subl, 1 TAB SL BID for thoughts for 30 Days, #30 Multivitamin (Multivitamins) 1 Each Capsule, 1 CAP PO DAILY, (Reported) Valacyclovir HCl (Valacyclovir) 1 Gm Tab, 1 GM PO DAILY, (Reported) Allergies Coded Allergies: No Known Allergies (Unverified , 10/15/18) ONEIDA ISABEL DO Feb 09, 2019 12:04
== END 2019-02-09 14:03 | disposition home or self-care (01) | DRG 885 ==
LOC: M ED 09:49 → M ED INP 14:54 → M PSY 16:19
PROVIDERS: ADMIT Psychiatry & Neurology Addiction Medicine; ATTEND Psychiatry & Neurology Addiction Medicine
DX: F20.9 Schizophrenia, unspecified (principal); Z79.899 Other long term (current) drug therapy

== ENCOUNTER 2019-03-17 11:23 | Emergency (ER) | payer MEDICARE, MEDICAID ==
[~2019-03-17] VITALS: Ht 170.2 cm; Wt 63.2 kg
[~2019-03-17 11:23] MED LIST changes: +ASEN5TA SL
[2019-03-17] MEDS ORDERED: INVE156I IM (11:36)
[2019-03-17 14:00] VITALS: BP 121/69
== END 2019-03-17 14:45 | disposition home or self-care (01) ==
LOC: M ED 11:23
DX: F20.0 Paranoid schizophrenia (principal); Z79.899 Other long term (current) drug therapy

== ENCOUNTER 2019-03-24 09:19 | Inpatient (IN) | payer MEDICARE, MEDICAID ==
[~2019-03-24] VITALS: Ht 170.2 cm; Wt 60.3 kg
[2019-03-24 10:12] LABS: HEMATOCRIT 44.3 % (36.0-47.0); HEMOGLOBIN 14.7 g/dl (12.0-15.5); MEAN CORPUSCULAR HEMOGLOBIN 32.9 pg (27.0-33.0); MEAN CORPUSCULAR HGB CONC 33.2 g/dl (32.0-36.5); MEAN CORPUSCULAR VOLUME 99.1 fl (80.0-96.0); PLATELET COUNT, AUTOMATED 249 10^3/uL (150-450); RED BLOOD COUNT 4.47 10^6/uL (4.00-5.40); WHITE BLOOD COUNT 5.3 10^3/uL (4.0-10.0)
[2019-03-24 10:34] LABS: AMPHETAMINES LEVEL URINE NEGATIVE (NEGATIVE); BARBITURATES URINE NEGATIVE (NEGATIVE); BENZODIAZEPINES URINE NEGATIVE (NEGATIVE); CANNABINOIDS URINE NEGATIVE (NEGATIVE); COCAINE METABOLITE URINE NEGATIVE (NEGATIVE); METHADONE URINE NEGATIVE (NEGATIVE); OPIATES URINE NEGATIVE (NEGATIVE); PHENCYCLIDINE URINE NEGATIVE (NEGATIVE)
[2019-03-24 10:48] LABS: HCG, SERUM QUALITATIVE NEGATIVE (NEGATIVE)
[2019-03-24 10:54] LABS: ALBUMIN 4.5 GM/DL (3.2-5.2); ALT/SGPT 17 U/L (12-78); BILIRUBIN,DIRECT < 0.1 MG/DL (0.0-0.2); BILIRUBIN,TOTAL 0.3 MG/DL (0.2-1.0); BLOOD UREA NITROGEN 13 MG/DL (7-18); CALCIUM LEVEL 9.1 MG/DL (8.5-10.1); CARBON DIOXIDE LEVEL 30 MEQ/L (21-32); CHLORIDE LEVEL 108 MEQ/L (98-107); CREATININE FOR GFR 0.56 MG/DL (0.55-1.30); ETHYL ALCOHOL (ETHANOL) 0.003 % (0.000-0.010); GLOMERULAR FILTRATION RATE > 60.0 (>60); GLUCOSE, FASTING 105 MG/DL (70-100); POTASSIUM SERUM 3.4 MEQ/L (3.5-5.1); SALICYLATE LEVEL < 1.7 MG/DL (5.0-30.0); SODIUM LEVEL 142 MEQ/L (136-145); TOTAL PROTEIN 7.8 GM/DL (6.4-8.2)
[2019-03-24 10:55] LABS: ACETAMINOPHEN LEVEL < 2.0 UG/ML (10.0-30.0)
[2019-03-24] MEDS ORDERED: MAALOX 30 ML SUSP *UDC PO PRN (15:00)
[2019-03-24] MEDS ORDERED: MOM 30ML SUSPENSION UDC PO PRN (15:00)
[2019-03-24] MEDS ORDERED: haloperidoL 5 MG TAB PO PRN (15:00)
[2019-03-24] MEDS ORDERED: traZODone 50 MG TAB PO PRN (15:00)
[2019-03-24] MEDS ORDERED: ACETAMINOPHEN TAB 650MG DOSE (2X325MG) PO PRN (15:00)
[2019-03-24] MEDS ORDERED: diphenhydrAMINE 25 MG CAP PO PRN (15:00)
[2019-03-24] MEDS ORDERED: IBUPROFEN 400 MG TAB PO PRN (15:00)
[2019-03-24 15:55] VITALS: BP 118/74
[2019-03-25 06:07] VITALS: BP 108/53
[2019-03-25] MEDS ORDERED: valACYclovir HCL 500 MG TAB PO SCH (09:00)
--- NOTE | 2019-03-25 10:08 | MHHPEPDOC ---
[facility] History & Physical History and Physical DATE OF ADMISSION: Mar 24, 2019 at 14:52 New Patient Renay Kerr MRN: N/A Date of : N/A Date of Service: 03/25/2019 Chief Complaint "I want to go home." History of Present Illness The patient, a 28-year-old woman with a history of schizophrenia treated multiple times by this provider presents reporting that she had wanted to "get away" for a night from her apartment as she is paranoid about her neighbors. She reported they wanted a note in order to have a emotional support animal and she had significant fear. She reports she has been taking Invega, but has injecting herself with it. She has not attended any followup appointments, shortly presented to the ER on her own volition reporting that she wanted to be admitted. The patient has a history of presenting when she becomes quite impaired and worried about herself. She reports she has not done well with outpatient, additionally risperidone in the past, she reports not as helpful. She reports that she wishes to go home, but she finds it uncomfortable in the inpatient unit. The patient presented and was admitted on a voluntary status. Review Of Systems Depression: No changes. Anxiety: No changes. Kimberly: No changes. Psychotic: No changes. Trauma: No changes. Borderline: No changes. Past Psychiatric History The patient reports no history of psychiatric admissions, medication trials or current follow up. Allergies Please see below. Family Psychiatric History The patient denies/is unaware any history of mental health history including addictions and suicide. Social History The patient reports growing up in the local area. She described her early life as "good." Her psychosocial information in the past suggests that she grew up in a single-parent household and her mother is a current major support of her. She has an older sister that lives in the same building, but has been uninterested in her care. She graduated with a four-year degree in communications, but cur rently has no source of income. Lives alone. Never and no children. No history of legal problems are noted. She denies any history of abuse when she was growing up. Substance Abuse History The patient denies any excessive alcohol use, tobacco or illicit drug use, denies history of substance use treatment. Medical History Patient has no significant past medical history. Mental Status Examination General: Well dressed with good hygiene Speech: Spontaneous and fluid Thought processes: Linear and logical MSK: Smooth and coordinated gait, no signs of tremors or involuntary orofacial movements Thought content: paranoid Abstract reasoning, and computation: Intact Description of associations: Intact Description of abnormal or psychotic thoughts: paranoid thoughts, no SI,HI Judgment: Fair to poor , at baseline Insight: Fair to poor, at baseline, likely mildly improved Orientation: Alert and orientated 3 Cognition: Grossly normal Recent and remote memory: Intact Attention span and concentration: Intact Fund of knowledge: Adequate Mood: "okay" Affect: Mildly flat, at baseline Diagnoses Schizophrenia. Assessment and Plan The patient, a well known 28-year-old woman with a history of schizophrenia that has traditionally been unable to kept against her well as she has gone to court multiple times and has won, presents after becoming paranoid for short period of time. She reports that she found the overnight help , but is uninterested in further stay at this time as per her regular presentation. She engages in treatment for very short periods of time and then subsequently requests discharge at her baseline mental status at this time with good hygiene and her baseline mental status exam as well as no changes in her psychotropic thinking process. She has been injecting herself with her Invega. I discussed with her that not being ideal and we have made her appointment so that she would be able to have injections done properly and that she can engage in outpatient care, which I have advised her to be much more suitable. The patient at this time, does not meet involuntary criteria in my opinion due to the of the information as well as the denying of any suicidal or homicidal ideation, the patient has very few factors that can be construed as her being an imminent risk of self-harm or harm towards others. She additionally is able to attend to basic needs and self presented today on a voluntary. Disposition Discharged today. Problem List 1. Altered thoughts. Initial Treatment Plan 1. Patient was admitted on a 939 legal status. 2. Complete history was obtained. 3. With patients permission, family will be contacted and database will be expanded. 4. Patients medication regimen will be reviewed and changed accordingly. 5. Patient will be provided with protected environment. 6. Patient will be treated with individual, group, and milieu therapies. 7. Patient will receive supportive psych-education. 8. Discharge planning will commence immediately. 9. Outpatient follow-up treatment will be strongly recommended. 10. The initial treatment plan will focus initially on: Estimated Length Of Stay One day. Time Spent 70 minutes. Thursday Vital Signs Vital Signs Date Time Temp Pulse Resp B/P (MAP) Pulse Ox O2 Delivery O2 Flow Rate FiO2 03/25/19 06:07 98.0 57 16 108/53 (71) 03/24/19 16:09 100 Room Air Medications Scheduled Multivitamin (Multivitamins) 1 Each Capsule, 1 CAP PO DAILY, (Reported) Paliperidone Palmitate (Invega Sustenna) 156 Mg/1 Ml Syringe, 156 MG IM QMONTH, (Reported) Valacyclovir HCl (Valacyclovir) 1 Gm Tab, 1 GM PO DAILY, (Reported) Allergies Coded Allergies: No Known Allergies (Unverified , 10/15/18) ONEIDA ISABEL DO Mar 25, 2019 10:08
--- NOTE | 2019-03-25 12:44 | MHDSPDOC ---
[facility] Discharge Summary Discharge Summary DATE OF ADMISSION: Mar 24, 2019 at 14:52 DATE OF DISCHARGE: 03/25/19 Please see h/p for clinical course and diagnosis dx Vital Signs/I&Os Vital Signs Date Time Temp Pulse Resp B/P (MAP) Pulse Ox O2 Delivery O2 Flow Rate FiO2 03/25/19 06:07 98.0 57 16 108/53 (71) 03/24/19 16:09 100 Room Air Medications Scheduled Multivitamin (Multivitamins) 1 Each Capsule, 1 CAP PO DAILY, (Reported) Paliperidone Palmitate (Invega Sustenna) 156 Mg/1 Ml Syringe, 156 MG IM QMONTH, (Reported) Valacyclovir HCl (Valacyclovir) 1 Gm Tab, 1 GM PO DAILY, (Reported) Allergies Coded Allergies: No Known Allergies (Unverified , 10/15/18) ONEIDA ISABEL DO Mar 25, 2019 12:44
--- NOTE | 2019-03-25 12:52 | HPEPDOC ---
General Date of Admission Mar 24, 2019 at 14:52 Date of Service: Mar 25, 2019 Chief Complaint The patient is a 28-year-old female admitted with a reason for visit of Schizophrenia. Source: Patient, RN/, Old records History of Present Illness 28 year old female admitted to [facility] for paranoid delusions and hallucinations due to schizophrenia . I am seeing the patient for medical history and physical. She says she came as she was feeling unsafe and home and was afraid of the neighbours. She felt they were going to shoot her that was making her very anxious and afraid, she could not sleep. Home Medications Scheduled Multivitamin (Multivitamins) 1 Each Capsule, 1 CAP PO DAILY, (Reported) Paliperidone Palmitate (Invega Sustenna) 156 Mg/1 Ml Syringe, 156 MG IM QMONTH, (Reported) Valacyclovir HCl (Valacyclovir) 1 Gm Tab, 1 GM PO DAILY, (Reported) Allergies Coded Allergies: No Known Allergies (Unverified , 10/15/18) Past Medical History Medical History GERD, HSV infection, pleurisy, paranoid schizophrenia, depression Family History Significant Family History: No pertinent family hx discussed with patient Social History * Smoker: current smoker Alcohol: Denies Drugs: denies A-FIB/CHADSVASC A-FIB History Current/History of A-Fib/PAF?: No Review of Systems Constitutional: Denies: Chills, Fever, Night Sweats Eyes: Denies: Pain, Vision change ENT: Denies: Head Aches, Ear Pain, Dysphagia Skin: Denies: Rash, Lesions, Breakdown Pulmonary: Denies: Dyspnea, Cough Cardiovascular: Denies: Chest Pain, Palpitations, Orthopnea, Paroxysmal Noc. Dyspnea, Lt Headedness Gastrointestinal: Denies: Nausea, Vomiting, Abdominal Pain, Diarrhea Genitourinary: Denies: Dysuria, Frequency, Incontinence, Retention Hematologic: Denies: Bruising, Bleeding Excessively Musculoskeletal: Denies: Neck Pain, Back Pain, Joint Pain, Muscle Pain, Spasms Physical Examination General Exam: Positive: Alert, Cooperative, No Acute Distress Eye Exam: Positive: PERRLA, Conjunctiva & lids normal, EOMI; Negative: Sclera icteric ENT Exam: Positive: Atraumatic, Mucous membr. moist/pink, Pharynx Normal Neck Exam: Positive: Supple; Negative: JVD, thyromegaly Chest Exam: Positive: Clear to auscultation, Normal air movement Heart Exam: Positive: Rate Normal, Regular Rhythm, Normal S1, Normal S2; Negative: Murmurs, Rubs Abdomen Exam: Positive: Normal bowel sounds, Soft; Negative: Tenderness, Hepatospenomegaly Extremity Exam: Positive: Normal pulses; Negative: Clubbing, Cyanosis, Edema Skin Exam: Positive: Nl turgor and temperature; Negative: Breakdown, Lesion Neuro Exam: Positive: Normal Gait, Normal Speech, Cranial Nerves 3-12 NL, Refle xes 2+ Vital Signs Vital Signs Date Time Temp Pulse Resp B/P (MAP) Pulse Ox O2 Delivery O2 Flow Rate FiO2 03/25/19 06:07 98.0 57 16 108/53 (71) 03/24/19 16:09 100 Room Air Assessment/Plan 28 year old female admitted to [facility] for paranoid delusions and hallucinations due to schizophrenia . I am seeing the patient for medical history and physical. Paranoid schizophrenia as per psychiatry Smoking cessation discussed does not want to do it now. No acute medical issues. Please reconsult if needed. Plan / VTE VTE Prophylaxis Ordered?: No DEMETRIS MARIA MD Mar 25, 2019 09:59
== END 2019-03-25 15:30 | disposition home or self-care (01) | DRG 885 ==
LOC: M ED 09:19 → M ED INP 14:52 → M PSY 16:35
PROVIDERS: ADMIT Psychiatry & Neurology Addiction Medicine; ATTEND Psychiatry & Neurology Addiction Medicine
DX: F20.0 Paranoid schizophrenia (principal); Z79.899 Other long term (current) drug therapy

== ENCOUNTER 2019-05-21 10:44 | Emergency (ER) | payer MEDICARE, MEDICAID ==
[~2019-05-21] VITALS: Ht 170.2 cm; Wt 69.9 kg
[~2019-05-21 10:44] MED LIST changes: +VALA1TAB5 PO; -VALA1TAB64 PO
[2019-05-21 11:30] LABS: HEMATOCRIT 40.6 % (36.0-47.0); HEMOGLOBIN 13.6 g/dl (12.0-15.5); MEAN CORPUSCULAR HGB CONC 33.5 g/dl (32.0-36.5); MEAN CORPUSCULAR VOLUME 98.5 fl (80.0-96.0); PLATELET COUNT, AUTOMATED 194 10^3/uL (150-450); RED BLOOD COUNT 4.12 10^6/uL (4.00-5.40); WHITE BLOOD COUNT 7.6 10^3/uL (4.0-10.0)
[2019-05-21 11:48] LABS: AMPHETAMINES LEVEL URINE NEGATIVE (NEGATIVE); BARBITURATES URINE NEGATIVE (NEGATIVE); BENZODIAZEPINES URINE NEGATIVE (NEGATIVE); CANNABINOIDS URINE NEGATIVE (NEGATIVE); COCAINE METABOLITE URINE NEGATIVE (NEGATIVE); METHADONE URINE NEGATIVE (NEGATIVE); OPIATES URINE NEGATIVE (NEGATIVE); PHENCYCLIDINE URINE NEGATIVE (NEGATIVE)
[2019-05-21 11:58] LABS: ACETAMINOPHEN LEVEL < 2.0 UG/ML (10.0-30.0); ALT/SGPT 23 U/L (12-78); BILIRUBIN,DIRECT < 0.1 MG/DL (0.0-0.2); BILIRUBIN,TOTAL 0.2 MG/DL (0.2-1.0); BLOOD UREA NITROGEN 15 MG/DL (7-18); CALCIUM LEVEL 9.2 MG/DL (8.5-10.1); CARBON DIOXIDE LEVEL 29 MEQ/L (21-32); CHLORIDE LEVEL 107 MEQ/L (98-107); CREATININE FOR GFR 0.55 MG/DL (0.55-1.30); ETHYL ALCOHOL (ETHANOL) < 0.003 % (0.000-0.010); GLOMERULAR FILTRATION RATE > 60.0 (>60); GLUCOSE, FASTING 88 MG/DL (70-100); POTASSIUM SERUM 3.7 MEQ/L (3.5-5.1); SALICYLATE LEVEL 1.9 MG/DL (5.0-30.0); SODIUM LEVEL 142 MEQ/L (136-145); THYROID STIMULATING HORMONE 0.805 uIU/ML (0.358-3.740); TOTAL PROTEIN 7.1 GM/DL (6.4-8.2)
[2019-05-21 12:20] LABS: HCG, SERUM QUALITATIVE NEGATIVE (NEGATIVE)
[2019-05-21] MEDS ORDERED: PALIPERIDONE PALMITATE 156MG/1ML INJ(INVEGA)(J2426)(FREE PSY INPT ONLY) IM ONE (14:00)
[2019-05-21 15:03] VITALS: BP 116/76
== END 2019-05-21 15:04 | disposition home or self-care (01) ==
LOC: M ED 10:44 → CANBEDREQ 14:51 → M ED 15:04
DX: F20.0 Paranoid schizophrenia (principal); F33.9 Major depressive disorder, recurrent, unspecified; K21.9 Gastro-esophageal reflux disease without esophagitis; B02.9 Zoster without complications; Z79.899 Other long term (current) drug therapy
CPT/HCPCS: 36415; 80048; 80076; 80307; 84443; 84703; 85027; 96372; 99284; G0480; J2426

== ENCOUNTER 2019-07-16 12:28 | Emergency (ER) | payer MEDICARE, MEDICAID ==
[~2019-07-16] VITALS: Ht 170.2 cm; Wt 57.4 kg
[2019-07-16 12:28] VITALS: BP 108/67
[2019-07-16 13:14] VITALS: O2SAT 96
[2019-07-16] MEDS ORDERED: ALBUTEROL 90 MCG/ACT 8GM HFA INHALER INH ONE (13:15)
[2019-07-16] MEDS ORDERED: VENTAER INH (13:23)
== END 2019-07-16 13:34 | disposition left against medical advice (07) ==
LOC: M ED 12:28
DX: J98.01 Acute bronchospasm (principal); F25.9 Schizoaffective disorder, unspecified; A60.09 Herpesviral infection of other urogenital tract; Z79.899 Other long term (current) drug therapy; F17.210 Nicotine dependence, cigarettes, uncomplicated
CPT/HCPCS: 87486; 87581; 87633; 87798; 99283; C9803; U0003

== ENCOUNTER 2019-10-10 12:17 | Inpatient (IN) | payer MEDICARE, MEDICAID ==
[~2019-10-10 12:17] MED LIST changes: +VENTAER INH
[2019-10-11] MEDS ORDERED: PALIPERIDONE PALMITATE 156MG/1ML INJ(INVEGA)(INFUS/ED OUTPTS) ONE (09:29)
[2019-10-11] MEDS ORDERED: traZODone 50 MG TAB PO PRN (20:15)
[2019-10-11] MEDS ORDERED: ACETAMINOPHEN TAB 650MG DOSE (2X325MG) PO PRN (20:15)
[2019-10-11] MEDS ORDERED: MOM 30ML SUSPENSION UDC PO PRN (20:15)
[2019-10-11] MEDS ORDERED: MAALOX 30 ML SUSP *UDC PO PRN (20:15)
[2019-10-12] MEDS ORDERED: valACYclovir HCL 500 MG TAB PO SCH (09:00)
[2019-11-24 12:52] LABS: BASO % 0.8 % (0.0-1.0); EOS # 0.1 10^3/uL (0.0-0.5); EOS % 2.1 % (0.0-3.0); HEMATOCRIT 35.5 % (36.0-47.0); HEMOGLOBIN 12.3 g/dl (12.0-15.5); LYMPH # 1.9 10^3/uL (1.5-5.0); LYMPH % 39.6 % (24.0-44.0); MEAN CORPUSCULAR HEMOGLOBIN 35.1 pg (27.0-33.0); MEAN CORPUSCULAR HGB CONC 34.6 g/dl (32.0-36.5); MEAN CORPUSCULAR VOLUME 101.4 fl (80.0-96.0); MONO # 0.2 10^3/uL (0.0-0.8); MONO % 4.4 % (0.0-5.0); NEUTROPHILS # 2.5 10^3/uL (1.5-8.5); NEUTROPHILS % 52.9 % (36.0-66.0); PLATELET COUNT, AUTOMATED 204 10^3/uL (150-450); WHITE BLOOD COUNT 4.8 10^3/uL (4.0-10.0)
--- NOTE | 2019-12-22 20:58 | MHDSPDOC ---
[facility] Discharge Summary Discharge Summary DATE OF ADMISSION: Oct 11, 2019 at 05:15 DATE OF DISCHARGE: Oct 11, 2019 at 09:30 please see H&P for same-day discharge Medications Scheduled Multivitamin (Multivitamins) 1 Each Capsule, 1 CAP PO DAILY, (Reported) Valacyclovir HCl (Valacyclovir) 1 Gm Tab, 1 GM PO DAILY, (Reported) Scheduled PRN Albuterol Sulfate (Ventolin Hfa) 18 Gm Hfa.aer.ad, 2 PUFFS INH QID PRN for SHORTNESS OF BREATH, (Reported) Allergies Coded Allergies: No Known Allergies (Unverified , 10/15/18) ONEIDA ISABEL DO Dec 22, 2019 20:58
== END 2019-10-11 09:30 | disposition home or self-care (01) | DRG 885 ==
LOC: M ED 12:17 → M PSY 10-11 05:15
PROVIDERS: ADMIT Psychiatry & Neurology Addiction Medicine; ATTEND Psychiatry & Neurology Addiction Medicine
DX: F25.9 Schizoaffective disorder, unspecified (principal)

== ENCOUNTER 2019-10-20 08:16 | Inpatient (IN) | payer MEDICARE, MEDICAID ==
[~2019-10-20] VITALS: Ht 170.2 cm; Wt 57.5 kg
[2019-10-20 09:22] LABS: HEMATOCRIT 39.2 % (36.0-47.0); HEMOGLOBIN 13.7 g/dl (12.0-15.5); MEAN CORPUSCULAR HEMOGLOBIN 36.1 pg (27.0-33.0); MEAN CORPUSCULAR HGB CONC 34.9 g/dl (32.0-36.5); MEAN CORPUSCULAR VOLUME 103.2 fl (80.0-96.0); PLATELET COUNT, AUTOMATED 198 10^3/uL (150-450); WHITE BLOOD COUNT 4.8 10^3/uL (4.0-10.0)
[2019-10-20 09:39] LABS: ACETAMINOPHEN LEVEL < 2.0 UG/ML (10.0-30.0); ALT/SGPT 19 U/L (12-78); BILIRUBIN,DIRECT 0.1 MG/DL (0.0-0.2); BILIRUBIN,TOTAL 0.4 MG/DL (0.2-1.0); BLOOD UREA NITROGEN 11 MG/DL (7-18); CALCIUM LEVEL 8.9 MG/DL (8.5-10.1); CARBON DIOXIDE LEVEL 29 MEQ/L (21-32); CHLORIDE LEVEL 109 MEQ/L (98-107); CREATININE FOR GFR 0.63 MG/DL (0.55-1.30); GLOMERULAR FILTRATION RATE > 60.0 (>60); GLUCOSE, FASTING 101 MG/DL (70-100); POTASSIUM SERUM 3.3 MEQ/L (3.5-5.1); SALICYLATE LEVEL < 1.7 MG/DL (5.0-30.0); SODIUM LEVEL 145 MEQ/L (136-145); THYROID STIMULATING HORMONE 0.708 uIU/ML (0.358-3.740); TOTAL PROTEIN 6.8 GM/DL (6.4-8.2)
[2019-10-20 09:40] LABS: ETHYL ALCOHOL (ETHANOL) < 0.003 % (0.000-0.010)
[2019-10-20 09:44] LABS: HCG, SERUM QUALITATIVE NEGATIVE (NEGATIVE)
[2019-10-20 10:00] LABS: AMPHETAMINES LEVEL URINE NEGATIVE (NEGATIVE); BARBITURATES URINE NEGATIVE (NEGATIVE); BENZODIAZEPINES URINE NEGATIVE (NEGATIVE); CANNABINOIDS URINE POSITIVE (NEGATIVE); COCAINE METABOLITE URINE NEGATIVE (NEGATIVE); METHADONE URINE NEGATIVE (NEGATIVE); OPIATES URINE NEGATIVE (NEGATIVE); PHENCYCLIDINE URINE NEGATIVE (NEGATIVE)
[2019-10-20] MEDS ORDERED: VENTAER INH (13:29)
[2019-10-20] MEDS ORDERED: ACETAMINOPHEN TAB 650MG DOSE (2X325MG) PO PRN (17:30)
[2019-10-20] MEDS ORDERED: MOM 30ML SUSPENSION UDC PO PRN (17:30)
[2019-10-20] MEDS ORDERED: traZODone 50 MG TAB PO PRN (17:30)
[2019-10-20] MEDS ORDERED: MAALOX 30 ML SUSP *UDC PO PRN (17:30)
[2019-10-21 06:59] VITALS: BP 109/65
--- NOTE | 2019-10-21 08:19 | MHHPEPDOC ---
[facility] History & Physical History and Physical DATE OF ADMISSION: Oct 20, 2019 at 17:19 HPI: Patient was admitted to the inpatient mental health unit after presenting to the ER. She has a notable history of presenting, spending only a very short time, she also has a diagnosis of schizophrenia, which has been treated on our unit many times. When the patient was met she reported that she feared her neighbors and wanted to stay in the unit for a short time. She was unable to describe any other aspects, although she does present to the unit when she is too frightened to be at home. MEDICATIONS: She is currently on Invega Sustenaa, with her last injection being several weeks ago. MEDICAL HISTORY: Medical history includes previous trials of other medications, the trials have been taken to court multiple times with poor results. FAMILY HISTORY: She is unable to elaborate any other family history, no family history of mental health. SOCIAL HISTORY - LIVING SITUATION: She currently lives alone, is disabled, and is being supported by her family. SOCIAL HISTORY - SMOKING: Patient denies any substance use in the past. Objective Appearance: Fair. Appears to be stated age. Well nourished. Well groomed. Affect: Flat. Appropriate to context. Thought Form: Linear and goal directed. Somewhat paranoid, watching around the room. Judgement: At baseline. Insight: At baseline. Assessment F20.89 Other schizophrenia Plan Hold off on any current medication changes as the patient is observed over the weekend. Since the patient only presents when she seems too frightened, we will try and convince her for case management in hopes of decreasing readmissions. Vital Signs Vital Signs Date Time Temp Pulse Resp B/P (MAP) Pulse Ox O2 Delivery O2 Flow Rate FiO2 10/21/19 06:59 97.0 60 16 109/65 (80) 100 Room Air Laboratory Data 24H Labs Laboratory Tests 2 10/20/19 08:40: Nucleated Red Blood Cells % (auto) 0.0, Anion Gap 7L, Glomerular Filtration Rate > 60.0, Calcium Level 8.9, Total Bilirubin 0.4, Direct Bilirubin 0.1, Aspartate Amino Transf (AST/SGOT) 15, Alanine Aminotransferase (ALT/SGPT) 19, Alkaline Phosphatase 53, Total Protein 6.8, Albumin 4.0, Albumin/Globulin Ratio 1.4, Thyroid Stimulating Hormone (TSH) 0.708, Human Chorionic Gonadotropin, Qual NEGATIVE, Salicylates Level < 1.7L, Acetaminophen Level < 2.0L, Ethyl Alcohol Level < 0.003 10/20/19 09:22: Urine Opiates Screen NEGATIVE, Urine Methadone Screen NEGATIVE, Urine Barbiturates Screen NEGATIVE, Urine Phencyclidine Screen NEGATIVE, Urine Amphetamines Screen NEGATIVE, Urine Benzodiazepines Screen NEGATIVE, Urine Cocaine Metabolite Screen NEGATIVE, Urine Cannabinoids Screen POSITIVEH CBC/BMP Laboratory Tests 10/20/19 08:40 Medications Scheduled Multivitamin (Multivitamins) 1 Each Capsule, 1 CAP PO DAILY, (Reported) Paliperidone Palmitate (Invega Sustenna) 156 Mg/1 Ml Syringe, 156 MG IM QMONTH, (Reported) Valacyclovir HCl (Valacyclovir) 1 Gm Tab, 1 GM PO DAILY, (Reported) Scheduled PRN Albuterol Sulfate (Ventolin Hfa) 18 Gm Hfa.aer.ad, 2 PUFFS INH QID PRN for SHORTNESS OF BREATH, (Reported) Allergies Coded Allergies: No Known Allergies (Unverified , 10/15/18) ONEIDA ISABEL DO Oct 21, 2019 08:19
--- NOTE | 2019-10-21 16:51 | HPEPDOC ---
[facility] Medical History & Physical Date of Admission Oct 21, 2019 Date of Service: Oct 21, 2019 History and Physical Chief complaint: Who presented to the ER after experiencing paranoia History of present illness: Patient is a 28 year old female with a PMHx of Schizophrenia who presented to the ER with complaints of her neighbor threatening her. Patient was admitted to [facility] under the care of psychiatry for schizophrenia. Hospitalist service was called for medical screening evaluation. Patient denies any headache, nausea, vomiting, chest pain, shortness of breath, abdominal pain, constipation, diarrhea or urinary discomfort. Denies any fevers / chills. Reports a normal appetite and weight. Past Medical History: Schizophrenia Past Surgical History: No prior surgeries noted Medications: See attached Family History: - No history of malignancies Social History: - Denies the use of alcohol, or illicit drugs; reports she is a smoker of 6 months - Denies recent travel or sick contacts - Lives alone - Occupation; unemployed Review of Systems: [10 point review of systems complete, all negative otherwise stated in HPI] Physical exam: - Vitals: BP [109/65], HR [60], RR [16], Sat [100%RA], Temp [97.0F] - General: Lying in bed, No acute distress, Speaking in full sentences, AAOx3 - HEENT: NC, AT, PERRLA - CVS: +S1S2, - Murmurs / rubs / gallops - Lungs: Fair air entry bilaterally, No appreciable wheezing / rales / rhonchi - Abdomen: Soft, Non-distended, Non-tender - Extremities: No lower extremity edema, No calf tenderness - Neuro: No focal motor or sensory deficit - Skin: No visible rashes Labs: Imaging: EKG: Assessment and Plan: Schizophrenia - Admitted to [facility] under the care of psychiatry - Currently being managed by psychiatry No significant PMHx DVT prophylaxis - c/w early ambulation 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 throughout the duration of this history and physical examination Thank you for this consultation; please re-consult as needed hospital service will now sign off Vital Signs Vital Signs Date Time Temp Pulse Resp B/P (MAP) Pulse Ox O2 Delivery O2 Flow Rate FiO2 10/21/19 06:59 97.0 60 16 109/65 (80) 100 Room Air Home Medications Scheduled Multivitamin (Multivitamins) 1 Each Capsule, 1 CAP PO DAILY Paliperidone Palmitate (Invega Sustenna) 156 Mg/1 Ml Syringe, 156 MG IM QMONTH Valacyclovir HCl (Valacyclovir) 1 Gm Tab, 1 GM PO DAILY Scheduled PRN Albuterol Sulfate (Ventolin Hfa) 18 Gm Hfa.aer.ad, 2 PUFFS INH QID PRN for SHORTNESS OF BREATH Allergies Coded Allergies: No Known Allergies (Unverified , 10/15/18) BRISA SALAS MD Oct 21, 2019 16:51
[2019-10-21] MEDS ORDERED: POTASSIUM CHLORIDE 10 MEQ SR TABLET PO ONE (17:00)
[2019-10-22 06:36] VITALS: BP 104/63
[2019-10-22] MEDS: valACYclovir HCL 500 MG TAB PO SCH (13:38)
[2019-10-22 14:00] VITALS: BP 112/60
[2019-10-23 06:38] VITALS: BP 96/55
[2019-10-23] MEDS: valACYclovir HCL 500 MG TAB PO SCH (08:24)
[2019-10-23] MEDS ORDERED: OLANZapine ORAL DISINTEGRATING TAB 5MG PO PRN (14:30)
[2019-10-24 06:30] VITALS: BP 108/58
--- NOTE | 2019-10-24 07:47 | MHDSPDOC ---
[facility] Discharge Summary Discharge Summary DATE OF ADMISSION: Oct 20, 2019 at 17:19 DATE OF DISCHARGE:Oct 24, 2019 at 10:25 DISCHARGE DIAGNOSES: F20.9 Schizophrenia, unspecified CONSULTANTS INVOLVED:[ None (basic hospitalist screening)] REASON FOR ADMISSION & TREATMENT AND PROGRESS ON THE UNIT : Renay was admitted to the inpatient mental health until after reporting increased paranoia. MEDICATIONS: Patient was treated primarily, supportively, with some Zyprexa PRN.The patient did well, she was on a voluntary and requested leave shortly after coming to the unit. She was retained for further observation, however, notes at the time of this discharge note, were not available from the weekend. However, the pat ieradames reportedly did well and did not have any significant behavioral problems, she was discharged without further incident. Requested some extra Zyprexa at home for her paranoia. DISCHARGE ASSESSMENT[improved] Legal status considerations: The patient at the time of discharge did not meet criteria for involuntary admission/extension due to having a baseline mental status exam, [fair] insight into the situation, They are engaged in the discharge process, as well as being friendly and amenable in behavioral control and havent been engaging in any observed concerning behavior or ideation recently. They decline voluntary extension/admission at this time and must be discharged in good radha, as Im unable to make a case for holding the patient against their will. They may have historical risk factors of admissions and other interactions with psychiatry however, those are not modifiable from a clinical perspective. The patient will need to be discharged in good radha. MENTAL STATUS EXAMINATION ON DISCHARGE: General: [Well dressed with good hygiene] Speech: [Spontaneous and fluid] Thought processes: baseline Thought content: [Future orientated] Abstract reasoning, and computation: baseline Description of associations:, baseline Description of abnormal or psychotic thoughts:[Denies any suicidal or homicidal ideation. Denies any auditory or visual hallucinations. Does not appear to be re sponding to internal stimuli. Does not appear to be endorsing any bizarre or paranoid ideation.] Judgment: baseline Insight: [fair] Orientation: [Alert and orientated 3] Recent and remote memory: [Intact] Attention span and concentration: [Intact] Fund of knowledge: [Adequate] Mood: ["okay"] Affect: mildly flat PLAN/FOLLOWUP ARRANGEMENTS: Follow up appointments made (PCP and MH in 5 days of D/C date) and safety plan completed. Safety Planning aspects completed prior to discharge [Medication supplies limited to 7 days with 4 refills to prevent accumulation to OD] [RN reviewed crisis hotline information and other aspects to empower patient to access care in interim before next appointment.] Injectable medications to reduce noncompliance The amount of time spent in the coordination of care for this patient was approximately 30 minutes. Vital Signs/I&Os Vital Signs Date Time Temp Pulse Resp B/P (MAP) Pulse Ox O2 Delivery O2 Flow Rate FiO2 10/24/19 06:30 97.1 83 16 108/58 (75) 10/23/19 06:38 99 Room Air Medications Scheduled Multivitamin (Multivitamins) 1 Each Capsule, 1 CAP PO DAILY, (Reported) Paliperidone Palmitate (Invega Sustenna) 156 Mg/1 Ml Syringe, 156 MG IM QMONTH, (Reported) Valacyclovir HCl (Valacyclovir) 1 Gm Tab, 1 GM PO DAILY, (Reported) Scheduled PRN Albuterol Sulfate (Ventolin Hfa) 18 Gm Hfa.aer.ad, 2 PUFFS INH QID PRN for SHORTNESS OF BREATH, (Reported) Olanzapine (Olanzapine) 5 Mg Tablet, 1 TAB PO TIDP PRN for ANXIETY/AGITATION for 30 Days, #30 Allergies Coded Allergies: No Known Allergies (Unverified , 10/15/18) ONEIDA ISABEL DO Oct 24, 2019 07:47
[2019-10-24] MEDS: valACYclovir HCL 500 MG TAB PO SCH (09:15)
[2019-10-24] MEDS ORDERED: OLAN5TAB PO (09:22)
--- NOTE | 2019-11-30 15:12 | MHIPN ---
DATE: 10/23/2019 SUBJECTIVE: The patient today states that she is feeling good. When I asked her about her fears about her neighbors, she stated its going away. However, she asked if I could prescribe some medication to help her with these fears. MENTAL STATUS EXAMINATION: She is alert, oriented times 3, eye contact is poor. Psychomotor activity is decreased. No formal thought disorder noted. She says her mood is good. Affect is flat. She does continued to have paranoid thoughts. She is not suicidal or homicidal . Concentration is fair. Memory intact. Insight and judgment poor. DIAGOSIS: Schizophrenia. ASSESSMENT/PLAN: At this point, she does continue to have paranoid thoughts, so I will prescribe some Zyprexa 5 mg q 4 hours as needed for anxiety. MTDD
== END 2019-10-24 10:25 | disposition home or self-care (01) | DRG 885 ==
LOC: M ED 08:16 → M ED INP 17:19 → M PSY 18:00
PROVIDERS: ADMIT Psychiatry & Neurology Addiction Medicine; ATTEND Psychiatry & Neurology Addiction Medicine
DX: F20.9 Schizophrenia, unspecified (principal); Z79.899 Other long term (current) drug therapy

== ENCOUNTER 2019-11-14 14:35 | Emergency (ER) | payer MEDICARE, MEDICAID ==
[~2019-11-14] VITALS: Ht 170.2 cm; Wt 56.9 kg
[~2019-11-14 14:35] MED LIST changes: +OLAN5TAB PO
[2019-11-14 17:19] VITALS: BP 106/68
== END 2019-11-14 17:21 | disposition home or self-care (01) ==
LOC: M ED 14:35
DX: Z32.02 Encounter for pregnancy test, result negative (principal); N91.2 Amenorrhea, unspecified; A60.00 Herpesviral infection of urogenital system, unspecified; F25.9 Schizoaffective disorder, unspecified; Z79.51 Long term (current) use of inhaled steroids

== ENCOUNTER → 2019-11-17 | Outpatient (REF) | payer MEDICARE, MEDICAID ==
[~2019-11-17] MED LIST changes: +IBUP80TA PO; +VALT500T PO; +VITMTA PO
[2019-11-23 17:01] LABS: CHLAMYDIA DNA AMPLIFICATION NEGATIVE (NEGATIVE); GC DNA AMPLIFICATION NEGATIVE (NEGATIVE)
== END ==
LOC: M SFHCWAGY 12:51
PROVIDERS: ATTEND Nurse Practitioner Family
DX: Z12.4 Encounter for screening for malignant neoplasm of cervix (principal); R87.618 Other abnormal cytological findings on specimens from cervix uteri; Z11.3 Encounter for screening for infections with a predominantly sexual mode of transmission
CPT/HCPCS: 81025; 87491; 87591; 87661; G0101; G0123

== ENCOUNTER 2019-12-11 09:18 | Emergency (ER) | payer MEDICARE, MEDICAID ==
[~2019-12-11] VITALS: Ht 170.2 cm; Wt 57.3 kg
[~2019-12-11 09:18] MED LIST changes: -IBUP80TA PO; -VALT500T PO; -VITMTA PO
[2019-12-11 10:33] LABS: HEMATOCRIT 38.1 % (36.0-47.0); HEMOGLOBIN 12.8 g/dl (12.0-15.5); MEAN CORPUSCULAR HEMOGLOBIN 33.8 pg (27.0-33.0); MEAN CORPUSCULAR HGB CONC 33.6 g/dl (32.0-36.5); MEAN CORPUSCULAR VOLUME 100.5 fl (80.0-96.0); PLATELET COUNT, AUTOMATED 224 10^3/uL (150-450); RED BLOOD COUNT 3.79 10^6/uL (4.00-5.40); WHITE BLOOD COUNT 5.6 10^3/uL (4.0-10.0)
[2019-12-11 10:52] LABS: HCG, SERUM QUALITATIVE NEGATIVE (NEGATIVE)
[2019-12-11 10:53] LABS: ACETAMINOPHEN LEVEL < 2.0 UG/ML (10.0-30.0); ALBUMIN 3.7 GM/DL (3.2-5.2); ALT/SGPT 26 U/L (12-78); BILIRUBIN,DIRECT < 0.1 MG/DL (0.0-0.2); BILIRUBIN,TOTAL 0.3 MG/DL (0.2-1.0); BLOOD UREA NITROGEN 11 MG/DL (7-18); CALCIUM LEVEL 8.7 MG/DL (8.5-10.1); CARBON DIOXIDE LEVEL 31 MEQ/L (21-32); CHLORIDE LEVEL 108 MEQ/L (98-107); CREATININE FOR GFR 0.69 MG/DL (0.55-1.30); ETHYL ALCOHOL (ETHANOL) < 0.003 % (0.000-0.010); GLOMERULAR FILTRATION RATE > 60.0 (>60); GLUCOSE, FASTING 105 MG/DL (70-100); POTASSIUM SERUM 3.6 MEQ/L (3.5-5.1); SALICYLATE LEVEL < 1.7 MG/DL (5.0-30.0); SODIUM LEVEL 145 MEQ/L (136-145); TOTAL PROTEIN 6.5 GM/DL (6.4-8.2)
[2019-12-11 10:54] LABS: AMPHETAMINES LEVEL URINE NEGATIVE (NEGATIVE); BARBITURATES URINE NEGATIVE (NEGATIVE); BENZODIAZEPINES URINE NEGATIVE (NEGATIVE); CANNABINOIDS URINE NEGATIVE (NEGATIVE); COCAINE METABOLITE URINE NEGATIVE (NEGATIVE); METHADONE URINE NEGATIVE (NEGATIVE); OPIATES URINE NEGATIVE (NEGATIVE); PHENCYCLIDINE URINE NEGATIVE (NEGATIVE)
[2019-12-11 11:09] VITALS: BP 108/70
== END 2019-12-11 11:11 | disposition home or self-care (01) ==
LOC: M ED 09:18
DX: F25.9 Schizoaffective disorder, unspecified (principal); F17.200 Nicotine dependence, unspecified, uncomplicated; Z79.899 Other long term (current) drug therapy
CPT/HCPCS: 36415; 80048; 80076; 80307; 84443; 84703; 85027; 99284; G0480

== ENCOUNTER 2019-12-29 05:13 | Emergency (ER) | payer MEDICARE, MEDICAID ==
[~2019-12-29] VITALS: Ht 170.2 cm; Wt 57.9 kg
[2019-12-29 05:14] VITALS: BP 115/75
[2019-12-29] MEDS ORDERED: INVE156I IM (06:29)
[2019-12-29] MEDS ORDERED: VALT500T PO (06:29)
[2019-12-29] MEDS ORDERED: VITMTA PO (06:29)
[2019-12-29] MEDS ORDERED: ONDANSETRON 4MG/2ML VIAL IV ONE (06:30)
[2019-12-29] MEDS ORDERED: ACETAMINOPHEN 500 MG TAB PO ONE (06:30)
[2019-12-29 06:52] LABS: BASO % 0.3 % (0.0-1.0); EOS # 0.1 10^3/uL (0.0-0.5); EOS % 0.8 % (0.0-3.0); HEMATOCRIT 41.4 % (36.0-47.0); HEMOGLOBIN 13.8 g/dl (12.0-15.5); LYMPH # 1.1 10^3/uL (1.5-5.0); LYMPH % 15.1 % (24.0-44.0); MEAN CORPUSCULAR HEMOGLOBIN 33.3 pg (27.0-33.0); MEAN CORPUSCULAR HGB CONC 33.3 g/dl (32.0-36.5); MEAN CORPUSCULAR VOLUME 99.8 fl (80.0-96.0); MONO # 0.3 10^3/uL (0.0-0.8); MONO % 3.5 % (0.0-5.0); NEUTROPHILS # 5.8 10^3/uL (1.5-8.5); NEUTROPHILS % 79.7 % (36.0-66.0); PLATELET COUNT, AUTOMATED 237 10^3/uL (150-450); RED BLOOD COUNT 4.15 10^6/uL (4.00-5.40); WHITE BLOOD COUNT 7.2 10^3/uL (4.0-10.0)
[2019-12-29 07:24] LABS: ALBUMIN 4.4 GM/DL (3.2-5.2); ALT/SGPT 43 U/L (12-78); BILIRUBIN,DIRECT < 0.1 MG/DL (0.0-0.2); BILIRUBIN,TOTAL 0.3 MG/DL (0.2-1.0); LIPASE 133 U/L (73-393); TOTAL PROTEIN 7.8 GM/DL (6.4-8.2)
[2019-12-29] MEDS ORDERED: KETOROLAC 30 MG/ML 1ML VIAL IV ONE (07:45)
--- NOTE | 2019-12-29 08:01 | REPVR ---
PROCEDURE INFORMATION: Exam: US Pelvis Complete, Transabdominal and US Duplex Artery or Vein, Ovaries, Limited Exam date and time: 12/29/2019 7:42 AM Age: 29 years old Clinical indication: Pelvic pain TECHNIQUE: Imaging protocol: Real-time transabdominal pelvic ultrasound with image documentation. Real-time duplex ultrasound scan of the arterial or venous flow of the ovaries with B-mode, color Doppler flow and spectral waveform analysis. Complete Pelvis, Limited Duplex. COMPARISON: No relevant prior studies available. FINDINGS: Uterus/cervix: The uterus is retroverted measuring 5.2 x 3.4 x 2.7 cm. There is a 0.8 x 0.8 x 1.0 cm heterogeneous relatively isoechoic mass at the fundus of the uterus statistically likely fibroid. The endometrium is normal in thickness measuring 2 mm. Right adnexa: The right ovary measures 3.1 x 1.7 x 2.5 cm containing small follicles. Arterial blood flow seen to the right ovary with peak systolic velocity of 4.8 centimeter/second and resistive index of 0.52. Left adnexa: The left ovary measures 2.8 x 1.4 x 1.2 cm containing small follicles. Arterial blood flow seen to the left ovary with peak systolic velocity of 15.8 cm and resistive index of 0.53. Free fluid: Small amount of free pelvic fluid seen in the cul-de-sac likely physiologic. Bladder: Normal. IMPRESSION: 1. Normal ovaries containing small follicles with no sonographic evidence of torsion. 2. 0.8 x 0.8 x 1.0 cm heterogeneous intramural uterine fundus mass statistically likely fibroids. Electronically signed by: Jeronimo Garrett On 12/29/2019 08:00:49 AM
[2019-12-29 09:16] LABS: CHLAMYDIA DNA AMPLIFICATION NEGATIVE (NEGATIVE); GC DNA AMPLIFICATION NEGATIVE (NEGATIVE)
[2019-12-29] MEDS ORDERED: IBUP80TA PO (09:29)
[2019-12-29 09:56] LABS: HEPATITIS B SURFACE ANTIBODY POSITIVE (POSITIVE)
[2019-12-29 10:06] LABS: HEPATITIS B SURFACE ANTIGEN NEGATIVE (NEGATIVE)
[2019-12-29 10:34] LABS: HEPATITIS C VIRUS ABY INDEX 0.1 INDEX (<0.8)
[2019-12-29 10:35] LABS: HIV 1&2 SCREEN CENTAUR NEGATIVE (NEGATIVE)
== END 2019-12-29 09:53 | disposition home or self-care (01) ==
LOC: M ED 05:13
DX: R31.29 Other microscopic hematuria (principal); D25.9 Leiomyoma of uterus, unspecified; A60.00 Herpesviral infection of urogenital system, unspecified; F17.200 Nicotine dependence, unspecified, uncomplicated
CPT/HCPCS: 76830; 76856; 80047; 80076; 81001; 83690; 84702; 85025; 86706; 86780; 86803; 87210; 87340; 87389; 87661; 93976; 96374; 96375; 99284; J1885; J2405

== ENCOUNTER 2021-03-19 11:00 | Emergency (ER) | payer MEDICARE, MEDICAID ==
[~2021-03-19 11:00] MED LIST changes: +IBUP80TA PO; +OLAN1TAB16 PO; -OLAN5TAB PO; +VALT500T PO; +VITMTA PO
[2021-03-19] MEDS ORDERED: ZYPR5TAB2 PO (11:27)
[2021-03-19 13:50] LABS: RSV AMPLIFICATION NEGATIVE (NEGATIVE)
[2021-03-19] MEDS ORDERED: HOME MED LIST COMPLETE! XX SCH (14:45)
[2021-03-19] MEDS ORDERED: OLANZapine ORAL DISINTEGRATING TAB 5MG PO PRN (16:10)
[2021-03-19 20:51] LABS: HEMATOCRIT 41.9 % (36.0-47.0); HEMOGLOBIN 13.9 g/dl (12.0-15.5); MEAN CORPUSCULAR HEMOGLOBIN 29.6 pg (27.0-33.0); MEAN CORPUSCULAR HGB CONC 33.2 g/dl (32.0-36.5); MEAN CORPUSCULAR VOLUME 89.3 fl (80.0-96.0); PLATELET COUNT, AUTOMATED 326 10^3/uL (150-450); RED BLOOD COUNT 4.69 10^6/uL (4.00-5.40); WHITE BLOOD COUNT 8.3 10^3/uL (4.0-10.0)
[2021-03-19 20:55] LABS: HCG, SERUM QUALITATIVE NEGATIVE (NEGATIVE)
[2021-03-19 21:00] LABS: AMPHETAMINES LEVEL URINE NEGATIVE (NEGATIVE); BARBITURATES URINE NEGATIVE (NEGATIVE); BENZODIAZEPINES URINE NEGATIVE (NEGATIVE); CANNABINOIDS URINE NEGATIVE (NEGATIVE); COCAINE METABOLITE URINE NEGATIVE (NEGATIVE); METHADONE URINE NEGATIVE (NEGATIVE); OPIATES URINE NEGATIVE (NEGATIVE); PHENCYCLIDINE URINE NEGATIVE (NEGATIVE)
[2021-03-19 21:03] LABS: ACETAMINOPHEN LEVEL < 2.0 UG/ML (10.0-30.0); ALBUMIN 4.5 GM/DL (3.2-5.2); ALT/SGPT 24 U/L (12-78); BILIRUBIN,DIRECT < 0.1 MG/DL (0.0-0.2); BILIRUBIN,TOTAL 0.2 MG/DL (0.2-1.0); BLOOD UREA NITROGEN 11 MG/DL (7-18); CALCIUM LEVEL 9.7 MG/DL (8.5-10.1); CARBON DIOXIDE LEVEL 27 MEQ/L (21-32); CHLORIDE LEVEL 107 MEQ/L (98-107); CREATININE FOR GFR 0.66 MG/DL (0.55-1.30); ETHYL ALCOHOL (ETHANOL) < 0.003 % (0.000-0.010); GLOMERULAR FILTRATION RATE > 60.0 (>60); GLUCOSE, FASTING 108 MG/DL (70-100); POTASSIUM SERUM 3.5 MEQ/L (3.5-5.1); SALICYLATE LEVEL < 1.7 MG/DL (5.0-30.0); SODIUM LEVEL 141 MEQ/L (136-145); THYROID STIMULATING HORMONE 0.948 uIU/ML (0.358-3.740)
[2021-03-21 14:57] VITALS: BP 133/85
== END 2021-03-21 15:06 ==
LOC: M ED 11:00
DX: F06.2 Psychotic disorder with delusions due to known physiological condition (principal); F20.9 Schizophrenia, unspecified

== ENCOUNTER 2021-03-21 15:40 | Inpatient (IN) | payer MEDICARE, MEDICAID ==
[~2021-03-21] VITALS: Ht 165.1 cm; Wt 63.6 kg
[~2021-03-21 15:40] MED LIST changes: +ZYPR5TAB2 PO
[2021-03-21] MEDS ORDERED: OLANZapine INTRAMUSCULAR 10MG VIAL IM ONE (16:10)
[2021-03-21] MEDS ORDERED: HOME MED LIST COMPLETE! XX SCH (19:40)
[2021-03-22] MEDS ORDERED: OLANZapine ORAL DISINTEGRATING TAB 5MG PO PRN (07:50)
[2021-03-22] MEDS ORDERED: IBUPROFEN 800 MG TAB PO PRN (14:40)
[2021-03-22] MEDS ORDERED: MAALOX 30 ML SUSP *UDC PO PRN (14:40)
[2021-03-22] MEDS ORDERED: traZODone 50 MG TAB PO PRN (14:40)
[2021-03-22] MEDS: OLANZapine 5 MG TAB PO SCH (15:12)
[2021-03-22] MEDS: MULTIVITAMINS/MINERALS THERAP 1 TAB PO SCH (15:12)
[2021-03-22 18:05] VITALS: BP 133/78
[2021-03-23] MEDS: MULTIVITAMINS/MINERALS THERAP 1 TAB PO SCH (08:42)
[2021-03-23] MEDS: OLANZapine 5 MG TAB PO SCH (08:43)
[2021-03-23 12:19] LABS: CHOLESTEROL RISK RATIO 2.492 (<5)
[2021-03-23 12:29] LABS: HEMOGLOBIN A1c 4.8 %
[2021-03-23] MEDS: PALIPERIDONE 6 MG ER TAB (INVEGA) PO SCH (20:18)
[2021-03-24] MEDS: MULTIVITAMINS/MINERALS THERAP 1 TAB PO SCH (10:13)
[2021-03-24] MEDS: MOM 30ML SUSPENSION UDC PO PRN (10:13)
[2021-03-24] MEDS: PALIPERIDONE 6 MG ER TAB (INVEGA) PO SCH (20:43)
[2021-03-25] MEDS: MULTIVITAMINS/MINERALS THERAP 1 TAB PO SCH (09:51)
[2021-03-25 16:07] VITALS: BP 128/72
[2021-03-25] MEDS: PALIPERIDONE 6 MG ER TAB (INVEGA) PO SCH (21:35)
[2021-03-26] MEDS: MULTIVITAMINS/MINERALS THERAP 1 TAB PO SCH (07:26)
[2021-03-26] MEDS: PALIPERIDONE 6 MG ER TAB (INVEGA) PO SCH (20:51)
[2021-03-27] MEDS: MULTIVITAMINS/MINERALS THERAP 1 TAB PO SCH (08:53)
[2021-03-27] MEDS ORDERED: OLANZapine ORAL DISINTEGRATING TAB 5MG PO PRN (10:30)
[2021-03-27] MEDS: ACETAMINOPHEN TAB 650MG DOSE (2X325MG) PO PRN (13:12)
[2021-03-27] MEDS ORDERED: PALIPERIDONE 3 MG ER TAB (INVEGA) PO SCH (21:00)
[2021-03-28] MEDS: IBUPROFEN 800 MG TAB PO PRN (06:35)
[2021-03-28 06:57] VITALS: BP 111/52
[2021-03-28] MEDS: MULTIVITAMINS/MINERALS THERAP 1 TAB PO SCH (10:17)
[2021-03-28] MEDS ORDERED: BENZTROPINE 0.5 MG TAB PO PRN (11:20)
[2021-03-28] MEDS: OLANZapine 5 MG TAB PO SCH ×2 (14:16→21:36)
[2021-03-29] MEDS: MULTIVITAMINS/MINERALS THERAP 1 TAB PO SCH (09:02)
[2021-03-29] MEDS: OLANZapine 5 MG TAB PO SCH ×2 (09:02→21:20)
[2021-03-29] MEDS: MOM 30ML SUSPENSION UDC PO PRN (10:10)
[2021-03-29] MEDS: ACETAMINOPHEN TAB 650MG DOSE (2X325MG) PO PRN (15:19)
[2021-03-30] MEDS: OLANZapine 5 MG TAB PO SCH ×2 (09:25→20:43)
[2021-03-30] MEDS: MULTIVITAMINS/MINERALS THERAP 1 TAB PO SCH (09:25)
[2021-03-30] MEDS: IBUPROFEN 800 MG TAB PO PRN (13:14)
[2021-03-30 15:55] VITALS: BP 117/62
[2021-03-31] MEDS: OLANZapine 5 MG TAB PO SCH ×2 (09:31→20:45)
[2021-03-31] MEDS: MULTIVITAMINS/MINERALS THERAP 1 TAB PO SCH (09:31)
[2021-03-31 13:21] VITALS: BP 120/70
[2021-03-31] MEDS: ACETAMINOPHEN TAB 650MG DOSE (2X325MG) PO PRN (13:21)
[2021-04-01] MEDS ORDERED: PALIPERIDONE PALMITATE 234MG/1.5ML INJ (INVEGA)(FREE PSY INPT ONLY) IM ONE (09:00)
[2021-04-01] MEDS ORDERED: PALIPERIDONE PALMITATE 234MG/1.5ML INJ (INVEGA)(FREE PSY INPT ONLY) IM SCH (09:00)
[2021-04-01] MEDS: MULTIVITAMINS/MINERALS THERAP 1 TAB PO SCH (09:25)
[2021-04-01] MEDS: OLANZapine 10 MG TAB PO SCH ×2 (10:10→20:57)
[2021-04-01 18:22] VITALS: BP 133/73
[2021-04-02 06:37] VITALS: BP 104/63
[2021-04-02] MEDS: MULTIVITAMINS/MINERALS THERAP 1 TAB PO SCH (09:18)
[2021-04-02] MEDS: OLANZapine 10 MG TAB PO SCH ×2 (09:19→20:47)
[2021-04-03] MEDS: MULTIVITAMINS/MINERALS THERAP 1 TAB PO SCH (08:45)
[2021-04-03] MEDS: OLANZapine 10 MG TAB PO SCH ×2 (08:45→20:44)
[2021-04-03] MEDS: MOM 30ML SUSPENSION UDC PO PRN (08:46)
[2021-04-03 17:48] VITALS: BP 109/61
[2021-04-04] MEDS: MULTIVITAMINS/MINERALS THERAP 1 TAB PO SCH (09:30)
[2021-04-04] MEDS: OLANZapine 10 MG TAB PO SCH ×2 (09:30→21:19)
[2021-04-04 18:25] VITALS: BP 112/70
[2021-04-05] MEDS: OLANZapine 10 MG TAB PO SCH ×2 (09:15→20:21)
[2021-04-05] MEDS: MULTIVITAMINS/MINERALS THERAP 1 TAB PO SCH (09:15)
[2021-04-05 16:48] VITALS: BP 126/72
[2021-04-06] MEDS: OLANZapine 10 MG TAB PO SCH ×2 (08:28→21:01)
[2021-04-06] MEDS: MULTIVITAMINS/MINERALS THERAP 1 TAB PO SCH (08:28)
[2021-04-06 18:42] VITALS: BP 122/74
[2021-04-07] MEDS: MULTIVITAMINS/MINERALS THERAP 1 TAB PO SCH (09:04)
[2021-04-07] MEDS: OLANZapine 10 MG TAB PO SCH ×2 (09:04→21:27)
[2021-04-07] MEDS: ACETAMINOPHEN TAB 650MG DOSE (2X325MG) PO PRN (17:16)
[2021-04-08] MEDS: OLANZapine 10 MG TAB PO SCH (08:02)
[2021-04-08] MEDS: MULTIVITAMINS/MINERALS THERAP 1 TAB PO SCH (08:02)
[2021-04-08] MEDS: MOM 30ML SUSPENSION UDC PO PRN (09:09)
[2021-04-08 17:23] VITALS: BP 112/68
[2021-04-09] MEDS: MULTIVITAMINS/MINERALS THERAP 1 TAB PO SCH (08:38)
[2021-04-09] MEDS: MOM 30ML SUSPENSION UDC PO PRN (12:12)
[2021-04-09 16:19] VITALS: BP 135/74
[2021-04-10] MEDS: MULTIVITAMINS/MINERALS THERAP 1 TAB PO SCH (09:10)
[2021-04-10 16:48] VITALS: BP 121/73
[2021-04-11] MEDS: MULTIVITAMINS/MINERALS THERAP 1 TAB PO SCH (08:48)
[2021-04-11 17:58] VITALS: BP 121/66
[2021-04-12] MEDS: MULTIVITAMINS/MINERALS THERAP 1 TAB PO SCH (08:56)
[2021-04-12 16:12] VITALS: BP 117/72
[2021-04-13] MEDS: MULTIVITAMINS/MINERALS THERAP 1 TAB PO SCH (09:13)
[2021-04-13 16:26] VITALS: BP 123/70
[2021-04-14] MEDS: MULTIVITAMINS/MINERALS THERAP 1 TAB PO SCH (08:01)
[2021-04-15] MEDS: MULTIVITAMINS/MINERALS THERAP 1 TAB PO SCH (09:07)
[2021-04-16] MEDS: MULTIVITAMINS/MINERALS THERAP 1 TAB PO SCH (08:47)
[2021-04-16 18:56] VITALS: BP 120/68
[2021-04-17] MEDS: MULTIVITAMINS/MINERALS THERAP 1 TAB PO SCH (08:31)
[2021-04-17 18:24] VITALS: BP 116/59
[2021-04-18] MEDS ORDERED: BENZ0.5T23 PO (07:35)
[2021-04-18] MEDS ORDERED: TRAZ-252 PO (07:35)
[2021-04-18] MEDS ORDERED: HALO10AM IM (07:35)
[2021-04-18] MEDS: MULTIVITAMINS/MINERALS THERAP 1 TAB PO SCH (08:27)
[2021-04-18] MEDS ORDERED: HALOPERIDOL DECANOATE 100 MG/ML VIAL (J1631) IM SCH (09:00)
== END 2021-04-18 10:01 | disposition home or self-care (01) | DRG 885 ==
LOC: M ED 15:40 → M ED INP 03-22 15:10 → M ED 03-22 15:35 → M PSY 03-22 15:45
PROVIDERS: ADMIT Psychiatry & Neurology Psychiatry; ATTEND Psychiatry & Neurology Psychiatry
DX: F25.0 Schizoaffective disorder, bipolar type (principal); Z91.19 Patient's noncompliance with other medical treatment and regimen; Z79.899 Other long term (current) drug therapy

== ENCOUNTER 2021-11-19 15:00 | Inpatient (IN) | payer MEDICARE, MEDICAID ==
[~2021-11-19] VITALS: Ht 170.2 cm; Wt 170.0 kg
[~2021-11-19 15:00] MED LIST changes: +BENZ0.5T23 PO; -CLOZ25TA3 PO; +CLOZ25TA6 PO; +HALO10AM IM; +TRAZ-252 PO
[2021-11-19 18:24] LABS: HEMATOCRIT 40.8 % (36.0-47.0); HEMOGLOBIN 13.6 g/dl (12.0-15.5); MEAN CORPUSCULAR HEMOGLOBIN 30.2 pg (27.0-33.0); MEAN CORPUSCULAR HGB CONC 33.3 g/dl (32.0-36.5); MEAN CORPUSCULAR VOLUME 90.7 fl (80.0-96.0); PLATELET COUNT, AUTOMATED 317 10^3/uL (150-450); WHITE BLOOD COUNT 8.2 10^3/uL (4.0-10.0)
[2021-11-19 18:59] LABS: HCG, SERUM QUALITATIVE NEGATIVE (NEGATIVE)
[2021-11-19 19:14] LABS: ACETAMINOPHEN LEVEL < 2.0 UG/ML (10.0-30.0); ALBUMIN 4.3 GM/DL (3.2-5.2); ALT/SGPT 23 U/L (12-78); BILIRUBIN,DIRECT < 0.1 MG/DL (0.0-0.2); BILIRUBIN,TOTAL 0.3 MG/DL (0.2-1.0); BLOOD UREA NITROGEN 10 MG/DL (7-18); CALCIUM LEVEL 9.6 MG/DL (8.5-10.1); CARBON DIOXIDE LEVEL 27 MEQ/L (21-32); CHLORIDE LEVEL 106 MEQ/L (98-107); CREATININE FOR GFR 0.58 MG/DL (0.55-1.30); ETHYL ALCOHOL (ETHANOL) < 0.003 % (0.000-0.010); GLOMERULAR FILTRATION RATE > 60.0 (>60); GLUCOSE, FASTING 85 MG/DL (70-100); POTASSIUM SERUM 3.6 MEQ/L (3.5-5.1); SALICYLATE LEVEL < 1.7 MG/DL (5.0-30.0); SODIUM LEVEL 140 MEQ/L (136-145); TOTAL PROTEIN 7.8 GM/DL (6.4-8.2)
[2021-11-19 19:31] LABS: RSV AMPLIFICATION NEGATIVE (NEGATIVE)
[2021-11-19 20:54] LABS: AMPHETAMINES LEVEL URINE NEGATIVE (NEGATIVE); BARBITURATES URINE NEGATIVE (NEGATIVE); BENZODIAZEPINES URINE NEGATIVE (NEGATIVE); CANNABINOIDS URINE NEGATIVE (NEGATIVE); COCAINE METABOLITE URINE NEGATIVE (NEGATIVE); METHADONE URINE NEGATIVE (NEGATIVE); OPIATES URINE NEGATIVE (NEGATIVE); PHENCYCLIDINE URINE NEGATIVE (NEGATIVE)
[2021-11-19] MEDS ORDERED: traZODone 50 MG TAB PO SCH (22:35)
[2021-11-19] MEDS ORDERED: HOME MED LIST COMPLETE! XX SCH (23:45)
[2021-11-20] MEDS ORDERED: MAALOX 30 ML SUSP *UDC PO PRN (17:35)
[2021-11-20] MEDS ORDERED: MOM 30ML SUSPENSION UDC PO PRN (17:35)
[2021-11-20] MEDS ORDERED: traZODone 50 MG TAB PO PRN (17:35)
[2021-11-20 20:42] VITALS: BP 132/75
[2021-11-21 08:25] VITALS: BP 146/92
[2021-11-21] MEDS ORDERED: OLANZapine ORAL DISINTEGRATING TAB 5MG PO SCH (09:00)
[2021-11-21] MEDS ORDERED: OLANZapine ORAL DISINTEGRATING TAB 5MG PO PRN (11:10)
[2021-11-21 18:13] VITALS: BP 109/71
[2021-11-22 06:29] VITALS: BP 100/57
[2021-11-23 06:22] VITALS: BP 115/65
[2021-11-23] MEDS: IBUPROFEN 400MG TAB PO PRN (14:18)
[2021-11-23 16:19] VITALS: BP 123/89
[2021-11-24 06:47] VITALS: BP 106/63
[2021-11-24] MEDS: LORazepam 1 MG TAB PO PRN (14:20)
[2021-11-24 16:20] VITALS: BP 127/78
[2021-11-25 06:40] VITALS: BP 138/65
[2021-11-25] MEDS: LORazepam 1 MG TAB PO PRN (10:49)
[2021-11-25] MEDS: IBUPROFEN 400MG TAB PO PRN (10:50)
[2021-11-26 06:39] VITALS: BP 129/80
[2021-11-26 07:26] LABS: CHOLESTEROL RISK RATIO 3.155 (<5)
[2021-11-26] MEDS: NICOTINE 14 MG/24 HR TRANSDERMAL TD SCH (13:02)
[2021-11-26] MEDS: LORazepam 1 MG TAB PO PRN (15:39)
[2021-11-26 18:19] VITALS: BP 132/82
[2021-11-27 06:40] VITALS: BP 112/65
[2021-11-27] MEDS: NICOTINE 14 MG/24 HR TRANSDERMAL TD SCH (07:36)
[2021-11-27] MEDS ORDERED: BENZTROPINE 1 MG TAB PO SCH (09:00)
[2021-11-27 18:12] VITALS: BP 130/82
[2021-11-28 06:31] VITALS: BP 118/69
[2021-11-28] MEDS: NICOTINE 14 MG/24 HR TRANSDERMAL TD SCH (09:20)
[2021-11-28 17:56] VITALS: BP 116/76
[2021-11-29] MEDS: BENZTROPINE 1 MG TAB PO PRN (05:55)
[2021-11-29 06:31] VITALS: BP 134/80
[2021-11-29] MEDS: NICOTINE 14 MG/24 HR TRANSDERMAL TD SCH (08:12)
[2021-11-29 18:02] VITALS: BP 108/60
[2021-11-30 06:40] VITALS: BP 105/67
[2021-11-30] MEDS: NICOTINE 14 MG/24 HR TRANSDERMAL TD SCH (08:28)
[2021-11-30] MEDS: LORazepam 1 MG TAB PO PRN (12:05)
[2021-11-30] MEDS: IBUPROFEN 400MG TAB PO PRN (12:06)
[2021-11-30 18:07] VITALS: BP 113/63
[2021-12-01 06:58] VITALS: BP 104/70
[2021-12-01] MEDS: NICOTINE 14 MG/24 HR TRANSDERMAL TD SCH (08:10)
[2021-12-01 18:00] VITALS: BP 132/62
[2021-12-02 06:55] VITALS: BP 124/72
[2021-12-02] MEDS: NICOTINE 14 MG/24 HR TRANSDERMAL TD SCH (09:09)
[2021-12-02] MEDS: BENZTROPINE 1 MG TAB PO PRN (14:23)
[2021-12-02 16:15] VITALS: BP 132/73
[2021-12-03 06:22] VITALS: BP 115/64
[2021-12-03] MEDS: NICOTINE 14 MG/24 HR TRANSDERMAL TD SCH (09:00)
[2021-12-03] MEDS ORDERED: HALO10AM IM (10:39)
[2021-12-03] MEDS ORDERED: BENZ-52 PO (10:39)
[2021-12-03] MEDS ORDERED: HALO10TA20 PO (10:39)
[2021-12-03] MEDS ORDERED: HALOPERIDOL DECANOATE 100 MG/ML VIAL (J1631) IM SCH (11:00)
== END 2021-12-03 12:15 | disposition home or self-care (01) | DRG 885 ==
LOC: M ED 15:00 → M ED INP 11-20 17:32 → M PSY 11-20 20:31
PROVIDERS: ADMIT Psychiatry & Neurology Psychiatry; ATTEND Psychiatry & Neurology Psychiatry
DX: F25.0 Schizoaffective disorder, bipolar type (principal); F17.200 Nicotine dependence, unspecified, uncomplicated

== ENCOUNTER 2022-08-08 09:22 | Inpatient (IN) | payer MEDICARE, MEDICAID ==
[~2022-08-08] VITALS: Ht 167.6 cm; Wt 55.5 kg
[~2022-08-08 09:22] MED LIST changes: +BENZ0.5T2 PO; -BENZ0.5T23 PO; +BENZ1TAB5 PO; +HALO10TA20 PO
[2022-08-08 10:27] LABS: HEMATOCRIT 43.8 % (36.0-47.0); MEAN CORPUSCULAR HEMOGLOBIN 31.3 pg (27.0-33.0); MEAN CORPUSCULAR HGB CONC 34.2 g/dl (32.0-36.5); MEAN CORPUSCULAR VOLUME 91.4 fl (80.0-96.0); PLATELET COUNT, AUTOMATED 286 10^3/uL (150-450); RED BLOOD COUNT 4.79 10^6/uL (4.00-5.40); WHITE BLOOD COUNT 6.7 10^3/uL (4.0-10.0)
[2022-08-08 10:50] LABS: ETHYL ALCOHOL (ETHANOL) 0.007 % (0.000-0.010); SALICYLATE LEVEL 6.6 MG/DL (<30)
[2022-08-08] MEDS ORDERED: HOME MED LIST COMPLETE! XX SCH (10:50)
[2022-08-08 10:51] LABS: ACETAMINOPHEN LEVEL < 2.0 UG/ML (10.0-20.0); ALBUMIN 4.7 G/DL (3.2-5.2); ALKALINE PHOSPHATASE 71 U/L (46-116); ALT/SGPT 18 U/L (7.0-40); AST/SGOT 17 U/L (<34); BILIRUBIN,DIRECT 0.1 MG/DL (<0.4); BILIRUBIN,TOTAL 0.5 MG/DL (0.3-1.2); BLOOD UREA NITROGEN 15 MG/DL (9-23); CALCIUM LEVEL 9.9 MG/DL (8.5-10.1); CARBON DIOXIDE LEVEL 25 MMOL/L (20-31); CHLORIDE LEVEL 106 MMOL/L (98-107); CREATININE FOR GFR 0.59 MG/DL (0.55-1.30); GLOMERULAR FILTRATION RATE > 60.0 (>60); GLUCOSE, FASTING 95 MG/DL (60-100); HCG, SERUM QUALITATIVE NEGATIVE (NEGATIVE); POTASSIUM SERUM 3.9 MMOL/L (3.5-5.1); SODIUM LEVEL 139 MMOL/L (136-145); TOTAL PROTEIN 7.5 G/DL (5.7-8.2)
[2022-08-08 10:52] LABS: THYROID STIMULATING HORMONE 1.972 uIU/ML (0.55-4.78)
[2022-08-08 12:28] LABS: AMPHETAMINES LEVEL URINE NEGATIVE (NEGATIVE); BARBITURATES URINE NEGATIVE (NEGATIVE); BENZODIAZEPINES URINE NEGATIVE (NEGATIVE); COCAINE METABOLITE URINE NEGATIVE (NEGATIVE); METHADONE URINE NEGATIVE (NEGATIVE)
[2022-08-08 12:29] LABS: CANNABINOIDS URINE NEGATIVE (NEGATIVE); OPIATES URINE NEGATIVE (NEGATIVE); PHENCYCLIDINE URINE NEGATIVE (NEGATIVE)
[2022-08-08] MEDS ORDERED: MAALOX 30 ML SUSP *UDC PO PRN (15:35)
[2022-08-08 17:33] VITALS: BP 118/81; TEMP 96.7; O2SAT 97
[2022-08-08] MEDS: OLANZapine ORAL DISINTEGRATING TAB 5MG PO PRN (17:42)
[2022-08-09] MEDS: NICOTINE 21MG/24HR 1 EA TRANSDERMAL TD SCH (09:00)
[2022-08-09] MEDS: ACETAMINOPHEN TAB 650MG DOSE (2X325MG) PO PRN (09:30)
[2022-08-09 18:00] VITALS: BP 126/77; TEMP 98.8
[2022-08-09] MEDS: traZODone 50 MG TAB PO PRN (20:17)
[2022-08-10 06:52] VITALS: BP 123/58; TEMP 98.9; O2SAT 98
[2022-08-10] MEDS: NICOTINE 21MG/24HR 1 EA TRANSDERMAL TD SCH ×2 (09:00→11:27)
[2022-08-10] MEDS: diphenhydrAMINE 25MG CAP PO PRN ×2 (10:10→22:43)
[2022-08-10] MEDS: IBUPROFEN 400MG TAB PO PRN (16:16)
[2022-08-10 18:00] VITALS: BP 142/90; TEMP 98
[2022-08-10] MEDS: traZODone 50 MG TAB PO PRN (20:09)
[2022-08-10] MEDS: OLANZapine ORAL DISINTEGRATING TAB 5MG PO PRN (22:00)
[2022-08-11 06:52] VITALS: BP 143/84; TEMP 98; O2SAT 97
[2022-08-11] MEDS: NICOTINE 21MG/24HR 1 EA TRANSDERMAL TD SCH (08:26)
[2022-08-11] MEDS ORDERED: LORazepam 1 MG TAB PO STA (12:18)
[2022-08-11] MEDS ORDERED: BENZTROPINE 0.5 MG TAB PO ONE (12:20)
[2022-08-12 07:02] VITALS: BP 139/63; TEMP 98.2; O2SAT 99
[2022-08-12] MEDS: NICOTINE 21MG/24HR 1 EA TRANSDERMAL TD SCH (07:49)
[2022-08-12] MEDS: BENZTROPINE 1 MG TAB PO PRN (14:21)
[2022-08-12] MEDS: IBUPROFEN 400MG TAB PO PRN (14:21)
[2022-08-13 06:47] VITALS: BP 138/67; TEMP 97.7; O2SAT 100
[2022-08-13] MEDS ORDERED: HALOPERIDOL DECANOATE 100 MG/ML 1ML VIAL IM SCH (08:00)
[2022-08-13] MEDS: NICOTINE 21MG/24HR 1 EA TRANSDERMAL TD SCH (09:00)
[2022-08-13] MEDS: diphenhydrAMINE 25MG CAP PO PRN (12:29)
[2022-08-13 16:47] VITALS: BP 114/60; TEMP 98.7; O2SAT 97
[2022-08-14 06:12] VITALS: BP 119/63; TEMP 97.3; O2SAT 100
[2022-08-14] MEDS: NICOTINE 21MG/24HR 1 EA TRANSDERMAL TD SCH (09:00)
[2022-08-14] MEDS: BENZTROPINE 1 MG TAB PO PRN (21:30)
[2022-08-15 06:21] VITALS: BP 116/68; TEMP 98.9; O2SAT 99
[2022-08-15] MEDS: NICOTINE 21MG/24HR 1 EA TRANSDERMAL TD SCH (09:00)
[2022-08-15] MEDS ORDERED: TUBERCULIN PPD 5 UNITS/0.1 ML ID ONE (15:00)
[2022-08-15 18:00] VITALS: BP 143/78; TEMP 98.2
[2022-08-16 06:49] VITALS: BP 150/73; TEMP 97.5; O2SAT 95
[2022-08-16] MEDS: NICOTINE 21MG/24HR 1 EA TRANSDERMAL TD SCH (08:17)
[2022-08-16] MEDS ORDERED: HALOPERIDOL DECANOATE 100 MG/ML 1ML VIAL IM ONE (10:00)
[2022-08-16 16:59] VITALS: BP 121/78; TEMP 98.6; O2SAT 98
[2022-08-16] MEDS: traZODone 50 MG TAB PO PRN (21:59)
[2022-08-17 06:58] VITALS: BP 132/75; TEMP 98.5; O2SAT 96
[2022-08-17] MEDS: NICOTINE 21MG/24HR 1 EA TRANSDERMAL TD SCH (08:38)
[2022-08-17] MEDS ORDERED: PPD DOCUMENTATION ENTRY MISC XX ONE (15:00)
[2022-08-17 16:59] VITALS: BP 112/66; TEMP 98.7; O2SAT 99
[2022-08-17] MEDS: traZODone 50 MG TAB PO PRN (23:02)
[2022-08-18 06:40] VITALS: BP 119/64; TEMP 98.4; O2SAT 96
[2022-08-18] MEDS: NICOTINE 21MG/24HR 1 EA TRANSDERMAL TD SCH (08:03)
[2022-08-18] MEDS: BENZTROPINE 1 MG TAB PO PRN (17:54)
[2022-08-18 18:00] VITALS: BP 124/74; TEMP 97.2
[2022-08-19 06:31] VITALS: BP 117/64; TEMP 98.7; O2SAT 98
[2022-08-19] MEDS: NICOTINE 21MG/24HR 1 EA TRANSDERMAL TD SCH (09:14)
[2022-08-19] MEDS: BENZTROPINE 1 MG TAB PO PRN (09:57)
[2022-08-19] MEDS: diphenhydrAMINE 25MG CAP PO PRN (16:31)
[2022-08-19 17:58] VITALS: BP 143/85; TEMP 96.3
[2022-08-19] MEDS: traZODone 50 MG TAB PO PRN (21:40)
[2022-08-20 06:34] VITALS: BP 135/76; TEMP 98.1; O2SAT 97
[2022-08-20] MEDS: NICOTINE 21MG/24HR 1 EA TRANSDERMAL TD SCH (08:48)
[2022-08-20 18:25] VITALS: BP 126/80; TEMP 97.3
[2022-08-21 06:36] VITALS: BP 121/63; TEMP 97.4; O2SAT 97
[2022-08-21] MEDS: NICOTINE 21MG/24HR 1 EA TRANSDERMAL TD SCH (09:00)
[2022-08-21] MEDS: BENZTROPINE 1 MG TAB PO PRN ×2 (09:08→22:25)
[2022-08-22 06:24] VITALS: BP 137/63; TEMP 97.9; O2SAT 100
[2022-08-22] MEDS: NICOTINE 21MG/24HR 1 EA TRANSDERMAL TD SCH (09:00)
[2022-08-22] MEDS: OLANZapine ORAL DISINTEGRATING TAB 5MG PO PRN (16:45)
[2022-08-22 18:51] VITALS: BP 126/67; TEMP 97.2
[2022-08-23] MEDS: NICOTINE 21MG/24HR 1 EA TRANSDERMAL TD SCH (09:55)
[2022-08-23] MEDS: OLANZapine ORAL DISINTEGRATING TAB 5MG PO PRN (10:09)
[2022-08-23 18:00] VITALS: BP 111/58; TEMP 97.6; O2SAT 100
[2022-08-24 06:29] VITALS: BP 119/69; TEMP 97.8; O2SAT 100
[2022-08-24] MEDS: NICOTINE 21MG/24HR 1 EA TRANSDERMAL TD SCH (09:14)
[2022-08-24] MEDS: OLANZapine ORAL DISINTEGRATING TAB 5MG PO PRN (09:48)
[2022-08-24 18:19] VITALS: BP 119/71; TEMP 97.9
[2022-08-25] MEDS: NICOTINE 21MG/24HR 1 EA TRANSDERMAL TD SCH (09:46)
[2022-08-25] MEDS: BENZTROPINE 1 MG TAB PO PRN (14:02)
[2022-08-25 16:07] VITALS: BP 123/63; TEMP 97.8; O2SAT 97
[2022-08-26 06:34] VITALS: BP 144/74; TEMP 97.1; O2SAT 99
[2022-08-26] MEDS: NICOTINE 21MG/24HR 1 EA TRANSDERMAL TD SCH (09:00)
[2022-08-26 17:07] VITALS: BP 114/65; TEMP 97.2; O2SAT 97
[2022-08-27 06:07] VITALS: BP 125/60; TEMP 96.5; O2SAT 99
[2022-08-27] MEDS: MULTIVITAMINS/MINERALS THERAP 1 TAB PO SCH (09:00)
[2022-08-27] MEDS: NICOTINE 21MG/24HR 1 EA TRANSDERMAL TD SCH (09:00)
[2022-08-27] MEDS: BENZTROPINE 1 MG TAB PO PRN (15:47)
[2022-08-27 16:58] VITALS: BP 123/74; TEMP 97.9; O2SAT 98
[2022-08-28 06:20] VITALS: BP 128/59; TEMP 98.1; O2SAT 98
[2022-08-28] MEDS: MULTIVITAMINS/MINERALS THERAP 1 TAB PO SCH (08:47)
[2022-08-28] MEDS: NICOTINE 21MG/24HR 1 EA TRANSDERMAL TD SCH (08:48)
[2022-08-28 18:30] VITALS: BP 138/81; TEMP 97.2; O2SAT 100
[2022-08-28] MEDS: OLANZapine ORAL DISINTEGRATING TAB 5MG PO PRN (21:39)
[2022-08-28] MEDS: traZODone 50 MG TAB PO PRN (22:15)
[2022-08-29 06:07] VITALS: BP 140/82; TEMP 97.9; O2SAT 97
[2022-08-29] MEDS: MULTIVITAMINS/MINERALS THERAP 1 TAB PO SCH (10:19)
[2022-08-29] MEDS: NICOTINE 21MG/24HR 1 EA TRANSDERMAL TD SCH (11:30)
[2022-08-29 11:53] LABS: BASO % 0.5 % (0.0-1.0); EOS # 0.1 10^3/uL (0.0-0.5); EOS % 2.1 % (0.0-3.0); HEMATOCRIT 38.8 % (36.0-47.0); HEMOGLOBIN 13.2 g/dl (12.0-15.5); LYMPH # 2.2 10^3/uL (1.5-5.0); LYMPH % 38.5 % (24.0-44.0); MEAN CORPUSCULAR HEMOGLOBIN 31.7 pg (27.0-33.0); MEAN CORPUSCULAR VOLUME 93.3 fl (80.0-96.0); MONO # 0.4 10^3/uL (0.0-0.8); MONO % 7.6 % (2.0-8.0); NEUTROPHILS # 2.9 10^3/uL (1.5-8.5); NEUTROPHILS % 51.1 % (36.0-66.0); PLATELET COUNT, AUTOMATED 243 10^3/uL (150-450); RED BLOOD COUNT 4.16 10^6/uL (4.00-5.40); WHITE BLOOD COUNT 5.6 10^3/uL (4.0-10.0)
[2022-08-29 17:32] VITALS: BP 113/66; TEMP 97.4; O2SAT 98
[2022-08-30 06:50] VITALS: BP 127/60; TEMP 97.7; O2SAT 100
[2022-08-30] MEDS: MULTIVITAMINS/MINERALS THERAP 1 TAB PO SCH (10:15)
[2022-08-30] MEDS: NICOTINE 21MG/24HR 1 EA TRANSDERMAL TD SCH (10:19)
[2022-08-30 16:43] VITALS: BP 110/71; TEMP 98.1; O2SAT 98
[2022-08-30] MEDS: ACETAMINOPHEN TAB 650MG DOSE (2X325MG) PO PRN (18:32)
[2022-08-30] MEDS: traZODone 50 MG TAB PO PRN (23:23)
[2022-08-31 06:43] VITALS: BP 116/63; TEMP 97.6; O2SAT 100
[2022-08-31] MEDS: MULTIVITAMINS/MINERALS THERAP 1 TAB PO SCH (09:47)
[2022-08-31] MEDS: NICOTINE 21MG/24HR 1 EA TRANSDERMAL TD SCH (09:48)
[2022-08-31] MEDS: OLANZapine ORAL DISINTEGRATING TAB 5MG PO PRN (12:06)
[2022-08-31] MEDS: BENZTROPINE 1 MG TAB PO PRN (18:04)
[2022-08-31 18:11] VITALS: BP 120/58; TEMP 97.2; O2SAT 97
[2022-08-31] MEDS: traZODone 50 MG TAB PO PRN (20:39)
[2022-09-01 05:15] VITALS: BP 120/58; TEMP 97.2; O2SAT 97
[2022-09-01 06:40] VITALS: BP 98/54; TEMP 97.5; O2SAT 98
[2022-09-01] MEDS: MULTIVITAMINS/MINERALS THERAP 1 TAB PO SCH (08:04)
[2022-09-01] MEDS: PILL CUTTER 1 EACH XX PRN (08:04)
[2022-09-01] MEDS: NICOTINE 21MG/24HR 1 EA TRANSDERMAL TD SCH (08:05)
[2022-09-01] MEDS: ACETAMINOPHEN TAB 650MG DOSE (2X325MG) PO PRN (10:24)
[2022-09-01 18:26] VITALS: BP 135/71; TEMP 96.4; O2SAT 100
[2022-09-02 06:19] VITALS: BP 111/64; TEMP 98.7; O2SAT 98
[2022-09-02] MEDS: NICOTINE 21MG/24HR 1 EA TRANSDERMAL TD SCH (08:24)
[2022-09-02] MEDS: MULTIVITAMINS/MINERALS THERAP 1 TAB PO SCH (08:24)
[2022-09-02] MEDS: OLANZapine ORAL DISINTEGRATING TAB 5MG PO PRN (15:06)
[2022-09-02 18:55] VITALS: BP 134/68; TEMP 97.4
[2022-09-03 06:14] VITALS: BP 115/67; TEMP 98.5; O2SAT 97
[2022-09-03] MEDS: NICOTINE 21MG/24HR 1 EA TRANSDERMAL TD SCH (09:49)
[2022-09-03] MEDS: MULTIVITAMINS/MINERALS THERAP 1 TAB PO SCH (09:49)
[2022-09-03] MEDS: OLANZapine ORAL DISINTEGRATING TAB 5MG PO PRN (15:57)
[2022-09-03 18:42] VITALS: BP 117/66; TEMP 98.6; O2SAT 97
[2022-09-04 06:43] VITALS: BP 128/78; TEMP 97.9; O2SAT 98
[2022-09-04] MEDS: MULTIVITAMINS/MINERALS THERAP 1 TAB PO SCH (08:47)
[2022-09-04] MEDS: NICOTINE 21MG/24HR 1 EA TRANSDERMAL TD SCH (08:48)
[2022-09-04 18:23] VITALS: BP 124/80; TEMP 97.2
[2022-09-04] MEDS: traZODone 50 MG TAB PO PRN (23:29)
[2022-09-05 06:52] VITALS: BP 114/74; TEMP 97.5; O2SAT 98
[2022-09-05] MEDS: MULTIVITAMINS/MINERALS THERAP 1 TAB PO SCH (08:30)
[2022-09-05] MEDS: NICOTINE 21MG/24HR 1 EA TRANSDERMAL TD SCH (08:32)
[2022-09-05 17:04] LABS: BASO % 0.4 % (0.0-1.0); EOS # 0.1 10^3/uL (0.0-0.5); EOS % 1.2 % (0.0-3.0); HEMATOCRIT 38.3 % (36.0-47.0); LYMPH % 24.2 % (24.0-44.0); MEAN CORPUSCULAR HEMOGLOBIN 31.6 pg (27.0-33.0); MEAN CORPUSCULAR HGB CONC 33.9 g/dl (32.0-36.5); MONO # 0.5 10^3/uL (0.0-0.8); MONO % 5.9 % (2.0-8.0); NEUTROPHILS # 5.5 10^3/uL (1.5-8.5); NEUTROPHILS % 67.9 % (36.0-66.0); PLATELET COUNT, AUTOMATED 290 10^3/uL (150-450); RED BLOOD COUNT 4.12 10^6/uL (4.00-5.40); WHITE BLOOD COUNT 8.1 10^3/uL (4.0-10.0)
[2022-09-05 17:43] VITALS: BP 139/69; TEMP 98.2; O2SAT 99
[2022-09-05] MEDS: traZODone 50 MG TAB PO PRN (20:45)
[2022-09-06] MEDS: MULTIVITAMINS/MINERALS THERAP 1 TAB PO SCH (09:19)
[2022-09-06] MEDS: NICOTINE 21MG/24HR 1 EA TRANSDERMAL TD SCH (09:20)
[2022-09-06 18:24] VITALS: BP 99/58; TEMP 98.1; O2SAT 96
[2022-09-07 06:27] VITALS: BP 96/56; TEMP 97.8; O2SAT 96
[2022-09-07] MEDS: NICOTINE 21MG/24HR 1 EA TRANSDERMAL TD SCH (09:44)
[2022-09-07] MEDS: MULTIVITAMINS/MINERALS THERAP 1 TAB PO SCH (09:45)
[2022-09-07 18:00] VITALS: BP 119/77; TEMP 97.5; O2SAT 93
[2022-09-08 06:27] VITALS: BP 110/59; TEMP 97.9; O2SAT 98
[2022-09-08] MEDS: MULTIVITAMINS/MINERALS THERAP 1 TAB PO SCH (08:52)
[2022-09-08] MEDS: NICOTINE 21MG/24HR 1 EA TRANSDERMAL TD SCH (08:53)
[2022-09-08 18:12] VITALS: BP 121/72; TEMP 98; O2SAT 97
[2022-09-08] MEDS: BENZTROPINE 1 MG TAB PO PRN (20:16)
[2022-09-08] MEDS: traZODone 50 MG TAB PO PRN (20:16)
[2022-09-09 06:35] VITALS: BP 118/69; TEMP 97.6; O2SAT 96
[2022-09-09] MEDS: MULTIVITAMINS/MINERALS THERAP 1 TAB PO SCH (09:12)
[2022-09-09] MEDS: NICOTINE 21MG/24HR 1 EA TRANSDERMAL TD SCH (09:12)
[2022-09-09 16:40] VITALS: BP 130/73; TEMP 97.4; O2SAT 98
[2022-09-10 06:38] VITALS: BP 116/69; TEMP 98.5; O2SAT 96
[2022-09-10] MEDS: MULTIVITAMINS/MINERALS THERAP 1 TAB PO SCH (09:16)
[2022-09-10] MEDS: NICOTINE 21MG/24HR 1 EA TRANSDERMAL TD SCH (09:18)
[2022-09-10] MEDS: MOM 30ML SUSPENSION UDC PO PRN (15:26)
[2022-09-11 06:40] VITALS: BP 104/55; TEMP 98.4; O2SAT 97
[2022-09-11] MEDS: MULTIVITAMINS/MINERALS THERAP 1 TAB PO SCH (09:11)
[2022-09-11] MEDS: NICOTINE 21MG/24HR 1 EA TRANSDERMAL TD SCH (09:12)
[2022-09-11 18:21] VITALS: BP 148/80; TEMP 96.7; O2SAT 100
[2022-09-12 06:09] VITALS: BP 114/55; TEMP 98.3; O2SAT 96
[2022-09-12] MEDS: MULTIVITAMINS/MINERALS THERAP 1 TAB PO SCH (09:59)
[2022-09-12] MEDS: NICOTINE 21MG/24HR 1 EA TRANSDERMAL TD SCH (09:59)
[2022-09-12 12:04] LABS: BASO % 0.5 % (0.0-1.0); EOS # 0.1 10^3/uL (0.0-0.5); EOS % 2.3 % (0.0-3.0); HEMATOCRIT 34.9 % (36.0-47.0); MEAN CORPUSCULAR HEMOGLOBIN 32.1 pg (27.0-33.0); MEAN CORPUSCULAR HGB CONC 34.4 g/dl (32.0-36.5); MEAN CORPUSCULAR VOLUME 93.3 fl (80.0-96.0); MONO # 0.4 10^3/uL (0.0-0.8); MONO % 7.1 % (2.0-8.0); NEUTROPHILS # 3.5 10^3/uL (1.5-8.5); NEUTROPHILS % 57.8 % (36.0-66.0); PLATELET COUNT, AUTOMATED 242 10^3/uL (150-450); RED BLOOD COUNT 3.74 10^6/uL (4.00-5.40); WHITE BLOOD COUNT 6.1 10^3/uL (4.0-10.0)
[2022-09-12 16:16] VITALS: BP 123/68; TEMP 97.7; O2SAT 98
[2022-09-13 08:10] LABS: ARSENIC BLOOD 2 ug/L (0-9); LEAD BLOOD <1.0 ug/dL (0.0-3.4); MERCURY BLOOD 2.5 ug/L (0.0-14.9)
[2022-09-13] MEDS: NICOTINE 21MG/24HR 1 EA TRANSDERMAL TD SCH (09:21)
[2022-09-13] MEDS: MULTIVITAMINS/MINERALS THERAP 1 TAB PO SCH (09:21)
[2022-09-13] MEDS: ACETAMINOPHEN TAB 650MG DOSE (2X325MG) PO PRN (11:03)
[2022-09-13 16:53] VITALS: BP 123/72; TEMP 97.8; O2SAT 100
[2022-09-14 06:37] VITALS: BP 127/62; TEMP 98.1; O2SAT 96
[2022-09-14] MEDS: MULTIVITAMINS/MINERALS THERAP 1 TAB PO SCH (09:51)
[2022-09-14] MEDS: NICOTINE 21MG/24HR 1 EA TRANSDERMAL TD SCH (09:52)
[2022-09-14 18:10] VITALS: BP 147/90; TEMP 97.5
[2022-09-15 06:25] VITALS: BP 98/53; TEMP 98.3; O2SAT 95
[2022-09-15] MEDS: MULTIVITAMINS/MINERALS THERAP 1 TAB PO SCH (09:38)
[2022-09-15] MEDS: NICOTINE 21MG/24HR 1 EA TRANSDERMAL TD SCH (09:38)
[2022-09-15 17:29] VITALS: BP 130/80; TEMP 97.6; O2SAT 95
[2022-09-16 05:55] VITALS: BP 121/62; TEMP 97.6; O2SAT 96
[2022-09-16] MEDS: MULTIVITAMINS/MINERALS THERAP 1 TAB PO SCH (09:28)
[2022-09-16] MEDS: NICOTINE 21MG/24HR 1 EA TRANSDERMAL TD SCH (09:28)
[2022-09-16] MEDS: BENZTROPINE 1 MG TAB PO PRN (18:23)
[2022-09-16 18:25] VITALS: BP 124/73; TEMP 98.3; O2SAT 97
[2022-09-17] MEDS: NICOTINE 21MG/24HR 1 EA TRANSDERMAL TD SCH (09:13)
[2022-09-17] MEDS: MULTIVITAMINS/MINERALS THERAP 1 TAB PO SCH (09:13)
[2022-09-17 11:13] LABS: CLOZAPINE 1 86 ng/mL (350-600); CLOZAPINE 2 53 ng/mL (Not Estab.); CLOZAPINE 3 139 ng/mL (.)
[2022-09-17] MEDS: BENZTROPINE 1 MG TAB PO PRN (12:02)
[2022-09-17 17:49] VITALS: BP 135/83; TEMP 98.3; O2SAT 98
[2022-09-18] MEDS: MULTIVITAMINS/MINERALS THERAP 1 TAB PO SCH (08:22)
[2022-09-18] MEDS: NICOTINE 21MG/24HR 1 EA TRANSDERMAL TD SCH (08:23)
[2022-09-18] MEDS: MOM 30ML SUSPENSION UDC PO PRN (09:08)
[2022-09-18] MEDS: BENZTROPINE 1 MG TAB PO PRN (14:54)
[2022-09-18 18:02] VITALS: BP 107/72; TEMP 97.5; O2SAT 100
[2022-09-19] MEDS: MULTIVITAMINS/MINERALS THERAP 1 TAB PO SCH (08:49)
[2022-09-19] MEDS: NICOTINE 21MG/24HR 1 EA TRANSDERMAL TD SCH (08:51)
[2022-09-19 10:54] LABS: BASO % 0.4 % (0.0-1.0); EOS # 0.1 10^3/uL (0.0-0.5); EOS % 2.5 % (0.0-3.0); HEMATOCRIT 36.9 % (36.0-47.0); HEMOGLOBIN 12.4 g/dl (12.0-15.5); LYMPH # 1.5 10^3/uL (1.5-5.0); LYMPH % 31.6 % (24.0-44.0); MEAN CORPUSCULAR HEMOGLOBIN 31.6 pg (27.0-33.0); MEAN CORPUSCULAR HGB CONC 33.6 g/dl (32.0-36.5); MEAN CORPUSCULAR VOLUME 93.9 fl (80.0-96.0); MONO # 0.3 10^3/uL (0.0-0.8); MONO % 6.8 % (2.0-8.0); NEUTROPHILS # 2.8 10^3/uL (1.5-8.5); NEUTROPHILS % 58.5 % (36.0-66.0); PLATELET COUNT, AUTOMATED 253 10^3/uL (150-450); RED BLOOD COUNT 3.93 10^6/uL (4.00-5.40); WHITE BLOOD COUNT 4.7 10^3/uL (4.0-10.0)
[2022-09-19 17:57] VITALS: BP 116/77; TEMP 97.5
[2022-09-20] MEDS: MULTIVITAMINS/MINERALS THERAP 1 TAB PO SCH (08:44)
[2022-09-20] MEDS: NICOTINE 21MG/24HR 1 EA TRANSDERMAL TD SCH (08:45)
[2022-09-20] MEDS: BENZTROPINE 1 MG TAB PO PRN (14:31)
[2022-09-20 18:44] VITALS: BP 129/77; TEMP 98.7; O2SAT 100
[2022-09-21 06:19] VITALS: BP 108/64; TEMP 96.7; O2SAT 97
[2022-09-21] MEDS: MULTIVITAMINS/MINERALS THERAP 1 TAB PO SCH (08:54)
[2022-09-21] MEDS: NICOTINE 21MG/24HR 1 EA TRANSDERMAL TD SCH (08:55)
[2022-09-21 18:00] VITALS: BP 149/69; TEMP 97.8; O2SAT 99
[2022-09-21] MEDS: BENZTROPINE 1 MG TAB PO PRN (18:07)
[2022-09-22 05:57] VITALS: BP 111/62; TEMP 97; O2SAT 98
[2022-09-22] MEDS: NICOTINE 21MG/24HR 1 EA TRANSDERMAL TD SCH (09:24)
[2022-09-22] MEDS: MULTIVITAMINS/MINERALS THERAP 1 TAB PO SCH (09:24)
[2022-09-22 17:48] VITALS: BP 107/69; TEMP 97.4; O2SAT 99
[2022-09-22] MEDS: BENZTROPINE 1 MG TAB PO PRN (18:07)
[2022-09-23 06:39] VITALS: BP 122/72; TEMP 97.8; O2SAT 97
[2022-09-23] MEDS: MULTIVITAMINS/MINERALS THERAP 1 TAB PO SCH (09:14)
[2022-09-23] MEDS: NICOTINE 21MG/24HR 1 EA TRANSDERMAL TD SCH (09:15)
[2022-09-23 16:22] VITALS: BP 115/58; TEMP 97.6; O2SAT 99
[2022-09-23] MEDS: traZODone 50 MG TAB PO PRN (21:39)
[2022-09-24 06:35] VITALS: BP 127/73; TEMP 97.6; O2SAT 99
[2022-09-24] MEDS: MULTIVITAMINS/MINERALS THERAP 1 TAB PO SCH (08:53)
[2022-09-24] MEDS: NICOTINE 21MG/24HR 1 EA TRANSDERMAL TD SCH (09:37)
[2022-09-24 16:34] VITALS: BP 117/68; TEMP 97.2; O2SAT 100
[2022-09-25 06:13] VITALS: BP 109/57; TEMP 97.5; O2SAT 97
[2022-09-25] MEDS: MULTIVITAMINS/MINERALS THERAP 1 TAB PO SCH (08:37)
[2022-09-25] MEDS: NICOTINE 21MG/24HR 1 EA TRANSDERMAL TD SCH (08:38)
[2022-09-25] MEDS: OLANZapine ORAL DISINTEGRATING TAB 5MG PO PRN (09:02)
[2022-09-25] MEDS: BENZTROPINE 1 MG TAB PO PRN (15:30)
[2022-09-25 17:28] VITALS: BP 116/65; TEMP 96; O2SAT 99
[2022-09-26] MEDS: MULTIVITAMINS/MINERALS THERAP 1 TAB PO SCH (09:31)
[2022-09-26] MEDS: NICOTINE 21MG/24HR 1 EA TRANSDERMAL TD SCH (09:31)
[2022-09-26 13:05] LABS: BASO % 0.4 % (0.0-1.0); EOS # 0.1 10^3/uL (0.0-0.5); HEMATOCRIT 38.4 % (36.0-47.0); LYMPH # 2.2 10^3/uL (1.5-5.0); LYMPH % 40.7 % (24.0-44.0); MEAN CORPUSCULAR HEMOGLOBIN 31.3 pg (27.0-33.0); MEAN CORPUSCULAR HGB CONC 33.9 g/dl (32.0-36.5); MEAN CORPUSCULAR VOLUME 92.5 fl (80.0-96.0); MONO # 0.4 10^3/uL (0.0-0.8); MONO % 6.6 % (2.0-8.0); NEUTROPHILS # 2.8 10^3/uL (1.5-8.5); NEUTROPHILS % 50.1 % (36.0-66.0); PLATELET COUNT, AUTOMATED 254 10^3/uL (150-450); RED BLOOD COUNT 4.15 10^6/uL (4.00-5.40); WHITE BLOOD COUNT 5.5 10^3/uL (4.0-10.0)
[2022-09-26 16:34] VITALS: BP 117/67; TEMP 97.2; O2SAT 96
[2022-09-27 06:40] VITALS: BP 108/69; TEMP 97.9; O2SAT 96
[2022-09-27] MEDS: MULTIVITAMINS/MINERALS THERAP 1 TAB PO SCH (08:41)
[2022-09-27] MEDS: NICOTINE 21MG/24HR 1 EA TRANSDERMAL TD SCH (08:42)
[2022-09-27 16:14] VITALS: BP 135/74; TEMP 97.2; O2SAT 98
[2022-09-27] MEDS: OLANZapine ORAL DISINTEGRATING TAB 5MG PO PRN (19:07)
[2022-09-27] MEDS: traZODone 50 MG TAB PO PRN (20:57)
[2022-09-28 06:34] VITALS: BP 93/57; TEMP 97.5; O2SAT 98
[2022-09-28] MEDS: NICOTINE 21MG/24HR 1 EA TRANSDERMAL TD SCH (08:50)
[2022-09-28] MEDS: MULTIVITAMINS/MINERALS THERAP 1 TAB PO SCH (08:50)
[2022-09-28] MEDS: ACETAMINOPHEN TAB 650MG DOSE (2X325MG) PO PRN (13:23)
[2022-09-28 16:13] VITALS: BP 119/71; TEMP 97.2; O2SAT 100
[2022-09-28] MEDS: traZODone 50 MG TAB PO PRN (21:07)
[2022-09-29 06:30] VITALS: BP 119/63; TEMP 97.7; O2SAT 100
[2022-09-29] MEDS: MULTIVITAMINS/MINERALS THERAP 1 TAB PO SCH (08:54)
[2022-09-29] MEDS: NICOTINE 21MG/24HR 1 EA TRANSDERMAL TD SCH (08:56)
[2022-09-29 18:00] VITALS: BP 131/84; TEMP 98.3; O2SAT 99
[2022-09-29] MEDS: traZODone 50 MG TAB PO PRN (19:33)
[2022-09-30 06:18] VITALS: BP 124/64; TEMP 97; O2SAT 96
[2022-09-30] MEDS: MULTIVITAMINS/MINERALS THERAP 1 TAB PO SCH (08:04)
[2022-09-30] MEDS: NICOTINE 21MG/24HR 1 EA TRANSDERMAL TD SCH (08:05)
[2022-09-30 17:48] VITALS: BP 105/69; TEMP 98.2; O2SAT 100
[2022-09-30] MEDS: traZODone 50 MG TAB PO PRN (20:03)
[2022-10-01 06:27] VITALS: BP 107/55; TEMP 98.1; O2SAT 96
[2022-10-01] MEDS: MULTIVITAMINS/MINERALS THERAP 1 TAB PO SCH (08:45)
[2022-10-01] MEDS: NICOTINE 21MG/24HR 1 EA TRANSDERMAL TD SCH (08:45)
[2022-10-01 17:18] VITALS: BP 124/70; TEMP 97.3; O2SAT 100
[2022-10-02 06:52] VITALS: BP 104/60; TEMP 97.3; O2SAT 98
[2022-10-02] MEDS: MULTIVITAMINS/MINERALS THERAP 1 TAB PO SCH (08:03)
[2022-10-02] MEDS: NICOTINE 21MG/24HR 1 EA TRANSDERMAL TD SCH (08:03)
[2022-10-02 17:08] VITALS: BP 137/82; TEMP 97.6; O2SAT 97
[2022-10-03] MEDS: MULTIVITAMINS/MINERALS THERAP 1 TAB PO SCH (08:33)
[2022-10-03] MEDS: NICOTINE 21MG/24HR 1 EA TRANSDERMAL TD SCH (08:33)
[2022-10-03 10:50] LABS: BASO % 0.5 % (0.0-1.0); EOS # 0.1 10^3/uL (0.0-0.5); EOS % 2.1 % (0.0-3.0); HEMOGLOBIN 13.3 g/dl (12.0-15.5); LYMPH % 32.1 % (24.0-44.0); MEAN CORPUSCULAR HGB CONC 34.1 g/dl (32.0-36.5); MEAN CORPUSCULAR VOLUME 93.8 fl (80.0-96.0); MONO # 0.5 10^3/uL (0.0-0.8); MONO % 7.8 % (2.0-8.0); NEUTROPHILS # 3.5 10^3/uL (1.5-8.5); NEUTROPHILS % 57.2 % (36.0-66.0); PLATELET COUNT, AUTOMATED 257 10^3/uL (150-450); RED BLOOD COUNT 4.16 10^6/uL (4.00-5.40); WHITE BLOOD COUNT 6.1 10^3/uL (4.0-10.0)
[2022-10-03] MEDS: OLANZapine ORAL DISINTEGRATING TAB 5MG PO PRN (15:49)
[2022-10-03] MEDS: traZODone 50 MG TAB PO PRN (20:02)
[2022-10-04] MEDS ORDERED: [UNRECOGNIZED DRUG - OTHER] PO SCH (09:00)
[2022-10-04] MEDS: NICOTINE 21MG/24HR 1 EA TRANSDERMAL TD SCH (09:15)
[2022-10-04 18:31] VITALS: BP 111/62; TEMP 96.4; O2SAT 98
[2022-10-04] MEDS: traZODone 50 MG TAB PO PRN (20:07)
[2022-10-05 06:54] VITALS: BP 106/57; TEMP 96.6; O2SAT 97
[2022-10-05] MEDS: NICOTINE 21MG/24HR 1 EA TRANSDERMAL TD SCH (07:50)
[2022-10-05 18:22] VITALS: BP 108/67; TEMP 96.1; O2SAT 100
[2022-10-06] MEDS: NICOTINE 21MG/24HR 1 EA TRANSDERMAL TD SCH (09:25)
[2022-10-06 18:09] VITALS: BP 116/73; TEMP 97.8; O2SAT 100
[2022-10-06] MEDS: traZODone 50 MG TAB PO PRN (20:48)
[2022-10-07 06:34] VITALS: BP 118/70; TEMP 96.6; O2SAT 97
[2022-10-07] MEDS: ACETYLCYSTEINE 1000 MG PO SCH (08:55)
[2022-10-07] MEDS: [UNRECOGNIZED DRUG - OTHER] PO SCH (08:55)
[2022-10-07] MEDS: NICOTINE 21MG/24HR 1 EA TRANSDERMAL TD SCH (08:56)
[2022-10-07] MEDS: MAGNESIUM PO SCH (08:56)
[2022-10-07] MEDS: ZINC PO SCH (08:56)
[2022-10-07] MEDS: CALCIUM PO SCH (08:56)
[2022-10-07] MEDS: VIT D PO SCH (08:56)
[2022-10-07] MEDS: PILL CUTTER 1 EACH XX PRN ×2 (08:58→21:35)
[2022-10-07] MEDS: BENZTROPINE 1 MG TAB PO PRN (13:50)
[2022-10-07 19:06] VITALS: BP 114/67; TEMP 97.3
[2022-10-08] MEDS: ZINC PO SCH (08:14)
[2022-10-08] MEDS: MAGNESIUM PO SCH (08:14)
[2022-10-08] MEDS: CALCIUM PO SCH (08:14)
[2022-10-08] MEDS: ACETYLCYSTEINE 1000 MG PO SCH (08:14)
[2022-10-08] MEDS: VIT D PO SCH (08:14)
[2022-10-08] MEDS: [UNRECOGNIZED DRUG - OTHER] PO SCH (08:15)
[2022-10-08] MEDS: PILL CUTTER 1 EACH XX PRN (08:15)
[2022-10-08] MEDS: NICOTINE 21MG/24HR 1 EA TRANSDERMAL TD SCH (08:17)
[2022-10-08 18:36] VITALS: BP 116/69; TEMP 97.6
[2022-10-09] MEDS: VIT D PO SCH (08:31)
[2022-10-09] MEDS: CALCIUM PO SCH (08:31)
[2022-10-09] MEDS: ZINC PO SCH (08:31)
[2022-10-09] MEDS: ACETYLCYSTEINE 1000 MG PO SCH (08:31)
[2022-10-09] MEDS: MAGNESIUM PO SCH (08:31)
[2022-10-09] MEDS: PILL CUTTER 1 EACH XX PRN (08:32)
[2022-10-09] MEDS: [UNRECOGNIZED DRUG - OTHER] PO SCH (08:32)
[2022-10-09] MEDS: NICOTINE 21MG/24HR 1 EA TRANSDERMAL TD SCH (08:33)
[2022-10-09 18:00] VITALS: BP 128/75; TEMP 97.3
[2022-10-10 06:38] VITALS: BP 105/57; TEMP 98.5; O2SAT 100
[2022-10-10] MEDS: NICOTINE 21MG/24HR 1 EA TRANSDERMAL TD SCH (08:42)
[2022-10-10] MEDS: PILL CUTTER 1 EACH XX PRN (08:43)
[2022-10-10] MEDS: CALCIUM PO SCH (08:44)
[2022-10-10] MEDS: VIT D PO SCH (08:44)
[2022-10-10] MEDS: MAGNESIUM PO SCH (08:44)
[2022-10-10] MEDS: ACETYLCYSTEINE 1000 MG PO SCH (08:44)
[2022-10-10] MEDS: ZINC PO SCH (08:44)
[2022-10-10] MEDS: [UNRECOGNIZED DRUG - OTHER] PO SCH (08:44)
[2022-10-10 11:15] LABS: BASO % 0.5 % (0.0-1.0); EOS # 0.1 10^3/uL (0.0-0.5); EOS % 2.1 % (0.0-3.0); HEMATOCRIT 37.1 % (36.0-47.0); HEMOGLOBIN 12.7 g/dl (12.0-15.5); LYMPH # 2.3 10^3/uL (1.5-5.0); LYMPH % 36.9 % (24.0-44.0); MEAN CORPUSCULAR HEMOGLOBIN 31.6 pg (27.0-33.0); MEAN CORPUSCULAR HGB CONC 34.2 g/dl (32.0-36.5); MEAN CORPUSCULAR VOLUME 92.3 fl (80.0-96.0); MONO # 0.4 10^3/uL (0.0-0.8); MONO % 6.8 % (2.0-8.0); NEUTROPHILS # 3.3 10^3/uL (1.5-8.5); NEUTROPHILS % 53.5 % (36.0-66.0); PLATELET COUNT, AUTOMATED 256 10^3/uL (150-450); RED BLOOD COUNT 4.02 10^6/uL (4.00-5.40); WHITE BLOOD COUNT 6.2 10^3/uL (4.0-10.0)
[2022-10-10] MEDS: ACETAMINOPHEN TAB 650MG DOSE (2X325MG) PO PRN (15:36)
[2022-10-10 17:36] VITALS: BP 130/66; TEMP 97.8; O2SAT 98
[2022-10-10] MEDS: traZODone 50 MG TAB PO PRN (21:11)
[2022-10-11 06:56] VITALS: BP 86/55; TEMP 98.4; O2SAT 98
[2022-10-11] MEDS: ACETYLCYSTEINE 1000 MG PO SCH (10:28)
[2022-10-11] MEDS: [UNRECOGNIZED DRUG - OTHER] PO SCH (10:28)
[2022-10-11] MEDS: VIT D PO SCH (10:29)
[2022-10-11] MEDS: MAGNESIUM PO SCH (10:29)
[2022-10-11] MEDS: CALCIUM PO SCH (10:29)
[2022-10-11] MEDS: ZINC PO SCH (10:29)
[2022-10-11] MEDS: NICOTINE 21MG/24HR 1 EA TRANSDERMAL TD SCH (10:31)
[2022-10-11] MEDS: BENZTROPINE 1 MG TAB PO PRN (11:10)
[2022-10-11 18:19] VITALS: BP 127/71; TEMP 97.8; O2SAT 99
[2022-10-12 06:36] VITALS: BP 83/41; TEMP 98; O2SAT 100
[2022-10-12] MEDS: NICOTINE 21MG/24HR 1 EA TRANSDERMAL TD SCH (09:31)
[2022-10-12] MEDS: CALCIUM PO SCH (09:32)
[2022-10-12] MEDS: ZINC PO SCH (09:32)
[2022-10-12] MEDS: ACETYLCYSTEINE 1000 MG PO SCH (09:32)
[2022-10-12] MEDS: MAGNESIUM PO SCH (09:32)
[2022-10-12] MEDS: VIT D PO SCH (09:32)
[2022-10-12] MEDS: [UNRECOGNIZED DRUG - OTHER] PO SCH (09:32)
[2022-10-12] MEDS: BENZTROPINE 1 MG TAB PO PRN (13:21)
[2022-10-12 16:56] VITALS: BP 138/79; TEMP 97.9
[2022-10-12] MEDS: traZODone 50 MG TAB PO PRN (20:07)
[2022-10-12] MEDS: PILL CUTTER 1 EACH XX PRN (20:07)
[2022-10-13 06:15] VITALS: BP 115/65; TEMP 98.1; O2SAT 96
[2022-10-13] MEDS: VIT D PO SCH (08:45)
[2022-10-13] MEDS: MAGNESIUM PO SCH (08:45)
[2022-10-13] MEDS: ZINC PO SCH (08:45)
[2022-10-13] MEDS: [UNRECOGNIZED DRUG - OTHER] PO SCH (08:45)
[2022-10-13] MEDS: ACETYLCYSTEINE 1000 MG PO SCH (08:45)
[2022-10-13] MEDS: CALCIUM PO SCH (08:45)
[2022-10-13] MEDS: PILL CUTTER 1 EACH XX PRN ×2 (08:46→21:28)
[2022-10-13] MEDS: NICOTINE 21MG/24HR 1 EA TRANSDERMAL TD SCH (08:47)
[2022-10-13] MEDS: OLANZapine ORAL DISINTEGRATING TAB 5MG PO PRN (13:36)
[2022-10-13 18:00] VITALS: BP 112/87; TEMP 97
[2022-10-13] MEDS: traZODone 50 MG TAB PO PRN (21:28)
[2022-10-14 06:21] VITALS: BP 106/64; TEMP 98.3; O2SAT 97
[2022-10-14] MEDS: NICOTINE 21MG/24HR 1 EA TRANSDERMAL TD SCH (09:00)
[2022-10-14] MEDS: ZINC PO SCH (09:11)
[2022-10-14] MEDS: [UNRECOGNIZED DRUG - OTHER] PO SCH (09:11)
[2022-10-14] MEDS: ACETYLCYSTEINE 1000 MG PO SCH (09:11)
[2022-10-14] MEDS: VIT D PO SCH (09:11)
[2022-10-14] MEDS: CALCIUM PO SCH (09:11)
[2022-10-14] MEDS: MAGNESIUM PO SCH (09:11)
[2022-10-14] MEDS: PILL CUTTER 1 EACH XX PRN (09:12)
[2022-10-14] MEDS: ACETAMINOPHEN TAB 650MG DOSE (2X325MG) PO PRN (12:51)
[2022-10-14] MEDS: traZODone 50 MG TAB PO PRN (20:02)
[2022-10-15] MEDS: traZODone 50 MG TAB PO PRN (02:15)
[2022-10-15] MEDS: NICOTINE 21MG/24HR 1 EA TRANSDERMAL TD SCH (09:00)
[2022-10-15] MEDS: [UNRECOGNIZED DRUG - OTHER] PO SCH (09:21)
[2022-10-15] MEDS: ZINC PO SCH (09:22)
[2022-10-15] MEDS: ACETYLCYSTEINE 1000 MG PO SCH (09:22)
[2022-10-15] MEDS: VIT D PO SCH (09:22)
[2022-10-15] MEDS: MAGNESIUM PO SCH (09:22)
[2022-10-15] MEDS: CALCIUM PO SCH (09:22)
[2022-10-15 17:59] LABS: BASO % 0.3 % (0.0-1.0); EOS % 0.3 % (0.0-3.0); HEMATOCRIT 37.3 % (36.0-47.0); LYMPH % 11.9 % (24.0-44.0); MEAN CORPUSCULAR HEMOGLOBIN 31.8 pg (27.0-33.0); MEAN CORPUSCULAR HGB CONC 34.9 g/dl (32.0-36.5); MEAN CORPUSCULAR VOLUME 91.2 fl (80.0-96.0); MONO # 0.4 10^3/uL (0.0-0.8); MONO % 4.8 % (2.0-8.0); NEUTROPHILS # 7.2 10^3/uL (1.5-8.5); NEUTROPHILS % 82.5 % (36.0-66.0); PLATELET COUNT, AUTOMATED 265 10^3/uL (150-450); RED BLOOD COUNT 4.09 10^6/uL (4.00-5.40); WHITE BLOOD COUNT 8.7 10^3/uL (4.0-10.0)
[2022-10-15 18:21] LABS: ALBUMIN 3.8 G/DL (3.2-5.2); ALKALINE PHOSPHATASE 82 U/L (46-116); ALT/SGPT 24 U/L (7.0-40); AST/SGOT 12 U/L (<34); BILIRUBIN,TOTAL 0.3 MG/DL (0.3-1.2); BLOOD UREA NITROGEN 10 MG/DL (9-23); CALCIUM LEVEL 9.6 MG/DL (8.5-10.1); CARBON DIOXIDE LEVEL 24 MMOL/L (20-31); CHLORIDE LEVEL 103 MMOL/L (98-107); CREATININE FOR GFR 0.51 MG/DL (0.55-1.30); GLOMERULAR FILTRATION RATE > 60.0 (>60); GLUCOSE, FASTING 115 MG/DL (60-100); POTASSIUM SERUM 3.7 MMOL/L (3.5-5.1); SODIUM LEVEL 138 MMOL/L (136-145); TOTAL PROTEIN 6.8 G/DL (5.7-8.2)
[2022-10-15 18:22] VITALS: BP 105/73; TEMP 97.9; O2SAT 96
[2022-10-15 18:23] LABS: THYROID STIMULATING HORMONE 1.051 uIU/ML (0.55-4.78); THYROXINE (T4) 7.5 UG/DL (4.5-10.9)
[2022-10-15 18:24] LABS: FREE THYROXINE INDEX 2.3 % (1.3-4.8)
[2022-10-16] MEDS: [UNRECOGNIZED DRUG - OTHER] PO SCH (08:45)
[2022-10-16] MEDS: ACETYLCYSTEINE 1000 MG PO SCH (08:45)
[2022-10-16] MEDS: MAGNESIUM PO SCH (08:46)
[2022-10-16] MEDS: ZINC PO SCH (08:46)
[2022-10-16] MEDS: CALCIUM PO SCH (08:46)
[2022-10-16] MEDS: VIT D PO SCH (08:46)
[2022-10-16] MEDS: PILL CUTTER 1 EACH XX PRN (08:47)
[2022-10-16] MEDS: NICOTINE 21MG/24HR 1 EA TRANSDERMAL TD SCH (08:49)
[2022-10-16] MEDS: ACETAMINOPHEN TAB 650MG DOSE (2X325MG) PO PRN (11:20)
[2022-10-16 18:09] VITALS: BP 113/73; TEMP 97.4; O2SAT 97
[2022-10-16] MEDS: traZODone 50 MG TAB PO PRN (20:01)
[2022-10-17 08:28] LABS: BASO % 0.3 % (0.0-1.0); EOS # 0.1 10^3/uL (0.0-0.5); EOS % 1.7 % (0.0-3.0); HEMATOCRIT 35.7 % (36.0-47.0); LYMPH # 1.1 10^3/uL (1.5-5.0); MEAN CORPUSCULAR HEMOGLOBIN 31.7 pg (27.0-33.0); MEAN CORPUSCULAR HGB CONC 33.6 g/dl (32.0-36.5); MEAN CORPUSCULAR VOLUME 94.4 fl (80.0-96.0); MONO # 0.3 10^3/uL (0.0-0.8); MONO % 5.6 % (2.0-8.0); NEUTROPHILS # 4.3 10^3/uL (1.5-8.5); NEUTROPHILS % 73.2 % (36.0-66.0); PLATELET COUNT, AUTOMATED 232 10^3/uL (150-450); RED BLOOD COUNT 3.78 10^6/uL (4.00-5.40); WHITE BLOOD COUNT 5.9 10^3/uL (4.0-10.0)
[2022-10-17] MEDS: ZINC PO SCH (08:49)
[2022-10-17] MEDS: VIT D PO SCH (08:49)
[2022-10-17] MEDS: MAGNESIUM PO SCH (08:49)
[2022-10-17] MEDS: ACETYLCYSTEINE 1000 MG PO SCH (08:49)
[2022-10-17] MEDS: CALCIUM PO SCH (08:49)
[2022-10-17] MEDS: [UNRECOGNIZED DRUG - OTHER] PO SCH (08:50)
[2022-10-17] MEDS: NICOTINE 21MG/24HR 1 EA TRANSDERMAL TD SCH (09:00)
[2022-10-17 12:09] LABS: BASO % 0.3 % (0.0-1.0); EOS # 0.1 10^3/uL (0.0-0.5); EOS % 1.7 % (0.0-3.0); HEMOGLOBIN 12.2 g/dl (12.0-15.5); LYMPH # 1.4 10^3/uL (1.5-5.0); LYMPH % 23.8 % (24.0-44.0); MEAN CORPUSCULAR VOLUME 94.1 fl (80.0-96.0); MONO # 0.6 10^3/uL (0.0-0.8); MONO % 10.8 % (2.0-8.0); NEUTROPHILS # 3.7 10^3/uL (1.5-8.5); NEUTROPHILS % 63.1 % (36.0-66.0); PLATELET COUNT, AUTOMATED 246 10^3/uL (150-450); RED BLOOD COUNT 3.93 10^6/uL (4.00-5.40); WHITE BLOOD COUNT 5.8 10^3/uL (4.0-10.0)
[2022-10-17] MEDS: risperiDONE 2 MG TAB PO SCH (20:50)
[2022-10-18 06:42] VITALS: BP 121/63; TEMP 97.4; O2SAT 95
[2022-10-18] MEDS: NICOTINE 21MG/24HR 1 EA TRANSDERMAL TD SCH (09:00)
[2022-10-18] MEDS: MOM 30ML SUSPENSION UDC PO PRN (09:50)
[2022-10-18] MEDS: ACETYLCYSTEINE 1000 MG PO SCH (09:50)
[2022-10-18] MEDS: ZINC PO SCH (09:51)
[2022-10-18] MEDS: MAGNESIUM PO SCH (09:51)
[2022-10-18] MEDS: [UNRECOGNIZED DRUG - OTHER] PO SCH (09:51)
[2022-10-18] MEDS: CALCIUM PO SCH (09:51)
[2022-10-18] MEDS: VIT D PO SCH (09:51)
[2022-10-18] MEDS: IBUPROFEN 400MG TAB PO PRN (13:30)
[2022-10-18 16:05] VITALS: BP 125/79; TEMP 97.7; O2SAT 100
[2022-10-18] MEDS: risperiDONE 2 MG TAB PO SCH (21:39)
[2022-10-19] MEDS: NICOTINE 21MG/24HR 1 EA TRANSDERMAL TD SCH (09:00)
[2022-10-19] MEDS: ACETYLCYSTEINE 1000 MG PO SCH (09:28)
[2022-10-19] MEDS: CALCIUM PO SCH (09:28)
[2022-10-19] MEDS: MAGNESIUM PO SCH (09:28)
[2022-10-19] MEDS: ZINC PO SCH (09:28)
[2022-10-19] MEDS: VIT D PO SCH (09:28)
[2022-10-19] MEDS: [UNRECOGNIZED DRUG - OTHER] PO SCH (09:29)
[2022-10-19 17:02] VITALS: BP 131/83; TEMP 97.5; O2SAT 97
[2022-10-19] MEDS: risperiDONE 2 MG TAB PO SCH (21:14)
[2022-10-20 06:43] VITALS: BP 144/77; TEMP 97.1; O2SAT 93
[2022-10-20] MEDS: NICOTINE 21MG/24HR 1 EA TRANSDERMAL TD SCH (09:00)
[2022-10-20] MEDS: MAGNESIUM PO SCH (09:23)
[2022-10-20] MEDS: [UNRECOGNIZED DRUG - OTHER] PO SCH (09:23)
[2022-10-20] MEDS: CALCIUM PO SCH (09:23)
[2022-10-20] MEDS: VIT D PO SCH (09:23)
[2022-10-20] MEDS: ZINC PO SCH (09:23)
[2022-10-20] MEDS: ACETYLCYSTEINE 1000 MG PO SCH (09:24)
[2022-10-20 16:14] VITALS: BP 122/72; TEMP 97.3; O2SAT 99
[2022-10-21] MEDS: NICOTINE 21MG/24HR 1 EA TRANSDERMAL TD SCH (09:00)
[2022-10-21] MEDS: ACETYLCYSTEINE 1000 MG PO SCH (09:04)
[2022-10-21] MEDS: CALCIUM PO SCH (09:04)
[2022-10-21] MEDS: ZINC PO SCH (09:04)
[2022-10-21] MEDS: VIT D PO SCH (09:04)
[2022-10-21] MEDS: MAGNESIUM PO SCH (09:04)
[2022-10-21] MEDS: [UNRECOGNIZED DRUG - OTHER] PO SCH (09:04)
[2022-10-21 16:30] VITALS: BP 124/77; TEMP 97.3; O2SAT 96
[2022-10-22 06:21] VITALS: BP 102/52; TEMP 97.4; O2SAT 97
[2022-10-22] MEDS: NICOTINE 21MG/24HR 1 EA TRANSDERMAL TD SCH (08:39)
[2022-10-22] MEDS: ZINC PO SCH (08:41)
[2022-10-22] MEDS: MAGNESIUM PO SCH (08:41)
[2022-10-22] MEDS: [UNRECOGNIZED DRUG - OTHER] PO SCH (08:41)
[2022-10-22] MEDS: VIT D PO SCH (08:41)
[2022-10-22] MEDS: ACETYLCYSTEINE 1000 MG PO SCH (08:41)
[2022-10-22] MEDS: CALCIUM PO SCH (08:41)
[2022-10-22 09:25] LABS: BASO % 0.4 % (0.0-1.0); EOS # 0.2 10^3/uL (0.0-0.5); EOS % 2.4 % (0.0-3.0); HEMATOCRIT 38.7 % (36.0-47.0); HEMOGLOBIN 13.1 g/dl (12.0-15.5); LYMPH # 2.3 10^3/uL (1.5-5.0); LYMPH % 32.8 % (24.0-44.0); MEAN CORPUSCULAR HEMOGLOBIN 31.3 pg (27.0-33.0); MEAN CORPUSCULAR HGB CONC 33.9 g/dl (32.0-36.5); MEAN CORPUSCULAR VOLUME 92.4 fl (80.0-96.0); MONO # 0.4 10^3/uL (0.0-0.8); MONO % 5.2 % (2.0-8.0); NEUTROPHILS # 4.1 10^3/uL (1.5-8.5); NEUTROPHILS % 58.8 % (36.0-66.0); PLATELET COUNT, AUTOMATED 343 10^3/uL (150-450); RED BLOOD COUNT 4.19 10^6/uL (4.00-5.40)
[2022-10-22 10:49] LABS: ALBUMIN 3.6 G/DL (3.2-5.2); ALKALINE PHOSPHATASE 94 U/L (46-116); ALT/SGPT 23 U/L (7.0-40); AST/SGOT 13 U/L (<34); BILIRUBIN,TOTAL 0.2 MG/DL (0.3-1.2); BLOOD UREA NITROGEN 14 MG/DL (9-23); CALCIUM LEVEL 8.9 MG/DL (8.5-10.1); CARBON DIOXIDE LEVEL 25 MMOL/L (20-31); CHLORIDE LEVEL 106 MMOL/L (98-107); CREATININE FOR GFR 0.46 MG/DL (0.55-1.30); GLOMERULAR FILTRATION RATE > 60.0 (>60); GLUCOSE, FASTING 117 MG/DL (60-100); SODIUM LEVEL 141 MMOL/L (136-145); TOTAL PROTEIN 6.7 G/DL (5.7-8.2)
[2022-10-22] MEDS: BENZTROPINE 1 MG TAB PO PRN (11:54)
[2022-10-22 15:27] VITALS: BP 114/64; TEMP 97.8; O2SAT 97
[2022-10-23 05:45] VITALS: BP 114/67; TEMP 98.2; O2SAT 96
[2022-10-23] MEDS: NICOTINE 21MG/24HR 1 EA TRANSDERMAL TD SCH (08:52)
[2022-10-23] MEDS: CALCIUM PO SCH (08:53)
[2022-10-23] MEDS: MAGNESIUM PO SCH (08:53)
[2022-10-23] MEDS: VIT D PO SCH (08:53)
[2022-10-23] MEDS: [UNRECOGNIZED DRUG - OTHER] PO SCH (08:53)
[2022-10-23] MEDS: ZINC PO SCH (08:53)
[2022-10-23] MEDS: ACETYLCYSTEINE 1000 MG PO SCH (08:53)
[2022-10-23 11:20] LABS: BASO % 0.3 % (0.0-1.0); EOS # 0.1 10^3/uL (0.0-0.5); EOS % 1.4 % (0.0-3.0); HEMATOCRIT 36.4 % (36.0-47.0); HEMOGLOBIN 12.6 g/dl (12.0-15.5); LYMPH # 2.4 10^3/uL (1.5-5.0); LYMPH % 34.1 % (24.0-44.0); MEAN CORPUSCULAR HEMOGLOBIN 31.8 pg (27.0-33.0); MEAN CORPUSCULAR HGB CONC 34.6 g/dl (32.0-36.5); MEAN CORPUSCULAR VOLUME 91.9 fl (80.0-96.0); MONO # 0.5 10^3/uL (0.0-0.8); MONO % 7.4 % (2.0-8.0); NEUTROPHILS # 3.9 10^3/uL (1.5-8.5); NEUTROPHILS % 56.2 % (36.0-66.0); PLATELET COUNT, AUTOMATED 312 10^3/uL (150-450); RED BLOOD COUNT 3.96 10^6/uL (4.00-5.40); WHITE BLOOD COUNT 6.9 10^3/uL (4.0-10.0)
[2022-10-23] MEDS: ACETAMINOPHEN TAB 650MG DOSE (2X325MG) PO PRN (14:28)
[2022-10-23 17:55] VITALS: BP 120/84; TEMP 97.3; O2SAT 97
[2022-10-24 06:26] VITALS: BP 122/80; TEMP 98.8; O2SAT 96
[2022-10-24] MEDS: NICOTINE 21MG/24HR 1 EA TRANSDERMAL TD SCH (09:00)
[2022-10-24] MEDS: ACETYLCYSTEINE 1000 MG PO SCH (09:42)
[2022-10-24] MEDS: [UNRECOGNIZED DRUG - OTHER] PO SCH (09:42)
[2022-10-24] MEDS: VIT D PO SCH (09:43)
[2022-10-24] MEDS: CALCIUM PO SCH (09:43)
[2022-10-24] MEDS: MAGNESIUM PO SCH (09:43)
[2022-10-24] MEDS: ZINC PO SCH (09:43)
[2022-10-24 12:20] LABS: BASO % 0.4 % (0.0-1.0); EOS # 0.1 10^3/uL (0.0-0.5); EOS % 1.7 % (0.0-3.0); HEMATOCRIT 35.3 % (36.0-47.0); HEMOGLOBIN 11.8 g/dl (12.0-15.5); LYMPH # 2.3 10^3/uL (1.5-5.0); LYMPH % 28.3 % (24.0-44.0); MEAN CORPUSCULAR HEMOGLOBIN 31.3 pg (27.0-33.0); MEAN CORPUSCULAR HGB CONC 33.4 g/dl (32.0-36.5); MEAN CORPUSCULAR VOLUME 93.6 fl (80.0-96.0); MONO # 0.6 10^3/uL (0.0-0.8); MONO % 7.5 % (2.0-8.0); NEUTROPHILS # 5.1 10^3/uL (1.5-8.5); NEUTROPHILS % 61.4 % (36.0-66.0); PLATELET COUNT, AUTOMATED 293 10^3/uL (150-450); RED BLOOD COUNT 3.77 10^6/uL (4.00-5.40); WHITE BLOOD COUNT 8.2 10^3/uL (4.0-10.0)
[2022-10-24 19:02] VITALS: BP 118/61; TEMP 98.2
[2022-10-25 06:57] VITALS: BP 88/54; TEMP 97.1; O2SAT 97
[2022-10-25] MEDS: NICOTINE 21MG/24HR 1 EA TRANSDERMAL TD SCH (09:00)
[2022-10-25] MEDS: [UNRECOGNIZED DRUG - OTHER] PO SCH (09:36)
[2022-10-25] MEDS: ZINC PO SCH (09:37)
[2022-10-25] MEDS: CALCIUM PO SCH (09:37)
[2022-10-25] MEDS: MAGNESIUM PO SCH (09:37)
[2022-10-25] MEDS: VIT D PO SCH (09:37)
[2022-10-25] MEDS: ACETYLCYSTEINE 1000 MG PO SCH (09:37)
[2022-10-25 15:29] VITALS: BP 105/59; TEMP 97.2; O2SAT 93
[2022-10-26 06:42] VITALS: BP 126/49; TEMP 97.7; O2SAT 100
[2022-10-26] MEDS: MAGNESIUM PO SCH (08:58)
[2022-10-26] MEDS: VIT D PO SCH (08:58)
[2022-10-26] MEDS: [UNRECOGNIZED DRUG - OTHER] PO SCH (08:58)
[2022-10-26] MEDS: CALCIUM PO SCH (08:58)
[2022-10-26] MEDS: ACETYLCYSTEINE 1000 MG PO SCH (08:58)
[2022-10-26] MEDS: ZINC PO SCH (08:58)
[2022-10-26] MEDS: NICOTINE 21MG/24HR 1 EA TRANSDERMAL TD SCH (08:58)
[2022-10-26 14:00] VITALS: BP 132/75; TEMP 98.4; O2SAT 98
[2022-10-26 18:48] VITALS: BP 132/75; TEMP 98.4; O2SAT 98
[2022-10-27 06:43] VITALS: BP 99/54; TEMP 97.1; O2SAT 96
[2022-10-27] MEDS: NICOTINE 21MG/24HR 1 EA TRANSDERMAL TD SCH (09:00)
[2022-10-27] MEDS: ACETYLCYSTEINE 1000 MG PO SCH (09:09)
[2022-10-27] MEDS: [UNRECOGNIZED DRUG - OTHER] PO SCH (09:10)
[2022-10-27] MEDS: CALCIUM PO SCH (09:10)
[2022-10-27] MEDS: MAGNESIUM PO SCH (09:10)
[2022-10-27] MEDS: VIT D PO SCH (09:10)
[2022-10-27] MEDS: ZINC PO SCH (09:10)
[2022-10-27 17:13] VITALS: BP 124/69; TEMP 97.9
[2022-10-28 06:00] VITALS: BP 108/62; TEMP 98; O2SAT 95
[2022-10-28] MEDS: NICOTINE 21MG/24HR 1 EA TRANSDERMAL TD SCH (08:21)
[2022-10-28] MEDS: VIT D PO SCH (08:24)
[2022-10-28] MEDS: ZINC PO SCH (08:24)
[2022-10-28] MEDS: [UNRECOGNIZED DRUG - OTHER] PO SCH (08:24)
[2022-10-28] MEDS: CALCIUM PO SCH (08:24)
[2022-10-28] MEDS: MAGNESIUM PO SCH (08:24)
[2022-10-28] MEDS: ACETYLCYSTEINE 1000 MG PO SCH (08:24)
[2022-10-28 15:26] VITALS: BP 120/71; TEMP 98.3; O2SAT 97
[2022-10-29 06:59] VITALS: BP 97/55; TEMP 98.4
[2022-10-29] MEDS: NICOTINE 21MG/24HR 1 EA TRANSDERMAL TD SCH (09:00)
[2022-10-29] MEDS: ZINC PO SCH (09:08)
[2022-10-29] MEDS: VIT D PO SCH (09:08)
[2022-10-29] MEDS: CALCIUM PO SCH (09:08)
[2022-10-29] MEDS: MAGNESIUM PO SCH (09:08)
[2022-10-29] MEDS: ACETYLCYSTEINE 1000 MG PO SCH (09:09)
[2022-10-29] MEDS: [UNRECOGNIZED DRUG - OTHER] PO SCH (09:09)
[2022-10-29 18:00] VITALS: BP 128/68; TEMP 98.4
[2022-10-30 06:48] VITALS: BP 109/68; TEMP 97.2; O2SAT 99
[2022-10-30] MEDS: [UNRECOGNIZED DRUG - OTHER] PO SCH (08:03)
[2022-10-30] MEDS: CALCIUM PO SCH (08:03)
[2022-10-30] MEDS: VIT D PO SCH (08:03)
[2022-10-30] MEDS: MAGNESIUM PO SCH (08:03)
[2022-10-30] MEDS: ZINC PO SCH (08:03)
[2022-10-30] MEDS: ACETYLCYSTEINE 1000 MG PO SCH (08:03)
[2022-10-30] MEDS: NICOTINE 21MG/24HR 1 EA TRANSDERMAL TD SCH (08:04)
[2022-10-30] MEDS ORDERED: BENZ1TAB5 PO (08:39)
[2022-10-30] MEDS ORDERED: CLOZ25TA6 PO (08:39)
[2022-10-30 12:38] VITALS: BP 124/80; TEMP 98.7; O2SAT 100
== END 2022-10-30 13:34 | DRG 885 ==
LOC: M ED 09:22 → M ED INP 15:35 → M PSY 16:56
PROVIDERS: ADMIT Student in an Organized Health Care Education/Training Program; ATTEND Student in an Organized Health Care Education/Training Program
DX: F20.9 Schizophrenia, unspecified (principal); Z91.128 Patient's intentional underdosing of medication regimen for other reason; Z91.119 Patient's noncompliance with dietary regimen due to unspecified reason; F25.0 Schizoaffective disorder, bipolar type; F17.210 Nicotine dependence, cigarettes, uncomplicated; R00.0 Tachycardia, unspecified; J02.9 Acute pharyngitis, unspecified

== ENCOUNTER 2024-04-11 05:03 | Inpatient (IN) | payer MEDICARE, MEDICAID ==
[~2024-04-11] VITALS: Ht 170.2 cm; Wt 88.2 kg
[2024-04-11 06:01] LABS: HEMOGLOBIN 14.2 g/dl (12.0-15.5); MEAN CORPUSCULAR HEMOGLOBIN 31.2 pg (27.0-33.0); MEAN CORPUSCULAR VOLUME 94.5 fl (80.0-96.0); PLATELET COUNT, AUTOMATED 275 10^3/uL (150-450); RED BLOOD COUNT 4.55 10^6/uL (4.00-5.40); WHITE BLOOD COUNT 6.9 10^3/uL (4.0-10.0)
[2024-04-11 06:28] LABS: AMPHETAMINES LEVEL URINE NEGATIVE (NEGATIVE); BARBITURATES URINE NEGATIVE (NEGATIVE); COCAINE METABOLITE URINE NEGATIVE (NEGATIVE); METHADONE URINE NEGATIVE (NEGATIVE)
[2024-04-11 06:29] LABS: CANNABINOIDS URINE NEGATIVE (NEGATIVE); OPIATES URINE NEGATIVE (NEGATIVE); PHENCYCLIDINE URINE NEGATIVE (NEGATIVE)
[2024-04-11 06:31] LABS: ETHYL ALCOHOL (ETHANOL) < 0.003 % (0.000-0.010)
[2024-04-11 06:32] LABS: SALICYLATE LEVEL < 3.0 MG/DL (<30)
[2024-04-11 06:33] LABS: ALBUMIN 3.7 G/DL (3.2-5.2); ALKALINE PHOSPHATASE 99 U/L (35-104); ALT/SGPT 31 U/L (7.0-40); AST/SGOT 22 U/L (<34); BILIRUBIN,DIRECT < 0.1 MG/DL (<0.4); BILIRUBIN,TOTAL 0.3 MG/DL (0.3-1.2); BLOOD UREA NITROGEN 10 MG/DL (9-23); CALCIUM LEVEL 9.3 MG/DL (8.5-10.1); CARBON DIOXIDE LEVEL 26 MMOL/L (20-31); CHLORIDE LEVEL 108 MMOL/L (98-107); GLOMERULAR FILTRATION RATE > 60.0 (>60); GLUCOSE, FASTING 113 MG/DL (60-100); POTASSIUM SERUM 4.3 MMOL/L (3.5-5.1); SODIUM LEVEL 144 MMOL/L (136-145); TOTAL PROTEIN 7.1 G/DL (5.7-8.2)
[2024-04-11 06:35] LABS: THYROID STIMULATING HORMONE 1.851 uIU/ML (0.55-4.78)
[2024-04-11 06:36] LABS: BENZODIAZEPINES URINE POSITIVE (NEGATIVE)
[2024-04-11] MEDS ORDERED: HYDR1CAP25 PO (07:40)
[2024-04-11] MEDS ORDERED: ALPR0.5T3 PO (13:55)
[2024-04-11] MEDS ORDERED: RISP250S SQ (13:57)
[2024-04-11] MEDS ORDERED: traZODone 50 MG TAB PO PRN (15:55)
[2024-04-11] MEDS ORDERED: MAALOX 30 ML SUSP *UDC PO PRN (15:55)
[2024-04-11] MEDS ORDERED: diphenhydrAMINE 25MG CAP PO PRN (15:55)
[2024-04-11] MEDS ORDERED: IBUPROFEN 400MG TAB PO PRN (15:55)
[2024-04-11] MEDS ORDERED: MOM 30ML SUSPENSION UDC PO PRN (15:55)
[2024-04-11 16:53] LABS: URINE PREG TEST NEGATIVE (NEGATIVE)
[2024-04-11 17:37] VITALS: BP 120/72; TEMP 97.2; O2SAT 100
[2024-04-12 06:25] VITALS: BP 148/76; TEMP 97.3; O2SAT 99
[2024-04-12] MEDS ORDERED: NAC500CA PO (09:41)
[2024-04-12] MEDS ORDERED: D3 H10002 PO (09:42)
[2024-04-12] MEDS ORDERED: FERR324T21 PO (09:44)
[2024-04-12] MEDS ORDERED: THERTAB52 PO (09:44)
[2024-04-12] MEDS ORDERED: NICO21DI6 TD (09:46)
[2024-04-12] MEDS ORDERED: ACET1TAB55 PO (09:47)
[2024-04-12] MEDS ORDERED: HYDR1CAP25 PO (09:49)
[2024-04-12] MEDS ORDERED: HOME MED LIST COMPLETE! XX SCH (09:55)
[2024-04-12] MEDS: OLANZapine ORAL DISINTEGRATING TAB 5MG PO PRN (10:13)
[2024-04-12] MEDS: NICOTINE 7 MG/24 HR TRANSDERMAL TD SCH (13:25)
[2024-04-12 15:49] VITALS: BP 123/84; TEMP 97.8; O2SAT 98
[2024-04-12] MEDS: ACETAMINOPHEN 325 MG TAB PO PRN (16:49)
[2024-04-12] MEDS ORDERED: ALPRAZolam 0.5 MG TAB PO PRN (18:05)
[2024-04-13 06:31] VITALS: BP 128/66; TEMP 98; O2SAT 97
[2024-04-13 07:19] LABS: CHOLESTEROL RISK RATIO 3.48 (<5); HDL CHOLESTEROL 51.7 MG/DL (>40); LDL CHOLESTEROL 105.1 MG/DL (<100); NON-HDL-C 128.3 MG/DL
[2024-04-13] MEDS: FERROUS GLUCONATE 324 MG TAB PO SCH (09:05)
[2024-04-13 15:24] VITALS: BP 134/77; TEMP 97.6; O2SAT 97
[2024-04-13] MEDS: ARIPiprazole 2 MG TAB PO SCH (20:28)
[2024-04-14 06:24] VITALS: BP 94/51; TEMP 97.7; O2SAT 95
[2024-04-14] MEDS ORDERED: ABIL1TAB13 PO (08:15)
== END 2024-04-14 11:06 | disposition home or self-care (01) | DRG 885 ==
LOC: M ED 05:03 → M ED INP 15:02 → M PSY 17:37
PROVIDERS: ADMIT Psychiatry & Neurology Psychiatry; ATTEND Psychiatry & Neurology Psychiatry
DX: F25.0 Schizoaffective disorder, bipolar type (principal); Z91.148 Patient's other noncompliance with medication regimen for other reason; F17.210 Nicotine dependence, cigarettes, uncomplicated; Z59.89 Other problems related to housing and economic circumstances

== ENCOUNTER → 2024-04-28 | Outpatient (CLI) | payer MEDICAID, MEDICARE ==
[~2024-04-28] MED LIST changes: +ACET1TAB55 PO; +ALPR0.5T3 PO; +D3 H10002 PO; +FERR324T21 PO; +HYDR1CAP25 PO; +NAC500CA PO; +NICO21DI6 TD; +RISP250S SQ; +THERTAB52 PO
[2024-04-28 14:44] LABS: BASO % 0.4 % (0.0-1.0); EOS # 0.2 10^3/uL (0.0-0.5); HEMATOCRIT 39.6 % (36.0-47.0); HEMOGLOBIN 13.5 g/dl (12.0-15.5); LYMPH # 2.4 10^3/uL (1.5-5.0); LYMPH % 30.8 % (24.0-44.0); MEAN CORPUSCULAR HEMOGLOBIN 31.7 pg (27.0-33.0); MEAN CORPUSCULAR HGB CONC 34.1 g/dl (32.0-36.5); MONO # 0.5 10^3/uL (0.0-0.8); MONO % 6.3 % (2.0-8.0); NEUTROPHILS # 4.6 10^3/uL (1.5-8.5); NEUTROPHILS % 60.2 % (36.0-66.0); PLATELET COUNT, AUTOMATED 285 10^3/uL (150-450); RED BLOOD COUNT 4.26 10^6/uL (4.00-5.40); WHITE BLOOD COUNT 7.7 10^3/uL (4.0-10.0)
[2024-04-28 14:46] LABS: ALBUMIN 3.6 G/DL (3.2-5.2); ALKALINE PHOSPHATASE 106 U/L (35-104); ALT/SGPT 90 U/L (7.0-40); AST/SGOT 30 U/L (<34); BILIRUBIN,TOTAL 0.2 MG/DL (0.3-1.2); BLOOD UREA NITROGEN 18 MG/DL (9-23); CALCIUM LEVEL 9.5 MG/DL (8.5-10.1); CARBON DIOXIDE LEVEL 26 MMOL/L (20-31); CHLORIDE LEVEL 110 MMOL/L (98-107); CHOLESTEROL LEVEL 198 MG/DL (<200); CHOLESTEROL RISK RATIO 4.46 (<5); CREATININE FOR GFR 0.54 MG/DL (0.55-1.30); FREE T4 0.95 NG/DL (0.89-1.76); GLOMERULAR FILTRATION RATE > 60.0 (>60); GLUCOSE, FASTING 108 MG/DL (60-100); HDL CHOLESTEROL 44.3 MG/DL (>40); LDL CHOLESTEROL 105.5 MG/DL (<100); NON-HDL-C 153.7 MG/DL; POTASSIUM SERUM 3.9 MMOL/L (3.5-5.1); SODIUM LEVEL 145 MMOL/L (136-145); TOTAL PROTEIN 6.9 G/DL (5.7-8.2); TRIGLYCERIDES LEVEL 241 MG/DL (<150)
[2024-04-28 14:47] LABS: THYROID STIMULATING HORMONE 1.905 uIU/ML (0.55-4.78)
== END ==
LOC: M LAB 13:55
DX: Z00.8 Encounter for other general examination (principal); Z79.899 Other long term (current) drug therapy

== ENCOUNTER → 2024-06-29 | Outpatient (CLI) | payer MEDICARE, MEDICAID | LOC: M RAD 10:53 | PROVIDERS: ATTEND Internal Medicine Cardiovascular Disease | DX: R74.01 Elevation of levels of liver transaminase levels (principal); K82.4 Cholesterolosis of gallbladder; K76.0 Fatty (change of) liver, not elsewhere classified ==

== ENCOUNTER → 2024-09-19 | Outpatient (CLI) | payer MEDICARE, MEDICAID ==
[2024-09-19 11:33] LABS: BASO # 0.0 10^3/uL (0.0-0.2); BASO % 0.3 % (0.0-1.0); EOS # 0.2 10^3/uL (0.0-0.5); EOS % 2.6 % (0.0-3.0); LYMPH # 2.0 10^3/uL (1.5-5.0); LYMPH % 33.9 % (24.0-44.0); MONO # 0.3 10^3/uL (0.0-0.8); MONO % 5.7 % (2.0-8.0); NEUTROPHILS # 3.3 10^3/uL (1.5-8.5); NEUTROPHILS % 57.2 % (36.0-66.0); PLATELET COUNT, AUTOMATED 228 10^3/uL (150-450)
[2024-09-19 12:00] LABS: ALT/SGPT 21 U/L (7.0-40); AST/SGOT 19 U/L (<34); CALCIUM LEVEL 9.1 MG/DL (8.5-10.1); CARBON DIOXIDE LEVEL 25 MMOL/L (20-31); CHLORIDE LEVEL 107 MMOL/L (98-107); CHOLESTEROL LEVEL 135 MG/DL (<200); CHOLESTEROL RISK RATIO 3.62 (<5); CREATININE FOR GFR 0.50 MG/DL (0.55-1.30); GLOMERULAR FILTRATION RATE > 90.0 (>60); LDL CHOLESTEROL 58.8 MG/DL (<100); NON-HDL-C 97.8 MG/DL; POTASSIUM SERUM 3.8 MMOL/L (3.5-5.1); SODIUM LEVEL 143 MMOL/L (136-145); TRIGLYCERIDES LEVEL 195 MG/DL (<150)
[2024-09-19 12:01] LABS: FREE T4 0.83 NG/DL (0.89-1.76)
== END ==
LOC: M LAB 10:31
DX: E78.5 Hyperlipidemia, unspecified (principal); K21.9 Gastro-esophageal reflux disease without esophagitis; F31.9 Bipolar disorder, unspecified; F20.89 Other schizophrenia

== ENCOUNTER 2024-10-16 14:43 | Emergency (ER) | payer MEDICARE, MEDICAID ==
[~2024-10-16] VITALS: Ht 167.6 cm; Wt 103.6 kg
[2024-10-16 14:53] VITALS: BP 118/67; TEMP 97.7; O2SAT 96
[2024-10-16 16:06] LABS: PLATELET COUNT, AUTOMATED 266 10^3/uL (150-450)
[2024-10-16 16:34] LABS: AMPHETAMINES LEVEL URINE NEGATIVE (NEGATIVE); BARBITURATES URINE NEGATIVE (NEGATIVE); BENZODIAZEPINES URINE NEGATIVE (NEGATIVE); CANNABINOIDS URINE NEGATIVE (NEGATIVE); COCAINE METABOLITE URINE NEGATIVE (NEGATIVE); METHADONE URINE NEGATIVE (NEGATIVE); OPIATES URINE NEGATIVE (NEGATIVE); PHENCYCLIDINE URINE NEGATIVE (NEGATIVE)
[2024-10-16 16:36] LABS: ETHYL ALCOHOL (ETHANOL) < 0.003 % (0.000-0.010); SALICYLATE LEVEL < 3.0 MG/DL (<30)
[2024-10-16 16:37] LABS: ALT/SGPT 27 U/L (7.0-40); AST/SGOT 27 U/L (<34); CALCIUM LEVEL 9.4 MG/DL (8.5-10.1); CARBON DIOXIDE LEVEL 25 MMOL/L (20-31); CHLORIDE LEVEL 108 MMOL/L (98-107); CREATININE FOR GFR 0.53 MG/DL (0.55-1.30); GLOMERULAR FILTRATION RATE > 90.0 (>60); POTASSIUM SERUM 4.1 MMOL/L (3.5-5.1); SODIUM LEVEL 143 MMOL/L (136-145)
[2024-10-16 16:41] LABS: HCG, SERUM QUALITATIVE NEGATIVE (NEGATIVE)
[2024-10-16] MEDS: NICOTINE 21 MG/24 HR 1 EA TRANSDERMAL TD ONE (16:52)
== END 2024-10-16 18:32 | disposition home or self-care (01) ==
LOC: M ED 14:43
DX: F25.9 Schizoaffective disorder, unspecified (principal); Z79.1 Long term (current) use of non-steroidal anti-inflammatories (NSAID); Z79.899 Other long term (current) drug therapy

== ENCOUNTER 2024-11-02 17:02 | Emergency (ER) | payer MEDICARE, MEDICAID ==
[~2024-11-02] VITALS: Ht 170.2 cm; Wt 102.2 kg
[2024-11-02 18:03] LABS: PLATELET COUNT, AUTOMATED 314 10^3/uL (150-450)
[2024-11-02 18:21] LABS: AMPHETAMINES LEVEL URINE NEGATIVE (NEGATIVE); BARBITURATES URINE NEGATIVE (NEGATIVE); COCAINE METABOLITE URINE NEGATIVE (NEGATIVE); METHADONE URINE NEGATIVE (NEGATIVE)
[2024-11-02 18:22] LABS: CANNABINOIDS URINE NEGATIVE (NEGATIVE); OPIATES URINE NEGATIVE (NEGATIVE)
[2024-11-02 18:23] LABS: PHENCYCLIDINE URINE NEGATIVE (NEGATIVE)
[2024-11-02 18:26] LABS: BENZODIAZEPINES URINE POSITIVE (NEGATIVE)
[2024-11-02 18:27] LABS: ALT/SGPT 34 U/L (7.0-40); AST/SGOT 25 U/L (<34); CALCIUM LEVEL 9.8 MG/DL (8.5-10.1); CARBON DIOXIDE LEVEL 22 MMOL/L (20-31); CHLORIDE LEVEL 105 MMOL/L (98-107); CREATININE FOR GFR 0.60 MG/DL (0.55-1.30); GLOMERULAR FILTRATION RATE > 90.0 (>60); POTASSIUM SERUM 3.9 MMOL/L (3.5-5.1); SALICYLATE LEVEL < 3.0 MG/DL (<30); SODIUM LEVEL 139 MMOL/L (136-145)
[2024-11-02 18:29] LABS: ETHYL ALCOHOL (ETHANOL) < 0.003 % (0.000-0.010)
[2024-11-02 21:21] VITALS: BP 142/89; TEMP 97.3; O2SAT 98
== END 2024-11-02 21:24 | disposition home or self-care (01) ==
LOC: M ED 17:02 → EDBD 17:02 → M ED 21:24
DX: F20.9 Schizophrenia, unspecified (principal); K21.9 Gastro-esophageal reflux disease without esophagitis; A60.04 Herpesviral vulvovaginitis; F17.200 Nicotine dependence, unspecified, uncomplicated; Z79.1 Long term (current) use of non-steroidal anti-inflammatories (NSAID); Z79.899 Other long term (current) drug therapy